=== PATIENT | male | born 1960 | race Caucasian/White ===

== ENCOUNTER 2020-07-11 11:41 | Inpatient (IN) ==
--- NOTE | 2020-07-11 12:15 | Emergency Department Note ---
Impression & Plan Congestive heart failure, Volume overload, Dyspnea on exertion, A-fib ED Provider Note NAME: NEHA BRADY AGE: 60 SEX: M : 1960 ARRIVES VIA: Ambulance INFORMANT: Patient ED PROVIDER(S): Tico Ramirez DO CHIEF COMPLAINT: Shortness of breath with exertion HPI: Patient is a 60-year-old male who presents to the ER for shortness of breath with exertion which has been present for the past month. Has been gradually getting worse. He admits to a 50 pound weight gain over the past month. Denies any chest pain. History of a CABG back in 2001. Follows with [facility] cardiology. He denies any dysuria urgency or frequency. He admits to his belly swelling up with fluid as well as both of his legs. He was evaluated by his PCP and referred in here for admission and further work-up. He denies any history of an irregular heartbeat. He admits to a history of diabetes and CAD. ROS: See above HPI for pertinent positives & negatives. A total of 10 systems reviewed and were otherwise negative. PAST MEDICAL HISTORY:See Below PAST SURGICAL HISTORY:See Below FAMILY HISTORY:See Below SOCIAL HISTORY:See Below HOME MEDICATIONS:See Below ALLERGIES:See Below VITALS:See Below PHYSICAL EXAMINATION: GENERAL: Sitting up in bed, alert, chronically ill-appearing, disheveled EYE EXAM: normal conjunctiva. NECK: supple, no nuchal rigidity, no adenopathy, non-tender LUNGS: Diminished bilaterally. Normal chest wall mechanics HEART: no murmurs, S1 normal and S2 normal ABDOMEN: abdomen soft, non-tender, normo-active bowel sounds, no masses, no rebound or guarding. BACK: Back is symmetrical on inspection and there is no deformity, no midline tenderness, no CVA tenderness. UPPER EXTREMITIES: upper extremities are grossly normal. LOWER EXTREMITIES: Diffuse pitting edema tracking up to his lower back NEURO EXAM: Normal sensorium, cranial nerves II-XII grossly intact, normal speech, no gross weakness of arms, no gross weakness of legs. MEDICAL DECISION MAKING: Patient is a 60-year-old male who presents the ER for shortness of breath. This has been getting worse over the past month. He has gained 50 pounds over the past month. IV was established blood work was obtained. Labs show no significant leukocytosis or anemia. INR was unremarkable. D-dimer negative. BMP was unremarkable. LFTs were slightly elevated. Troponin was negative. BNP elevated at 2700. UA was negative. Diffuse pitting edema. Chest x-ray c onsistent with CHF as well as exam. EKG was reviewed. Patient family was updated at bedside. He was given a dose of Lopressor as well as IV Lasix and admitted for CHF. Discussed with hospitalist for further evaluation for CHF likely secondary to A. fib. Rita fib was initially in the low 100s but did increase to the 120s. Was given IV Lopressor with good rate control. Triage Nursing notes reviewed. Prior medical records reviewed Vital Signs: reviewed and remarkable for tachypneic Differential diagnosis: Differential diagnoses includes but is not limited to pneumonia, bronchitis, COPD/Asthma exacerbation, pneumothorax, pulmonary embolism, congestive heart failure, acute coronary syndrome ER treatment provided: See below Diagnostics interpreted by me: ECG: A. fib rate of 108 Normal axis No PVCs Nonspecific ST wave changes in the lateral leads Nonspecific ST wave changes in the inferior leads Normal QTC Cardiac Monitoring: An order was placed for continuous cardiac monitoring. The monitor shows a rate of 101 with sinus rhythm. Laboratory studies: As stated above and show below. Imaging studies: Portable AP upright 1 view of the chest shows pulmonary vascular congestion Consultation(s): Discussed with hospitalist for admission. ED COURSE: Procedures: none Past Med/Surg History Medical History Coronary artery disease Diabetes mellitus, type II Dyslipidemia HTN (hypertension) Mood disorder Surgical History H/O colonoscopy "2011 repeat 5 years " History of dental surgery Status post coronary artery bypass grafting Family History Other Diabetes Pancreatic cancer Social History Smoking Status: Former smoker Tobacco Type: Smokeless Tobacco (Dip or Chew) Do You Dip or Chew Tobacco: Yes; Hx Alcohol Use: Yes Alcohol type: beer Alcohol Intake Frequency: Monthly or Less Hx Substance Use: No Preferred Language: [place] Konger Communication Ability: Effective Health And Safety Coordinator Required: No Beliefs That Will Affect Care: None Current Living Situation: Spouse Other Information That Helps Us Care for You: No Feels Safe at Home: Yes Safety Concerns: Feels Safe At This Time Allergies Allergies Allergy/AdvReac Type Severity Reaction Status Date / Time No Known Allergies Allergy Unknown Verified 07/11/20 13:45 Home Meds Home Medications Medication Instructions Recorded Confirmed aspirin 81 mg tablet,delayed 81 mg PO QAM 07/19/19 07/11/20 release atorvastatin 40 mg tablet 40 mg PO QAM 07/19/19 07/11/20 citalopram 20 mg tablet 20 mg PO QAM 07/19/19 07/11/20 fenofibrate nanocrystallized 145 145 mg PO QAM 07/19/19 07/11/20 mg tablet iron,carbonyl 100 mg-vitamin C 250 1 tab PO QAM 07/19/19 07/11/20 mg tablet isosorbide mononitrate 30 mg 30 mg PO QA 07/19/19 07/11/20 tablet,extended release 24 hr metformin 1,000 mg tablet 1,000 mg PO BIDM 07/19/19 07/11/20 metoprolol succinate 25 mg capsule 25 mg PO M 07/19/19 07/11/20 sprinkle, ext. release 24 hr multivitamin 1 tab PO QAM 07/19/19 07/11/20 nitroglycerin 0.4 mg sublingual 0.4 mg SL .COMPLEX 07/19/19 07/11/20 tablet omega-3 fatty acids 1,000 mg 1,000 mg PO QAM 07/19/19 07/11/20 capsule ramipril 5 mg capsule 5 mg PO QAM 07/19/19 07/11/20 blood sugar diagnostic #10 ea 09/18/19 01/11/20 dulaglutide 1.5 mg/0.5 mL 1.5 mg SQ SUMMERS ml 09/18/19 07/11/20 subcutaneous pen injector insulin lispro 100 unit/mL See Rx Instructions SQ TID 09/18/19 07/11/20 subcutaneous pen insulin syringe-needle U-100 1 mL #10 ea 09/18/19 01/11/20 31 gauge x 5/16" pen needle, diabetic 32 gauge x #50 ea 09/18/19 01/11/20 1/4" insulin detemir U-100 100 unit/mL See Rx Instructions SQ DAILY ml 01/11/20 07/11/20 subcutaneous solution Results & Data (ED) Vital Signs Vital Signs - 24 hr 07/11/20 11:45 07/11/20 11:50 07/11/20 11:51 Temperature 36.8 C Temperature Source Oral Pulse Rate 104 H 105 H 104 H Pulse Rate [Right Finger] Pulse Rate from SpO2 Sensor 98 H 97 H Respiratory Rate 23 24 26 H Respiratory Effort / Characteristics Spontaneous Labored Respiratory Depth Normal Respiratory Pattern Regular Blood Pressure 119/83 119/83 Blood Pressure [Left Arm] Blood Pressure Mean 103 95 Blood Pressure Mean [Left Arm] Blood Pressure Position [Left Arm] Pulse Oximetry 96 93 96 Oxygen Delivery Method Nasal Cannula Room Air Nasal Cannula Oxygen Flow Rate 2 2 Sepsis Recent Fever Within 48 Hours No Sepsis New/Unexplained Change in Mental Status No Sepsis Action Taken by Nursing No Action Required Oxygen Flow Rate - Titration 2 Pulse Oximetry Post Tiitration 97 07/11/20 12:00 07/11/20 12:19 07/11/20 12:30 Temperature Temperature Source Pulse Rate 104 H 103 H 129 H Pulse Rate [Right Finger] Pulse Rate from SpO2 Sensor 102 H 129 H Respiratory Rate 21 20 20 Respiratory Effort / Characteristics Respiratory Depth Respiratory Pattern Blood Pressure Blood Pressure [Left Arm] Blood Pressure Mean Blood Pressure Mean [Left Arm] Blood Pressure Position [Left Arm] Pulse Oximetry 97 99 100 Oxygen Delivery Method Nasal Cannula Nasal Cannula Nasal Cannula Oxygen Flow Rate 2 2 2 Sepsis Recent Fever Within 48 Hours Sepsis New/Unexplained Change in Mental Status Sepsis Action Taken by Nursing Oxygen Flow Rate - Titration Pulse Oximetry Post Tiitration 07/11/20 13:00 07/11/20 13:30 07/11/20 13:35 Temperature Temperature Source Pulse Rate 129 H 109 H 111 H Pulse Rate [Right Finger] Pulse Rate from SpO2 Sensor 129 H 108 H 123 H Respiratory Rate 21 22 18 Respiratory Effort / Characteristics Respiratory Depth Respiratory Pattern Blood Pressure 117/70 Blood Pressure [Left Arm] Blood Pressure Mean 75 Blood Pressure Mean [Left Arm] Blood Pressure Position [Left Arm] Pulse Oximetry 98 99 98 Oxygen Delivery Method Nasal Cannula Nasal Cannula Nasal Cannula Oxygen Flow Rate 2 2 2 Sepsis Recent Fever Within 48 Hours Sepsis New/Unexplained Change in Mental Status Sepsis Action Taken by Nursing Oxygen Flow Rate - Titration Pulse Oximetry Post Tiitration 07/11/20 13:36 07/11/20 13:38 07/11/20 14:00 Temperature Temperature Source Pulse Rate 110 H 103 H Pulse Rate [Right Finger] 106 H Pulse Rate from SpO2 Sensor 107 H 101 H Respiratory Rate 19 18 20 Respiratory Effort / Characteristics Non-Labored Spontaneous Respiratory Depth Normal Respiratory Pattern Regular Blood Pressure Blood Pressure [Left Arm] 117/70 Blood Pressure Mean Blood Pressure Mean [Left Arm] 85 Blood Pressure Position [Left Arm] Lying Pulse Oximetry 98 18 L 99 Oxygen Delivery Method Nasal Cannula Room Air Nasal Cannula Oxygen Flow Rate 2 2 Sepsis Recent Fever Within 48 Hours Sepsis New/Unexplained Change in Mental Status Sepsis Action Taken by Nursing Oxygen Flow Rate - Titration Pulse Oximetry Post Tiitration 07/11/20 14:01 07/11/20 14:07 07/11/20 14:08 Temperature Temperature Source Pulse Rate 107 H 105 H 98 H Pulse Rate [Right Finger] Pulse Rate from SpO2 Sensor 106 H 105 H 97 H Respiratory Rate 24 22 19 Respiratory Effort / Characteristics Respiratory Depth Respiratory Pattern Blood Pressure 123/96 Blood Pressure [Left Arm] Blood Pressure Mean 110 Blood Pressure Mean [Left Arm] Blood Pressure Position [Left Arm] Pulse Oximetry 98 96 96 Oxygen Delivery Method Nasal Cannula Nasal Cannula Nasal Cannula Oxygen Flow Rate 2 2 2 Sepsis Recent Fever Within 48 Hours Sepsis New/Unexplained Change in Mental Status Sepsis Action Taken by Nursing Oxygen Flow Rate - Titration Pulse Oximetry Post Tiitration Laboratory Data Result diagrams: 07/11/20 12:00 07/11/20 12:00 Lab Results 07/11/20 07/11/20 07/11/20 Range/Units 12:00 12:00 12:00 WBC 8.23 (4.8-10.8) K/uL RBC 5.20 (4.7-6.1) M/uL Hgb 15.1 (14.0-18.0) g/dL Hct 47.5 (42-52) % MCV 91.3 (80-100) fL MCH 29.0 (25-34) pg MCHC 31.8 L (32-36) g/dL RDW Std Deviation 52.8 H (36.4-46.3) fL RDW Coeff of Sai 15.6 H (11.5-14.5) % Plt Count 114 L (130-400) K/uL MPV 12.0 H (7.4-10.4) fL Immature Gran % (Auto) 0.2 % Neut % (Auto) 63.4 % Lymph % (Auto) 22.7 % Rusk % (Auto) 10.6 % Eos % (Auto) 3.0 % Baso % (Auto) 0.1 % Neut # (Auto) 5.21 (1.4-6.5) K/uL Lymph # (Auto) 1.87 (1.2-3.4) K/uL Rusk # (Auto) 0.87 H (0.11-0.59) K/uL Eos # (Auto) 0.25 (0-0.5) K/uL Baso # (Auto) 0.01 (0-0.2) K/uL Immature Gran # (Auto) 0.02 (0.00-0.02) K/uL Platelet Estimate Decreased L (Normal) PT 11.6 (9.0-12.0) Seconds INR 1.1 (0.9-1.1) APTT 24.8 (21.0-31.0) Seconds PTT Ratio 0.9 D-Dimer (0-500) ug/L FEU Sodium 140 (136-145) mmol/L Potassium 4.5 (3.5-5.1) mmol/L Chloride 108 H (98-107) mmol/L Carbon Dioxide 26 (21-32) mmol/L Anion Gap 5.0 (3-11) BUN 23 H (7-18) mg/dl Creatinine 0.92 (0.6-1.4) mg/dl Est Cr Clr Drug Dosing 118.0 ml/min Est GFR ( Amer) 103.7 Est GFR (Non-Af Amer) 89.5 BUN/Creatinine Ratio 25.3 H (10-20) Glucose 102 H (70-99) mg/dl Uric Acid (2.6-7.2) mg/dl Calcium 8.6 (8.5-10.1) mg/dl Magnesium 1.8 (1.8-2.4) mg/dl Total Bilirubin 0.4 (0.2-1) mg/dl AST 66 H (15-37) U/L ALT 92 H (12-78) U/L Alkaline Phosphatase 116 (45-117) U/L Troponin I < 0.015 (0-0.045) ng/ml NT-Pro-B Natriuret Pep 2745 H (0-900) pg/ml Total Protein 6.5 (6.4-8.2) gm/dl Albumin 3.0 L (3.4-5.0) gm/dl Globulin 3.5 (2.5-4.0) gm/dl Albumin/Globulin Ratio 0.9 (0.9-2) Specimen Hemolysis 07/11/20 07/11/20 Range/Units 12:00 12:00 WBC (4.8-10.8) K/uL RBC (4.7-6.1) M/uL Hgb (14.0-18.0) g/dL Hct (42-52) % MCV (80-100) fL MCH (25-34) pg MCHC (32-36) g/dL RDW Std Deviation (36.4-46.3) fL RDW Coeff of Sai (11.5-14.5) % Plt Count (130-400) K/uL MPV (7.4-10.4) fL Immature Gran % (Auto) % Neut % (Auto) % Lymph % (Auto) % Rusk % (Auto) % Eos % (Auto) % Baso % (Auto) % Neut # (Auto) (1.4-6.5) K/uL Lymph # (Auto) (1.2-3.4) K/uL Rusk # (Auto) (0.11-0.59) K/uL Eos # (Auto) (0-0.5) K/uL Baso # (Auto) (0-0.2) K/uL Immature Gran # (Auto) (0.00-0.02) K/uL Platelet Estimate (Normal) PT (9.0-12.0) Seconds INR (0.9-1.1) APTT (21.0-31.0) Seconds PTT Ratio D-Dimer 350 (0-500) ug/L FEU Sodium (136-145) mmol/L Potassium (3.5-5.1) mmol/L Chloride (98-107) mmol/L Carbon Dioxide (21-32) mmol/L Anion Gap (3-11) BUN (7-18) mg/dl Creatinine (0.6-1.4) mg/dl Est Cr Clr Drug Dosing ml/min Est GFR ( Amer) Est GFR (Non-Af Amer) BUN/Creatinine Ratio (10-20) Glucose (70-99) mg/dl Uric Acid 5.8 (2.6-7.2) mg/dl Calcium (8.5-10.1) mg/dl Magnesium (1.8-2.4) mg/dl Total Bilirubin (0.2-1) mg/dl AST (15-37) U/L ALT (12-78) U/L Alkaline Phosphatase (45-117) U/L Troponin I (0-0.045) ng/ml NT-Pro-B Natriuret Pep (0-900) pg/ml Total Protein (6.4-8.2) gm/dl Albumin (3.4-5.0) gm/dl Globulin (2.5-4.0) gm/dl Albumin/Globulin Ratio (0.9-2) Specimen Hemolysis Administered Medications Insulin Aspart (Insulin Aspart 100 Units/Ml 3 Ml Pen) 0 units SC ACHS TETE Stop: 08/10/20 18:14 Last Admin: 07/11/20 18:21 Dose: Not Given Documented by: [id number] Discontinued Medications Furosemide (Furosemide 40 Mg/4 Ml Vial) 40 mg IV NOW STA Stop: 07/11/20 13:23 Last Admin: 07/11/20 13:36 Dose: 40 mg Documented by: [id number] Metoprolol Tartrate (Metoprolol Tartrate 1 Mg/Ml Vial) 2.5 mg IV NOW STA Stop: 07/11/20 13:31 Last Admin: 07/11/20 13:35 Dose: 2.5 mg Documented by: [id number] Miscellaneous Information (Pharmacy Glycemic Mgmt Consult) 1 ea N/A NOW STA Stop: 07/11/20 14:23 Last Admin: 07/11/20 18:22 Dose: Not Given Documented by: [id number] Discharge Plan Visit Data Chief Complaint: Shortness of Breath/Dyspnea Stated Complaint: SOB on exertion w/ weight gain Hx CHF ED Provider: Tico Ramirez Discharge Problem: Congestive heart failure, Volume overload, Dyspnea on exertion, A-fib Patient Disposition: Admitted As Inpatient Discharge Instructions Interventions: ED Discharge Assessment Last Done: 07/11/20 17:09 Discharge Problem: Congestive heart failure Qualifiers: Heart failure type: unspecified Heart failure chronicity: unspecified Qualified Code(s): I50.9 - Heart failure, unspecified Volume overload Qualifiers: Hypervolemia type: unspecified Qualified Code(s): E87.70 - Fluid overload, unspecified A-fib Qualifiers: Atrial fibrillation type: unspecified Qualified Code(s): I48.91 - Unspecified atrial fibrillation
[2020-07-11 12:33] LABS: Alanine Aminotransferase 92 U/L (12-78); Aspartate Aminotransferase 66 U/L (15-37); BUN Creatinine Ratio 25.3 (10-20); Blood Urea Nitrogen 23 mg/dl (7-18); Calcium 8.6 mg/dl (8.5-10.1); Carbon Dioxide 26 mmol/L (21-32); Chloride 108 mmol/L (98-107); Est GFR (African American) 103.7; Est GFR (Non-African American) 89.5; Glucose 102 mg/dl (70-99); Magnesium 1.8 mg/dl (1.8-2.4); Potassium 4.5 mmol/L (3.5-5.1); Sodium 140 mmol/L (136-145)
[2020-07-11 12:36] LABS: INR 1.1 (0.9-1.1); Partial Thromboplastin Ratio 0.9; Partial Thromboplastin Time 24.8 Seconds (21.0-31.0); Prothrombin Time 11.6 Seconds (9.0-12.0)
[2020-07-11 12:44] LABS: Albumin Globulin Ratio 0.9 (0.9-2); Alkaline Phosphatase 116 U/L (45-117); Bilirubin,Total 0.4 mg/dl (0.2-1); Globulin 3.5 gm/dl (2.5-4.0); NT Pro B Type Natriuretic Pept 2745 pg/ml (0-900); Total Protein 6.5 gm/dl (6.4-8.2); Troponin I < 0.015 ng/ml (0-0.045)
[2020-07-11 12:47] LABS: Basophils # (auto) 0.01 K/uL (0-0.2); Basophils % (auto) 0.1 %; Eosinophils # (auto) 0.25 K/uL (0-0.5); Hematocrit (blood only) 47.5 % (42-52); Hemoglobin 15.1 g/dL (14.0-18.0); Immature Granulocytes # (auto) 0.02 K/uL (0.00-0.02); Immature Granulocytes % (auto) 0.2 %; Lymphocytes # (auto) 1.87 K/uL (1.2-3.4); Lymphocytes % (auto) 22.7 %; Mean Corpuscular Hgb Conc 31.8 g/dL (32-36); Mean Corpuscular Volume 91.3 fL (80-100); Monocytes # (auto) 0.87 K/uL (0.11-0.59); Monocytes % (auto) 10.6 %; Neutrophils # (auto) 5.21 K/uL (1.4-6.5); Neutrophils % (auto) 63.4 %; Platelet Count 114 K/uL (130-400); Platelet Estimate Decreased (Normal); RDW Coefficient of Variation 15.6 % (11.5-14.5); RDW Standard Deviation 52.8 fL (36.4-46.3); White Blood Count 8.23 K/uL (4.8-10.8)
[2020-07-11] MEDS ORDERED: FUROSEMIDE 40 MG/4 ML VIAL IV STA (13:22)
--- NOTE | 2020-07-11 13:26 | XRay Report ---
XR chest 1V portable HISTORY: 60 years-old Male Dyspnea acute shortness of breath COMPARISON: Chest radiograph 08/13/2016 TECHNIQUE: Portable AP view of the chest FINDINGS: Cardiac silhouette is enlarged, increased in size from comparison. Prior median sternotomy and CABG. Pulmonary vascular congestion. No pneumothorax. Mild right hemidiaphragmatic elevation. Blunting of t he right costophrenic angle. Mild bibasilar linear opacities. Degenerative changes of the shoulders a nd spine. IMPRESSION: 1. Cardiomegaly with pulmonary vascular congestion. 2. Trace pleural effusions with probable bibasilar atelectasis. ACT 112: Negative or not required by law. The above report was generated using voice recognition software. It may contain grammatical, syntax o r spelling errors. Electronically signed by: Romeo Saenz M.D. 07/11/2020 1:24 PM
[2020-07-11] MEDS ORDERED: METOPROLOL TARTRATE 1 MG/ML VIAL IV STA (13:30)
[2020-07-11] MEDS ORDERED: PHARMACY GLYCEMIC MGMT CONSULT STA (14:22)
--- NOTE | 2020-07-11 14:23 | History & Physical Report ---
Date of Service July 11, 2020 Assessment & Plan (1) Volume overload: (2) Dyspnea on exertion: This is a 60-year-old male with PMH of insulin-dependent type 2 diabetes, CAD (history of CABG in 2001), dyslipidemia, hypertension, GERD and other medical problems listed below who presents with significant weight gain and dyspnea on exertion over the past month. -Reported fifty pound weight gain, dyspnea on exertion, orthopnea & PND. No previous diagnosis of CHF -Pro-BNP elevated at 2745. Troponin normal. CXR with cardiomegaly with pulmonary vascular congestion and trace pleural effusions with probable bibasilar atelectasis. No recent echocardiogram on file -Given 40mg IV lasix in ED. BP has remained on softer side at 104/78 - consulting cardiology for further diuretic recommendations, considering Lasix + albumin -TTE ordered, felipe placed for strict I&Os, daily weights, low Na diet, monitor on telemetry -UA pending. Concern for underlying renal dysfunction like nephrotic syndrome. Protein/Cr ratio also pending. Routine nephro consult (3) Atrial flutter by electrocardiogram: A flutter with variable block with HR of 129 in setting of significant volume overload -Given 2.5mg IV Lopressor in ED with improved HR of 105. Repeat EKG pending -Currently taking Toprol 25mg daily at home -Monitor on telemetry. Appreciate cardiology recommendations (4) HTN (hypertension): Continue Toprol and ramipril with hold parameters (5) Diabetes mellitus, type II: Poorly controlled DM II with most recent a1c of 9.3 earlier this month -Formerly on insulin pump, now requiring ~96 units of lantus qPM -Hold home agents -Glycemic consult placed -[facility] (6) Coronary artery disease: H/o CABG in 2001. EKG without acute ST changes. No chest pain. Continue aspirin, statin, beta sury (7) Dyslipidemia: Continue statin, fenofibrate (8) Mood disorder: Continue SSRI DVT Ppx: SQ heparin Code status: FULL PCP: [facility] Dispo: Admitted to PCU. Plan to return home once medically stable. Patient seen in collaboration with Dr. Atkins. Please see addendum. History of Present Illness Chief Complaint: Significant weight gain, dyspnea on exertion Primary Care Provider: Johnny Mejia MD This is a 60-year-old male with PMH of insulin-dependent type 2 diabetes, CAD (history of CABG in 2001), dyslipidemia, hypertension, GERD and other medical problems listed below who presents with significant weight gain and dyspnea on exertion over the past month. Patient endorses gaining approximately 50 pounds over the past month with notable swelling in abdomen and lower extremities. Has also had dyspnea on exertion with any type of activity. Does endorse orthopnea and PND. Has followed with Dr. Flowers in the past of cardiology group for CAD and HTN but has not seen since 2017. Receives primary care from [facility]. Follows with [facility] endocrine for poorly controlled DM II. Denies any lightheadedness, visual changes, chest pain or palpitations. Denies wheezing. No fever, chills or cough. No sick contacts. Denies abdominal pain, nausea or vomiting. No dysuria but endorses nocturia and increased frequency he attributes to diabetes. In the ED, found to have heart rate of 129 and BP of 96/60. EKG showing atrial flutter with variable block. Denies any history of known arrhythmias. SOB improved on 2 L nasal cannula oxygen. Pro-BNP elevated at 2745. CXR with cardiomegaly with pulmonary vascular congestion and trace pleural effusions with probable bibasilar atelectasis. No recent echocardiogram on file. Allergies Allergy/AdvReac Type Severity Reaction Status Date / Time No Known Allergies Allergy Unknown Verified 07/11/20 13:45 Home Medications Home Medications Medication Instructions Recorded Confirmed Type aspirin 81 mg tablet,delayed 81 mg PO [facility] 07/19/19 07/11/20 History release atorvastatin 40 mg tablet 40 mg PO [facility] 07/19/19 07/11/20 History citalopram 20 mg tablet 20 mg PO [facility] 07/19/19 07/11/20 History fenofibrate nanocrystallized 145 145 mg PO [facility] 07/19/19 07/11/20 History mg tablet iron,carbonyl 100 mg-vitamin C 250 1 tab PO [facility] 07/19/19 07/11/20 History mg tablet isosorbide mononitrate 30 mg 30 mg PO [facility] 07/19/19 07/11/20 History tablet,extended release 24 hr metformin 1,000 mg tablet 1,000 mg PO BID 07/19/19 07/11/20 History metoprolol succinate 25 mg capsule 25 mg PO [facility] 07/19/19 07/11/20 History sprinkle, ext. release 24 hr multivitamin 1 tab PO QAM 07/19/19 07/11/20 History nitroglycerin 0.4 mg sublingual 0.4 mg SL .COMPLEX 07/19/19 07/11/20 History tablet omega-3 fatty acids 1,000 mg 1,000 mg PO QAM 07/19/19 07/11/20 History capsule ramipril 5 mg capsule 5 mg PO QAM 07/19/19 07/11/20 History blood sugar diagnostic #10 ea 09/18/19 01/11/20 History dulaglutide 1.5 mg/0.5 mL 1.5 mg SQ SUMMERS ml 09/18/19 07/11/20 History subcutaneous pen injector insulin lispro 100 unit/mL See Rx Instructions SQ TID 09/18/19 07/11/20 History subcutaneous pen insulin syringe-needle U-100 1 mL #10 ea 09/18/19 01/11/20 History 31 gauge x 5/16" pen needle, diabetic 32 gauge x #50 ea 09/18/19 01/11/20 History 1/4" insulin detemir U-100 100 unit/mL See Rx Instructions SQ DAILY ml 01/11/20 07/11/20 History subcutaneous solution Past Med/Surg History Medical History Coronary artery disease Diabetes mellitus, type II Dyslipidemia HTN (hypertension) Mood disorder Surgical History H/O colonoscopy "2011 repeat 5 years " History of dental surgery Status post coronary artery bypass grafting Family History Other Diabetes Pancreatic cancer Social History Smoking Status: Former smoker Tobacco Type: Smokeless Tobacco (Dip or Chew) Do You Dip or Chew Tobacco: Yes; Hx Alcohol Use: Yes Alcohol type: beer Alcohol Intake Frequency: Monthly or Less Hx Substance Use: No Preferred Language: Malian Communication Ability: Effective In Flight [employer] Required: No Beliefs That Will Affect Care: None Current Living Situation: Spouse Other Information That Helps Us Care for You: No Feels Safe at Home: Yes Safety Concerns: Feels Safe At This Time Review of Systems Review of Systems: At least ten systems reviewed and negative except as noted in the HPI. Physical Exam Physical Exam: General Appearance: WD/WN, vitals as above, NAD, sitting up in bed, obese, pleasant, conversational dyspnea Head: normocephalic, atraumatic Eyes: normal inspection, PERRL, conjunctivae normal, anicteric sclerae ENT: external ear and nose normal, oropharynx normal Neck: normal visual inspection, trachea midline, no thyromegaly Respiratory: normal respiratory effort, diminished lung sounds at bases, no wheeze or rhonchi. No accessory muscle use Cardiovascular: tachycardic rate, irregular rhythm, no murmur appreciated, normal peripheral pulses, 2+ BLE pitting edema. Vessels: difficult to assess JVD due to habitus Chest: normal inspection of chest Abdomen/GI: normal bowel sounds, soft but protuberant, nontender, no hepatosplenomegaly Extremities/Musculoskeletal: no cyanosis or clubbing, extremities motor strength 5/5. Pitting edema up to midback bilaterally Neurologic: PERRL, EOMI, accommodation nl, no face palsy, no dysarthria, CN's II-XI intact bilaterally and moves all extremities Psychiatric: A+Ox3, euthymic affect Skin: no rashes, normal color, warm/dry Results & Data Results & Data ([facility]) Vital Signs (Past 12 Hours) Vital Signs Temp Pulse Pulse Resp BP BP Pulse Ox 07/11/20 14:07 105 H 22 123/96 96 07/11/20 14:01 107 H 24 98 07/11/20 14:00 103 H 20 99 07/11/20 13:38 106 H 18 117/70 18 L 07/11/20 13:36 110 H 19 98 07/11/20 13:35 111 H 18 117/70 98 07/11/20 13:30 109 H 22 99 07/11/20 13:00 129 H 21 98 07/11/20 12:30 129 H 20 100 07/11/20 12:19 103 H 20 99 07/11/20 12:00 104 H 21 97 07/11/20 11:51 104 H 26 H 96 07/11/20 11:50 36.8 C 105 H 24 119/83 93 07/11/20 11:45 104 H 23 119/83 96 Laboratory Results Short CBC 07/11/20 Range/Units 12:00 WBC 8.23 (4.8-10.8) K/uL Hgb 15.1 (14.0-18.0) g/dL Hct 47.5 (42-52) % Plt Count 114 L (130-400) K/uL BMP 07/11/20 12:00 Sodium 140 Potassium 4.5 Chloride 108 H Carbon Dioxide 26 BUN 23 H Creatinine 0.92 Glucose 102 H Calcium 8.6 Cardiac Enzymes 07/11/20 Range/Units 12:00 Troponin I < 0.015 (0-0.045) ng/ml Liver Function 07/11/20 Range/Units 12:00 Total Bilirubin 0.4 (0.2-1) mg/dl AST 66 H (15-37) U/L ALT 92 H (12-78) U/L Alkaline Phosphatase 116 (45-117) U/L Albumin 3.0 L (3.4-5.0) gm/dl Diagnostic Findings CXR: IMPRESSION: 1. Cardiomegaly with pulmonary vascular congestion. 2. Trace pleural effusions with probable bibasilar atelectasis. ECG Rhythm: atrial flutter Code Status & VTE Plan VTE Prophylaxis Plan VTE Prophylaxis will be ordered: Yes Supervising Physician Co-Signing Physician Notes I saw this patient with the physician tv production assistant, I participated in the history, physical, review of systems, and physical exam. I reviewed the medications with the patient and the physician tv production assistant and helped reconcile the medications. I helped take a detailed family and social history as well. I formulated the assessment and plan personally with the physician tv production assistant and went over it with the patient. Physical Exam Gen-AAO x 3, NAD, Afebrile, Obese Head-NCAT, EOMI, PERRLA, Anicteric Sclera, No Posterior Pharyngeal Erythema Neck-Supple, No JVD, No Thyromegaly, No Masses, No LAD, No Bruits Lungs-Decreased at the bases Chest-No S4, +S1, +S2, No S3, No Murmurs, No Rubs, No Gallops, No Ectopy Abdomen-Soft, Bowel Sounds Present, Non Tender, Distended, No Hepatomegaly, No Splenomegaly, No Palpable Masses, No Rebound, No Rigidity, No Guarding Musculoskeletal-Full Range of Motion Bilaterally, No CVAT Extremities-No Cyanosis, No Clubbing, 3-4+ Edema Bilat Nuero-Cranial Nerves II-XII grossly intact, Motor WNL, DTRs WNL, Strength WNL, Non Focal Psych-Normal Mood
[2020-07-11 15:43] LABS: D Dimer 350 ug/L FEU (0-500)
[2020-07-11 16:00] LABS: Appearance Urine Clear (Clear); Bacteria Urine Automated Negative (Negative); Bilirubin Urine Negative (Negative); Blood Urine Negative (Negative); Color Urine Yellow; Epithelial Cell Urine Auto 0-5 /lpf (0-5); Glucose Urine UA 3+ (Negative); Ketones Urine Negative (Negative); Leukocyte Esterase Urine Trace (Negative); Nitrite Urine Positive (Negative); Protein Urine Negative (Negative); RBC Urine Automated 0-4 /hpf (0-4); Specific Gravity Urine 1.014 (1.000-1.030); Urobilinogen Urine Negative (Negative)
[2020-07-11 16:41] LABS: Creatinine Urine Random 25.8 mg/dl; Protein Creatinine Ratio Urine 0.2 (0-0.2); Total Protein Urine Random 5.5 mg/dl (0-11.9)
[2020-07-11] MEDS ORDERED: ONDANSETRON INJ 2 MG/ML 2 ML VIAL IV PRN (17:38)
[2020-07-11] MEDS ORDERED: NITROGLYCERIN SL 0.4 MG/TAB TAB SL PRN (17:38)
[2020-07-11] MEDS ORDERED: POLYETHYLENE (MIRALAX) 17 GM PACK PO PRN (17:38)
[2020-07-11] MEDS ORDERED: ACETAMINOPHEN 325 MG TAB PO PRN (17:38)
[2020-07-11] MEDS ORDERED: PHARMACY GLYCEMIC MGMT CONSULT PRN (17:57)
--- NOTE | 2020-07-11 18:10 | Cardiology Consultation ---
Date of Consultation July 11, 2020 Assessment & Plan (1) Acute decompensated heart failure: Patient presents with subacute onset symptoms of increasing lower extremity and abdominal bloating and edema decompensated biventricular heart failure right greater than left. Chest x-ray reveals mild vascular congestion on exam consistent with significant volume overload, anasarca Atrial flutter newly observed right presenting question whether this represents cause or an effect of heart failure Plan: Continue oral metoprolol succinate Begin IV diuretics Patient warrants anticoagulation with platelet counts mildly suppressed will hold IV heparin until repeat studies known. ? directly to DOAC Repeat CBC in a.m. BMP and echocardiogram to reassess LV function Suspicious for component of hepatic dysfunction as well (2) Atrial flutter with rapid ventricular response: (3) Coronary artery disease: (4) Diabetes mellitus, type II: History of Present Illness Reason for Consultation: Atrial flutter, decompensated biventricular heart failure right greater than left Requesting Physician: Dr. Atkins Attending Physician: Dale Atkins DO History of Present Illness Patient is a complex 60-year-old male with underlying multiple issues which include 1. Atherosclerotic coronary disease status post coronary bypass grafting 2001 LEWIS graft LAD, radial artery graft to posterior descending artery 2. Longstanding type 2 diabetes mellitus insulin requiring 3. Hypertension 4. Chart history of paroxysmal atrial fibrillation without recent occurrence Patient was referred now after presenting with symptoms of increasing abdominal girth, shortness of breath and fatigue greater than 50 pound weight gain over the past several weeks time. Patient notes no chest pains or tachypalpitations. Does note some mild dizziness but no overt syncope. No fevers chills cough. No bleeding difficulties. Very sedentary about home with marked dyspnea with exertion currently. Has been aware of increasing edema lower extremities and abdomen. Sleeps lying flat generally at night. No headaches or visual changes no rash or acute arthritic complaints Medical regimen as outlined with patient compliant Last cardiology evaluation May 2016, last echocardiogram with preserved LV function 2005 Allergies Allergy/AdvReac Type Severity Reaction Status Date / Time No Known Allergies Allergy Unknown Verified 07/11/20 13:45 Home Medications Home Medications Medication Instructions Recorded Confirmed Type aspirin 81 mg tablet,delayed 81 mg PO QAM 07/19/19 07/11/20 History release atorvastatin 40 mg tablet 40 mg PO QAM 07/19/19 07/11/20 History citalopram 20 mg tablet 20 mg PO QAM 07/19/19 07/11/20 History fenofibrate nanocrystallized 145 145 mg PO QAM 07/19/19 07/11/20 History mg tablet iron,carbonyl 100 mg-vitamin C 250 1 tab PO QAM 07/19/19 07/11/20 History mg tablet isosorbide mononitrate 30 mg 30 mg PO QAM 07/19/19 07/11/20 History tablet,extended release 24 hr metformin 1,000 mg tablet 1,000 mg PO BIDM 07/19/19 07/11/20 History metoprolol succinate 25 mg capsule 25 mg PO QAM 07/19/19 07/11/20 History sprinkle, ext. release 24 hr multivitamin 1 tab PO QAM 07/19/19 07/11/20 History nitroglycerin 0.4 mg sublingual 0.4 mg SL .COMPLEX 07/19/19 07/11/20 History tablet omega-3 fatty acids 1,000 mg 1,000 mg PO QAM 07/19/19 07/11/20 History capsule ramipril 5 mg capsule 5 mg PO QAM 07/19/19 07/11/20 History blood sugar diagnostic #10 ea 09/18/19 01/11/20 History dulaglutide 1.5 mg/0.5 mL 1.5 mg SQ SUMMERS ml 09/18/19 07/11/20 History subcutaneous pen injector insulin lispro 100 unit/mL See Rx Instructions SQ TID 09/18/19 07/11/20 History subcutaneous pen insulin syringe-needle U-100 1 mL #10 ea 09/18/19 01/11/20 History 31 gauge x 5/16" pen needle, diabetic 32 gauge x #50 ea 09/18/19 01/11/20 History 1/4" insulin detemir U-100 100 unit/mL See Rx Instructions SQ DAILY ml 01/11/20 07/11/20 History subcutaneous solution Patient History Medical History Coronary artery disease Diabetes mellitus, type II Dyslipidemia HTN (hypertension) Mood disorder Surgical History H/O colonoscopy "2011 repeat 5 years " History of dental surgery Status post coronary artery bypass grafting Family History Other Diabetes Pancreatic cancer Social History Smoking Status: Former smoker Tobacco Type: Smokeless Tobacco (Dip or Chew) Do You Dip or Chew Tobacco: Yes; Hx Alcohol Use: Yes Alcohol type: beer Alcohol Intake Frequency: Monthly or Less Hx Substance Use: No Preferred Language: Kenyan Communication Ability: Effective Aircraft Refueller Required: No Beliefs That Will Affect Care: None Current Living Situation: Spouse Other Information That Helps Us Care for You: No Feels Safe at Home: Yes Safety Concerns: Feels Safe At This Time Physical Exam Physical Exam: Laboratory Results - last 24 hr 07/11/20 07/11/20 07/11/20 12:00 12:00 12:00 WBC 8.23 RBC 5.20 Hgb 15.1 Hct 47.5 MCV 91.3 MCH 29.0 MCHC 31.8 L RDW Std Deviation 52.8 H RDW Coeff of Sai 15.6 H Plt Count 114 L MPV 12.0 H Immature Gran % (A uto) 0.2 Neut % (Auto) 63.4 Lymph % (Auto) 22.7 [place] % (Auto) 10.6 Eos % (Auto) 3.0 Baso % (Auto) 0.1 Neut # (Auto) 5.21 Lymph # (Auto) 1.87 [place] # (Auto) 0.87 H Eos # (Auto) 0.25 Baso # (Auto) 0.01 Immature Gran # (A uto) 0.02 Platelet Estimate Decreased L PT 11.6 INR 1.1 APTT 24.8 PTT Ratio 0.9 D-Dimer Sodium 140 Potassium 4.5 Chloride 108 H Carbon Dioxide 26 Anion Gap 5.0 BUN 23 H Creatinine 0.92 Est Cr Clr Drug Do sing 118.0 Est GFR ( A jos) 103.7 Est GFR (Non-Af Am er) 89.5 BUN/Creatinine Rat io 25.3 H Glucose 102 H POC Glucose Uric Acid Calcium 8.6 Magnesium 1.8 Total Bilirubin 0.4 AST 66 H ALT 92 H Alkaline Phosphata se 116 Troponin I < 0.015 NT-Pro-B Natriuret Pep 2745 H Total Protein 6.5 Albumin 3.0 L Globulin 3.5 Albumin/Globulin R atio 0.9 Specimen Hemolysis Urine Color Urine Appearance Urine pH Ur Specific Gravit y Urine Protein Urine Glucose (UA) Urine Ketones Urine Blood Urine Nitrite Urine Bilirubin Urine Urobilinogen Ur Leukocyte Keila ase Urine WBC (Auto) Urine RBC (Auto) U Hyaline Cast (Au to) U Epithel Cells (A uto) Urine Bacteria (Au to) Urine Yeast Ur Random Creatini ne U Random Total Pro tein Protein/Creatinin Ratio 07/11/20 07/11/20 07/11/20 12:00 12:00 15:50 WBC RBC Hgb Hct MCV MCH MCHC RDW Std Deviation RDW Coeff of Sai Plt Count MPV Immature Gran % (A uto) Neut % (Auto) Lymph % (Auto) [place] % (Auto) Eos % (Auto) Baso % (Auto) Neut # (Auto) Lymph # (Auto) [place] # (Auto) Eos # (Auto) Baso # (Auto) Immature Gran # (A uto) Platelet Estimate PT INR APTT PTT Ratio D-Dimer 350 Sodium Potassium Chloride Carbon Dioxide Anion Gap BUN Creatinine Est Cr Clr Drug Do sing Est GFR ( A jos) Est GFR (Non-Af Am er) BUN/Creatinine Rat io Glucose POC Glucose Uric Acid 5.8 Calcium Magnesium Total Bilirubin AST ALT Alkaline Phosphata se Troponin I NT-Pro-B Natriuret Pep Total Protein Albumin Globulin Albumin/Globulin R atio Specimen Hemolysis Urine Color Yellow Urine Appearance Clear Urine pH 5.0 Ur Specific Gravit y 1.014 Urine Protein Negative Urine Glucose (UA) 3+ H Urine Ketones Negative Urine Blood Negative Urine Nitrite Positive A Urine Bilirubin Negative Urine Urobilinogen Negative Ur Leukocyte Keila ase Trace H Urine WBC (Auto) 1-5 Urine RBC (Auto) 0-4 U Hyaline Cast (Au to) 1-5 U Epithel Cells (A uto) 0-5 Urine Bacteria (Au to) Negative Urine Yeast Not Reportable Ur Random Creatini ne U Random Total Pro tein Protein/Creatinin Ratio 07/11/20 07/11/20 15:50 18:06 WBC RBC Hgb Hct MCV MCH MCHC RDW Std Deviation RDW Coeff of Sai Plt Count MPV Immature Gran % (A uto) Neut % (Auto) Lymph % (Auto) [place] % (Auto) Eos % (Auto) Baso % (Auto) Neut # (Auto) Lymph # (Auto) [place] # (Auto) Eos # (Auto) Baso # (Auto) Immature Gran # (A uto) Platelet Estimate PT INR APTT PTT Ratio D-Dimer Sodium Potassium Chloride Carbon Dioxide Anion Gap BUN Creatinine Est Cr Clr Drug Do sing Est GFR ( A jos) Est GFR (Non-Af Am er) BUN/Creatinine Rat io Glucose POC Glucose 74 Uric Acid Calcium Magnesium Total Bilirubin AST ALT Alkaline Phosphata se Troponin I NT-Pro-B Natriuret Pep Total Protein Albumin Globulin Albumin/Globulin R atio Specimen Hemolysis Urine Color Urine Appearance Urine pH Ur Specific Gravit y Urine Protein Urine Glucose (UA) Urine Ketones Urine Blood Urine Nitrite Urine Bilirubin Urine Urobilinogen Ur Leukocyte Keila ase Urine WBC (Auto) Urine RBC (Auto) U Hyaline Cast (Au to) U Epithel Cells (A uto) Urine Bacteria (Au to) Urine Yeast Ur Random Creatini ne 25.8 U Random Total Pro tein 5.5 Protein/Creatinin Ratio 0.2 Constitutional: + morbidly obese Eyes: PERRL, conjunctivae normal, anicteric sclerae ENMT: external ear and nose normal, oropharynx normal Neck: trachea midline, no thyromegaly + thick neck Respiratory: Auscultation: + diminished lung sounds and + rales (Bibasilar) Cardiovascular: Rate/Rhythm: regular rate (Atrial flutter with regularly irregular) Heart Sounds: normal S1 and normal S2; no murmur (Distant heart sounds) Extremities: + edema (3+ edema extending to mid abdomen with marked presacral and thigh edema) Gastrointestinal (Abdomen): Mildly distended Musculoskeletal: Head/Neck/Chest: normocephalic and head atraumatic Skin: Mild stasis changes lower extremities Results & Data ([facility]) Vital Signs (Past 12 Hours) Vital Signs Temp Pulse Pulse Resp BP BP Pulse Ox 07/11/20 17:43 108 H 07/11/20 17:00 124 H 18 97 07/11/20 16:31 105 H 18 98 07/11/20 16:30 108 H 13 111/70 98 07/11/20 16:01 104 H 23 98 07/11/20 16:00 104 H 24 109/74 97 07/11/20 15:31 125 H 21 99 07/11/20 15:30 128 H 22 104/78 07/11/20 15:01 92 H 23 100 07/11/20 15:00 100 H 24 99/70 L 100 07/11/20 14:49 107 H 22 104/72 99 07/11/20 14:30 119 H 21 98/67 L 99 07/11/20 14:08 98 H 19 96 07/11/20 14:07 105 H 22 123/96 96 07/11/20 14:01 107 H 24 98 07/11/20 14:00 103 H 20 99 07/11/20 13:38 106 H 18 117/70 18 L 07/11/20 13:36 110 H 19 98 07/11/20 13:35 111 H 18 117/70 98 07/11/20 13:30 109 H 22 99 07/11/20 13:00 129 H 21 98 07/11/20 12:30 129 H 20 100 07/11/20 12:19 103 H 20 99 07/11/20 12:00 104 H 21 97 07/11/20 11:51 104 H 26 H 96 07/11/20 11:50 36.8 C 105 H 24 119/83 93 07/11/20 11:45 104 H 23 119/83 96 Laboratory Results Laboratory Results - last 24 hr 07/11/20 07/11/20 07/11/20 12:00 12:00 12:00 WBC 8.23 RBC 5.20 Hgb 15.1 Hct 47.5 MCV 91.3 MCH 29.0 MCHC 31.8 L RDW Std Deviation 52.8 H RDW Coeff of Sai 15.6 H Plt Count 114 L MPV 12.0 H Immature Gran % (Auto) 0.2 Neut % (Auto) 63.4 Lymph % (Auto) 22.7 [place] % (Auto) 10.6 Eos % (Auto) 3.0 Baso % (Auto) 0.1 Neut # (Auto) 5.21 Lymph # (Auto) 1.87 [place] # (Auto) 0.87 H Eos # (Auto) 0.25 Baso # (Auto) 0.01 Immature Gran # (Auto) 0.02 Platelet Estimate Decreased L PT 11.6 INR 1.1 APTT 24.8 PTT Ratio 0.9 D-Dimer Sodium 140 Potassium 4.5 Chloride 108 H Carbon Dioxide 26 Anion Gap 5.0 BUN 23 H Creatinine 0.92 Est Cr Clr Drug Dosing 118.0 Est GFR ( Amer) 103.7 Est GFR (Non-Af Amer) 89.5 BUN/Creatinine Ratio 25.3 H Glucose 102 H POC Glucose Uric Acid Calcium 8.6 Magnesium 1.8 Total Bilirubin 0.4 AST 66 H ALT 92 H Alkaline Phosphatase 116 Troponin I < 0.015 NT-Pro-B Natriuret Pep 2745 H Total Protein 6.5 Albumin 3.0 L Globulin 3.5 Albumin/Globulin Ratio 0.9 Specimen Hemolysis Urine Color Urine Appearance Urine pH Ur Specific [place] Urine Protein Urine Glucose (UA) Urine Ketones Urine Blood Urine Nitrite Urine Bilirubin Urine Urobilinogen Ur Leukocyte Esterase Urine WBC (Auto) Urine RBC (Auto) U Hyaline Cast (Auto) U Epithel Cells (Auto) Urine Bacteria (Auto) Urine Yeast Ur Random Creatinine U Random Total Protein Protein/Creatinin Ratio 07/11/20 07/11/20 07/11/20 12:00 12:00 15:50 WBC RBC Hgb Hct MCV MCH MCHC RDW Std Deviation RDW Coeff of Sai Plt Count MPV Immature Gran % (Auto) Neut % (Auto) Lymph % (Auto) [place] % (Auto) Eos % (Auto) Baso % (Auto) Neut # (Auto) Lymph # (Auto) [place] # (Auto) Eos # (Auto) Baso # (Auto) Immature Gran # (Auto) Platelet Estimate PT INR APTT PTT Ratio D-Dimer 350 Sodium Potassium Chloride Carbon Dioxide Anion Gap BUN Creatinine Est Cr Clr Drug Dosing Est GFR ( Amer) Est GFR (Non-Af Amer) BUN/Creatinine Ratio Glucose POC Glucose Uric Acid 5.8 Calcium Magnesium Total Bilirubin AST ALT Alkaline Phosphatase Troponin I NT-Pro-B Natriuret Pep Total Protein Albumin Globulin Albumin/Globulin Ratio Specimen Hemolysis Urine Color Yellow Urine Appearance Clear Urine pH 5.0 Ur Specific [place] 1.014 Urine Protein Negative Urine Glucose (UA) 3+ H Urine Ketones Negative Urine Blood Negative Urine Nitrite Positive A Urine Bilirubin Negative Urine Urobilinogen Negative Ur Leukocyte Esterase Trace H Urine WBC (Auto) 1-5 Urine RBC (Auto) 0-4 U Hyaline Cast (Auto) 1-5 U Epithel Cells (Auto) 0-5 Urine Bacteria (Auto) Negative Urine Yeast Not Reportable Ur Random Creatinine U Random Total Protein Protein/Creatinin Ratio 07/11/20 07/11/20 15:50 18:06 WBC RBC Hgb Hct MCV MCH MCHC RDW Std Deviation RDW Coeff of Sai Plt Count MPV Immature Gran % (Auto) Neut % (Auto) Lymph % (Auto) [place] % (Auto) Eos % (Auto) Baso % (Auto) Neut # (Auto) Lymph # (Auto) [place] # (Auto) Eos # (Auto) Baso # (Auto) Immature Gran # (Auto) Platelet Estimate PT INR APTT PTT Ratio D-Dimer Sodium Potassium Chloride Carbon Dioxide Anion Gap BUN Creatinine Est Cr Clr Drug Dosing Est GFR ( Amer) Est GFR (Non-Af Amer) BUN/Creatinine Ratio Glucose POC Glucose 74 Uric Acid Calcium Magnesium Total Bilirubin AST ALT Alkaline Phosphatase Troponin I NT-Pro-B Natriuret Pep Total Protein Albumin Globulin Albumin/Globulin Ratio Specimen Hemolysis Urine Color Urine Appearance Urine pH Ur Specific [place] Urine Protein Urine Glucose (UA) Urine Ketones Urine Blood Urine Nitrite Urine Bilirubin Urine Urobilinogen Ur Leukocyte Esterase Urine WBC (Auto) Urine RBC (Auto) U Hyaline Cast (Auto) U Epithel Cells (Auto) Urine Bacteria (Auto) Urine Yeast Ur Random Creatinine 25.8 U Random Total Protein 5.5 Protein/Creatinin Ratio 0.2 ECG Additional Comments: Atrial flutter with variable AV block, septal Q waves V1 V2
[2020-07-11] MEDS: INSULIN ASPART 100 UNITS/ML 3 ML PEN SC SCH ×2 (18:21→20:30)
[2020-07-11] MEDS: FUROSEMIDE 40 MG in SYRINGE 0 ML IV SCH (20:19)
[2020-07-11] MEDS ORDERED: PNEUMOCOCCAL Polysaccharide Vaccine 25mcg/0.5mL vial/Syr IM ONE (20:30)
[2020-07-11] MEDS ORDERED: INSULIN DETEMIR FLEXPEN/FLEX TOUCH 100 UNITS/ML 3ML SC SCH (21:00)
[2020-07-11] MEDS: HEPARIN SOD 5,000 UNIT/0.5 ML VIAL SQ SCH (21:14)
--- NOTE | 2020-07-12 05:38 | Electrocardiogram Report ---
Test Reason : Blood Pressure : / mmHG Vent. Rate : 108 BPM Atrial Rate : 256 BPM P-R Int : 000 ms QRS Dur : 106 ms QT Int : 374 ms P-R-T Axes : 000 086 234 degrees QTc Int : 501 ms Atrial flutter with variable A-V block Septal infarct , age undetermined Abnormal ECG When compared with ECG of 14-AUG-2016 09:05, Atrial flutter has replaced Sinus rhythm Confirmed by Jj Nettles ([id number]) on 07/12/2020 5:38:08 AM Referred By: REFERRED SELF Confirmed By:Jj Nettles
[2020-07-12] MEDS: HEPARIN SOD 5,000 UNIT/0.5 ML VIAL SQ SCH (05:45)
--- NOTE | 2020-07-12 05:59 | Electrocardiogram Report ---
Test Reason : Blood Pressure : / mmHG Vent. Rate : 103 BPM Atrial Rate : 103 BPM P-R Int : 264 ms QRS Dur : 108 ms QT Int : 362 ms P-R-T Axes : 081 082 183 degrees QTc Int : 474 ms Atrial flutter with variable A-V block Septal infarct Abnormal ECG When compared with ECG of 11-JUL-2020 11:46, No significant change Confirmed by Jj Nettles ([id number]) on 07/12/2020 5:59:08 AM Referred By: REFERRED SELF Confirmed By:Jj Nettles
[2020-07-12] MEDS ORDERED: PERFLUTREN LIPID MICROSPHERE (DEFINITY) IV ONE (07:02)
--- NOTE | 2020-07-12 07:30 | Hospitalist Progress Note ---
Date of Service July 12, 2020 Assessment & Plan (1) Volume overload: (2) Dyspnea on exertion: This is a 60-year-old male with PMH of insulin-dependent type 2 diabetes, CAD (history of CABG in 2001), dyslipidemia, hypertension, GERD and other medical problems listed below who presents with significant weight gain and dyspnea on exertion over the past month. -Reported fifty pound weight gain, dyspnea on exertion, orthopnea & PND. No previous diagnosis of CHF -Pro-BNP elevated at 2745. Troponin normal. CXR with cardiomegaly with pulmonary vascular congestion and trace pleural effusions with probable bibasilar atelectasis. No recent echocardiogram on file -Given 40mg IV lasix in ED. BP has remained on softer side at 104/78 - consulting cardiology for further diuretic recommendations, considering Lasix + albumin -TTE pending, felipe placed for strict I&Os, daily weights, low Na diet, monitor on telemetry -UA pending. Concern for underlying renal dysfunction like nephrotic syndrome. Protein/Cr ratio also pending. Routine nephro consult (3) Atrial flutter by electrocardiogram: A flutter with variable block with HR of 129 in setting of significant volume overload -Given 2.5mg IV Lopressor in ED with improved HR of 105. Repeat EKG pending -Currently taking Toprol 25mg daily at home -Monitor on telemetry. Cardiology on case HR 132 may need Dig (4) HTN (hypertension): Continue Toprol and ramipril with hold parameters (5) Diabetes mellitus, type II: Poorly controlled DM II with most recent a1c of 9.3 earlier this month -Formerly on insulin pump, now requiring ~96 units of lantus qPM -Hold home agents -[facility] ([facility]) Coronary artery disease: H/o CABG in 2001. EKG without acute ST changes. No chest pain. Continue aspirin, statin, beta sury (7) Dyslipidemia: Continue statin, fenofibrate (8) Mood disorder: Continue SSRI DVT Ppx: SQ heparin Code status: FULL PCP: RODOLFO Dispo: Admitted to PCU. Plan to return home once medically stable. Labs checked, good dry weight 114 kg Renal to see ROS-No Headache, No Visual Changes, No Nausea, No Vomiting, No Fever, No Chills, No Neck Pain or Stiffness, No Chest Pain, No Palpitations, No SOB, No [place], No Cough, No Sputum, No Wheezing, No Abdominal Pain, No Diarrhea, No Hematemesis, No Hemoptysis, No Unexpected Weight Loss, No Flank pain, No Melena, No Hematochezia, No Frequency, No Urgency, No Burning, No Hematuria, No Rashes, No Diaphoresis. Appetite is Normal, c/o edema Physical Exam Gen-AAO x 3, NAD, Afebrile, obese Head-NCAT, EOMI, PERRLA, Anicteric Sclera, No Posterior Pharyngeal Erythema Neck-Supple, No JVD, No Thyromegaly, No Masses, No LAD, No Bruits Lungs-Clear to Auscultation Bilaterally, No Rales, No Rhonchi, No Wheezing, No Crepitus Chest-No S4, +S1, +S2, No S3, No Murmurs, No Rubs, No Gallops, No Ectopy Abdomen-Soft, Bowel Sounds Present, Non Tender, Distended, No Hepatomegaly, No Splenomegaly, No Palpable Masses, No Rebound, No Rigidity, No Guarding Musculoskeletal-Full Range of Motion Bilaterally, No CVAT Extremities-No Cyanosis, No Clubbing, Anasarca [place]-Cranial Nerves II-XII grossly intact, Motor WNL, DTRs WNL, Strength WNL, Non Focal Psych-Normal Mood Admission and Anticipated Discharge Date Admission Date: July 11, 2020 Results & Data Results & Data ([facility]) Vital Signs (Past 12 Hours) Vital Signs Temp Pulse Pulse Resp BP BP Pulse Ox 07/12/20 07:25 132 H 07/12/20 03:10 36.7 C 128 H 20 102/67 94 07/12/20 00:00 131 H 07/11/20 23:00 36.5 C 114 H 20 112/77 94 07/11/20 19:43 36.6 C 107 H 20 108/75 93 (1) Volume overload Hypervolemia type: unspecified Qualified Code(s): E87.70 - Fluid overload, unspecified
[2020-07-12] MEDS: MULTIVITAMIN TAB PO SCH (08:40)
[2020-07-12] MEDS: OMEGA-3 (PURIFIED FISH OIL) 1 GM CAP PO SCH (08:40)
[2020-07-12] MEDS: ENALAPRIL MALEATE 5 MG TAB PO SCH (08:40)
[2020-07-12] MEDS: ASPIRIN 81 MG ECTAB PO SCH (08:40)
[2020-07-12] MEDS: CITALOPRAM 20 MG TAB PO SCH (08:41)
[2020-07-12] MEDS: ATORVASTATIN 40 MG TAB PO SCH (08:41)
[2020-07-12] MEDS: FUROSEMIDE 40 MG in SYRINGE 0 ML IV SCH ×2 (08:41→20:51)
[2020-07-12] MEDS: FENOFIBRATE NANOCRYSTALLIZED 145 MG TABLET PO SCH (08:41)
[2020-07-12] MEDS: INSULIN ASPART 100 UNITS/ML 3 ML PEN SC SCH ×4 (08:41→20:30)
[2020-07-12 08:43] LABS: Basophils # (auto) 0.01 K/uL (0-0.2); Basophils % (auto) 0.1 %; Eosinophils # (auto) 0.19 K/uL (0-0.5); Eosinophils % (auto) 2.4 %; Hematocrit (blood only) 48.5 % (42-52); Hemoglobin 15.2 g/dL (14.0-18.0); Immature Granulocytes # (auto) 0.02 K/uL (0.00-0.02); Immature Granulocytes % (auto) 0.2 %; Lymphocytes # (auto) 1.47 K/uL (1.2-3.4); Lymphocytes % (auto) 18.2 %; Mean Corpuscular Hgb Conc 31.3 g/dL (32-36); Mean Corpuscular Volume 92.4 fL (80-100); Mean Platelet Volume 11.7 fL (7.4-10.4); Monocytes # (auto) 0.78 K/uL (0.11-0.59); Monocytes % (auto) 9.7 %; Neutrophils # (auto) 5.59 K/uL (1.4-6.5); Neutrophils % (auto) 69.4 %; Platelet Count 115 K/uL (130-400); RDW Coefficient of Variation 15.9 % (11.5-14.5); RDW Standard Deviation 54.3 fL (36.4-46.3); Red Blood Count 5.25 M/uL (4.7-6.1); White Blood Count 8.06 K/uL (4.8-10.8)
--- NOTE | 2020-07-12 08:52 | Pharmacy Report ---
Glycemic Control Consultation - Date of Service July 12, 2020 - Scope Scope: Glycemic Pharmacist consulted for glycemic control and to write orders per [facility] inpatient glycemic control protocol. - Objective Weight: 133.2 kg Accuchecks BSG (last 24hrs): 07/11/20 07/11/20 07/11/20 12:00 18:06 20:22 Glucose 102 H POC Glucose 74 119 H 07/12/20 07:47 Glucose POC Glucose 109 H Laboratory Data (last 24hrs): 07/11/20 12:00 Potassium 4.5 Carbon Dioxide 26 Anion Gap 5.0 Creatinine 0.92 Est Cr Clr Drug Dosing 118.0 - Recent Pertinent Medications Outpatient Anti-diabetic Regimen: * Levemir 96 units SC HS * Insulin lispro SC TID w/ meals (up to 100 units daily) * A1c = 9.3 % (07/10/20) - Assessment & Plan Assessment & Plan: ASSESSMENT: * JADA is a 60 year old male admitted on 07/11 with acute decompensated heart failure * Patient presented with significant volume overload/weight gain (~50 lbs in past month) + dyspnea on exertion * Additional PMH includes Afib, CAD, and type 2 diabetes mellitus * BSGs have been very tightly controlled so far, ranging 74-119 mg/dL * Patient received 68 units of Levemir (~30% reduction of home dose) last evening * Fasting BSG of 109 mg/dL this morning PLAN FOR INPATIENT GLYCEMIC CONTROL: * Basal insulin * Levemir scale HS (48-68 units - see EHR for details) * Bolus insulin * NovoLog per scale ACHS or Q6hrs while NPO * Goal Range: Low 110 mg/dL - High 140 mg/dL * Correction Factor: 10 mg/dL/unit * Nutritional / Prandial insulin per carb ratio of 1 unit per 4 grams CHO consumed * Please note that the plan above was derived based on current level of insulin resistance and hospital stress. These recommendations are appropriate for inpatient admission only. Plan of care upon discharge will need to be reassessed to avoid potential outpatient hypo/hyperglycemia. Thank you.
[2020-07-12 09:00] LABS: Albumin Level 3.1 gm/dl (3.4-5.0); Creatinine Clr Calc Pharmacy 91.8 ml/min; Est GFR (African American) 78.3; Est GFR (Non-African American) 67.6; Potassium 4.6 mmol/L (3.5-5.1)
[2020-07-12] MEDS ORDERED: METOPROLOL SUCC 25MG EXT REL TAB PO SCH (09:00)
[2020-07-12] MEDS ORDERED: ENALAPRIL MALEATE 10 MG TAB PO SCH (09:00)
[2020-07-12] MEDS ORDERED: ISOSORBIDE MONO EXTENDED REL 30 MG TABCR PO SCH (09:00)
[2020-07-12] MEDS ORDERED: IRON CARBONYL VITAMIN C PO SCH (09:00)
[2020-07-12 09:04] LABS: Albumin Globulin Ratio 0.9 (0.9-2); Globulin 3.5 gm/dl (2.5-4.0); Total Protein 6.6 gm/dl (6.4-8.2)
--- NOTE | 2020-07-12 10:55 | Nephrology Consultation ---
Date of Consultation July 12, 2020 Assessment & Plan (1) Acute decompensated heart failure: Patient with acute decompensated CHF. He has EF of 25%. He is massively volume overload. He is diuresing fairly well. -Agree with the current dose of Lasix. Patient will likely need more Lasix or even Lasix drip if he is not net negative at least 2 L today -Discussed need to maintain a strictly low-salt diet -Daily standing weight (2) HTN (hypertension): Blood pressure is on the lower side today. Avoid aggressive BP control History of Present Illness Reason for Consultation: Volume overload Requesting Physician: Dale Atkins DO Attending Physician: Dale Atkins DO History of Present Illness This is 60-year-old male with history of type 2 diabetes, hypertension, paroxysmal A. fib, coronary disease status post CABG in 2001 and CHF who was admitted on 07/11/2020 with shortness of breath and massive weight gain over the past 1 month. Patient reports gaining about 50 pounds in a month. He has had progressive shortness of breath. He denied NSAID use. He eats frozen sandwiches but tries to avoid salt while cooking. His legs are swollen. He does not believe he was taking diuretics at home. Albumin was low at 3.1 but no real protein in the urine. Chest x-ray showed cardiomegaly with pulmonary vascular congestion. Echo showing severe global left ventricular hypokinesis with EF of 25%. He was started on IV Lasix and he is net -1.2 L since admission. He reports feeling a little better and less short of breath. was at the bedside Allergies Allergy/AdvReac Type Severity Reaction Status Date / Time No Known Allergies Allergy Unknown Verified 07/11/20 13:45 Home Medications Home Medications Medication Instructions Recorded Confirmed Type aspirin 81 mg tablet,delayed 81 mg PO QAM 07/19/19 07/11/20 History release atorvastatin 40 mg tablet 40 mg PO QA 07/19/19 07/11/20 History citalopram 20 mg tablet 20 mg PO QA 07/19/19 07/11/20 History fenofibrate nanocrystallized 145 145 mg PO QAM 07/19/19 07/11/20 History mg tablet iron,carbonyl 100 mg-vitamin C 250 1 tab PO QA 07/19/19 07/11/20 History mg tablet isosorbide mononitrate 30 mg 30 mg PO QAM 07/19/19 07/11/20 History tablet,extended release 24 hr metformin 1,000 mg tablet 1,000 mg PO BIDM 07/19/19 07/11/20 History metoprolol succinate 25 mg capsule 25 mg PO QAM 07/19/19 07/11/20 History sprinkle, ext. release 24 hr multivitamin 1 tab PO QAM 07/19/19 07/11/20 History nitroglycerin 0.4 mg sublingual 0.4 mg SL .COMPLEX 07/19/19 07/11/20 History tablet omega-3 fatty acids 1,000 mg 1,000 mg PO QAM 07/19/19 07/11/20 History capsule ramipril 5 mg capsule 5 mg PO QAM 07/19/19 07/11/20 History blood sugar diagnostic #10 ea 09/18/19 01/11/20 History dulaglutide 1.5 mg/0.5 mL 1.5 mg SQ SUMMERS ml 09/18/19 07/11/20 History subcutaneous pen injector insulin lispro 100 unit/mL See Rx Instructions SQ TID 09/18/19 07/11/20 History subcutaneous pen insulin syringe-needle U-100 1 mL #10 ea 09/18/19 01/11/20 History 31 gauge x 5/16" pen needle, diabetic 32 gauge x #50 ea 09/18/19 01/11/20 History 1/4" insulin detemir U-100 100 unit/mL See Rx Instructions SQ DAILY ml 01/11/20 07/11/20 History subcutaneous solution Patient History Medical History Coronary artery disease Diabetes mellitus, type II Dyslipidemia HTN (hypertension) Mood disorder Surgical History H/O colonoscopy "2011 repeat 5 years " History of dental surgery Status post coronary artery bypass grafting Family History Other Diabetes Pancreatic cancer Social History Smoking Status: Former smoker Tobacco Type: Smokeless Tobacco (Dip or Chew) Do You Dip or Chew Tobacco: Yes; Hx Alcohol Use: Yes Alcohol type: beer Alcohol Intake Frequency: Monthly or Less Hx Substance Use: No Preferred Language: [place]an Communication Ability: Effective Acid Tender Required: No Beliefs That Will Affect Care: None Current Living Situation: Spouse Other Information That Helps Us Care for You: No Feels Safe at Home: Yes Safety Concerns: Feels Safe At This Time Review of Systems Review of Systems: All systems reviewed & are unremarkable except as noted in HPI & below Physical Exam Physical Exam: General exam: Appears comfortable on oxygen by nasal cannula, no acute distress HEENT: Pupils are equal and reactive to light Neck: No JVD, neck is supple trachea is midline Respiratory system: Clear breath sounds bilaterally. Gastrointestinal: Abdomen is soft, non distended, non tender, bowel sounds are present CVS: Regular rate and rhythm. No murmurs, rubs or gallops Musculoskeletal: No joint or muscle tenderness Extremities: Non tender, 1+ edema, peripheral pulses are present Neuro: Oriented, no tremors, no focal neurological deficits Skin: No rashes Results & Data ([facility]) Vital Signs (Past 12 Hours) Vital Signs Temp Pulse Pulse Resp BP BP Pulse Ox 07/12/20 08:00 36.6 C 131 H 20 111/76 92 07/12/20 07:25 132 H 07/12/20 03:10 36.7 C 128 H 20 102/67 94 07/12/20 00:00 131 H 07/11/20 23:00 36.5 C 114 H 20 112/77 94 Laboratory Results 07/12/20 08:24 07/11/20 07/11/20 07/12/20 12:00 12:00 08:17 WBC 8.23 8.06 RBC 5.20 5.25 MCV 91.3 92.4 MCH 29.0 29.0 MCHC 31.8 L 31.3 L RDW Std Deviation 52.8 H 54.3 H RDW Coeff of Sai 15.6 H 15.9 H Plt Count 114 L 115 L MPV 12.0 H 11.7 H Albumin 3.0 L 07/12/20 08:24 WBC RBC MCV MCH MCHC RDW Std Deviation RDW Coeff of Sai Plt Count MPV Albumin 3.1 L
--- NOTE | 2020-07-12 11:33 | Cardiology Progress Note ---
Date of Service July 12, 2020 Assessment & Plan (1) Acute decompensated heart failure: Patient presents with subacute onset symptoms of increasing lower extremity and abdominal bloating and edema decompensated biventricular heart failure right greater than left. Chest x-ray reveals mild vascular congestion on exam consistent with significant volume overload, anasarca Atrial flutter newly observed right presenting question whether this represents cause or an effect of heart failure Echocardiogram demonstrates diffuse LV dysfunction EF 25% without significant valvular disease Plan: Continue oral metoprolol succinate, will increase to twice daily dosing, ultimate goal better heart rate control Begin digoxin with single IV dose now Continue IV diuretics Initiate IV anticoagulation with heparin following platelet count closely ultimate goals conversion to warfarin (2) Atrial flutter with rapid ventricular response: Undetermined duration as possible culprit of current complaints versus is also decompensated heart failure (3) Coronary artery disease: (4) Diabetes mellitus, type II: Admission and Anticipated Discharge Date Admission Date: July 11, 2020 Subjective Patient seen and examined, chart, medications, telemetry reviewed. Has manifested gradual diuresis overnight with some improvement though was still diffuse edema. Remains in atrial flutter with rapid response although patient unaware of tachypalpitations or complaint Echocardiogram demonstrates diffuse LV dysfunction EF 20-25% Physical Exam Constitutional: Obese older than stated age appearing male but no acute di stress. Diffuse edema noted Eyes: Chronic disconjugate gaze right eye ENMT: external ear and nose normal, oropharynx normal Neck: trachea midline, no thyromegaly Respiratory: Auscultation: + diminished lung sounds and + rales (Basilar) Cardiovascular: Rate/Rhythm: regular rate (Atrial flutter) and + tachycardic Heart Sounds: normal S1 and normal S2; no murmur (No audible murmur with distant heart sounds) Vessels: no carotid bruit and no abdominal aortic bruit Extremities: + edema (Severe 3+ edema to mid abdomen) Gastrointestinal (Abdomen): Large distended abdomen active bowel Musculoskeletal: no cyanosis or clubbing, extremities motor strength 5/5 Results & Data ([facility]) Vital Signs (Past 12 Hours) Vital Signs Temp Pulse Pulse Resp BP Pulse Ox 07/12/20 08:00 36.6 C 131 H 20 111/76 92 07/12/20 07:25 132 H 07/12/20 03:10 36.7 C 128 H 20 102/67 94 07/12/20 00:00 131 H Laboratory Results Laboratory Results - last 24 hr 07/11/20 07/11/20 07/11/20 12:00 12:00 12:00 WBC 8.23 RBC 5.20 Hgb 15.1 Hct 47.5 MCV 91.3 MCH 29.0 MCHC 31.8 L RDW Std Deviation 52.8 H RDW Coeff of Sai 15.6 H Plt Count 114 L MPV 12.0 H Immature Gran % (Auto) 0.2 Neut % (Auto) 63.4 Lymph % (Auto) 22.7 [place] % (Auto) 10.6 Eos % (Auto) 3.0 Baso % (Auto) 0.1 Neut # (Auto) 5.21 Lymph # (Auto) 1.87 [place] # (Auto) 0.87 H Eos # (Auto) 0.25 Baso # (Auto) 0.01 Immature Gran # (Auto) 0.02 Platelet Estimate Decreased L PT 11.6 INR 1.1 APTT 24.8 PTT Ratio 0.9 D-Dimer Sodium 140 Potassium 4.5 Chloride 108 H Carbon Dioxide 26 Anion Gap 5.0 BUN 23 H Creatinine 0.92 Est Cr Clr Drug Dosing 118.0 Est GFR ( Amer) 103.7 Est GFR (Non-Af Amer) 89.5 BUN/Creatinine Ratio 25.3 H Glucose 102 H POC Glucose Uric Acid Calcium 8.6 Magnesium 1.8 Total Bilirubin 0.4 AST 66 H ALT 92 H Alkaline Phosphatase 116 Troponin I < 0.015 NT-Pro-B Natriuret Pep 2745 H Total Protein 6.5 Albumin 3.0 L Globulin 3.5 Albumin/Globulin Ratio 0.9 Triglycerides Cholesterol LDL Cholesterol, Calc VLDL Cholesterol, Calc HDL Cholesterol Cholesterol/HDL Ratio Specimen Hemolysis Urine Color Urine Appearance Urine pH Ur Specific [place] Urine Protein Urine Glucose (UA) Urine Ketones Urine Blood Urine Nitrite Urine Bilirubin Urine Urobilinogen Ur Leukocyte Esterase Urine WBC (Auto) Urine RBC (Auto) U Hyaline Cast (Auto) U Epithel Cells (Auto) Urine Bacteria (Auto) Urine Yeast Ur Random Creatinine U Random Total Protein Protein/Creatinin Ratio 07/11/20 07/11/20 07/11/20 12:00 12:00 15:50 WBC RBC Hgb Hct MCV MCH MCHC RDW Std Deviation RDW Coeff of Sai Plt Count MPV Immature Gran % (Auto) Neut % (Auto) Lymph % (Auto) [place] % (Auto) Eos % (Auto) Baso % (Auto) Neut # (Auto) Lymph # (Auto) [place] # (Auto) Eos # (Auto) Baso # (Auto) Immature Gran # (Auto) Platelet Estimate PT INR APTT PTT Ratio D-Dimer 350 Sodium Potassium Chloride Carbon Dioxide Anion Gap BUN Creatinine Est Cr Clr Drug Dosing Est GFR ( Amer) Est GFR (Non-Af Amer) BUN/Creatinine Ratio Glucose POC Glucose Uric Acid 5.8 Calcium Magnesium Total Bilirubin AST ALT Alkaline Phosphatase Troponin I NT-Pro-B Natriuret Pep Total Protein Albumin Globulin Albumin/Globulin Ratio Triglycerides Cholesterol LDL Cholesterol, Calc VLDL Cholesterol, Calc HDL Cholesterol Cholesterol/HDL Ratio Specimen Hemolysis Urine Color Yellow Urine Appearance Clear Urine pH 5.0 Ur Specific [place] 1.014 Urine Protein Negative Urine Glucose (UA) 3+ H Urine Ketones Negative Urine Blood Negative Urine Nitrite Positive A Urine Bilirubin Negative Urine Urobilinogen Negative Ur Leukocyte Esterase Trace H Urine WBC (Auto) 1-5 Urine RBC (Auto) 0-4 U Hyaline Cast (Auto) 1-5 U Epithel Cells (Auto) 0-5 Urine Bacteria (Auto) Negative Urine Yeast Not Reportable Ur Random Creatinine U Random Total Protein Protein/Creatinin Ratio 07/11/20 07/11/20 07/11/20 15:50 18:06 20:22 WBC RBC Hgb Hct MCV MCH MCHC RDW Std Deviation RDW Coeff of Sai Plt Count MPV Immature Gran % (Auto) Neut % (Auto) Lymph % (Auto) [place] % (Auto) Eos % (Auto) Baso % (Auto) Neut # (Auto) Lymph # (Auto) [place] # (Auto) Eos # (Auto) Baso # (Auto) Immature Gran # (Auto) Platelet Estimate PT INR APTT PTT Ratio D-Dimer Sodium Potassium Chloride Carbon Dioxide Anion Gap BUN Creatinine Est Cr Clr Drug Dosing Est GFR ( Amer) Est GFR (Non-Af Amer) BUN/Creatinine Ratio Glucose POC Glucose 74 119 H Uric Acid Calcium Magnesium Total Bilirubin AST ALT Alkaline Phosphatase Troponin I NT-Pro-B Natriuret Pep Total Protein Albumin Globulin Albumin/Globulin Ratio Triglycerides Cholesterol LDL Cholesterol, Calc VLDL Cholesterol, Calc HDL Cholesterol Cholesterol/HDL Ratio Specimen Hemolysis Urine Color Urine Appearance Urine pH Ur Specific [place] Urine Protein Urine Glucose (UA) Urine Ketones Urine Blood Urine Nitrite Urine Bilirubin Urine Urobilinogen Ur Leukocyte Esterase Urine WBC (Auto) Urine RBC (Auto) U Hyaline Cast (Auto) U Epithel Cells (Auto) Urine Bacteria (Auto) Urine Yeast Ur Random Creatinine 25.8 U Random Total Protein 5.5 Protein/Creatinin Ratio 0.2 07/12/20 07/12/20 07/12/20 07:47 08:17 08:24 WBC 8.06 RBC 5.25 Hgb 15.2 Hct 48.5 MCV 92.4 MCH 29.0 MCHC 31.3 L RDW Std Deviation 54.3 H RDW Coeff of Sai 15.9 H Plt Count 115 L MPV 11.7 H Immature Gran % (Auto) 0.2 Neut % (Auto) 69.4 Lymph % (Auto) 18.2 [place] % (Auto) 9.7 Eos % (Auto) 2.4 Baso % (Auto) 0.1 Neut # (Auto) 5.59 Lymph # (Auto) 1.47 [place] # (Auto) 0.78 H Eos # (Auto) 0.19 Baso # (Auto) 0.01 Immature Gran # (Auto) 0.02 Platelet Estimate PT INR APTT PTT Ratio D-Dimer Sodium 140 Potassium 4.6 Chloride 103 Carbon Dioxide 30 Anion Gap 7.0 BUN 26 H Creatinine 1.16 Est Cr Clr Drug Dosing 91.8 Est GFR ( Amer) 78.3 Est GFR (Non-Af Amer) 67.6 BUN/Creatinine Ratio 22.0 H Glucose 99 POC Glucose 109 H Uric Acid Calcium 9.0 Magnesium Total Bilirubin 1.0 D AST 47 H ALT 77 Alkaline Phosphatase 84 Troponin I NT-Pro-B Natriuret Pep Total Protein 6.6 Albumin 3.1 L Globulin 3.5 Albumin/Globulin Ratio 0.9 Triglycerides 95 Cholesterol 100 LDL Cholesterol, Calc 57 VLDL Cholesterol, Calc 19 HDL Cholesterol 24 Cholesterol/HDL Ratio 4 Specimen Hemolysis Urine Color Urine Appearance Urine pH Ur Specific [place] Urine Protein Urine Glucose (UA) Urine Ketones Urine Blood Urine Nitrite Urine Bilirubin Urine Urobilinogen Ur Leukocyte Esterase Urine WBC (Auto) Urine RBC (Auto) U Hyaline Cast (Auto) U Epithel Cells (Auto) Urine Bacteria (Auto) Urine Yeast Ur Random Creatinine U Random Total Protein Protein/Creatinin Ratio
[2020-07-12] MEDS ORDERED: DIGOXIN 250 MCG in SYRINGE 9 ML IV ONE ×2 (11:45→13:45)
[2020-07-12] MEDS ORDERED: HEPARIN IV BOLUS 4,000 UNITS in SYRINGE 0 ML IV ONE (12:30)
[2020-07-12] MEDS: HEPARIN SODIUM/DEXTROSE 25,000 UNITS/500 ML BAG IV SCH (12:33)
[2020-07-12] MEDS: Heparin IV Low Dose WITH Bolus IV SCH ×3 (12:44→19:56)
--- NOTE | 2020-07-12 15:03 | Electrocardiogram Report ---
Test Reason : Blood Pressure : / mmHG Vent. Rate : 129 BPM Atrial Rate : 000 BPM P-R Int : 000 ms QRS Dur : 104 ms QT Int : 366 ms P-R-T Axes : 000 080 249 degrees QTc Int : 536 ms Possible Atrial flutter with 2 to 1 block Abnormal ECG When compared with ECG of 11-JUL-2020 15:47, T wave inversion now evident in Inferior leads Confirmed by Geovani Melgar ([id number]) on 07/12/2020 3:02:54 PM Referred By: REFERRED SELF Confirmed By:Geovani Melgar
[2020-07-12] MEDS: METOPROLOL SUCC 25MG EXT REL TAB PO SCH (17:27)
[2020-07-12] MEDS: DIGOXIN 0.125 MG TAB PO SCH (17:27)
[2020-07-12 18:21] LABS: Partial Thromboplastin Ratio 1.2; Partial Thromboplastin Time 32.9 Seconds (21.0-31.0)
[2020-07-12] MEDS ORDERED: HEPARIN IV BOLUS 4,500 UNITS in SYRINGE 0 ML IV ONE (19:00)
[2020-07-12] MEDS: INSULIN DETEMIR FLEXPEN/FLEX TOUCH 100 UNITS/ML 3ML SC SCH (20:30)
[2020-07-12] MEDS ORDERED: METOPROLOL TARTRATE 1 MG/ML VIAL IV STA (23:23)
[2020-07-13 02:04] LABS: Hematocrit (blood only) 47.8 % (42-52); Hemoglobin 15.3 g/dL (14.0-18.0); Mean Corpuscular Hemoglobin 29.8 pg (25-34); Mean Corpuscular Volume 93.2 fL (80-100); Mean Platelet Volume 11.8 fL (7.4-10.4); Platelet Count 111 K/uL (130-400); RDW Coefficient of Variation 15.8 % (11.5-14.5); RDW Standard Deviation 53.9 fL (36.4-46.3); Red Blood Count 5.13 M/uL (4.7-6.1); White Blood Count 9.58 K/uL (4.8-10.8)
[2020-07-13 02:15] LABS: Partial Thromboplastin Ratio 1.3; Partial Thromboplastin Time 36.1 Seconds (21.0-31.0)
[2020-07-13 02:22] LABS: Albumin Level 2.9 gm/dl (3.4-5.0); BUN Creatinine Ratio 23.3 (10-20); Calcium 9.1 mg/dl (8.5-10.1); Creatinine Clr Calc Pharmacy 101.4 ml/min; Est GFR (African American) 88.4; Est GFR (Non-African American) 76.2
[2020-07-13 02:24] LABS: Albumin Globulin Ratio 0.9 (0.9-2); Bilirubin,Total 0.8 mg/dl (0.2-1); Globulin 3.4 gm/dl (2.5-4.0); Total Protein 6.3 gm/dl (6.4-8.2)
[2020-07-13] MEDS ORDERED: HEPARIN IV BOLUS 4,500 UNITS in SYRINGE 0 ML IV ONE (02:28)
[2020-07-13] MEDS ORDERED: METOPROLOL TARTRATE 1 MG/ML VIAL IV STA (03:39)
--- NOTE | 2020-07-13 07:45 | Hospitalist Progress Note ---
Date of Service July 13, 2020 Assessment & Plan (1) Volume overload: (2) Dyspnea on exertion: This is a 60-year-old male with PMH of insulin-dependent type 2 diabetes, CAD (history of CABG in 2001), dyslipidemia, hypertension, GERD and other medical problems listed below who presents with significant weight gain and dyspnea on exertion over the past month. -Reported fifty pound weight gain, dyspnea on exertion, orthopnea & PND. No previous diagnosis of CHF -Pro-BNP elevated at 2745. Troponin normal. CXR with cardiomegaly with pulmonary vascular congestion and trace pleural effusions with probable bibasilar atelectasis. No recent echocardiogram on file -Given 40mg IV lasix in ED. BP has remained on softer side at 104/78 - consulting cardiology for further diuretic recommendations, considering Lasix + albumin -TTE pending, felipe placed for strict I&Os, daily weights, low Na diet, monitor on telemetry -UA pending. Concern for underlying renal dysfunction like nephrotic syndrome. Protein/Cr ratio also pending. Routine nephro consult (3) Atrial flutter by electrocardiogram: A flutter with variable block with HR of 129 in setting of significant volume overload -Given 2.5mg IV Lopressor in ED with improved HR of 105. Repeat EKG pending -Currently taking Toprol 25mg daily at home -Monitor on telemetry. Cardiology on case HR 110 Dig started yesterday (4) HTN (hypertension): Continue Toprol and ramipril with hold parameters (5) Diabetes mellitus, type II: Poorly controlled DM II with most recent a1c of 9.3 earlier this month -Formerly on insulin pump, now requiring ~96 units of lantus qPM -Hold home agents -[facility] (6) Coronary artery disease: H/o CABG in 2001. EKG without acute ST changes. No chest pain. Continue aspirin, statin, beta sury (7) Dyslipidemia: Continue statin, fenofibrate (8) Mood disorder: Continue SSRI DVT Ppx: SQ heparin Code status: FULL PCP: RODOLFO Dispo: Admitted to PCU. Plan to return home once medically stable. Labs checked, good dry weight 114 kg, Down 9 kg so far Renal on case ROS-No Headache, No Visual Changes, No Nausea, No Vomiting, No Fever, No Chills, No Neck Pain or Stiffness, No Chest Pain, No Palpitations, No SOB, No [place], No Cough, No Sputum, No Wheezing, No Abdominal Pain, No Diarrhea, No Hematemesis, No Hemoptysis, No Unexpected Weight Loss, No Flank pain, No Melena, No Hematochezia, No Frequency, No Urgency, No Burning, No Hematuria, No Rashes, No Diaphoresis. Appetite is Normal, He is feeling better Physical Exam Gen-AAO x 3, NAD, Afebrile, obese Head-NCAT, EOMI, PERRLA, Anicteric Sclera, No Posterior Pharyngeal Erythema Neck-Supple, No JVD, No Thyromegaly, No Masses, No LAD, No Bruits Lungs-Clear to Auscultation Bilaterally, No Rales, No Rhonchi, No Wheezing, No Crepitus Chest- Tachy, No S4, +S1, +S2, No S3, No Murmurs, No Rubs, No Gallops Abdomen-Soft, Bowel Sounds Present, Non Tender, Distended, No Hepatomegaly, No Splenomegaly, No Palpable Masses, No Rebound, No Rigidity, No Guarding Musculoskeletal-Full Range of Motion Bilaterally, No CVAT Extremities-No Cyanosis, No Clubbing, Still c 3+Edema Nuero-Cranial Nerves II-XII grossly intact, Motor WNL, DTRs WNL, Strength WNL, Non Focal Psych-Normal Mood Admission and Anticipated Discharge Date Admission Date: July 11, 2020 Results & Data Results & Data ([facility]) Vital Signs (Past 12 Hours) Vital Signs Temp Pulse Pulse Resp BP BP Pulse Ox 07/13/20 07:43 36.5 C 110 H 18 111/72 94 07/13/20 04:05 110 H 103/60 07/13/20 03:20 36.9 C 123 H 22 106/74 93 07/12/20 23:42 130 H 121/74 07/12/20 23:20 129 H 07/12/20 23:02 36.8 C 129 H 22 126/78 95 07/12/20 20:58 134/80 07/12/20 19:49 36.7 C 93 H 19 117/74 95 (1) Volume overload Hypervolemia type: unspecified Qualified Code(s): E87.70 - Fluid overload, unspecified
[2020-07-13] MEDS: FUROSEMIDE 40 MG in SYRINGE 0 ML IV SCH ×2 (08:01→21:18)
[2020-07-13] MEDS: ASPIRIN 81 MG ECTAB PO SCH (08:02)
[2020-07-13] MEDS: CITALOPRAM 20 MG TAB PO SCH (08:02)
[2020-07-13] MEDS: MULTIVITAMIN TAB PO SCH (08:02)
[2020-07-13] MEDS: ENALAPRIL MALEATE 5 MG TAB PO SCH (08:02)
[2020-07-13] MEDS: ATORVASTATIN 40 MG TAB PO SCH (08:02)
[2020-07-13] MEDS: FENOFIBRATE NANOCRYSTALLIZED 145 MG TABLET PO SCH (08:02)
[2020-07-13] MEDS: OMEGA-3 (PURIFIED FISH OIL) 1 GM CAP PO SCH (08:02)
[2020-07-13] MEDS: METOPROLOL SUCC 25MG EXT REL TAB PO SCH (08:03)
[2020-07-13] MEDS: INSULIN ASPART 100 UNITS/ML 3 ML PEN SC SCH ×4 (08:04→21:19)
[2020-07-13] MEDS: HEPARIN SODIUM/DEXTROSE 25,000 UNITS/500 ML BAG IV SCH (08:05)
[2020-07-13 10:51] LABS: Partial Thromboplastin Ratio 1.5; Partial Thromboplastin Time 41.9 Seconds (21.0-31.0)
--- NOTE | 2020-07-13 10:57 | Nephrology Progress Note ---
Date of Service July 13, 2020 Assessment & Plan (1) Acute decompensated heart failure: Patient with acute decompensated CHF. He has EF of 25%. He is massively volume overload. He is diuresing fairly well. -Agree with the current dose of Lasix. Patient is diuresing well and was net -4 L -Discussed need to maintain a strictly low-salt diet -Daily standing weight (2) HTN (hypertension): Blood pressure is controlled. Patient on metoprolol and lisinopril. Admission and Anticipated Discharge Date Admission Date: July 11, 2020 Subjective Patient feels better today. He is diuresing very well and was net -4.4 L. Leg swelling is subsiding. No shortness of breath. He is on heparin drip. Review of Systems Review of Systems: All systems reviewed & are unremarkable except as noted in HPI & below Physical Exam Physical Exam: General exam: Obese male, appears comfortable, no acute distress HEENT: Pupils are equal and reactive to light Neck: No JVD, neck is supple trachea is midline Respiratory system: Clear breath sounds bilaterally. Gastrointestinal: Abdomen is soft, non distended, non tender, bowel sounds are present CVS: Regular rate and rhythm. No murmurs, rubs or gallops Musculoskeletal: No joint or muscle tenderness Extremities: Non tender, 1+ edema, peripheral pulses are present Neuro: Oriented, no tremors, no focal neurological deficits Skin: No rashes Results & Data ([facility]) Vital Signs (Past 12 Hours) Vital Signs Temp Pulse Pulse Resp BP BP Pulse Ox 07/13/20 07:43 36.5 C 110 H 18 111/72 94 07/13/20 04:05 110 H 103/60 07/13/20 03:20 36.9 C 123 H 22 106/74 93 07/12/20 23:42 130 H 121/74 07/12/20 23:20 129 H 07/12/20 23:02 36.8 C 129 H 22 126/78 95 Laboratory Results 07/13/20 01:56 07/13/20 07/13/20 01:56 01:56 WBC 9.58 RBC 5.13 MCV 93.2 MCH 29.8 MCHC 32.0 RDW Std Deviation 53.9 H RDW Coeff of Sai 15.8 H Plt Count 111 L MPV 11.8 H Albumin 2.9 L
[2020-07-13] MEDS ORDERED: HEPARIN IV BOLUS 4,000 UNITS in SYRINGE 0 ML IV ONE (11:30)
--- NOTE | 2020-07-13 14:59 | Cardiology Progress Note ---
Date of Service July 13, 2020 Assessment & Plan (1) Acute decompensated heart failure: (2) Atrial flutter with rapid ventricular response: (3) Coronary artery disease: (4) Diabetes mellitus, type II: Continue IV Lasix 40 mg twice daily. Titrate metoprolol to 25 mg 3 times daily. Follow daily weight, fluid balance, GFR, and electrolytes. Continue oral digoxin and IV heparin. Patient will likely require transesophageal guided cardioversion early next week pending clinical course. Further ischemic evaluation is warranted given decline in left ventricular systolic function. Admission and Anticipated Discharge Date Admission Date: July 11, 2020 Subjective Patient seen and examined the bedside. Fluid balance -4.3 L overnight. Renal function remained stable. Telemetry demonstrates atrial flutter with rapid ventricular response heart rate ranging from 100 to 130 bpm. Patient denies palpitations. Symptoms of abdominal bloating, shortness of breath, and edema began approximately 1 month ago. states patient gained approximately 50 pounds during that time. Feeling better since admission. Heart rate mildly improved. Decline in LV systolic function noted on admission. Patient appropriately anticoagulated with IV heparin currently. Review of Systems Review of Systems: All systems reviewed & are unremarkable except as noted in HPI & below Physical Exam Constitutional: well developed, well nourished and + obese Respiratory: normal respiratory effort; no respiratory distress and no retractions Auscultation: + diminished lung sounds (Bases bilaterally) and + rales (Bases bilaterally); no rhonchi and no wheezes Cardiovascular: Rate/Rhythm: regular rate, regular rhythm and + tachycardic Heart Sounds: normal S1 and normal S2; no murmur Palpation: normal PMI Vessels: + JVD and radial pulses present; no carotid bruit Gastrointestinal (Abdomen): normal bowel sounds, soft, nontender, no hepatosplenomegaly Musculoskeletal: Extremities: strength 5/5 throughout Skin: no rashes, warm and dry Neurologic: moves all extremities; no focal motor deficits Speech / Cognition: normal speech Psychiatric: A+Ox3, euthymic affect Results & Data ([facility]) Vital Signs (Past 12 Hours) Vital Signs Temp Pulse Resp BP BP Pulse Ox 07/13/20 12:05 36.6 C 117 H 18 118/74 95 07/13/20 07:43 36.5 C 110 H 18 111/72 94 07/13/20 04:05 110 H 103/60 07/13/20 03:20 36.9 C 123 H 22 106/74 93
[2020-07-13] MEDS ORDERED: METOPROLOL TARTRATE 25 MG TAB PO STA (15:02)
[2020-07-13] MEDS: DIGOXIN 0.125 MG TAB PO SCH (15:31)
[2020-07-13 18:21] LABS: Partial Thromboplastin Ratio 1.8
[2020-07-13] MEDS: METOPROLOL TARTRATE 25 MG TAB PO SCH (21:18)
[2020-07-13] MEDS: INSULIN DETEMIR FLEXPEN/FLEX TOUCH 100 UNITS/ML 3ML SC SCH (21:19)
[2020-07-14] MEDS: HEPARIN SODIUM/DEXTROSE 25,000 UNITS/500 ML BAG IV SCH ×6 (00:57→20:22)
--- NOTE | 2020-07-14 07:11 | Hospitalist Progress Note ---
Date of Service July 14, 2020 Assessment & Plan (1) Volume overload: (2) Dyspnea on exertion: This is a 60-year-old male with PMH of insulin-dependent type 2 diabetes, CAD (history of CABG in 2001), dyslipidemia, hypertension, GERD and other medical problems listed below who presents with significant weight gain and dyspnea on exertion over the past month. -Reported fifty pound weight gain, dyspnea on exertion, orthopnea & PND. No previous diagnosis of CHF -Pro-BNP elevated at 2745. Troponin normal. CXR with cardiomegaly with pulmonary vascular congestion and trace pleural effusions with probable bibasilar atelectasis. No recent echocardiogram on file -Given 40mg IV lasix in ED. BP has remained on softer side at 104/78 - Cardiology on case, EF 20-25% -Nepho on case (3) Atrial flutter by electrocardiogram: A flutter with variable block with HR of 129 in setting of significant volume overload -Given 2.5mg IV Lopressor in ED with improved HR of 105. Repeat EKG pending -Currently taking Toprol 25mg daily at home -Monitor on telemetry -HR still in 100s (4) HTN (hypertension): Continue Toprol and ramipril with hold parameters (5) Diabetes mellitus, type II: Poorly controlled DM II with most recent a1c of 9.3 earlier this month -Formerly on insulin pump, now requiring ~96 units of lantus qPM -Hold home agents -[facility] (6) Coronary artery disease: H/o CABG in 2001. EKG without acute ST changes. No chest pain. Continue aspirin, statin, beta sury (7) Dyslipidemia: Continue statin, fenofibrate (8) Mood disorder: Continue SSRI DVT Ppx: SQ heparin Code status: FULL PCP: [facility] Dispo: Admitted to PCU. Plan to return home once medically stable. Labs checked, good dry weight 114 kg Renal, Cards on case, Possible DCCV Wednesday, Heparin gtt ROS-No Headache, No Visual Changes, No Nausea, No Vomiting, No Fever, No Chills, No Neck Pain or Stiffness, No Chest Pain, No Palpitations, No SOB, No [place], No Cough, No Sputum, No Wheezing, No Abdominal Pain, No Diarrhea, No Hematemesis, No Hemoptysis, No Unexpected Weight Loss, No Flank pain, No Melena, No Hematochezia, No Frequency, No Urgency, No Burning, No Hematuria, No Rashes, No Diaphoresis. Appetite is Normal, He is feeling better Physical Exam Gen-AAO x 3, NAD, Afebrile, obese Head-NCAT, EOMI, PERRLA, Anicteric Sclera, No Posterior Pharyngeal Erythema Neck-Supple, No JVD, No Thyromegaly, No Masses, No LAD, No Bruits Lungs-Clear to Auscultation Bilaterally, No Rales, No Rhonchi, No Wheezing, No Crepitus Chest- Tachy, No S4, +S1, +S2, No S3, No Murmurs, No Rubs, No Gallops Abdomen-Soft, Bowel Sounds Present, Non Tender, Distended, No Hepatomegaly, No Splenomegaly, No Palpable Masses, No Rebound, No Rigidity, No Guarding Musculoskeletal-Full Range of Motion Bilaterally, No CVAT Extremities-No Cyanosis, No Clubbing, Edema improving Nuero-Cranial Nerves II-XII grossly intact, Motor WNL, DTRs WNL, Strength WNL, Non Focal Psych-Normal Mood Admission and Anticipated Discharge Date Admission Date: July 11, 2020 Results & Data Results & Data ([facility]) Vital Signs (Past 12 Hours) Vital Signs Temp Pulse Pulse Resp BP BP Pulse Ox 07/14/20 03:35 36.8 C 117 H 18 121/74 94 07/13/20 23:15 129 H 07/13/20 22:06 36.7 C 128 H 20 124/73 93 07/13/20 21:16 115 H 124/74 (1) Volume overload Hypervolemia type: unspecified Qualified Code(s): E87.70 - Fluid overload, unspecified
[2020-07-14 07:19] LABS: Hematocrit (blood only) 46.8 % (42-52); Hemoglobin 15.1 g/dL (14.0-18.0); Mean Corpuscular Hemoglobin 29.4 pg (25-34); Mean Corpuscular Hgb Conc 32.3 g/dL (32-36); Mean Corpuscular Volume 91.1 fL (80-100); Mean Platelet Volume 11.2 fL (7.4-10.4); Platelet Count 108 K/uL (130-400); RDW Coefficient of Variation 15.6 % (11.5-14.5); RDW Standard Deviation 52.4 fL (36.4-46.3); Red Blood Count 5.14 M/uL (4.7-6.1); White Blood Count 7.54 K/uL (4.8-10.8)
[2020-07-14 07:32] LABS: Partial Thromboplastin Ratio 1.5; Partial Thromboplastin Time 41.5 Seconds (21.0-31.0)
[2020-07-14 07:41] LABS: Albumin Level 2.9 gm/dl (3.4-5.0); BUN Creatinine Ratio 20.2 (10-20); Calcium 8.7 mg/dl (8.5-10.1); Creatinine Clr Calc Pharmacy 102.4 ml/min; Est GFR (African American) 91.5
[2020-07-14 07:43] LABS: Albumin Globulin Ratio 0.7 (0.9-2); Bilirubin,Total 1.1 mg/dl (0.2-1); Globulin 3.9 gm/dl (2.5-4.0); Total Protein 6.8 gm/dl (6.4-8.2)
[2020-07-14] MEDS: METOPROLOL TARTRATE 25 MG TAB PO SCH ×3 (07:58→20:55)
[2020-07-14] MEDS: MULTIVITAMIN TAB PO SCH (07:58)
[2020-07-14] MEDS: FUROSEMIDE 40 MG in SYRINGE 0 ML IV SCH ×2 (07:58→20:55)
[2020-07-14] MEDS: FENOFIBRATE NANOCRYSTALLIZED 145 MG TABLET PO SCH (07:59)
[2020-07-14] MEDS: ENALAPRIL MALEATE 5 MG TAB PO SCH (07:59)
[2020-07-14] MEDS: ATORVASTATIN 40 MG TAB PO SCH (07:59)
[2020-07-14] MEDS: OMEGA-3 (PURIFIED FISH OIL) 1 GM CAP PO SCH (07:59)
[2020-07-14] MEDS: CITALOPRAM 20 MG TAB PO SCH (07:59)
[2020-07-14] MEDS ORDERED: DIGOXIN 125 MCG in SYRINGE 9.5 ML IV ONE (08:00)
[2020-07-14] MEDS: ASPIRIN 81 MG ECTAB PO SCH (08:01)
[2020-07-14] MEDS: INSULIN ASPART 100 UNITS/ML 3 ML PEN SC SCH ×4 (08:07→20:30)
[2020-07-14] MEDS ORDERED: VANCOMYCIN CONSULT ACTIVE PRN (08:48)
[2020-07-14] MEDS ORDERED: VANCOMYCIN HCL 1,000 MG in SODIUM CHLORIDE 0.9% 250 ML IV SCH (09:00)
[2020-07-14] MEDS: CEFAZOLIN 1000MG 1,000 MG/7.5 ML SYR IV SCH ×3 (10:09→21:43)
--- NOTE | 2020-07-14 10:23 | Nephrology Progress Note ---
Date of Service July 14, 2020 Assessment & Plan (1) Acute decompensated heart failure: Patient with acute decompensated CHF. He has EF of 25%. He is massively volume overload. He is diuresing fairly well. -Agree with the current dose of Lasix. Patient is diuresing well and was net -3.8 L. Weight is down to 128 kg today from 133 on 07/12/2020 -Discussed need to maintain a strictly low-salt diet -Daily standing weight (2) HTN (hypertension): Blood pressure is controlled. Patient on metoprolol and lisinopril. Admission and Anticipated Discharge Date Admission Date: July 11, 2020 Subjective Patient continues to diurese well and was net -3.8 L. No shortness of breath. Has a Horne catheter and would like to keep the Horne for now. He is on heparin drip Review of Systems Review of Systems: All systems reviewed & are unremarkable except as noted in HPI & below Physical Exam Physical Exam: General exam: Appears comfortable, no acute distress HEENT: Pupils are equal and reactive to light Neck: No JVD, neck is supple trachea is midline Respiratory system: Clear breath sounds bilaterally. Gastrointestinal: Abdomen is soft, non distended, non tender, bowel sounds are p resent CVS: Regular rate and rhythm. No murmurs, rubs or gallops Musculoskeletal: No joint or muscle tenderness Extremities: Non tender, 1+ edema, peripheral pulses are present Neuro: Oriented, no tremors, no focal neurological deficits Skin: Skin rash on the legs Results & Data ([facility]) Vital Signs (Past 12 Hours) Vital Signs Temp Pulse Pulse Resp BP Pulse Ox 07/14/20 08:08 36.7 C 108 H 18 117/79 94 07/14/20 08:07 110 H 07/14/20 03:35 36.8 C 117 H 18 121/74 94 07/13/20 23:15 129 H Laboratory Results 07/14/20 07:01 07/14/20 07/14/20 07:01 07:01 WBC 7.54 RBC 5.14 MCV 91.1 MCH 29.4 MCHC 32.3 RDW Std Deviation 52.4 H RDW Coeff of Sai 15.6 H Plt Count 108 L MPV 11.2 H Albumin 2.9 L
--- NOTE | 2020-07-14 10:56 | Cardiology Progress Note ---
Date of Service July 14, 2020 Assessment & Plan (1) Acute decompensated heart failure: (2) Atrial flutter with rapid ventricular response: (3) Coronary artery disease: (4) Hematuria: (5) Diabetes mellitus, type II: Continue IV Lasix 40 mg twice daily. Follow daily weight, fluid balance, GFR, and electrolytes. Continue oral digoxin, metoprolol, and IV heparin. Plan transesophageal guided cardioversion early next week pending clinical course. Further ischemic evaluation is warranted given decline in left ventricular systolic function. Consider removing Horne catheter in the next 24 to 48 hours given intermittent hematuria. Admission and Anticipated Discharge Date Admission Date: July 11, 2020 Subjective Patient seen and examined at the bedside. Fluid balance -4.5 L over the past 24 hours. Contacted by nursing staff this morning due to blood-tinged urine. Urine has since cleared. Hemoglobin remained stable. Patient reports feeling better from a cardiovascular perspective. Edema and dyspnea improving. Telemetry demonstrates atrial flutter with heart rate ranging from 100 to 130 bpm. He remains hypoxic requiring 2 L nasal cannula oxygen supplementation. Comfortable at rest without conversational dyspnea. No chest discomfort. Denies palpitations, lightheadedness, or dizziness. Review of Systems Review of Systems: All systems reviewed & are unremarkable except as noted in HPI & below Physical Exam Constitutional: well developed, well nourished and + obese Respiratory: normal respiratory effort; no respiratory distress and no retractions Auscultation: + diminished lung sounds (Bases bilaterally) and + rales (Bases bilaterally); no rhonchi and no wheezes Cardiovascular: Rate/Rhythm: regular rate, regular rhythm and + tachycardic Heart Sounds: normal S1 and normal S2; no murmur Palpation: normal PMI Vessels: + JVD and radial pulses present; no carotid bruit Gastrointestinal (Abdomen): normal bowel sounds, soft, nontender, no hepatosplenomegaly Musculoskeletal: Extremities: strength 5/5 throughout Skin: no rashes, warm and dry Neurologic: moves all extremities; no focal motor deficits Speech / Cognition: normal speech Psychiatric: A+Ox3, euthymic affect Results & Data ([facility]) Vital Signs (Past 12 Hours) Vital Signs Temp Pulse Pulse Resp BP Pulse Ox 07/14/20 08:08 36.7 C 108 H 18 117/79 94 07/14/20 08:07 110 H 08/23/20 03:35 36.8 C 117 H 18 121/74 94 07/13/20 23:15 129 H (1) Coronary artery disease Coronary Disease-Associated Artery/Lesion type: [place] artery [place] vs. 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
[2020-07-14 14:42] LABS: Partial Thromboplastin Ratio 1.6; Partial Thromboplastin Time 43.6 Seconds (21.0-31.0)
[2020-07-14] MEDS ORDERED: HEPARIN IV BOLUS 4,000 UNITS in SYRINGE 0 ML IV ONE (15:00)
[2020-07-14] MEDS: DIGOXIN 0.125 MG TAB PO SCH (15:08)
[2020-07-14] MEDS: INSULIN DETEMIR FLEXPEN/FLEX TOUCH 100 UNITS/ML 3ML SC SCH (20:57)
[2020-07-14 21:36] LABS: Partial Thromboplastin Ratio 1.9
[2020-07-14 22:05] LABS: Partial Thromboplastin Time 51.8 Seconds (21.0-31.0)
[2020-07-15] MEDS: CEFAZOLIN 1000MG 1,000 MG/7.5 ML SYR IV SCH ×4 (04:08→21:13)
[2020-07-15] MEDS: HEPARIN SODIUM/DEXTROSE 25,000 UNITS/500 ML BAG IV SCH ×2 (05:49→20:01)
[2020-07-15 06:05] LABS: Hematocrit (blood only) 47.5 % (42-52); Hemoglobin 15.4 g/dL (14.0-18.0); Mean Corpuscular Hemoglobin 29.5 pg (25-34); Mean Corpuscular Hgb Conc 32.4 g/dL (32-36); Mean Platelet Volume 11.6 fL (7.4-10.4); Platelet Count 113 K/uL (130-400); RDW Coefficient of Variation 15.3 % (11.5-14.5); RDW Standard Deviation 51.3 fL (36.4-46.3); Red Blood Count 5.22 M/uL (4.7-6.1); White Blood Count 6.66 K/uL (4.8-10.8)
[2020-07-15 06:26] LABS: Partial Thromboplastin Ratio 1.7
[2020-07-15 06:34] LABS: BUN Creatinine Ratio 22.8 (10-20); Bilirubin,Total 0.8 mg/dl (0.2-1); Calcium 8.7 mg/dl (8.5-10.1); Creatinine Clr Calc Pharmacy 116.6 ml/min; Est GFR (Non-African American) 93.2
[2020-07-15 06:35] LABS: Albumin Globulin Ratio 0.8 (0.9-2); Globulin 3.9 gm/dl (2.5-4.0); Total Protein 6.9 gm/dl (6.4-8.2)
[2020-07-15 06:38] LABS: Partial Thromboplastin Time 46.1 Seconds (21.0-31.0)
--- NOTE | 2020-07-15 07:02 | Hospitalist Progress Note ---
Date of Service July 15, 2020 Assessment & Plan (1) Volume overload: (2) Dyspnea on exertion: This is a 60-year-old male with PMH of insulin-dependent type 2 diabetes, CAD (history of CABG in 2001), dyslipidemia, hypertension, GERD and other medical problems listed below who presents with significant weight gain and dyspnea on exertion over the past month. -Reported fifty pound weight gain, dyspnea on exertion, orthopnea & PND. No previous diagnosis of CHF -Pro-BNP elevated at 2745. Troponin normal. CXR with cardiomegaly with pulmonary vascular congestion and trace pleural effusions with probable bibasilar atelectasis. No recent echocardiogram on file -Given 40mg IV lasix in ED. Cardiology on case, EF 20-25% -Nepho on case, diuresing well (3) Atrial flutter by electrocardiogram: A flutter with variable block with HR of 129 in setting of significant volume overload -Given 2.5mg IV Lopressor in ED with improved HR of 105. Repeat EKG pending -Currently taking Toprol 25mg daily at home -Monitor on telemetry -HR still in 100s (4) HTN (hypertension): Continue Toprol and ramipril with hold parameters (5) Diabetes mellitus, type II: Poorly controlled DM II with most recent a1c of 9.3 earlier this month -Formerly on insulin pump, now requiring ~96 units of lantus qPM -Hold home agents -[facility] (6) Coronary artery disease: H/o CABG in 2001. EKG without acute ST changes. No chest pain. Continue aspirin, statin, beta sury (7) Dyslipidemia: Continue statin, fenofibrate (8) Mood disorder: Continue SSRI UTI-Ancef DVT Ppx: SQ heparin Code status: FULL PCP: [facility] Dispo: Admitted to PCU. Plan to return home once medically stable. Labs checked, good dry weight 114 kg, 121.7 kg today Renal, Cards on case, DCCV soon, Heparin gtt ROS-No Headache, No Visual Changes, No Nausea, No Vomiting, No Fever, No Chills, No Neck Pain or Stiffness, No Chest Pain, No Palpitations, No SOB, No [place], No Cough, No Sputum, No Wheezing, No Abdominal Pain, No Diarrhea, No Hematemesis, No Hemoptysis, No Unexpected Weight Loss, No Flank pain, No Melena, No Hematochezia, No Frequency, No Urgency, No Burning, No Hematuria, No Rashes, No Diaphoresis. Appetite is Normal, He is feeling better Physical Exam Gen-AAO x 3, NAD, Afebrile, obese Head-NCAT, EOMI, PERRLA, Anicteric Sclera, No Posterior Pharyngeal Erythema Neck-Supple, No JVD, No Thyromegaly, No Masses, No LAD, No Bruits Lungs-Clear to Auscultation Bilaterally, No Rales, No Rhonchi, No Wheezing, No Crepitus Chest- Tachy, No S4, +S1, +S2, No S3, No Murmurs, No Rubs, No Gallops Abdomen-Soft, Bowel Sounds Present, Non Tender, Distended, No Hepatomegaly, No Splenomegaly, No Palpable Masses, No Rebound, No Rigidity, No Guarding Musculoskeletal-Full Range of Motion Bilaterally, No CVAT Extremities-No Cyanosis, No Clubbing, 1-2+ edema now Nuero-Cranial Nerves II-XII grossly intact, Motor WNL, DTRs WNL, Strength WNL, Non Focal Psych-Normal Mood Admission and Anticipated Discharge Date Admission Date: July 11, 2020 Results & Data Results & Data ([facility]) Vital Signs (Past 12 Hours) Vital Signs Temp Pulse Pulse Resp BP BP Pulse Ox 07/15/20 02:52 36.7 C 117 H 20 120/76 94 07/14/20 23:30 131 H 07/14/20 23:04 36.9 C 131 H 20 136/71 94 07/14/20 20:54 108 H 127/76 07/14/20 19:28 36.6 C 118 H 18 121/70 91 (1) Volume overload Hypervolemia type: unspecified Qualified Code(s): E87.70 - Fluid overload, unspecified (2) Diabetes mellitus, type II 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 transplanted heart: [place] heart Associated angina: angina presence unspecified Qualified Code(s): I25.10 - Atherosclerotic heart disease of [place] coronary artery without angina pectoris
[2020-07-15] MEDS ORDERED: GLUCOSE 10 TABS/TUBE PO PRN (08:00)
[2020-07-15] MEDS ORDERED: GLUCOSE 40% GEL 15 GM TUBE PO PRN (08:00)
[2020-07-15] MEDS ORDERED: CARBOHYDRATES FOR HYPOGLYCEMIA PO PRN (08:00)
[2020-07-15] MEDS ORDERED: DEXTROSE 50% 50 ML SYRINGE IV PRN (08:00)
[2020-07-15] MEDS ORDERED: GLUCAGON FOR INJ 1 MG VIAL IM PRN (08:00)
--- NOTE | 2020-07-15 08:50 | Electrocardiogram Report ---
Test Reason : Blood Pressure : / mmHG Vent. Rate : 115 BPM Atrial Rate : 127 BPM P-R Int : 000 ms QRS Dur : 120 ms QT Int : 366 ms P-R-T Axes : 000 087 256 degrees QTc Int : 506 ms Atrial flutter with variable A-V conduction Cannot rule out Old Septal infarct Abnormal ECG When compared with ECG of 12-JUL-2020 07:19, HR has decreased by 14 bpm Otherwise no significant change Confirmed by Brain Espinoza ([id number]) on 07/15/2020 8:49:44 AM Referred By: REFERRED SELF Confirmed By:Brain Espinoza
--- NOTE | 2020-07-15 08:53 | Electrocardiogram Report ---
Test Reason : Blood Pressure : / mmHG Vent. Rate : 105 BPM Atrial Rate : 256 BPM P-R Int : 000 ms QRS Dur : 114 ms QT Int : 348 ms P-R-T Axes : 000 090 171 degrees QTc Int : 459 ms Atrial flutter with variable A-V block Rightward axis Abnormal ECG When compared with ECG of 13-JUL-2020 03:34, Criteria for Septal infarct no longer present Otherwise no significant change Confirmed by Brain Espinoza ([id number] on 07/15/2020 8:52:57 AM Referred By: REFERRED SELF Confirmed By:Brain Espinoza
[2020-07-15] MEDS: FENOFIBRATE NANOCRYSTALLIZED 145 MG TABLET PO SCH (09:08)
[2020-07-15] MEDS: METOPROLOL TARTRATE 25 MG TAB PO SCH ×3 (09:08→20:12)
[2020-07-15] MEDS: CITALOPRAM 20 MG TAB PO SCH (09:08)
[2020-07-15] MEDS: FUROSEMIDE 40 MG in SYRINGE 0 ML IV SCH ×2 (09:08→20:10)
[2020-07-15] MEDS: OMEGA-3 (PURIFIED FISH OIL) 1 GM CAP PO SCH (09:08)
[2020-07-15] MEDS: ENALAPRIL MALEATE 5 MG TAB PO SCH (09:08)
[2020-07-15] MEDS: ATORVASTATIN 40 MG TAB PO SCH (09:08)
[2020-07-15] MEDS: ASPIRIN 81 MG ECTAB PO SCH (09:08)
[2020-07-15] MEDS: MULTIVITAMIN TAB PO SCH (09:08)
[2020-07-15] MEDS: INSULIN ASPART 100 UNITS/ML 3 ML PEN SC SCH ×4 (09:09→21:10)
--- NOTE | 2020-07-15 11:40 | Pharmacy Report ---
Pharmacy Glycemic Short Note 2 - Date of Service July 15, 2020 - Glycemic Short BSG Results (Last 24 hours): OUTPATIENT ANTIDIABETIC REGIMEN: * Levemir 96 units SC HS * Insulin Lispro SC TID with meals (up to 100 units daily) * Trulicity 1.5 mg SC on Sundays * Metformin 1 gm PO BID * A1c = 9.3% (07/10/20) ASSESSMENT: 07/15: * Patient received a total of 119 units of insulin yesterday * 68 units basal + 51 units bolus * BSGs ranging 133 - 193 mg/dL over the last 24 hours * Fasting BSG was 147 this AM. This is slightly above goal but has been trending up over the last two days. However, given patient will be NPO after midnight for a procedure, will not make any changes to basal insulin regimen. * There were some post-prandial elevations in BSGs over the past few days, especially with lunch and at bedtime. Will tighten CR slightly today. 07/14: * RP is a 60 year old male admitted on 07/11 with acute decompensated heart f ailure * Patient presented with significant volume overload/weight gain (~50 lbs in past month) + dyspnea on exertion * Additional PMH includes Afib, CAD, and type 2 diabetes mellitus * BSGs have been very tightly controlled so far, ranging 74-119 mg/dL * Patient received 68 units of Levemir (~30% reduction of home dose) last evening * Fasting BSG of 109 mg/dL this morning PLAN FOR INPATIENT GLYCEMIC CONTROL: * Hold outpatient oral diabetes medications * Basal insulin - no change * Lantus 48-68 units SQ HS per scale (see eMAR for further details) * Bolus insulin - tightened CR * NovoLog per scale ACHS or Q6hrs while NPO * Goal Range: Low 110 mg/dL - High 140 mg/dL * Correction Factor: 10 mg/dL/unit * Nutritional / Prandial insulin per carb ratio of 1 unit per 3 grams CHO consumed PLAN FOR DISCHARGE: * A1c of 9.3%. Patient follows with [facility] for T2DM management. * Patient is currently taking Metformin + GLP-1 RA + Basal-Bolus insulin + SGLT2i as an outpatient. * Patient should self monitor BSGs closely as an outpatient and follow up with [facility] soon after discharge.
--- NOTE | 2020-07-15 12:19 | Cardiology Progress Note ---
Date of Service July 15, 2020 Assessment & Plan (1) Acute decompensated heart failure: Patient presents with subacute onset symptoms of increasing lower extremity and abdominal bloating and edema decompensated biventricular heart failure right greater than left. Chest x-ray reveals mild vascular congestion on exam consistent with significant volume overload, anasarca Atrial flutter newly observed right presenting question whether this represents cause or an effect of heart failure Echocardiogram demonstrates diffuse LV dysfunction EF 25% without significant valvular disease Plan: Continues to diurese well, will continue with IV diuresis. N.p.o. after midnight for DAYANNA guided cardioversion in the a.m. Continue heparin bridge along with initiation of warfarin. (2) Atrial flutter with rapid ventricular response: Undetermined duration as possible culprit of current complaints versus is also decompensated heart failure (3) Coronary artery disease: (4) Hematuria: (5) Diabetes mellitus, type II: Continue IV Lasix 40 mg twice daily. Follow daily weight, fluid balance, GFR, and electrolytes. Continue oral digoxin, metoprolol, and IV heparin. Further ischemic evaluation is warranted given decline in left ventricular systolic function. We will consider outpatient nuclear stress test. Consider removing Horne catheter in the next 24 to 48 hours given intermittent hematuria. Admission and Anticipated Discharge Date Admission Date: July 11, 2020 Subjective Patient seen and examined, chart reviewed. States he is feeling much better today. Notices that abdominal distention is improving. No shortness of breath at rest or orthopnea. Denies chest pain, palpitations, lightheadedness, dizziness or syncope. Telemetry reviewed: Atrial flutter with 2-1 A-V conduction Review of Systems Review of Systems: All systems reviewed & are unremarkable except as noted in HPI & below Physical Exam Physical Exam: General: Awake, alert and oriented x 3. No acute distress. HEENT: Normocephalic, atraumatic. Pupils equal, round and reactive to light and accommodation. Extraocular muscles are intact. Anicteric sclera. Moist mucous membranes. Neck: No JVD. No bruit. Cardiovascular: irregularly irregular, unable to appreciate murmur, rub or gallop. Pulmonary: Clear to auscultation bilaterally. No rales, rhonchi, or wheezing. Abdomen: Bowel sounds x 4, soft. No rebound, guarding or tenderness. No organomegaly. Extremities: No clubbing, cyanosis or edema. +2 pedal pulses bilaterally. Skin: Warm and dry. Results & Data ([facility]) Vital Signs (Past 12 Hours) Vital Signs Temp Pulse Pulse Resp BP Pulse Ox 07/15/20 11:30 36.6 C 111 H 18 113/76 94 07/15/20 08:00 120 H 07/15/20 07:55 36.6 C 116 H 18 103/68 96 07/15/20 02:52 36.7 C 117 H 20 120/76 94 (1) Coronary artery disease Coronary Disease-Associated Artery/Lesion type: [place] artery [place] vs. transplanted heart: [place] heart Associated angina: angina presence unspecified Qualified Code(s): I25.10 - Atherosclerotic heart disease of [place] coronary artery without angina pectoris (2) Diabetes mellitus, type II Diabetes mellitus meterman insulin use: with meterman use Diabetes mellitus complication status: with other specified complication Qualified Code(s): E11.69 - Type 2 diabetes mellitus with other specified complication; Z79.4 - longterm (current) use of insulin
--- NOTE | 2020-07-15 14:52 | Nephrology Progress Note ---
Date of Service July 15, 2020 Assessment & Plan (1) Acute decompensated heart failure: Patient with acute decompensated CHF. He has EF of 25%. He is massively volume overload. He is diuresing fairly well on lasix 40 mg iv bid -Agree with the current dose of Lasix. Patient is diuresing well and was net -5 (!) L. Weight is down to 121.7 kg today from 133 on 07/12/2020 -Discussed need to maintain a strictly low-salt diet -Daily standing weight -cont 2L FR for now and heart healthy diet > may need tighter FR and Na restriction evenutally but with this diuresis would not start these (2) HTN (hypertension): Blood pressure is controlled. Patient on metoprolol and enalapril and lasix. Admission and Anticipated Discharge Date Admission Date: July 11, 2020 Subjective seen on evening rounds at about 1720; diuresing well; for attempt a cardioversion in am; breathing and swelling better Review of Systems Review of Systems: All systems reviewed & are unremarkable except as noted in HPI & below Physical Exam Constitutional: well developed and well nourished; no acute distress on 02NC up in chair Eyes: no EOM movement deficit ENMT: Mouth: oral mucous membranes not dry Neck: no nuchal rigidity Respiratory: Auscultation: + crackles (L>R) Cardiovascular: Rate/Rhythm: + tachycardic and + irregularly irregular Extremities: + edema (R>L 1+) Gastrointestinal (Abdomen): normal bowel sounds, soft, nontender, no hepatosplenomegaly Musculoskeletal: Extremities: normal strength Skin: no rashes, warm and dry Neurologic: butler, fluent speech, no tremor Psychiatric: A+Ox3, euthymic affect Genitourinary: felipe with ample urine Results & Data ([facility]) Vital Signs (Past 12 Hours) Vital Signs Temp Pulse Pulse Resp BP Pulse Ox 07/15/20 11:30 36.6 C 111 H 18 113/76 94 07/15/20 08:00 120 H 07/15/20 07:55 36.6 C 116 H 18 103/68 96 07/15/20 02:52 36.7 C 117 H 20 120/76 94 Laboratory Results 07/15/20 05:41 07/15/20 05:41
[2020-07-15] MEDS: DIGOXIN 0.125 MG TAB PO SCH (17:19)
[2020-07-15] MEDS: WARFARIN SOD 5 MG TAB PO SCH (17:19)
[2020-07-15] MEDS ORDERED: INSULIN DETEMIR FLEXPEN/FLEX TOUCH 100 UNITS/ML 3ML SC SCH ×2 (21:00)
[2020-07-16] MEDS: CEFAZOLIN 1000MG 1,000 MG/7.5 ML SYR IV SCH ×4 (04:25→21:08)
[2020-07-16 06:30] LABS: INR 1.2 (0.9-1.1); Prothrombin Time 12.6 Seconds (9.0-12.0)
[2020-07-16] MEDS: FUROSEMIDE 40 MG in SYRINGE 0 ML IV SCH ×2 (07:57→21:09)
[2020-07-16] MEDS: METOPROLOL TARTRATE 25 MG TAB PO SCH (07:57)
[2020-07-16] MEDS: FENOFIBRATE NANOCRYSTALLIZED 145 MG TABLET PO SCH (07:58)
[2020-07-16] MEDS: ASPIRIN 81 MG ECTAB PO SCH (07:58)
[2020-07-16] MEDS: OMEGA-3 (PURIFIED FISH OIL) 1 GM CAP PO SCH (07:58)
[2020-07-16] MEDS: CITALOPRAM 20 MG TAB PO SCH (07:58)
[2020-07-16] MEDS: ENALAPRIL MALEATE 5 MG TAB PO SCH (07:58)
[2020-07-16] MEDS: MULTIVITAMIN TAB PO SCH (07:59)
[2020-07-16] MEDS: ATORVASTATIN 40 MG TAB PO SCH (07:59)
[2020-07-16 08:05] LABS: Partial Thromboplastin Ratio 1.5; Partial Thromboplastin Time 42.1 Seconds (21.0-31.0)
[2020-07-16] MEDS: INSULIN ASPART 100 UNITS/ML 3 ML PEN SC SCH ×4 (08:19→21:08)
[2020-07-16] MEDS ORDERED: fentaNYL citrate 100 MCG/2 ML VIAL ONE (08:24)
[2020-07-16] MEDS ORDERED: MIDAZOLAM HCL 1 MG/ML 2ML VIAL ONE ×2 (08:25)
[2020-07-16 09:13] LABS: Est GFR (African American) 103.7; Est GFR (Non-African American) 89.5; Potassium 3.8 mmol/L (3.5-5.1)
[2020-07-16 09:14] LABS: BUN Creatinine Ratio 22.2 (10-20); Calcium 9.3 mg/dl (8.5-10.1); Creatinine Clr Calc Pharmacy 109.1 ml/min
--- NOTE | 2020-07-16 09:22 | Pre Anesthesia Assessment ---
Date of Service July 16, 2020 Pre Sedation Assessment Vital Signs Temp Pulse Pulse Pulse Pulse Resp BP 07/16/20 08:18 132 H 14 07/16/20 07:21 36.7 C 132 H 18 07/16/20 04:00 37.3 C 117 H 18 134/80 07/16/20 00:47 131 H 07/15/20 23:54 36.7 C 98 H 18 112/76 07/15/20 19:39 36.7 C 134 H 18 07/15/20 17:19 110 H 07/15/20 16:40 108 H 07/15/20 11:30 36.6 C 111 H 18 BP Pulse Ox 07/16/20 08:18 120/82 97 07/16/20 07:21 116/73 94 07/16/20 04:00 98 07/16/20 00:47 07/15/20 23:54 95 07/15/20 19:39 111/71 96 07/15/20 17:19 07/15/20 16:40 07/15/20 11:30 113/76 94 Pre-Sedation Airway Assessment Smoking Status: Former smoker Hx Sleep Apnea: No Short, Thick Neck: No Thyromental Distance: > or= 3.5 Finger Breadths Oral Cavity: + WNL Mallampati Class: III ASA: ASA3 NPO Status Date of Last Intake of Fluids: 07/16/20 Time of Last Intake of Fluids: 07:30 Last Oral Intake of Fluids Comment: sips with pills Date of Last Intake of Solid Food: 07/15/20 Time of Last Intake of Solid Foods: 20:00 Notes The planned sedation has been discussed with the patient. Informed Consent was obtained. I have identified the patient, determined the appropriateness of sedation and have assessed the patient immediately prior to the procedure. All medicine(s) and interventions are by my order.
--- NOTE | 2020-07-16 09:37 | Hospitalist Progress Note ---
Date of Service July 16, 2020 Assessment & Plan (1) Volume overload: (2) Dyspnea on exertion: This is a 60-year-old male with PMH of insulin-dependent type 2 diabetes, CAD (history of CABG in 2001), dyslipidemia, hypertension, GERD and other medical problems listed below who presents with significant weight gain and dyspnea on exertion over the past month. -Reported fifty pound weight gain, dyspnea on exertion, orthopnea & PND. No previous diagnosis of CHF -Pro-BNP elevated at 2745. Troponin normal. CXR with cardiomegaly with pulmonary vascular congestion and trace pleural effusions with probable bibasilar atelectasis. No recent echocardiogram on file -Given 40mg IV lasix in ED. Cardiology on case, EF 20-25% -Nepho on case, diuresing well (3) Atrial flutter by electrocardiogram: A flutter with variable block with HR of 129 in setting of significant volume overload -Given 2.5mg IV Lopressor in ED with improved HR of 105. Repeat EKG pending -Currently taking Toprol 25mg daily at home -Monitor on telemetry -HR still in 100s (4) HTN (hypertension): Continue Toprol and ramipril with hold parameters (5) Diabetes mellitus, type II: Poorly controlled DM II with most recent a1c of 9.3 earlier this month -Formerly on insulin pump, now requiring ~96 units of lantus qPM -Hold home agents -[facility] (6) Coronary artery disease: H/o CABG in 2001. EKG without acute ST changes. No chest pain. Continue aspirin, statin, beta sury (7) Dyslipidemia: Continue statin, fenofibrate (8) Mood disorder: Continue SSRI UTI-Ancef DVT Ppx: SQ heparin Code status: FULL PCP: [facility] Dispo: Admitted to PCU. Plan to return home once medically stable. Labs checked, good dry weight Approx 114 kg, 119 kg today, Now Tachy and Hypotensive Renal, Cards on case, DCCV today, Heparin gtt ROS-No Headache, No Visual Changes, No Nausea, No Vomiting, No Fever, No Chills, No Neck Pain or Stiffness, No Chest Pain, No Palpitations, No SOB, No [place], No Cough, No Sputum, No Wheezing, No Abdominal Pain, No Diarrhea, No Hematemesis, No Hemoptysis, No Unexpected Weight Loss, No Flank pain, No Melena, No Hematochezia, No Frequency, No Urgency, No Burning, No Hematuria, No Rashes, No Diaphoresis. Appetite is Normal, He is feeling better Physical Exam Gen-AAO x 3, NAD, Afebrile, obese Head-NCAT, EOMI, PERRLA, Anicteric Sclera, No Posterior Pharyngeal Erythema Neck-Supple, No JVD, No Thyromegaly, No Masses, No LAD, No Bruits Lungs-Clear to Auscultation Bilaterally, No Rales, No Rhonchi, No Wheezing, No Crepitus Chest- Tachy, No S4, +S1, +S2, No S3, No Murmurs, No Rubs, No Gallops Abdomen-Soft, Bowel Sounds Present, Non Tender, Distended, No Hepatomegaly, No Splenomegaly, No Palpable Masses, No Rebound, No Rigidity, No Guarding Musculoskeletal-Full Range of Motion Bilaterally, No CVAT Extremities-No Cyanosis, No Clubbing, 1-2+ edema now Nuero-Cranial Nerves II-XII grossly intact, Motor WNL, DTRs WNL, Strength WNL, Non Focal Psych-Normal Mood Admission and Anticipated Discharge Date Admission Date: July 11, 2020 Results & Data Results & Data ([facility]) Vital Signs (Past 12 Hours) Vital Signs Temp Pulse Pulse Pulse Resp BP BP 07/16/20 09:32 117 H 14 82/62 L 07/16/20 08:18 132 H 14 07/16/20 07:21 36.7 C 132 H 18 07/16/20 04:00 37.3 C 117 H 18 134/80 07/16/20 00:47 131 H 07/15/20 23:54 36.7 C 98 H 18 112/76 BP Pulse Ox 07/16/20 09:32 94 07/16/20 08:18 120/82 97 07/16/20 07:21 116/73 94 07/16/20 04:00 98 07/16/20 00:47 07/15/20 23:54 95 (1) Volume overload Hypervolemia type: unspecified Qualified Code(s): E87.70 - Fluid overload, unspecified (2) Diabetes mellitus, type II 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 transplanted heart: [place] heart Associated angina: angina presence unspecified Qualified Code(s): I25.10 - Atherosclerotic heart disease of [place] coronary artery without angina pectoris
--- NOTE | 2020-07-16 09:52 | Post Anesthesia Assessment ---
Date of Service July 16, 2020 Post Sedation Assessment Vital Signs Temp Pulse Pulse Pulse Pulse Resp BP 07/16/20 09:45 81 83 14 97/63 L 07/16/20 09:41 122 H 16 75/54 L 07/16/20 09:36 119 H 14 92/66 L 07/16/20 09:32 117 H 14 82/62 L 07/16/20 08:18 132 H 14 07/16/20 07:21 36.7 C 132 H 18 07/16/20 04:00 37.3 C 117 H 18 07/16/20 00:47 131 H 07/15/20 23:54 36.7 C 98 H 18 07/15/20 19:39 36.7 C 134 H 18 07/15/20 17:19 110 H 07/15/20 16:40 108 H 07/15/20 11:30 36.6 C 111 H 18 BP BP Pulse Ox 07/16/20 09:45 96/69 L 97 07/16/20 09:41 94 07/16/20 09:36 91 07/16/20 09:32 94 07/16/20 08:18 120/82 97 07/16/20 07:21 116/73 94 07/16/20 04:00 134/80 98 07/16/20 00:47 07/15/20 23:54 112/76 95 07/15/20 19:39 111/71 96 07/15/20 17:19 07/15/20 16:40 07/15/20 11:30 113/76 94 Recovery Score Activity: Moves 4 extremities Respiration: Deep Breath/Cough Circulation: +/-20% PreAnes Value Consciousness: Arouseable (by name) Oxygen Saturation: > 92% On Room Air Post Anesthesia Score: 9 Discharge Sedation Level of Care: Fast Track Phase II Post Sedation Plan On clinical assessment, the patient appears to have tolerated the sedation without complications. Patient is recovering as anticipated. Patient will continue to be monitored by nursing and may be discharged when sedation discharge criteria are met per below protocol. Upon Completions of procedure up to 15 minutes continue every 5 minute vital signs and the P.A.R. score; then discharge to a Phase I or Fast Track to Phase II per the following guidelines: * Discharge Patient to appropriate Phase II area if PAR is 8 or greater or return to pre- procedure baseline. The post - procedure orders will be as directed. * If PAR score is less than 8 or not return to pre-procedure baseline then patient will follow Phase I monitoring till PAR is reached for Phase II. The Phase I may be done in procedure room or may call to secure a Phase I area. * If naloxone or flumazenil are used for reversal, hold in Phase I for angus nued monitoring from when last reversal dose was given for a minimum of 60 minutes or longer pending the nurse and/or physician discretion of patient condition before discharge to Phase II. Please call the Sedation Physician to re-evaluate and complete post-note for discharge to Phase II area. Do NOT discharge from procedure sedation or Phase 1 until post- sedation evaluation note is complete by procedure /sedation MD Sedation Discharge Instructions to be given to the patient at discharge to home.
[2020-07-16] MEDS ORDERED: HEPARIN (PORCINE) 1000 UNIT/ML 10 ML (CATH LAB USE ONLY) ONE (09:54)
--- NOTE | 2020-07-16 09:54 | Cardioversion ---
Date of Service July 16, 2020 Informed consent obtained. Benefits, risks and alternative to procedures discussed at great lengths. Adequate moderate sedation achieved with a total of Versed 3 mg and fentanyl 75 mcg. Transesophageal echocardiogram revealed no thrombus within the left atrial appendage with velocity of 4 m/s. Incidentally found small PFO also present. DAYANNA completed, probe removed. Patient repositioned. 300 J of direct current energy applied with successful cardioversion to normal sinus rhythm. Patient tolerated the procedure well. No complications. Start time: 927 Stop time: Plan: Return to telemetry. Continue heparin drip as a Coumadin bridge We will continue diuresis.
[2020-07-16] MEDS: HEPARIN SODIUM/DEXTROSE 25,000 UNITS/500 ML BAG IV SCH ×2 (09:57→12:20)
--- NOTE | 2020-07-16 09:58 | Cardiology Progress Note ---
Date of Service July 16, 2020 Assessment & Plan (1) Acute decompensated heart failure: Patient presents with subacute onset symptoms of increasing lower extremity and abdominal bloating and edema decompensated biventricular heart failure right greater than left. Chest x-ray reveals mild vascular congestion on exam consistent with significant volume overload, anasarca Atrial flutter newly observed right presenting question whether this represents cause or an effect of heart failure Echocardiogram demonstrates diffuse LV dysfunction EF 25% without significant valvular disease Plan: continues to diurese well, will continue with IV diuresis. would like to see how much more he will diurese now in sinus cont bid lasix daily weights, strict I/O's follow and replete lytes as necessary (2) Atrial flutter with rapid ventricular response: Undetermined duration as possible culprit of current complaints versus is also decompensated heart failure underwent successful DAYANNA guided cardioversion cont heparin and coumadin, goal INR of 2-3 will adjust metoprolol dose as needed now that in sinus rhythm (3) Coronary artery disease: (4) Hematuria: (5) Diabetes mellitus, type II: Continue IV Lasix 40 mg twice daily. Follow daily weight, fluid balance, GFR, and electrolytes. Continue oral digoxin, metoprolol, and IV heparin. Further ischemic evaluation is warranted given decline in left ventricular systolic function. We will consider outpatient nuclear stress test. Consider removing Horne catheter in the next 24 to 48 hours given intermittent hematuria. Admission and Anticipated Discharge Date Admission Date: July 11, 2020 Subjective Patient seen and examined, chart reviewed. States he is feeling much better today. Notices that abdominal distention is improving and now almost resolved. No shortness of breath at rest or orthopnea. Denies chest pain, palpitations, lightheadedness, dizziness or syncope. Additiona 1800ml negative overnight. Telemetry reviewed: Atrial flutter with 2-1 A-V conduction Review of Systems Review of Systems: All systems reviewed & are unremarkable except as noted in HPI & below Physical Exam Physical Exam: General: Awake, alert and oriented x 3. No acute distress. HEENT: Normocephalic, atraumatic. Pupils equal, round and reactive to light and accommodation. Extraocular muscles are intact. Anicteric sclera. Moist mucous membranes. Neck: No JVD. No bruit. Cardiovascular: irregularly irregular, unable to appreciate murmur, rub or gallop. Pulmonary: Clear to auscultation bilaterally. No rales, rhonchi, or wheezing. Abdomen: Bowel sounds x 4, soft. No rebound, guarding or tenderness. No organomegaly. Extremities: No clubbing, cyanosis or edema. +2 pedal pulses bilaterally. Skin: Warm and dry. Results & Data ([facility]) Vital Signs (Past 12 Hours) Vital Signs Temp Pulse Pulse Pulse Resp BP BP 07/16/20 09:45 81 83 14 97/63 L 07/16/20 09:41 122 H 16 75/54 L 07/16/20 09:36 119 H 14 92/66 L 07/16/20 09:32 117 H 14 82/62 L 07/16/20 08:18 132 H 14 07/16/20 07:21 36.7 C 132 H 18 07/16/20 04:00 37.3 C 117 H 18 134/80 07/16/20 00:47 131 H 07/15/20 23:54 36.7 C 98 H 18 112/76 BP Pulse Ox 07/16/20 09:45 96/69 L 97 07/16/20 09:41 94 07/16/20 09:36 91 07/16/20 09:32 94 07/16/20 08:18 120/82 97 07/16/20 07:21 116/73 94 07/16/20 04:00 98 07/16/20 00:47 07/15/20 23:54 95 (1) Diabetes mellitus, type II Diabetes mellitus complication status: with other specified complication Diabetes mellitus skilled nursing insulin use: with cook fruit use Qualified Code(s): E11.69 - Type 2 diabetes mellitus with other specified complication; Z79.4 - group home (current) use of insulin (2) Coronary artery disease Associated angina: angina presence unspecified Coronary Disease-Associated Artery/Lesion type: [place] artery [place] vs. transplanted heart: [place] heart Qualified Code(s): I25.10 - Atherosclerotic heart disease of [place] coronary artery without angina pectoris
--- NOTE | 2020-07-16 11:08 | Pharmacy Report ---
Pharmacy Glycemic Short Note 2 - Date of Service July 16, 2020 - Glycemic Short BSG Results (Last 24 hours): OUTPATIENT ANTIDIABETIC REGIMEN: * Levemir 96 units SC HS * Insulin Lispro SC TID with meals (up to 100 units daily) * Trulicity 1.5 mg SC on Sundays * Metformin 1 gm PO BID * A1c = 9.3% (07/10/20) ASSESSMENT: 07/16: * Patient received a total of 142 units of insulin yesterday * 68 units basal + 74 units bolus * BSGs ranging 147 - 212 mg/dL over the last 24 hours * Fasting BSG was significantly elevated at 197 mg/dL this morning. Decision was made to not increase basal dose yesterday secondary to NPO status for car dioversion this AM. Will increase Basal dose tonight by 20%. * Lunchtime BSG was 205 - still experiencing post-prandial hyperglycemia. Therefore, will tighten carb ratio further. 07/15: * Patient received a total of 119 units of insulin yesterday * 68 units basal + 51 units bolus * BSGs ranging 133 - 193 mg/dL over the last 24 hours * Fasting BSG was 147 this AM. This is slightly above goal but has been trending up over the last two days. However, given patient will be NPO after midnight for a procedure, will not make any changes to basal insulin regimen. * There were some post-prandial elevations in BSGs over the past few days, especially with lunch and at bedtime. Will tighten CR slightly today. 07/14: * RP is a 60 year old male admitted on 07/11 with acute decompensated heart failure * Patient presented with significant volume overload/weight gain (~50 lbs in past month) + dyspnea on exertion * Additional PMH includes Afib, CAD, and type 2 diabetes mellitus * BSGs have been very tightly controlled so far, ranging 74-119 mg/dL * Patient received 68 units of Levemir (~30% reduction of home dose) last evening * Fasting BSG of 109 mg/dL this morning PLAN FOR INPATIENT GLYCEMIC CONTROL: * Hold outpatient oral diabetes medications * Basal insulin - 20% increase * Lantus 80 units SQ HS * Bolus insulin - tightened CR * NovoLog per scale ACHS or Q6hrs while NPO * Goal Range: Low 110 mg/dL - High 140 mg/dL * Correction Factor: 10 mg/dL/unit * Nutritional / Prandial insulin per carb ratio of 1 unit per 2.5 grams CHO consumed PLAN FOR DISCHARGE: * A1c of 9.3%. Patient follows with [facility] for T2DM management. * Patient is currently taking Metformin + GLP-1 RA + Basal-Bolus insulin + SGLT2i as an outpatient. * Patient should self monitor BSGs closely as an outpatient and follow up with [facility] soon after discharge.
[2020-07-16] MEDS: SPIRONOLACTONE 12.5 MG TAB PO SCH (11:40)
--- NOTE | 2020-07-16 12:15 | Electrocardiogram Report ---
Test Reason : Blood Pressure : / mmHG Vent. Rate : 083 BPM Atrial Rate : 083 BPM P-R Int : 186 ms QRS Dur : 116 ms QT Int : 404 ms P-R-T Axes : 073 087 031 degrees QTc Int : 474 ms Normal sinus rhythm Left atrial enlargement Borderline ECG When compared with ECG of 13-JUL-2020 06:25, Sinus rhythm has replaced Atrial flutter Confirmed by Brain Espinoza ([id number] on 07/16/2020 12:14:53 PM Referred By: REFERRED SELF Confirmed By:Brain Espinoza
[2020-07-16] MEDS: WARFARIN SOD 5 MG TAB PO SCH (15:53)
[2020-07-16 16:39] LABS: Partial Thromboplastin Ratio 1.8
[2020-07-16 16:43] LABS: Partial Thromboplastin Time 50.1 Seconds (21.0-31.0)
--- NOTE | 2020-07-16 16:45 | Nephrology Progress Note ---
Date of Service July 16, 2020 Assessment & Plan (1) Acute decompensated heart failure: Patient with acute decompensated CHF. He has EF of 25%. He was massively volume overloaded on presentation.. He is diuresing fairly well on lasix 40 mg iv bid -Agree with the current dose of Lasix. Weight is down to 119.3 kg today from 133 on 07/12/2020 -cont current diuretic dose; no K supplements needed but may need adjustments to these soon -Daily standing weight -cont 2L FR for now and heart healthy diet > may need tighter FR and Na restriction evenutally but with this diuresis would not start these (2) HTN (hypertension): Blood pressure is controlled. Patient on metoprolol and enalapril and lasix. Admission and Anticipated Discharge Date Admission Date: July 11, 2020 Subjective had successful cardioversion today and still recovering when I evaluated him 1450 approx. cardiology titrating BB dose; remains on 40 mg bid lasix. nearly 3L negative Review of Systems Review of Systems: All systems reviewed & are unremarkable except as noted in HPI & below Physical Exam Constitutional: well developed and well nourished; no acute distress lying still in bed Eyes: no EOM movement deficit ENMT: Mouth: oral mucous membranes not dry Neck: no nuchal rigidity Respiratory: Auscultation: + diminished lung sounds Cardiovascular: Rate/Rhythm: + tachycardic Extremities: + edema (R>L trace) Gastrointestinal (Abdomen): normal bowel sounds, soft, nontender, no hepatosplenomegaly Musculoskeletal: Extremities: normal strength Skin: no rashes, warm and dry Neurologic: butler, fluent speech, no tremor Psychiatric: A+Ox3, euthymic affect Results & Data ([facility]) Vital Signs (Past 12 Hours) Vital Signs Temp Pulse Pulse Pulse Resp BP BP 07/16/20 15:26 36.6 C 108 H 20 103/64 07/16/20 12:36 07/16/20 10:54 36.6 C 94 H 20 111/68 07/16/20 10:30 96 H 07/16/20 10:00 88 18 07/16/20 09:45 81 83 14 97/63 L 07/16/20 09:41 122 H 16 75/54 L 07/16/20 09:36 119 H 14 92/66 L 07/16/20 09:32 117 H 14 82/62 L 07/16/20 08:18 132 H 14 07/16/20 08:00 130 H 07/16/20 07:21 36.7 C 132 H 18 BP Pulse Ox 07/16/20 15:26 91 07/16/20 12:36 94 07/16/20 10:54 94 07/16/20 10:30 07/16/20 10:00 109/70 97 07/16/20 09:45 96/69 L 97 07/16/20 09:41 94 07/16/20 09:36 91 07/16/20 09:32 94 07/16/20 08:18 120/82 97 07/16/20 08:00 07/16/20 07:21 116/73 94 Laboratory Results 07/15/20 05:41 07/16/20 05:45
[2020-07-16] MEDS: METOPROLOL SUCC 25MG EXT REL TAB PO SCH (17:14)
[2020-07-16] MEDS ORDERED: INSULIN DETEMIR FLEXPEN/FLEX TOUCH 100 UNITS/ML 3ML SC SCH (21:00)
[2020-07-17] MEDS: HEPARIN SODIUM/DEXTROSE 25,000 UNITS/500 ML BAG IV SCH (02:57)
[2020-07-17] MEDS: CEFAZOLIN 1000MG 1,000 MG/7.5 ML SYR IV SCH ×3 (05:21→16:31)
[2020-07-17 05:33] LABS: Hemoglobin 15.2 g/dL (14.0-18.0); Mean Corpuscular Hemoglobin 29.8 pg (25-34); Mean Corpuscular Volume 90.2 fL (80-100); Mean Platelet Volume 11.1 fL (7.4-10.4); Platelet Count 116 K/uL (130-400); RDW Coefficient of Variation 15.2 % (11.5-14.5); RDW Standard Deviation 50.2 fL (36.4-46.3); White Blood Count 6.29 K/uL (4.8-10.8)
[2020-07-17 05:50] LABS: BUN Creatinine Ratio 22.4 (10-20); Calcium 9.1 mg/dl (8.5-10.1); Creatinine Clr Calc Pharmacy 101.5 ml/min; Est GFR (African American) 94.9; Est GFR (Non-African American) 81.9; Potassium 3.8 mmol/L (3.5-5.1)
[2020-07-17 05:53] LABS: Albumin Globulin Ratio 0.8 (0.9-2)
[2020-07-17 05:59] LABS: INR 1.5 (0.9-1.1); Partial Thromboplastin Ratio 1.8; Prothrombin Time 15.1 Seconds (9.0-12.0)
[2020-07-17 06:08] LABS: Partial Thromboplastin Time 49.1 Seconds (21.0-31.0)
[2020-07-17] MEDS: ASPIRIN 81 MG ECTAB PO SCH (07:52)
[2020-07-17] MEDS: FUROSEMIDE 40 MG in SYRINGE 0 ML IV SCH (07:52)
[2020-07-17] MEDS: OMEGA-3 (PURIFIED FISH OIL) 1 GM CAP PO SCH (07:52)
[2020-07-17] MEDS: METOPROLOL SUCC 25MG EXT REL TAB PO SCH (07:53)
[2020-07-17] MEDS: MULTIVITAMIN TAB PO SCH (07:53)
[2020-07-17] MEDS: CITALOPRAM 20 MG TAB PO SCH (07:53)
[2020-07-17] MEDS: SPIRONOLACTONE 12.5 MG TAB PO SCH (07:53)
[2020-07-17] MEDS: ENALAPRIL MALEATE 5 MG TAB PO SCH (07:53)
[2020-07-17] MEDS: ATORVASTATIN 40 MG TAB PO SCH (07:53)
[2020-07-17] MEDS: FENOFIBRATE NANOCRYSTALLIZED 145 MG TABLET PO SCH (07:53)
[2020-07-17] MEDS: INSULIN ASPART 100 UNITS/ML 3 ML PEN SC SCH ×2 (08:04→12:39)
[2020-07-17] MEDS ORDERED: FUROSEMIDE 40 MG in SYRINGE 0 ML IV SCH (09:00)
[2020-07-17] MEDS ORDERED: TORSEMIDE 10 MG TAB PO SCH (09:00)
[2020-07-17] MEDS ORDERED: LOSARTAN POTASSIUM 25 MG TAB PO SCH (09:00)
--- NOTE | 2020-07-17 09:06 | Hospitalist Progress Note ---
Date of Service July 17, 2020 Assessment & Plan (1) Volume overload: (2) Dyspnea on exertion: Acute decompensated heart failure This is a 60-year-old male with PMH of insulin-dependent type 2 diabetes, CAD (history of CABG in 2001), dyslipidemia, hypertension, GERD and other medical problems listed below who presents with significant weight gain and dyspnea on exertion over the past month. -Reported fifty pound weight gain, dyspnea on exertion, orthopnea & PND. No prev ious diagnosis of CHF -Pro-BNP elevated at 2745. Troponin normal. CXR with cardiomegaly with pulmonary vascular congestion and trace pleural effusions with probable bibasilar atelectasis. No recent echocardiogram on file -Given 40mg IV lasix in ED. Cardiology on case, EF 20-25% -Nephro on case, diuresing well Patient is down to 119.5 kg, per cardiology patient can be discharged home with close follow-up. Continue aspirin, atorvastatin, metoprolol succinate, spironolactone, losartan. He will also take Lasix 40 mg in the morning and as needed in the afternoon. (3) Atrial flutter by electrocardiogram: A flutter with variable block with HR of 129 in setting of significant volume overload -Given 2.5mg IV Lopressor in ED with improved HR of 105. Repeat EKG pending -Currently taking Toprol 25mg daily at home -Monitor on telemetry -HR 80 Patient has been on IV heparin, and warfarin was also started. INR 1.5. He will need to follow-up with anticoagulation clinic. Lovenox injections prescribed for bridging. (4) HTN (hypertension): Continue Toprol and lisinopril with hold parameters (5) Diabetes mellitus, type II: Poorly controlled DM II with most recent a1c of 9.3 earlier this month -Formerly on insulin pump, now requiring ~96 units of lantus qPM -Hold home agents -Glycemic consult placed -BSG AC HS Recommend to follow-up with [facility] endocrinology soon after discharge. (6) Coronary artery disease: H/o CABG in 2001. EKG without acute ST changes. No chest pain. Continue aspirin, statin, beta sury (7) Dyslipidemia: Continue statin, fenofibrate (8) Mood disorder: Continue SSRI UTI-Ancef DVT Ppx: SQ heparin Code status: FULL PCP: [facility] Dispo: Admitted to PCU. Plan to return home. Admission and Anticipated Discharge Date Admission Date: July 11, 2020 Subjective Patient is currently sitting up in bed, in no acute distress. Denies any chest pain, shortness of breath, abdominal pain, nausea or vomiting. Also denies any fevers or chills. Denies dizziness or lightheadedness. Patient is down to 119.5 kg. Seen by cardiology, safe to discharge, will follow-up with cardiology as outpatient. Review of Systems Review of Systems: All systems reviewed & are unremarkable except as noted in HPI & below Constitutional: no fever and no chills Respiratory: no cough and no dyspnea Cardiovascular: no chest pain and no palpitations Gastrointestinal: no abdominal pain, no nausea and no vomiting Physical Exam Physical Exam: Gen- AAO x 3, NAD, Afebrile, obese Head- NCAT, EOMI, PERRLA, Anicteric Sclera, No Posterior Pharyngeal Erythema Neck-supple, No JVD, No Thyromegaly, No Masses, No LAD, No Bruits Lungs-Clear to Auscultation Bilaterally, No Rales, No Rhonchi, No Wheezing, No Crepitus Chest-regular, positive S1-S2, no S3 no Murmurs, No Rubs, No Gallops Abdomen-Soft, Bowel Sounds Present, obese, nontender, mild distended, No Rebound, No Rigidity, No Guarding Musculoskeletal-moves all 4 extremities spontaneously Extremities- 1+ edema (improved) Nuero- alert oriented x3, no facial asymmetry, speech fluent, moves all extremities spontaneously and without difficulty Psych- Normal Mood Results & Data Results & Data ([facility]) Vital Signs (Past 12 Hours) Vital Signs Temp Pulse Pulse Pulse Resp BP Pulse Ox 07/17/20 08:00 91 H 07/17/20 07:18 36.6 C 87 18 130/76 92 07/17/20 02:46 36.8 C 93 H 20 135/74 96 07/17/20 00:16 107 H 07/16/20 22:43 36.8 C 107 H 20 110/67 91 Laboratory Results 07/17/20 07/17/20 07/17/20 Range/Units 07:21 05:16 05:16 WBC 6.29 (4.8-10.8) K/uL RBC 5.10 (4.7-6.1) M/uL Hgb 15.2 (14.0-18.0) g/dL Hct 46.0 (42-52) % MCV 90.2 (80-100) fL MCH 29.8 (25-34) pg MCHC 33.0 (32-36) g/dL RDW Std Deviation 50.2 H (36.4-46.3) fL RDW Coeff of Sai 15.2 H (11.5-14.5) % Plt Count 116 L (130-400) K/uL MPV 11.1 H (7.4-10.4) fL PT (9.0-12.0) Seconds INR (0.9-1.1) APTT (21.0-31.0) Seconds PTT Ratio Sodium 134 L (136-145) mmol/L Potassium 3.8 (3.5-5.1) mmol/L Chloride 94 L (98-107) mmol/L Carbon Dioxide 39 H (21-32) mmol/L Anion Gap 1.0 L (3-11) BUN 22 H (7-18) mg/dl Creatinine 0.99 (0.6-1.4) mg/dl Est Cr Clr Drug Dosing 101.5 ml/min Est GFR ( Amer) 94.9 Est GFR (Non-Af Amer) 81.9 BUN/Creatinine Ratio 22.4 H (10-20) Glucose 154 H (70-99) mg/dl POC Glucose 152 H (70-99) mg/dl Calcium 9.1 (8.5-10.1) mg/dl Total Bilirubin 1.0 (0.2-1) mg/dl AST 28 (15-37) U/L ALT 31 (12-78) U/L Alkaline Phosphatase 72 (45-117) U/L Total Protein 7.0 (6.4-8.2) gm/dl Albumin 3.0 L (3.4-5.0) gm/dl Globulin 4.0 (2.5-4.0) gm/dl Albumin/Globulin Ratio 0.8 L (0.9-2) 07/17/20 07/16/20 07/16/20 Range/Units 05:16 20:34 16:53 WBC (4.8-10.8) K/uL RBC (4.7-6.1) M/uL Hgb (14.0-18.0) g/dL Hct (42-52) % MCV (80-100) fL MCH (25-34) pg MCHC (32-36) g/dL RDW Std Deviation (36.4-46.3) fL RDW Coeff of Sai (11.5-14.5) % Plt Count (130-400) K/uL MPV (7.4-10.4) fL PT 15.1 H (9.0-12.0) Seconds INR 1.5 H (0.9-1.1) APTT 49.1 H* (21.0-31.0) Seconds PTT Ratio 1.8 Sodium (136-145) mmol/L Potassium (3.5-5.1) mmol/L Chloride (98-107) mmol/L Carbon Dioxide (21-32) mmol/L Anion Gap (3-11) BUN (7-18) mg/dl Creatinine (0.6-1.4) mg/dl Est Cr Clr Drug Dosing ml/min Est GFR ( Amer) Est GFR (Non-Af Amer) BUN/Creatinine Ratio (10-20) Glucose (70-99) mg/dl POC Glucose 172 H 176 H (70-99) mg/dl Calcium (8.5-10.1) mg/dl Total Bilirubin (0.2-1) mg/dl AST (15-37) U/L ALT (12-78) U/L Alkaline Phosphatase (45-117) U/L Total Protein (6.4-8.2) gm/dl Albumin (3.4-5.0) gm/dl Globulin (2.5-4.0) gm/dl Albumin/Globulin Ratio (0.9-2) 07/16/20 07/16/20 07/16/20 Range/Units 15:54 11:23 10:10 WBC (4.8-10.8) K/uL RBC (4.7-6.1) M/uL Hgb (14.0-18.0) g/dL Hct (42-52) % MCV (80-100) fL MCH (25-34) pg MCHC (32-36) g/dL RDW Std Deviation (36.4-46.3) fL RDW Coeff of Sai (11.5-14.5) % Plt Count (130-400) K/uL MPV (7.4-10.4) fL PT (9.0-12.0) Seconds INR (0.9-1.1) APTT 50.1 H* (21.0-31.0) Seconds PTT Ratio 1.8 Sodium (136-145) mmol/L Potassium (3.5-5.1) mmol/L Chloride (98-107) mmol/L Carbon Dioxide (21-32) mmol/L Anion Gap (3-11) BUN (7-18) mg/dl Creatinine (0.6-1.4) mg/dl Est Cr Clr Drug Dosing ml/min Est GFR ( Amer) Est GFR (Non-Af Amer) BUN/Creatinine Ratio (10-20) Glucose (70-99) mg/dl POC Glucose 205 H 207 H (70-99) mg/dl Calcium (8.5-10.1) mg/dl Total Bilirubin (0.2-1) mg/dl AST (15-37) U/L ALT (12-78) U/L Alkaline Phosphatase (45-117) U/L Total Protein (6.4-8.2) gm/dl Albumin (3.4-5.0) gm/dl Globulin (2.5-4.0) gm/dl Albumin/Globulin Ratio (0.9-2) 08/25/20 Range/Units 05:45 WBC (4.8-10.8) K/uL RBC (4.7-6.1) M/uL Hgb (14.0-18.0) g/dL Hct (42-52) % MCV (80-100) fL MCH (25-34) pg MCHC (32-36) g/dL RDW Std Deviation (36.4-46.3) fL RDW Coeff of Sai (11.5-14.5) % Plt Count (130-400) K/uL MPV (7.4-10.4) fL PT (9.0-12.0) Seconds INR (0.9-1.1) APTT (21.0-31.0) Seconds PTT Ratio Sodium 135 L (136-145) mmol/L Potassium 3.8 (3.5-5.1) mmol/L Chloride 95 L (98-107) mmol/L Carbon Dioxide 36 H (21-32) mmol/L Anion Gap 4.0 (3-11) BUN 21 H (7-18) mg/dl Creatinine 0.92 (0.6-1.4) mg/dl Est Cr Clr Drug Dosing 109.1 ml/min Est GFR ( Amer) 103.7 Est GFR (Non-Af Amer) 89.5 BUN/Creatinine Ratio 22.2 H (10-20) Glucose 196 H (70-99) mg/dl POC Glucose (70-99) mg/dl Calcium 9.3 (8.5-10.1) mg/dl Total Bilirubin (0.2-1) mg/dl AST (15-37) U/L ALT (12-78) U/L Alkaline Phosphatase (45-117) U/L Total Protein (6.4-8.2) gm/dl Albumin (3.4-5.0) gm/dl Globulin (2.5-4.0) gm/dl Albumin/Globulin Ratio (0.9-2) Medications Administered Current Inpatient Medications Acetaminophen (Acetaminophen 325 Mg Tab) 650 mg PO Q4H PRN PRN Reason: Pain or Fever Stop: 08/10/20 17:37 Aspirin (Aspirin 81 Mg Ectab) 81 mg PO [facility] Stop: 08/11/20 08:59 Last Admin: 07/17/20 07:52 Dose: 81 mg Documented by: Atorvastatin Calcium (Atorvastatin 40 Mg Tab) 40 mg PO [facility] Stop: 08/11/20 08:59 Last Admin: 07/17/20 07:53 Dose: 40 mg Documented by: Citalopram Hydrobromide (Citalopram 20 Mg Tab) 20 mg PO [facility] Stop: 08/11/20 08:59 Last Admin: 07/17/20 07:53 Dose: 20 mg Documented by: Dextrose (Dextrose 50% 50 Ml Syringe) 25 - 50 ml IV UD PRN; Protocol PRN Reason: Hypoglycemia Protocol Stop: 08/14/20 07:59 Enalapril Maleate (Enalapril Maleate 5 Mg Tab) 5 mg PO [facility] Stop: 08/11/20 21:00 Last Admin: 07/17/20 07:53 Dose: 5 mg Documented by: Fenofibrate (Fenofibrate Nanocrystallized 145 Mg Tablet) 145 mg PO QAM [facility] Stop: 08/11/20 08:59 Last Admin: 07/17/20 07:53 Dose: 145 mg Documented by: Fish Oil ([employer] (Purified Fish Oil) 1 Gm Cap) 1 gm PO QAM [facility] Stop: 08/11/20 08:59 Last Admin: 07/17/20 07:52 Dose: 1 gm Documented by: Glucagon (Glucagon For Inj 1 Mg Vial) 1 mg IM UD PRN; Protocol PRN Reason: Hypoglycemia Protocol Stop: 08/14/20 07:59 Glucose (Glucose 40% Gel 15 Gm Tube) 15 - 30 gm PO UD PRN; Protocol PRN Reason: Hypoglycemia Protocol Stop: 08/14/20 07:59 Glucose (Glucose 10 Tabs/Tube) 4 - 8 tabs PO UD PRN; Protocol PRN Reason: Hypoglycemia Protocol Stop: 08/14/20 07:59 Heparin Sodium/Dextrose (Heparin Sodium/Dextrose) 25,000 units in 500 mls @ 36 mls/hr IV .[id number] [facility]; Protocol Stop: 08/11/20 12:14 Last Titration: 07/17/20 06:54 Dose: 1,800 units/hr, 36 mls/hr Documented by: Cefazolin Sodium (Ancef 1000mg) 1,000 mg in 7.5 mls @ 2.5 mls/min IV Q6H [facility] Stop: 07/19/20 09:59 Last Admin: 07/17/20 05:21 Dose: 2.5 mls/min Documented by: Furosemide 40 mg/ Syringe 4 mls @ 4 mls/min IV BID17 [facility] Stop: 08/16/20 08:59 Insulin Aspart (Insulin Aspart 100 Units/Ml 3 Ml Pen) 0 units SC ACHS [facility]; Protocol Stop: 08/10/20 18:14 Last Admin: 07/17/20 08:04 Dose: 22 units Documented by: Insulin Detemir (Insulin Detemir Flexpen/Flex Touch 100 Units/Ml 3ml) 80 units SC [facility]; Protocol Stop: 08/10/20 20:59 Last Admin: 07/16/20 21:11 Dose: 80 units Documented by: Losartan Potassium (Losartan Potassium 25 Mg Tab) [facility] Stop: 08/16/20 08:59 Last Admin: 07/17/20 07:53 Dose: 25 mg Documented by: Metoprolol Succinate (Metoprolol Succ 25mg Ext Rel Tab) 25 mg PO BID17 [facility] Stop: 08/15/20 16:59 Last Admin: 07/17/20 07:53 Dose: 25 mg Documented by: Miscellaneous (Carbohydrates For Hypoglycemia ) 15 - 30 gm PO UD PRN PRN Reason: Hypoglycemia Treatment Stop: 08/14/20 07:59 Miscellaneous Information (Pharmacy Glycemic Mgmt Consult) 1 ea N/A UD PRN PRN Reason: Consult Stop: 08/10/20 17:56 Multivitamins (Multivitamin Tab) 1 tab PO QAM [facility] Stop: 08/11/20 08:59 Last Admin: 07/17/20 07:53 Dose: 1 tab Documented by: Nitroglycerin (Nitroglycerin Sl 0.4 Mg/Tab Tab) 0.4 mg SL Q5M PRN PRN Reason: Chest Pain Stop: 08/10/20 17:37 Ondansetron HCl (Ondansetron Inj 2 Mg/Ml 2 Ml Vial) 4 mg IV Q6H PRN PRN Reason: Nausea Stop: 08/10/20 17:37 Polyethylene Glycol (Polyethylene (Miralax) 17 Gm Pack) 17 gm PO DAILY PRN PRN Reason: Constipation Stop: 08/10/20 17:37 Spironolactone (Spironolactone 12.5 Mg Tab) 12.5 mg PO DAILY [facility] Stop: 08/15/20 09:59 Last Admin: 07/17/20 07:53 Dose: 12.5 mg Documented by: Warfarin Sodium (Warfarin Sod 5 Mg Tab) 5 mg PO DAILY@1600 [facility] Stop: 08/14/20 15:59 Last Admin: 07/16/20 15:53 Dose: 5 mg Documented by: (1) Diabetes mellitus, type II Diabetes mellitus complication status: with other specified complication Diabetes mellitus manager intermediate insulin use: with manager intermediate use Qualified Code(s): E11.69 - Type 2 diabetes mellitus with other specified complication; Z79.4 - shelter (current) use of insulin (2) Coronary artery disease Associated angina: angina presence unspecified Coronary Disease-Associated Artery/Lesion type: elem artery [place] vs. transplanted heart: elem heart Qualified Code(s): I25.10 - Atherosclerotic heart disease of [place] coronary artery without angina pectoris (3) Volume overload Hypervolemia type: unspecified Qualified Code(s): E87.70 - Fluid overload, unspecified
--- NOTE | 2020-07-17 09:47 | Pharmacy Report ---
Pharmacy Glycemic Short Note 2 - Date of Service July 17, 2020 - Glycemic Short BSG Results (Last 24 hours): OUTPATIENT ANTIDIABETIC REGIMEN: * Levemir 96 units SC HS * Insulin Lispro SC TID with meals (up to 100 units daily) * Trulicity 1.5 mg SC on Sundays * Metformin 1 gm PO BID * A1c = 9.3% (07/10/20) ASSESSMENT: 07/17: * RP is a 60 year old male admitted on 07/11 with acute decompensated heart failure * Patient presented with significant volume overload/weight gain (~50 lbs in past month) + dyspnea on exertion * Additional PMH includes Afib, CAD, and type 2 diabetes mellitus * Patient received a total of 131 units of insulin yesterday * 80 units of basal insulin * 51 units of prandial/correctional insulin * BSGs ranging 172 - 207 mg/dL over the past 24hrs * Risk factors for insulin resistance are constant over the past 24hrs * Patient underwent cardioversion yesterday * Remains on Lasix 40 mg IV BID and Heparin drip (currently running at 36 mL/hr) * Anticipating insulin regimen will require minimal changes over the next 24hrs: * AM Fasting BSG = 152 mg/dL - improved but still uncontrolled * Lunchtime BSG = 162 mg/dL PLAN FOR INPATIENT GLYCEMIC CONTROL: * Hold outpatient oral diabetes medications * Basal insulin - no change * Lantus 80 units SQ HS * Bolus insulin - no change * NovoLog per scale ACHS or Q6hrs while NPO * Goal Range: Low 110 mg/dL - High 140 mg/dL * Correction Factor: 10 mg/dL/unit * Nutritional / Prandial insulin per carb ratio of 1 unit per 2.5 grams CHO consumed PLAN FOR DISCHARGE: * A1c of 9.3%. Patient follows with [facility] Endocrinology for T2DM management. * Patient is currently taking Metformin + GLP-1 RA + Basal-Bolus insulin + SGLT2i as an outpatient. * Patient should self monitor BSGs closely as an outpatient and follow up with [facility] Endocrinology soon after discharge.
--- NOTE | 2020-07-17 11:57 | Electrocardiogram Report ---
Test Reason : Blood Pressure : / mmHG Vent. Rate : 093 BPM Atrial Rate : 093 BPM P-R Int : 200 ms QRS Dur : 114 ms QT Int : 386 ms P-R-T Axes : 064 069 053 degrees QTc Int : 479 ms Normal sinus rhythm Left atrial enlargement Minimal voltage criteria for LVH, may be normal variant Nonspecific T wave abnormality Anterior leads Abnormal ECG When compared with ECG of 16-JUL-2020 09:49, Nonspecific T wave abnormality now evident in Anterior leads Confirmed by Brain Espinoza ([id number] on 07/17/2020 11:56:52 AM Referred By: REFERRED SELF Confirmed By:Brain Espinoza
--- NOTE | 2020-07-17 13:30 | Cardiology Progress Note ---
Date of Service July 17, 2020 Assessment & Plan (1) Acute decompensated heart failure: Patient presents with subacute onset symptoms of increasing lower extremity and abdominal bloating and edema decompensated biventricular heart failure right greater than left. Chest x-ray reveals mild vascular congestion on exam consistent with significant volume overload, anasarca Atrial flutter newly observed right presenting question whether this represents cause or an effect of heart failure Echocardiogram demonstrates diffuse LV dysfunction EF 25% without significant valvular disease Plan: He is now diuresed well and will start p.o. diuretics. Okay to discharge home to home with current doses of losartan, metoprolol succinate, spironolactone, aspirin and atorvastatin. Discharged with Lasix 40 mg p.o. every morning with an extra dose in the afternoon as needed for volume overload. My office will call to arrange close follow-up as an outpatient. He was last seen by Dr. Flowers in 2016. May consider outpatient nuclear stress test to rule out ischemia. (2) Atrial flutter with rapid ventricular response: Undetermined duration as possible culprit of current complaints versus is also decompensated heart failure underwent successful DAYANNA guided cardioversion cont heparin and coumadin, goal INR of 2-3 Will require a Lovenox bridge as an outpatient. Arrange for follow-up with our [facility] clinic (3) Coronary artery disease: (4) Hematuria: (5) Diabetes mellitus, type II: Admission and Anticipated Discharge Date Admission Date: July 11, 2020 Subjective Patient seen and examined, chart reviewed. Patient states he feels great today. He feels back to his baseline. He denies any Chest pain, shortness of breath, palpitations, lightheadedness, dizziness or syncope. Tele reviewed: NSR without arrhythmia Review of Systems Review of Systems: All systems reviewed & are unremarkable except as noted in HPI & below Physical Exam Physical Exam: General: Awake, alert and oriented x 3. No acute distress. HEENT: Normocephalic, atraumatic. Pupils equal, round and reactive to light and accommodation. Extraocular muscles are intact. Anicteric sclera. Moist mucous membranes. Neck: No JVD. No bruit. Cardiovascular: Regular. Positive S-4. Normal S-1 and S-2. No S-3. No murmurs or rubs. Pulmonary: Clear to auscultation B/L. No rales, rhonchi or wheezing Abdomen: Bowel sounds x 4, soft. No rebound, guarding or tenderness. No organomegaly. Extremities: No clubbing, cyanosis or edema. +2 pedal pulses bilaterally. Skin: Warm and dry. Results & Data ([facility]) Vital Signs (Past 12 Hours) Vital Signs Temp Pulse Pulse Pulse Resp BP BP 07/17/20 11:43 36.5 C 92 H 18 105/66 07/17/20 08:00 91 H 07/17/20 07:18 36.6 C 87 18 130/76 07/17/20 02:46 36.8 C 93 H 20 135/74 Pulse Ox 07/17/20 11:43 92 07/17/20 08:00 07/17/20 07:18 92 07/17/20 02:46 96 (1) Coronary artery disease Coronary Disease-Associated Artery/Lesion type: [place] artery [place] vs. transplanted heart: [place] heart Associated angina: angina presence unspecified Qualified Code(s): I25.10 - Atherosclerotic heart disease of [place] coronary artery without angina pectoris (2) Diabetes mellitus, type II Diabetes mellitus fci insulin use: with termite control representative use Diabetes mellitus complication status: with other specified complication Qualified Code(s): E11.69 - Type 2 diabetes mellitus with other specified complication; Z79.4 - jail (current) use of insulin
--- NOTE | 2020-07-17 16:05 | Discharge Summary ---
Date of Service July 17, 2020 Admission HPI Per Admitting Provider This is a 60-year-old male with PMH of insulin-dependent type 2 diabetes, CAD (history of CABG in 2001), dyslipidemia, hypertension, GERD and other medical problems listed below who presents with significant weight gain and dyspnea on exertion over the past month. Patient endorses gaining approximately 50 pounds over the past month with notable swelling in abdomen and lower extremities. Has also had dyspnea on exertion with any type of activity. Does endorse orthopnea and PND. Has followed with Dr. Flowers in the past of cardiology group for CAD and HTN but has not seen since 2017. Receives primary care from [facility]. Follows with [facility] endocrine for poorly controlled DM II. Denies any lightheadedness, visual changes, chest pain or palpitations. Denies wheezing. No fever, chills or cough. No sick contacts. Denies abdominal pain, nausea or vomiting. No dysuria but endorses nocturia and increased frequency he attributes to diabetes. In the ED, found to have heart rate of 129 and BP of 96/60. EKG showing atrial flutter with variable block. Denies any history of known arrhythmias. SOB improved on 2 L nasal cannula oxygen. Pro-BNP elevated at 2745. CXR with cardiomegaly with pulmonary vascular congestion and trace pleural effusions with probable bibasilar atelectasis. No recent echocardiogram on file. Admission Exam Per Admitting Provider General Appearance: WD/WN, vitals as above, NAD, sitting up in bed, obese, pleasant, conversational dyspnea Head: normocephalic, atraumatic Eyes: normal inspection, PERRL, conjunctivae normal, anicteric sclerae ENT: external ear and nose normal, oropharynx normal Neck: normal visual inspection, trachea midline, no thyromegaly Respiratory: normal respiratory effort, diminished lung sounds at bases, no wheeze or rhonchi. No accessory muscle use Cardiovascular: tachycardic rate, irregular rhythm, no murmur appreciated, normal peripheral pulses, 2+ BLE pitting edema. Vessels: difficult to assess JVD due to habitus Chest: normal inspection of chest Abdomen/GI: normal bowel sounds, soft but protuberant, nontender, no hepatosplenomegaly Extremities/Musculoskeletal: no cyanosis or clubbing, extremities motor strength 5/5. Pitting edema up to midback bilaterally Neurologic: PERRL, EOMI, accommodation nl, no face palsy, no dysarthria, CN's II-XI intact bilaterally and moves all extremities Psychiatric: A+Ox3, euthymic affect Skin: no rashes, normal color, warm/dry Principal Diagnosis Acute CHF exacerbation Atrial flutter with rapid ventricular response Diabetes mellitus type 2 Hematuria/UTI Discharge Exam Gen- AAO x 3, NAD, Afebrile, obese Head- NCAT, EOMI, PERRLA, Anicteric Sclera, No Posterior Pharyngeal Erythema Neck-supple, No JVD, No Thyromegaly, No Masses, No LAD, No Bruits Lungs-Clear to Auscultation Bilaterally, No Rales, No Rhonchi, No Wheezing, No Crepitus Chest-regular, positive S1-S2, no S3 no Murmurs, No Rubs, No Gallops Abdomen-Soft, Bowel Sounds Present, obese, nontender, mild distended, No Rebound, No Rigidity, No Guarding Musculoskeletal-moves all 4 extremities spontaneously Extremities- 1+ edema (improved) Nuero- alert oriented x3, no facial asymmetry, speech fluent, moves all extremities spontaneously and without difficulty Psych- Normal Mood Discharge Data Allergies Allergy/AdvReac Type Severity Reaction Status Date / Time No Known Allergies Allergy Unknown Verified 07/11/20 13:45 Consultations 07/11/20 13:22 ED Decision to Admit Stat 07/11/20 17:20 Consult Cardiology Routine Consult Nephrology Routine Procedures Performed Operation Date: 07/16/20 08:00 Actual Procedures p Echo Transesophageal - DO toni Gordillo Echo Color Flow - DO toni Gordillo Doppler Echo Limited/Follow Up - DO toni Gordillo Cardioversion - Gal Bobo DO Hospital Course (1) Volume overload: (2) Dyspnea on exertion: Acute decompensated heart failure This is a 60-year-old male with PMH of insulin-dependent type 2 diabetes, CAD (history of CABG in 2001), dyslipidemia, hypertension, GERD and other medical problems listed below who presents with significant weight gain and dyspnea on exertion over the past month. -Reported fifty pound weight gain, dyspnea on exertion, orthopnea & PND. No previous diagnosis of CHF -Pro-BNP elevated at 2745. Troponin normal. CXR with cardiomegaly with pulmonary vascular congestion and trace pleural effusions with probable bibasilar atelectasis. No recent echocardiogram on file -Given 40mg IV lasix in ED. Cardiology on case, EF 20-25% -Nephro on case, diuresing well Patient is down to 119.5 kg, per cardiology patient can be discharged home with close follow-up. Continue aspirin, atorvastatin, metoprolol succinate, spironolactone, losartan. He will also take Lasix 40 mg in the morning and as needed in the afternoon. (3) Atrial flutter by electrocardiogram: A flutter with variable block with HR of 129 in setting of significant volume overload -Given 2.5mg IV Lopressor in ED with improved HR of 105. Repeat EKG pending -Currently taking Toprol 25mg daily at home -Monitor on telemetry -Underwent cardioversion -HR 80 Telemetry reviewed, patient is normal sinus rhythm, HR 80s to 90s. Patient has been on IV heparin, and warfarin was also started. INR 1.5. He will need to follow-up with anticoagulation clinic. Lovenox injections prescribed for bridging. (4) HTN (hypertension): Continue Toprol and lisinopril with hold parameters (5) Diabetes mellitus, type II: Poorly controlled DM II with most recent a1c of 9.3 earlier this month -Formerly on insulin pump, now requiring ~96 units of lantus qPM -Hold home agents -Glycemic consult placed [facility] to follow-up with [facility] endocrinology soon after discharge. (6) Coronary artery disease: H/o CABG in 2001. EKG without acute ST changes. No chest pain. Continue aspirin, statin, beta sury (7) Dyslipidemia: Continue statin, fenofibrate (8) Mood disorder: Continue SSRI UTI-Ancef, patient should follow up with PCP to make sure UTI resolved Dispo: Admitted to PCU. Plan to return home. Total Time Total Time Spent Total Time Spent (In Minutes): 50 Total Time Includes: Examination of the Patient, Discharge Planning, Medication Reconciliation and Communication With Other Providers Discharge Plan Discharge Items Patient Disposition: Home - Self-Care Reason For Visit: CHF EXACERBATION Discharge Diagnosis: Acute CHF exacerbation Atrial flutter with rapid ventricular response Diabetes mellitus type 2 Hematuria/UTI Activity: Per Instructions section Non-emergency contact: Primary Care Provider and Court Bailiff Call non-emergency contact if: you have any medication questions and your symptoms worsen Follow-up/Referrals: Johnny Mejia MD [Primary Care Provider] - Larry Brewer MD [Outside Practitioners] - 07/22/20 11:00 am (07/22/2020 11:00 AM Provider Larry Brewer MD Department [facility] ) Diet: Carb Consistent or DM2, Heart Healthy and Low Sodium (2gm) Fluids: 1800ml (7 cups) Addtl Attending Provider Instructions: Your diabetes is not well controlled, it is recommended that you follow-up with your architectural practice manager within the next 1 to 2 weeks. Follow-up with primary care doctor within 1 week. Continue taking antibiotics for 2 more days, for UTI, your primary care doctor should recheck your urine for UTI resolution. You were admitted for congestive heart failure, cardiology follow-up appointment is recommended and will be scheduled for you. Continue taking aspirin and atorvastatin. Metoprolol succinate was changed to 25 mg extended release daily. You were also started on spironolactone and losartan. Take Lasix 40 mg daily in the morning, you may need to take extra dose in the afternoon if you start to accumulate fluid. Discuss this with your manager paid. Read instructions below in detail. Make sure to weigh yourself every morning and record these numbers. You were started on anticoagulation (blood thinner), called warfarin. Blood work will need to be done and monitored for your INR level. Currently your INR is 1.5. You will need to follow with anticoagulation clinic. Before your INR is therapeutic, goal is between 2 and 3, you will need to use Lovenox injections (this is called bridging). You will be instructed on how to use Lovenox injections by nursing staff prior to your discharge. Addtl Continuous Conveyor Screen Drier Provider Instructions: Call your Primary Care doctor if any of the following symptoms or problems start or get worse: * Shortness of breath or difficulty breathing * Wake up at night short of breath * Chest pain * Cough * Swelling of your hands, feet, or legs * More fatigued or tired with your normal activity * Palpitations - sudden fast heart beats WEIGHT * Weigh yourself every morning after using the bathroom. * Use the same scale. * Wear the same amount of clothing. * Write your weight down on a chart. * Call your Primary Care doctor if you gain more than 2-3 pounds in 1-2 days. MEDICATIONS * Use this discharge instruction sheet for medication instructions. * Take your medications at the time your doctor ordered. * Do not skip a dose of your medicines. * If you miss a dose of medicine, take it as soon as possible, but DO NOT DOUBLE A DOSE. * Read your medicine information when you get home. * Know all of the side effects of your medicine. If in doubt, ask your pharmacist * Call your Primary Care doctor's office if you have any side effects. * Be sure all of your doctors know what medicine and herbs you take (including cold, flu, and herbal medicine). Take the following with you to your follow-up doctor appointments: * Weight Chart * Medication List * List of questions Do not drink excessive alcohol, beer or wine. Pending Studies at Discharge: No Stand-Alone Forms: [facility], Smoking Cessation Medications and DC Order Prescriptions: New enoxaparin [Lovenox] 120 mg/0.8 mL Syringe 120 mg subcut Q12H 4 Days Qty: 6.4 RF: 0 losartan 25 mg Tablet 25 mg PO QAM 30 Days Qty: 30 RF: 0 spironolactone 25 mg Tablet 12.5 mg PO DAILY 30 Days Qty: 15 RF: 0 furosemide [Lasix] 40 mg tablet 40 mg PO QAM Qty: 30 RF: 0 warfarin 5 mg tablet 5 mg PO DAILY Qty: 30 RF: 0 doxycycline hyclate 100 mg Capsule 100 mg PO BID 2 Days Qty: 4 RF: 0 Continued metoprolol succinate 25 mg capsule,sprinkle,ER 24hr 25 mg PO QAM RF: 0 isosorbide mononitrate 30 mg tablet extended release 24 hr 30 mg PO QAM RF: 0 metformin 1,000 mg tablet 1,000 mg PO BIDM RF: 0 fenofibrate nanocrystallized 145 mg tablet 145 mg PO QAM RF: 0 citalopram [Celexa] 20 mg tablet 20 mg PO QAM RF: 0 atorvastatin [Lipitor] 40 mg tablet 40 mg PO QAM RF: 0 nitroglycerin 0.4 mg tablet, sublingual 0.4 mg SL .COMPLEX RF: 0 aspirin [Adult Low Dose Aspirin] 81 mg tablet,delayed release (DR/EC) 81 mg PO QAM RF: 0 omega-3 fatty acids 1,000 mg capsule 1,000 mg PO QAM RF: 0 iron,carbonyl-vitamin C 100-250 mg tablet 1 tab PO QAM RF: 0 multivitamin tablet 1 tab PO QAM RF: 0 (DME) Contour Next Test Strips strip See Dose Instructions .ROUTE .MEDSUPPLY Qty: 10 RF: 0 insulin lispro [Humalog KwikPen Insulin] 100 unit/mL insulin pen See Rx Instructions SQ TID RF: 0 (DME) insulin syringe-needle U-100 [BD Insulin Syringe Ultra-Fine] 1 mL 31 gauge x 5/16 syringe See Dose Instructions .ROUTE .MEDSUPPLY Qty: 10 RF: 0 (DME) pen needle, diabetic [Novofine 32] 32 gauge x 1/4" needle See Dose Instructions .ROUTE .MEDSUPPLY Qty: 50 RF: 0 Trulicity 1.5 mg/0.5 mL pen injector 1.5 mg SQ SUMMERS RF: 0 Levemir U-100 Insulin 100 unit/mL solution See Rx Instructions SQ DAILY RF: 0 Discontinued ramipril [Altace] 5 mg capsule 5 mg PO QAM RF: 0 Discharge Orders: Discharge Order (Routine); Ordered 07/17/20 Ordered By: Joey Proctor Admission Data Admit Date/Time: 07/11/20 14:19 Attending Provider: Joey Proctor Admit Provider: Dale Atkins Primary Care Provider: Johnny Mejia Other Providers: Dale Atkins ; Wilber Arrington ; Nathaniel Diamond
[2020-07-17] MEDS: WARFARIN SOD 5 MG TAB PO SCH (16:32)
[2020-07-17] MEDS ORDERED: ENOXAPARIN INJ 120 MG/0.8 ML SYR SQ SCH ×2 (17:00→19:00)
[2020-07-17] MEDS ORDERED: HEPARIN DRIP~STOP ORDER ONE (18:59)
[2020-07-17] MEDS ORDERED: DOXYCYCLINE HYCLATE 100 MG CAP PO SCH (21:00)
--- NOTE | 2020-08-05 07:53 | Coding Query ---
CONGESTIVE HEART FAILURE To Promote full compliance with coding requirements relating to patient care, physician participation is requested in all cases of feed and farm management adviser uncertainty. Please assist us with the following questions. A diagnosis of Congestive Heart Failure is documented in the patient's medical record. To accurately code this diagnosis and to compare patient severity, we ask that you specify the type of heart failure by placing an X within the parenthesis (x). SYSTOLIC HEART FAILURE ( x ) Acute ( ) Chronic ( ) Acute on Chronic ( ) Rheumatic ( ) Unknown DIASTOLIC HEART FAILURE ( ) Acute ( ) Chronic ( ) Acute on Chronic ( ) Rheumatic ( ) Unknown COMBINED SYSTOLIC AND DIASTOLIC HEART FAILURE ( ) Acute ( ) Chronic ( ) Acute on Chronic ( ) Rheumatic ( ) Unknown Was the CHF Present On Admission? Please check the appropriate box: ( x ) Present on Admission ( ) Not Present On Admission ( ) Clinically undetermined Thank you Soni THOMPSON
== END 2020-07-17 16:53 | disposition home or self-care (01) | DRG 291 ==
LOC: ED 11:41 → 2N 14:19 → SUATTDRO 14:19 → 2N 17:09

== ENCOUNTER 2020-08-16 11:58 | Observation (INO) ==
--- NOTE | 2020-08-16 12:47 | History & Physical Bridge Note ---
Date of Service August 16, 2020 History & Physical Bridge Note I have examined the patient, reviewed the History & Physical and in the interval since the performance of the History & Physical I have noted the following changes of clinical significance: recommend atrial flutter ablation with EPS. Discussed the procedure and potential risks. He understood and agreed to proceed. Consents signed.
--- NOTE | 2020-08-16 12:48 | Pre Anesthesia Assessment ---
Date of Service August 16, 2020 Pre Sedation Assessment Vital Signs Temp Pulse Resp BP Pulse Ox 08/16/20 12:05 36.6 C 98 H 18 114/62 97 Cardiovascular + regular rhythm Respiratory normal respiratory effort, lungs clear to auscultation Pre-Sedation Airway Assessment Smoking Status: Former smoker Hx Sleep Apnea: No Short, Thick Neck: No Thyromental Distance: > or= 3.5 Finger Breadths Oral Cavity: + WNL Mallampati Class: II ASA: ASA2 NPO Status Date of Last Intake of Fluids: 08/15/20 Date of Last Intake of Solid Food: 08/15/20 Procedure Planning Contraindications for Sedation: none Current Medications Reviewed: Yes Notes The planned sedation has been discussed with the patient. Informed Consent was obtained. I have identified the patient, determined the appropriateness of sedation and have assessed the patient immediately prior to the procedure. All medicine(s) and interventions are by my order.
[2020-08-16] MEDS ORDERED: fentaNYL citrate 100 MCG/2 ML VIAL ONE ×2 (12:56→14:22)
[2020-08-16] MEDS ORDERED: MIDAZOLAM HCL 5 MG/ML 1 ML VIAL ONE (12:56)
[2020-08-16] MEDS ORDERED: HEPARIN (PORCINE) 1000 UNIT/ML 10 ML (CATH LAB USE ONLY) ONE (13:44)
[2020-08-16] MEDS ORDERED: MIDAZOLAM HCL 1 MG/ML 2ML VIAL ONE (14:29)
[2020-08-16] MEDS ORDERED: OXYCODONE/ACETAMINOPHEN 5mg/325mg TAB PO PRN (15:45)
[2020-08-16] MEDS ORDERED: ACETAMINOPHEN 325 MG TAB PO PRN (15:45)
--- NOTE | 2020-08-16 15:53 | Discharge Summary ---
Date of Service August 17, 2020 Admission HPI Per Admitting Provider Pt admitted for elective atrial flutter ablation Admission Exam Per Admitting Provider aaox3, NAD NC/AT, EOMI Supple No JVD irregular S1/S2, No murmur CTA b/l no w/r/r soft nt/nd no LE edema b/l skin intact no focal deficits Principal Diagnosis atrial flutter s/p CTI flutter ablation Discharge Exam aaox3, NAD NC/AT, EOMI Supple No JVD Nrl S1/S2, No murmur CTA b/l no w/r/r soft nt/nd no LE edema b/l skin intact no focal deficits b/l groins soft, no hematoma Discharge Data Allergies Allergy/AdvReac Type Severity Reaction Status Date / Time No Known Allergies Allergy Unknown Verified 07/11/20 13:45 Procedures Performed Operation Date: 08/16/20 13:00 Actual Procedures p EPS + Ablation for SVT Flutter - Gibson Sequeira MD s 3D Mapping (Carto) - Gibson Sequeira MD s LA Pacing (Add-On) - Gibson Sequeira MD Ordered Studies ECG: SR 08/16/20 08:00 EP Lab Images for PACS ONCE Hospital Course (1) Atrial flutter with rapid ventricular response: Total Time Total Time Spent Total Time Spent (In Minutes): 35 Total Time Includes: Examination of the Patient, Discharge Planning, Medication Reconciliation and Other Discharge Plan Discharge Items Patient Disposition: Home - Self-Care Reason For Visit: AFLUTTER ABLATION Discharge Diagnosis: atrial flutter s/p ablation Condition on Discharge: Good Activity: Resume your previous activity Lifting: Gradually increase as tolerated Bathing: No limitations Sexual Activity: When tolerated Exercise/Sports: Gradually increase as tolerated Driving/Machine Use: No limitations Non-emergency contact: Primary Care Provider Call non-emergency contact if: you have any medication questions Follow-up/Referrals: Yoni Burden MD [Physician] - 08/21/20 10:45 am Kelly Dasilva PA-C [Physician Neuroscience Director Na] - 08/23/20 9:45 am Diet: Heart Healthy Addtl Attending Provider Instructions: F/u in [facility] in 1 month Stand-Alone Forms: [employer], Smoking Cessation Medications and DC Order Prescriptions: Continued metoprolol succinate 25 mg capsule,sprinkle,ER 24hr 25 mg PO QAM RF: 0 metformin 1,000 mg tablet 1,000 mg PO BIDM RF: 0 fenofibrate nanocrystallized 145 mg tablet 145 mg PO QAM RF: 0 citalopram [Celexa] 20 mg tablet 20 mg PO QAM RF: 0 atorvastatin [Lipitor] 40 mg tablet 40 mg PO QAM RF: 0 nitroglycerin 0.4 mg tablet, sublingual 0.4 mg SL .COMPLEX RF: 0 aspirin [Adult Low Dose Aspirin] 81 mg tablet,delayed release (DR/EC) 81 mg PO QAM RF: 0 iron,carbonyl-vitamin C 100-250 mg tablet 1 tab PO QAM RF: 0 multivitamin tablet 1 tab PO QAM RF: 0 (DME) Contour Next Test Strips strip See Dose Instructions .ROUTE .MEDSUPPLY Qty: 10 RF: 0 insulin lispro [Humalog KwikPen Insulin] 100 unit/mL insulin pen See Rx Instructions SQ TID RF: 0 (DME) insulin syringe-needle U-100 [BD Insulin Syringe Ultra-Fine] 1 mL 31 gauge x 5/16 syringe See Dose Instructions .ROUTE .MEDSUPPLY Qty: 10 RF: 0 (DME) pen needle, diabetic [Novofine 32] 32 gauge x 1/4" needle See Dose Instructions .ROUTE .MEDSUPPLY Qty: 50 RF: 0 Trulicity 1.5 mg/0.5 mL pen injector 1.5 mg SQ SUMMERS RF: 0 Levemir U-100 Insulin 100 unit/mL solution See Rx Instructions SQ DAILY RF: 0 furosemide [Lasix] 40 mg tablet 40 mg PO QAM Qty: 30 RF: 0 warfarin 5 mg tablet 5 mg PO DAILY Qty: 30 RF: 0 Discharge Orders: Discharge Order (Routine); Ordered 08/17/20 Ordered By: Gal Bobo Admission Data Admit Date/Time: 08/16/20 13:22 Attending Provider: Uma Amaya Admit Provider: Uma Amaya Primary Care Provider: Johnny Mejia Other Interventions: Discharge Summary Assessment (RN) Last Done: 08/17/20 12:45
[2020-08-16] MEDS ORDERED: NITROGLYCERIN SL 0.4 MG/TAB TAB SL PRN (16:00)
[2020-08-16] MEDS ORDERED: METFORMIN HCL 500 MG TAB PO SCH (17:00)
[2020-08-16] MEDS ORDERED: PHARMACY GLYCEMIC MGMT CONSULT PRN (17:04)
[2020-08-16] MEDS ORDERED: GLUCAGON FOR INJ 1 MG VIAL IM PRN (18:00)
[2020-08-16] MEDS ORDERED: GLUCOSE 10 TABS/TUBE PO PRN (18:00)
[2020-08-16] MEDS ORDERED: GLUCOSE 40% GEL 15 GM TUBE PO PRN (18:00)
[2020-08-16] MEDS ORDERED: CARBOHYDRATES FOR HYPOGLYCEMIA PO PRN (18:00)
[2020-08-16] MEDS ORDERED: DEXTROSE 50% 50 ML SYRINGE IV PRN (18:00)
[2020-08-16 18:01] LABS: INR 3.7 (0.9-1.1)
[2020-08-16] MEDS: INSULIN ASPART 100 UNITS/ML 3 ML PEN SC SCH ×2 (18:14→20:04)
[2020-08-16 18:18] LABS: Creatinine Clr Calc Pharmacy 98.6 ml/min; Est GFR (African American) 92.6; Est GFR (Non-African American) 79.9
[2020-08-16] MEDS ORDERED: INSULIN DETEMIR FLEXPEN/FLEX TOUCH 100 UNITS/ML 3ML SC SCH (21:00)
[2020-08-17] MEDS: INSULIN ASPART 100 UNITS/ML 3 ML PEN SC SCH ×4 (00:17→12:41)
[2020-08-17] MEDS ORDERED: INSULIN DETEMIR SQ SCH (09:00)
[2020-08-17] MEDS ORDERED: METOPROLOL SUCC 25MG EXT REL TAB PO SCH (09:00)
[2020-08-17] MEDS ORDERED: ASPIRIN 81 MG ECTAB PO SCH (09:00)
[2020-08-17] MEDS ORDERED: FENOFIBRATE NANOCRYSTALLIZED 145 MG TABLET PO SCH (09:00)
[2020-08-17] MEDS ORDERED: FUROSEMIDE 40 MG TAB PO SCH (09:00)
[2020-08-17] MEDS ORDERED: MULTIVITAMIN TAB PO SCH (09:00)
[2020-08-17] MEDS ORDERED: CITALOPRAM 20 MG TAB PO SCH (09:00)
[2020-08-17] MEDS ORDERED: ATORVASTATIN 40 MG TAB PO SCH (09:00)
[2020-08-17] MEDS ORDERED: IRON CARBONYL VITAMIN C PO SCH (09:00)
[2020-08-17 10:09] LABS: INR 3.4 (0.9-1.1)
--- NOTE | 2020-08-17 11:52 | Cardiology Progress Note ---
Date of Service August 17, 2020 Assessment & Plan (1) Atrial flutter with rapid ventricular response: Admission and Anticipated Discharge Date Admission Date: August 16, 2020 Results & Data ([facility]) Vital Signs (Past 12 Hours) Vital Signs Temp Pulse Resp BP Pulse Ox 08/17/20 04:00 36.6 C 101 H 18 123/72 94
[2020-08-17] MEDS ORDERED: WARFARIN SOD 5 MG TAB PO SCH (16:00)
[2020-08-18] MEDS ORDERED: NON-FORMULARY MEDICATION (Dulaglutide [Trulicity] 1.5 MG) SQ SCH (15:46)
--- NOTE | 2020-08-21 20:04 | Operative Report (OR) ---
DATE OF OPERATION: 08/16/2020 PREOPERATIVE DIAGNOSIS: Atrial flutter. POSTOPERATIVE DIAGNOSES: Atrial flutter along with bidirectional block over the cavotricuspid isthmus. SURGEON: Uma Amaya DO. ASSISTANTS: None. ANESTHESIA: Monitored conscious sedation administered under my supervision by Charmaine Diaz. Start time 13:19, end time 15:45. Total of 6 mg of Versed and 150 mcg of fentanyl. INTRAVENOUS FLUIDS: 72 mL. BLOOD LOSS: 5 mL. URINE OUTPUT: Not applicable. SPECIMENS: None. FINDINGS: See below. DRAINS: None. 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 Paroxysmal atrial flutter, he is on Coumadin. He underwent a cardioversion just recently but returned with recurrent flutter, so he was recommended a flutter ablation. CONSENT: Consent was obtained prior to the patient going into the electrophysiology lab. The patient was informed of the risks, benefits and alternative procedure. Risks include but not limited to sudden cardiac , cardiac arrhythmias, cerebrovascular accident, myocardial infarction, injury to the blood vessels, chamber of the heart or the [place] electrical system where he would need a permanent pacemaker, bleeding and infection. The patient understood these risks and agreed with procedure as planned. Informed consent was obtained. DESCRIPTION OF THE PROCEDURE: The patient was brought into the electrophysiology lab in a fasting state, was connected to continuous phototypesetting equipment monitor. Timeout was performed to assure patient and procedure correctly. He was prepped and draped over bilateral groins in normal surgical standard fashion. Monitored conscious sedation administered throughout the procedure for patient's comfort level. [place] precautions throughout the procedure. 10 mL of 1% lidocaine, bupivacaine mixture were given in the bilateral groins for local anesthesia. Then using the modified Seldinger technique, venous access was obtained in the following manner. The left femoral vein had a 7-Moldovan sheath followed by a 20 pole Halo catheter positioned around the right atrium. A 7-Moldovan sheath followed by a Decapolar DF curved coronary sinus catheter positioned in the coronary sinus. The right femoral vein had a 6-Moldovan sheath that was ultimately swapped out initially for an short 8-Moldovan sheath, and initially I tried an SR1 because of an SROs were not available, but this did not go very well, I just could not get the right positioning, so I ended up using a short 8-Moldovan sheath. Initially, I had used a [employer] curved ThermoCool ablation catheter, but this did not give enough reach, so I had to switch out the longer FJ curved. With the ablation catheter, we did 3D mapping of the atrial flutter and found it to be counterclockwise involving the cavotricuspid isthmus. The tachycardia cycle length was 230 milliseconds. We entrained the CTI line and found that tachycardia cycle length minus the PPI 230-270 was 40 showing that the tachycardia involved the cavotricuspid isthmus. When we paced from the distal coronary sinus and took the tachycardia cycle length minus the PPI, it was 130 milliseconds showing that again the tachycardia involves the cavotricuspid isthmus. Then I did 3D mapping of the His bundle region as well. Then I set up to do a cavotricuspid isthmus ablation at 35 cruz going from the tricuspid valve down to the IVC giving a series of stephens about 30 seconds in duration. During one of the stephens, we broke the tachycardia and then we started pacing from the coronary sinus proximal then we finished up our line and found that we had bidirectional block when we paced the coronary sinus proximal to the Halo distal, lateral to the line and we had a time of ____ and then when we paced the Halo distal and measured medial to the line of CS proximal it was the duration of ____. Electrophysiology study was performed with following findings: Sinus cycle length 671 milliseconds, NV interval 191 milliseconds, QRS 81 milliseconds, QT 367 milliseconds, AH 90 milliseconds, HV 75 milliseconds, the AV Wenckebach 410 milliseconds, AV node ERP 600/290 and 500/340. The atrial ERP was 600/230 and 500/220. The right ventricular ERP was 600/250 and 400/250. After successful ablation waiting period of at least 30 minutes, we double checked to make sure that there was still block across the line and the timing was still ____. Then all the catheters were pulled and the sheaths were then pulled and manual compression was used to establish hemostasis. IMPRESSION: 1. Counterclockwise typical atrial flutter involving the cavotricuspid isthmus. 2. Successful bidirectional block along the cavotricuspid isthmus after an atrial flutter ablation. PLAN: Monitor patient overnight, 12-lead ECG. He cannot do any heavy lifting or squatting for 1 week's time and he will follow up in our office as scheduled. I attest to the content of the Intraoperative Record and any orders documented therein. Any exception s are noted below.
== END 2020-08-17 12:50 | disposition home or self-care (01) ==
LOC: EP 11:58 → 2E 11:58 → EDSTATUS 13:00
DX: I25.5 Ischemic cardiomyopathy; I25.2 Old myocardial infarction; I50.9 Heart failure, unspecified; K21.9 Gastro-esophageal reflux disease without esophagitis; I25.10 Atherosclerotic heart disease of native coronary artery without angina pectoris; I48.92 Unspecified atrial flutter; E78.5 Hyperlipidemia, unspecified; E11.9 Type 2 diabetes mellitus without complications; Z95.5 Presence of coronary angioplasty implant and graft; Z79.01 Long term (current) use of anticoagulants; I11.0 Hypertensive heart disease with heart failure; I42.8 Other cardiomyopathies

== ENCOUNTER 2024-11-09 09:36 | Inpatient (IN) ==
--- NOTE | 2024-11-09 09:52 | Emergency Department Note ---
Impression & Plan Sepsis, Elevated lactic acid level, Leukocytosis, DEZ (acute kidney injury), Elevated troponin ED Provider Note NAME: NEHA BRADY AGE: 64 SEX: M : 1960 ARRIVES VIA: Ambulance INFORMANT: Patient ED PROVIDER(S): Tico Ramirez DO CHIEF COMPLAINT: Fever, weakness vomiting and diarrhea HPI: Patient is a 64-year-old male with past medical history of hypertension, A- flutter on Coumadin who presents to the ER for weakness and fevers. Symptoms started yesterday. He has been having nausea and vomiting. He admits to a cough and fevers of 102. He feels lightheaded anytime he gets up and moves. If he stays still this does not occur. Denies any chest pain or shortness of breath. No dysuria, urgency, or frequency. No focal weakness in the arms or legs. He notes that he slid off the couch yesterday. He did not hit his head. No pain from the fall with exception of his left thigh. No other exacerbating or remitting factors. ADDITIONAL HISTORY OBTAINED: Per HPI Chronic Medical/Social Conditions Affecting Care: Per HPI PAST MEDICAL HISTORY:See Below PAST SURGICAL HISTORY:See Below FAMILY HISTORY:See Below SOCIAL HISTORY:See Below HOME MEDICATIONS:See Below ALLERGIES:See Below VITALS:See Below PHYSICAL EXAMINATION: GENERAL: Sitting up in bed, alert, ill-appearing, disheveled EYE EXAM: normal conjunctiva. PERRL and EOM's grossly intact. OROPHARYNX: no exudate, no erythema, lips, buccal mucosa, and tongue normal and mucous membranes are moist NECK: supple, no nuchal rigidity, no adenopathy, non-tender LUNGS: Clear to auscultation. Normal chest wall mechanics HEART: no murmurs, S1 normal and S2 normal ABDOMEN: abdomen soft, non-tender, normo-active bowel sounds, no masses, no rebound or guarding. BACK: Back is symmetrical on inspection and there is no deformity, no midline tenderness, no CVA tenderness. SKIN: Erythema of the left lower casper, left thigh and left abdominal wall which is warm and tender UPPER EXTREMITIES: upper extremities are grossly normal. LOWER EXTREMITIES: Flexion-extension bilateral hips knees ankles and EHL intact. DPs 2 out of 4. Minimal tenderness over the left distal anterior femur. Skin is intact. NEURO EXAM: Normal sensorium, cranial nerves II-XII grossly intact, normal speech, no gross weakness of arms, no gross weakness of legs. MEDICAL DECISION MAKING: Patient is a 64-year-old male who presents ER for the above-stated complaint. IV was established and blood work was obtained. Labs show leukocytosis of 15,000. No significant anemia. Patient here for hyponatremia 130 and BUN elevated at 43. Creatinine was elevated 2. Glucose elevated at 360. Lactate at 5. LFTs and bilirubin were unremarkable. Troponin was elevated at 3000. He has no chest pain. EKG does have ST depressions. Procalcitonin was elevated at 9.6. Patient was covered with broad-spectrum antibiotics. He does have erythema on the leg and abdomen which could be consistent with a cellulitis. CT abdomen pelvis with a distended gallbladder and possible cellulitis on the abdomen/groin. Patient was covered with IV Rocephin, daptomycin and 2250 cc of normal saline which is just slightly above the 30 cc/kg for his ideal body weight at 2181 mL. He was not given the 3.7 L for his actual weight with the history of failure. Did consult cardiology and discussed the case with the hospitalist for further evaluation management treatment. Of note patient was also slightly hypoxic and was on 2 L nasal cannula. The CTs were done without contrast due to the renal failure. Horne had been placed. Did discuss the case with cardiology as I favor this is likely demand ischemia and they agree. Consults/Care Managements Discussions: Per [facility] Triage Nursing notes reviewed. Limited review of prior medical records performed Vital Signs: reviewed and remarkable for no significant abnormalities Differential diagnosis: Differential diagnosis includes etiologies such as sepsis, UTI, pneumonia, metabolic, electrolyte abnormalities, cardiac sources, intracerebral event, toxicologic, neurological, as well as others were entertained. ER treatment provided: See below Diagnostics interpreted by me include EKG and cardiac monitoring as listed below: -Cardiac Monitoring: An order was placed for continuous cardiac monitoring. The monitor shows a rate of 101 with sinus rhythm. -ECG: Sinus tachycardia rate of 109 Normal axis Right bundle branch block QTc [address] ST depressions in the anterior lateral and inferior leads -Laboratory studies:Interpreted by me as stated above in MDM and shown below. Imaging studies: Xrays: As interpreted by me:none CTs show: CT abdomen pelvis and CT of the chest as described above Procedures:none Critical Care: I have personally spent 75 minutes of critical care time in the direct management of this patient. This includes bedside care, interpretation of diagnostic studies, and testing, discussion with consultants, patient, and family members, and other required patient management activities. This 75 minutes is in excess of all separately billable procedures. Past Med/Surg History Problem List (Updated 11/09/24 @ 13:54 by Tico Ramirez DO) Elevated troponin (Acute) DEZ (acute kidney injury) (Acute) Leukocytosis (Acute) Elevated lactic acid level (Acute) Sepsis (Acute) Hematuria Acute decompensated heart failure Congestive heart failure (Acute) A-fib (Acute) Atrial flutter by electrocardiogram Dyspnea on exertion (Acute) Volume overload (Acute) Mood disorder (Chronic) HTN (hypertension) (Chronic) Dyslipidemia (Chronic) Coronary artery disease (Chronic) Diabetes mellitus, type II (Chronic) DKA (diabetic ketoacidoses) (Acute 12/03/14) Medical History (Updated 11/09/24 @ 13:54 by Tico Ramirez DO) Atrial flutter with rapid ventricular response Pt admitted for elective EPS and flutter ablation due to atrial flutter. He underwent procedure without any complications. monitored overnight and discharged home. Surgical History H/O colonoscopy "2011 repeat 5 years " History of dental surgery Status post coronary artery bypass grafting Family History Other Diabetes Pancreatic cancer Social History Smoking Status: Never smoker Tobacco Type: Smokeless Tobacco (Dip or Chew) Do You Dip or Chew Tobacco: Yes; Hx Alcohol Use: Yes Alcohol type: beer Alcohol Intake Frequency: Monthly or Less Hx Substance Use: No Preferred Language: Kinyarwanda Communication Ability: Effective Toolroom Attendant Required: No Beliefs That Will Affect Care: None Current Living Situation: Spouse Feels Safe at Home: Yes Assistive Devices: Glasses and Oxygen - Continuous Allergies Allergies Allergy/AdvReac Type Severity Reaction Status Date / Time No Known Allergies Allergy Unknown Verified 07/11/20 13:45 Home Meds Home Medications Medication Instructions Recorded Confirmed aspirin 81 mg tablet,delayed 81 mg PO QAM 07/19/19 11/09/24 release (Adult Low Dose Aspirin) atorvastatin 40 mg tablet (Lipitor) 40 mg PO HS 07/19/19 11/09/24 citalopram 20 mg tablet (Celexa) 20 mg PO QAM 07/19/19 11/09/24 fenofibrate nanocrystallized 145 145 mg PO QAM 07/19/19 11/09/24 mg tablet iron,carbonyl 100 mg-vitamin C 250 1 tab PO QAM 07/19/19 11/09/24 mg tablet metoprolol succinate 25 mg capsule 25 mg PO QAM 07/19/19 11/09/24 sprinkle, ext. release 24 hr multivitamin 1 tab PO QAM 07/19/19 11/09/24 nitroglycerin 0.4 mg sublingual 0.4 mg sublingual .COMPLEX 07/19/19 11/09/24 tablet insulin lispro 100 unit/mL See Rx Instructions subcut TID 09/18/19 11/09/24 subcutaneous pen (Humalog KwikPen (U-100) Insulin) insulin detemir U-100 100 unit/mL 100 unit subcut HS 01/11/20 11/09/24 subcutaneous solution (Levemir U-100 Insulin) apixaban 5 mg tablet (Eliquis) 5 mg PO BID 11/09/24 11/09/24 dapagliflozin propanediol 10 mg 10 mg PO DAILY 11/09/24 11/09/24 tablet metformin 1,000 mg tablet 1,000 mg PO BID 11/09/24 11/09/24 metoprolol succinate 100 mg 100 mg PO BID 11/09/24 11/09/24 tablet,extended release 24 hr sacubitril 24 mg-valsartan 26 mg 1 tab PO BID 11/09/24 11/09/24 tablet (Entresto) semaglutide 2 mg/dose (8 mg/3 mL) 2 mg subcut WK 11/09/24 11/09/24 subcutaneous pen injector (Ozempic) spironolactone 25 mg tablet 25 mg PO DAILY 11/09/24 11/09/24 Previous Rx's Medication Instructions Recorded furosemide 40 mg tablet (Lasix) 40 mg PO QAM #30 tabs 07/17/20 Results & Data (ED) Vital Signs Vital Signs - 24 hr 11/09/24 10:00 11/09/24 10:00 11/09/24 10:14 Temperature 37.1 C Temperature Source Oral Pulse Rate 111 H 111 H 108 H Pulse Rate from SpO2 Sensor Pulse Rhythm Regular Respiratory Rate 16 16 Respiratory Effort / Characteristics Non-Labored Respiratory Depth Normal Blood Pressure 120/62 Blood Pressure Mean 81 Pulse Oximetry 93 93 Oxygen Delivery Method Room Air Room Air Oxygen Flow Rate Sepsis Recent Fever Within 48 Hours Yes Sepsis New/Unexplained Change in Mental Status No Sepsis Action Taken by Nursing No Action Required Oxygen Flow Rate - Titration Pulse Oximetry Post Tiitration 11/09/24 10:21 11/09/24 10:30 11/09/24 10:51 Temperature Temperature Source Pulse Rate 109 H 109 H 109 H Pulse Rate from SpO2 Sensor 107 H Pulse Rhythm Respiratory Rate 26 H 20 29 H Respiratory Effort / Characteristics Respiratory Depth Blood Pressure 137/72 134/76 149/78 H Blood Pressure Mean 110 95 101 Pulse Oximetry 93 90 92 Oxygen Delivery Method Oxygen Flow Rate Sepsis Recent Fever Within 48 Hours Sepsis New/Unexplained Change in Mental Status Sepsis Action Taken by Nursing Oxygen Flow Rate - Titration Pulse Oximetry Post Tiitration 11/09/24 10:53 11/09/24 11:30 11/09/24 11:45 Temperature Temperature Source Pulse Rate 106 H 108 H Pulse Rate from SpO2 Sensor Pulse Rhythm Respiratory Rate 24 20 Respiratory Effort / Characteristics Respiratory Depth Blood Pressure 130/67 105/72 Blood Pressure Mean 88 82 Pulse Oximetry 87 L 95 Oxygen Delivery Method Room Air Nasal Cannula Nasal Cannula Oxygen Flow Rate 0 2 Sepsis Recent Fever Within 48 Hours Sepsis New/Unexplained Change in Mental Status Sepsis Action Taken by Nursing Oxygen Flow Rate - Titration 2 Pulse Oximetry Post Tiitration 96 11/09/24 12:15 11/09/24 13:34 11/09/24 14:15 Temperature 38.0 C H Temperature Source Oral Pulse Rate 105 H 110 H Pulse Rate from SpO2 Sensor Pulse Rhythm Respiratory Rate 20 Respiratory Effort / Characteristics Respiratory Depth Blood Pressure 108/60 Blood Pressure Mean 82 Pulse Oximetry Oxygen Delivery Method Oxygen Flow Rate Sepsis Recent Fever Within 48 Hours Sepsis New/Unexplained Change in Mental Status Sepsis Action Taken by Nursing Oxygen Flow Rate - Titration Pulse Oximetry Post Tiitration Laboratory Data 11/09/24 09:55 11/09/24 09:55 Lab Results 11/09/24 11/09/24 11/09/24 Range/Units 09:44 09:55 10:00 WBC 15.52 H (4.8-10.8) K/ul RBC 4.62 L (4.70-6.10) M/uL Hgb 14.9 (14.0-18.0) g/dl POC Hgb 16.3 (14.0-18.0) g/dl Hct 43.9 (42.0-52.0) % POC Hct 48 (42-52) % MCV 95.0 (80.0-100.0) fL MCH 32.3 (25.0-34.0) pg MCHC 33.9 (32.0-36.0) g/dL RDW Std Deviation 52.4 H (36.4-46.3) fL RDW Coeff of Sai 14.9 H (11.5-14.5) % Plt Count 93 L (130-400) K/uL MPV 12.9 H (9.4-12.4) fL Immature Gran % (Auto) 1.6 % Neut % (Auto) 89.0 % Lymph % (Auto) 6.4 % Pershing % (Auto) 2.7 % Eos % (Auto) 0.0 % Baso % (Auto) 0.3 % Neut # (Auto) 13.81 H (1.40-6.50) K/uL Lymph # (Auto) 0.99 L (1.20-3.40) K/uL Pershing # (Auto) 0.42 (0.11-0.59) K/uL Eos # (Auto) 0.00 (0.00-0.50) K/uL Baso # (Auto) 0.05 (0.00-0.20) K/uL Immature Gran # (Auto) 0.25 H (0.01-0.20) K/uL Toxic Vacuolation 1+ Dohle Bodies 1+ Polychromasia 1+ Tear Drop Cells 1+ PT Cancelled INR Cancelled POC Sodium 131 L (135-144) mmol/L Sodium 130 L (136-145) mmol/L POC Potassium 4.9 (3.3-5.0) mmol/L Potassium 5.0 (3.5-5.1) mmol/L POC Chloride 96 L (101-112) mmol/L Chloride 94 L (98-107) mmol/L Carbon Dioxide 23 (21-32) mmol/L POC Total CO2 23 L (24-31) mmol/L Anion Gap 13 H (3-11) POC Anion Gap 19.0 (16-25) mmol/L POC BUN 47 H (7-18) mg/dl BUN 43 H (6-23) mg/dl Creatinine 1.91 H (0.6-1.4) mg/dl POC Creatinine 1.9 H (0.6-1.3) mg/dl Est Cr Clr Drug Dosing 50.4 ml/min eGFR 38.42 BUN/Creatinine Ratio 22.5 H (10-20) Glucose 363 H* (70-99(Fasting)) mg/dl POC Glucose (70-99) mg/dl POC Glucose (other) 362 H* (70-99) mg/dl Lactate 5.2 H* (0.4-2.0) mmol/L Calcium 10.1 (8.6-10.3) mg/dl POC Ioniz Calcium Olman 1.22 (1.12-1.32) mmol/l Magnesium 1.7 (1.7-2.4) mg/dl Total Bilirubin 1.1 H (0.2-1.0) mg/dl Direct Bilirubin TNP AST 130 H (13-39) U/L ALT 50 (7-52) U/L Alkaline Phosphatase 45 (34-104) U/L Total Creatine Kinase (30-223) U/L Troponin I High Sens 3819.5 H* (0-20) pg/ml Total Protein 7.5 (6.0-8.3) gm/dl Albumin 3.9 (3.4-5.0) gm/dl Procalcitonin Cancelled Urine Color Urine Appearance (Clear) Urine pH (4.5-7.5) Ur Specific Olpe (1.000-1.030) Urine Protein (Negative) Urine Glucose (UA) (Negative) Urine Ketones (Negative) Urine Blood (Negative) Urine Nitrite (Negative) Urine Bilirubin (Negative) Urine Urobilinogen (Negative) Ur Leukocyte Esterase (Negative) Urine WBC (Auto) (0-5) /hpf Urine RBC (Auto) (0-2) /hpf U Hyaline Cast (Auto) (0-2) /lpf U Epithel Cells (Auto) (0-2) /hpf Urine Bacteria (Auto) (None Seen) Hyaline Casts (None Presnt) /lpf Granular Casts (None Prsent) /lpf Adenovirus (PCR) Not Detected (NotDetected) B. pertussis DNA (PCR) Not Detected (NotDetected) B.parapertussis DNA PCR Not Detected (NotDetected) C. pneumoniae DNA (PCR) Not Detected (NotDetected) Coronavirus OC43 (PCR) Not Detected (NotDetected) Coronavirus HKU1 (PCR) Not Detected (NotDetected) Coronavirus 229E (PCR) Not Detected (NotDetected) SARS-CoV-2 (PCR) Not Detected (NotDetected) Coronavirus NL63 (PCR) Not Detected (NotDetected) Human Metapneumovir PCR Not Detected (NotDetected) Influenza Type A (PCR) Not Detected (NotDetected) Influenza Type B (PCR) Not Detected (NotDetected) M. pneumoniae (PCR) Not Detected (NotDetected) Parainfluenza 1 (PCR) Not Detected (NotDetected) Parainfluenza 2 (PCR) Not Detected (NotDetected) Parainfluenza 3 (PCR) Not Detected (NotDetected) Parainfluenza 4 (PCR) Not Detected (NotDetected) RSV (PCR) Not Detected (NotDetected) Entero/Rhino (PCR) Not Detected (NotDetected) 11/09/24 11/09/24 11/09/24 Range/Units 10:54 12:00 12:07 WBC (4.8-10.8) K/ul RBC (4.70-6.10) M/uL Hgb (14.0-18.0) g/dl POC Hgb (14.0-18.0) g/dl Hct (42.0-52.0) % POC Hct (42-52) % MCV (80.0-100.0) fL MCH (25.0-34.0) pg MCHC (32.0-36.0) g/dL RDW Std Deviation (36.4-46.3) fL RDW Coeff of Sai (11.5-14.5) % Plt Count (130-400) K/uL MPV (9.4-12.4) fL Immature Gran % (Auto) % Neut % (Auto) % Lymph % (Auto) % Pershing % (Auto) % Eos % (Auto) % Baso % (Auto) % Neut # (Auto) (1.40-6.50) K/uL Lymph # (Auto) (1.20-3.40) K/uL Pershing # (Auto) (0.11-0.59) K/uL Eos # (Auto) (0.00-0.50) K/uL Baso # (Auto) (0.00-0.20) K/uL Immature Gran # (Auto) (0.01-0.20) K/uL Toxic Vacuolation Dohle Bodies Polychromasia Tear Drop Cells PT Cancelled INR Cancelled POC Sodium (135-144) mmol/L Sodium (136-145) mmol/L POC Potassium (3.3-5.0) mmol/L Potassium (3.5-5.1) mmol/L POC Chloride (101-112) mmol/L Chloride (98-107) mmol/L Carbon Dioxide (21-32) mmol/L POC Total CO2 (24-31) mmol/L Anion Gap (3-11) POC Anion Gap (16-25) mmol/L POC BUN (7-18) mg/dl BUN (6-23) mg/dl Creatinine (0.6-1.4) mg/dl POC Creatinine (0.6-1.3) mg/dl Est Cr Clr Drug Dosing ml/min eGFR BUN/Creatinine Ratio (10-20) Glucose (70-99(Fasting)) mg/dl POC Glucose (70-99) mg/dl POC Glucose (other) (70-99) mg/dl Lactate 3.1 H* (0.4-2.0) mmol/L Calcium (8.6-10.3) mg/dl POC Ioniz Calcium Olman (1.12-1.32) mmol/l Magnesium (1.7-2.4) mg/dl Total Bilirubin (0.2-1.0) mg/dl Direct Bilirubin TNP 0.2 AST (13-39) U/L ALT (7-52) U/L Alkaline Phosphatase (34-104) U/L Total Creatine Kinase 3981 H (30-223) U/L Troponin I High Sens 4523.8 H* (0-20) pg/ml Total Protein (6.0-8.3) gm/dl Albumin (3.4-5.0) gm/dl Procalcitonin 9.78 H Urine Color Yellow Urine Appearance Cloudy A (Clear) Urine pH 5.5 (4.5-7.5) Ur Specific Olpe 1.025 (1.000-1.030) Urine Protein 2+ H (Negative) Urine Glucose (UA) 3+ H (Negative) Urine Ketones Trace H (Negative) Urine Blood 3+ H (Negative) Urine Nitrite Negative (Negative) Urine Bilirubin Negative (Negative) Urine Urobilinogen Negative (Negative) Ur Leukocyte Esterase Trace H (Negative) Urine WBC (Auto) 6-10 H (0-5) /hpf Urine RBC (Auto) 3-5 H (0-2) /hpf U Hyaline Cast (Auto) >20 H (0-2) /lpf U Epithel Cells (Auto) 0-2 (0-2) /hpf Urine Bacteria (Auto) None Seen (None Seen) Hyaline Casts Present A (None Presnt) /lpf Granular Casts Present A (None Prsent) /lpf Adenovirus (PCR) (NotDetected) B. pertussis DNA (PCR) (NotDetected) B.parapertussis DNA PCR (NotDetected) C. pneumoniae DNA (PCR) (NotDetected) Coronavirus OC43 (PCR) (NotDetected) Coronavirus HKU1 (PCR) (NotDetected) Coronavirus 229E (PCR) (NotDetected) SARS-CoV-2 (PCR) (NotDetected) Coronavirus NL63 (PCR) (NotDetected) Human Metapneumovir PCR (NotDetected) Influenza Type A (PCR) (NotDetected) Influenza Type B (PCR) (NotDetected) M. pneumoniae (PCR) (NotDetected) Parainfluenza 1 (PCR) (NotDetected) Parainfluenza 2 (PCR) (NotDetected) Parainfluenza 3 (PCR) (NotDetected) Parainfluenza 4 (PCR) (NotDetected) RSV (PCR) (NotDetected) Entero/Rhino (PCR) (NotDetected) 11/09/24 11/09/24 11/09/24 Range/Units 12:14 12:20 14:23 WBC (4.8-10.8) K/ul RBC (4.70-6.10) M/uL Hgb (14.0-18.0) g/dl POC Hgb (14.0-18.0) g/dl Hct (42.0-52.0) % POC Hct (42-52) % MCV (80.0-100.0) fL MCH (25.0-34.0) pg MCHC (32.0-36.0) g/dL RDW Std Deviation (36.4-46.3) fL RDW Coeff of Sai (11.5-14.5) % Plt Count (130-400) K/uL MPV (9.4-12.4) fL Immature Gran % (Auto) % Neut % (Auto) % Lymph % (Auto) % Pershing % (Auto) % Eos % (Auto) % Baso % (Auto) % Neut # (Auto) (1.40-6.50) K/uL Lymph # (Auto) (1.20-3.40) K/uL Pershing # (Auto) (0.11-0.59) K/uL Eos # (Auto) (0.00-0.50) K/uL Baso # (Auto) (0.00-0.20) K/uL Immature Gran # (Auto) (0.01-0.20) K/uL Toxic Vacuolation Dohle Bodies Polychromasia Tear Drop Cells PT 11.7 INR 1.1 POC Sodium (135-144) mmol/L Sodium (136-145) mmol/L POC Potassium (3.3-5.0) mmol/L Potassium (3.5-5.1) mmol/L POC Chloride (101-112) mmol/L Chloride (98-107) mmol/L Carbon Dioxide (21-32) mmol/L POC Total CO2 (24-31) mmol/L Anion Gap (3-11) POC Anion Gap (16-25) mmol/L POC BUN (7-18) mg/dl BUN (6-23) mg/dl Creatinine (0.6-1.4) mg/dl POC Creatinine (0.6-1.3) mg/dl Est Cr Clr Drug Dosing ml/min eGFR BUN/Creatinine Ratio (10-20) Glucose (70-99(Fasting)) mg/dl POC Glucose 330 H* 308 H* (70-99) mg/dl POC Glucose (other) (70-99) mg/dl Lactate (0.4-2.0) mmol/L Calcium (8.6-10.3) mg/dl POC Ioniz Calcium Olman (1.12-1.32) mmol/l Magnesium (1.7-2.4) mg/dl Total Bilirubin (0.2-1.0) mg/dl Direct Bilirubin AST (13-39) U/L ALT (7-52) U/L Alkaline Phosphatase (34-104) U/L Total Creatine Kinase (30-223) U/L Troponin I High Sens (0-20) pg/ml Total Protein (6.0-8.3) gm/dl Albumin (3.4-5.0) gm/dl Procalcitonin Urine Color Urine Appearance (Clear) Urine pH (4.5-7.5) Ur Specific Olpe (1.000-1.030) Urine Protein (Negative) Urine Glucose (UA) (Negative) Urine Ketones (Negative) Urine Blood (Negative) Urine Nitrite (Negative) Urine Bilirubin (Negative) Urine Urobilinogen (Negative) Ur Leukocyte Esterase (Negative) Urine WBC (Auto) (0-5) /hpf Urine RBC (Auto) (0-2) /hpf U Hyaline Cast (Auto) (0-2) /lpf U Epithel Cells (Auto) (0-2) /hpf Urine Bacteria (Auto) (None Seen) Hyaline Casts (None Presnt) /lpf Granular Casts (None Prsent) /lpf Adenovirus (PCR) (NotDetected) B. pertussis DNA (PCR) (NotDetected) B.parapertussis DNA PCR (NotDetected) C. pneumoniae DNA (PCR) (NotDetected) Coronavirus OC43 (PCR) (NotDetected) Coronavirus HKU1 (PCR) (NotDetected) Coronavirus 229E (PCR) (NotDetected) SARS-CoV-2 (PCR) (NotDetected) Coronavirus NL63 (PCR) (NotDetected) Human Metapneumovir PCR (NotDetected) Influenza Type A (PCR) (NotDetected) Influenza Type B (PCR) (NotDetected) M. pneumoniae (PCR) (NotDetected) Parainfluenza 1 (PCR) (NotDetected) Parainfluenza 2 (PCR) (NotDetected) Parainfluenza 3 (PCR) (NotDetected) Parainfluenza 4 (PCR) (NotDetected) RSV (PCR) (NotDetected) Entero/Rhino (PCR) (NotDetected) Administered Medications Piperacillin Sod/Tazobactam Sod (Zosyn) 4.5 gm in 100 mls @ 25 mls/hr IV ONE ONE; Protocol Stop: 11/09/24 17:14 Last Infusion: 11/09/24 14:28 Dose: Infused Documented By: Admin: 11/09/24 13:31 Dose: 25 mls/hr Documented By: NRB Vancomycin HCl 2,250 mg/ (Sodium Chloride) 545 mls @ 200 mls/hr IV ONE ONE Stop: 11/09/24 16:28 Last Admin: 11/09/24 14:15 Dose: 200 mls/hr Documented By: BMK Discontinued Medications Sodium Chloride (Nss) 1,000 mls @ 999 mls/hr IV .Q1H1M ONE Stop: 11/09/24 10:48 Last Infusion: 11/09/24 11:14 Dose: Infused Documented By: Admin: 11/09/24 10:16 Dose: 999 mls/hr Documented By: ANT Ceftriaxone Sodium (Rocephin) 2,000 mg in 50 mls @ 100 mls/hr IV NOW STA Stop: 11/09/24 10:19 Last Infusion: 11/09/24 10:50 Dose: Infused Documented By: Admin: 11/09/24 10:16 Dose: 100 mls/hr Documented By: ANT Sodium Chloride (Nss) 1,000 mls @ 999 mls/hr IV .Q1H1M ONE Stop: 11/09/24 11:24 Last Infusion: 11/09/24 11:09 Dose: Infused Documented By: Admin: 11/09/24 10:53 Dose: 999 mls/hr Documented By: ANT Sodium Chloride (Nss) 250 mls @ 999 mls/hr IV .Q16M ONE Stop: 11/09/24 10:39 Last Infusion: 11/09/24 14:28 Dose: Infused Documented By: Admin: 11/09/24 14:15 Dose: 999 mls/hr Documented By: EL Daptomycin 550 mg/ Syringe 11 mls @ 5.5 mls/min IV Q24H [facility]; Protocol Stop: 11/11/24 13:14 Last Admin: 11/09/24 13:10 Dose: Not Given Documented By: ROSEMARY Insulin Glargine (Lantus Per Unit Charge) 60 units SC ONE STA Stop: 11/09/24 14:25 Last Admin: 11/09/24 14:26 Dose: 60 units Documented By: GISELE Co-signed By: ROSEMARY Insulin Human Regular (Novolin-R Insulin Per Unit Charge) 6 units IV NOW STA Stop: 11/09/24 12:03 Last Admin: 11/09/24 12:23 Dose: 6 units Documented By: GISELE Co-signed By: EL Imaging Data Radiologist's Impression: Femur X-Ray 11/09/24 09:55 XR femur LT 2V routine HISTORY: 64 years-old Male l leg pain acute left leg pain without reported trauma COMPARISON: None TECHNIQUE: 2 views of the left femur FINDINGS: Arterial calcifications. Minimal osteoarthritis of the femoral acetabular joint. Mild osteoarthritis of the knee. No acute fracture, dislocation or osseous erosion. IMPRESSION: No acute fracture or dislocation. ACT 112: Negative or not required by law. The above report was generated using voice recognition software. It may contain grammatical, syntax or spelling errors. Electronically signed by: Roosevelt Saenz M.D. 11/09/2024 12:59 PM Abdomen/Pelvis CT 11/09/24 10:38 CT OF THE ABDOMEN AND PELVIS WITHOUT CONTRAST CLINICAL HISTORY: Sepsis, DEZ COMPARISON STUDY: No previous studies for comparison. TECHNIQUE: Axial images of the abdomen and pelvis were obtained without IV contrast. Images were reviewed in the axial, sagittal, and coronal planes. Automated exposure control was utilized for the study. A dose lowering technique was utilized adhering to the principles of ALARA. FINDINGS: Please note that the chest CT will be reported separately. No renal, ureteral or bladder calculi are present. There is no hydronephrosis. The bladder is distended. The prostate is enlarged, measuring 6.4 cm in transverse diameter. Low-attenuation bilateral renal lesions are suboptimally assessed on unenhanced exam but favor cysts. Fat-containing bilateral adrenal lesions represent myelolipoma. Mild splenomegaly has developed since prior CT. Unenhanced images of the liver and pancreas are unremarkable. There are gallstones within the gallbladder. The gallbladder is moderately distended but there is no pericholecystic infiltration. There is no evidence for a bowel obstruction. Colonic diverticulosis without evidence for acute diverticulitis. There are prominent left inguinal, left iliac and retroperitoneal lymph nodes. Index left external iliac lymph node on image 356 measures 3.3 x 1.3 cm. There is subcutaneous stranding of the anterior abdominal wall. Stranding within the left groin is partially imaged. No fluid collections are identified. There is no soft tissue gas. IMPRESSION: 1. Partially imaged left groin stranding. This favors cellulitis. Subcutaneous stranding of the anterior abdominal wall may represent cellulitis or edema. No fluid collections. No soft tissue gas. 2. Mildly enlarged left inguinal, left external iliac and retroperitoneal lymph nodes which are probably reactive. 3. Cholelithiasis. Moderate gallbladder distention. No pericholecystic infiltration to strongly suggest acute cholecystitis. If right upper quadrant pain, ultrasound is recommended. 4. Mild splenomegaly which has developed since prior CT. 5. No urinary calculi or hydronephrosis. Enlarged prostate with distended bladder. ACT 112: Negative or not required by law. Electronically signed by: Geovani Gardner M.D. 11/09/2024 12:[address] 11/09/24 10:55 CT OF THE CHEST WITHOUT IV CONTRAST CLINICAL HISTORY: Sepsis. COMPARISON STUDY: Chest radiograph July 11, 2020. CT DOSE: 2690.94 mGy.cm TECHNIQUE: Axial images of the chest were obtained without IV contrast. Images were reviewed in the axial, sagittal, and coronal planes. IV contrast was not administered for this examination. Automated exposure control was utilized for the study. A dose lowering technique was utilized adhering to the principles of ALARA. FINDINGS: There are median sternotomy wires and postoperative findings from bypass grafting. Extensive coronary artery calcification is present. The heart is moderately enlarged. There is no pericardial effusion. No enlarged axillary, mediastinal or hilar lymph nodes are present. The central airways are patent. Lungs are suboptimally assessed due to respiratory motion. No consolidation is present. Subpleural opacities represent atelectasis. No suspicious pulmonary nodules are identified. There are no acute fractures within the bony thorax. The abdomen and pelvis CT will be reported separately. IMPRESSION: 1. No acute intrathoracic findings on unenhanced exam. 2. Moderate cardiomegaly and extensive coronary calcification. Status post median sternotomy and bypass grafting. 3. Subpleural opacities consistent with atelectasis. No consolidation to suggest pneumonia. ACT 112: Negative or not required by law. Electronically signed by: Geovani Gardner M.D. 11/09/2024 12:09 PM Discharge Plan Visit Data Chief Complaint: Illness Stated Complaint: FLU LIKE SX ED Provider: Tico Ramirez Discharge Problem: Sepsis, Elevated lactic acid level, Leukocytosis, DEZ (acute kidney injury), Elevated troponin Forms Stand Alone Forms: My [facility] Prescriptions Prescriptions: No Action metoprolol succinate 25 mg capsule,sprinkle,ER 24hr 25 mg PO QAM fenofibrate nanocrystallized 145 mg tablet 145 mg PO QAM citalopram [Celexa] 20 mg tablet 20 mg PO QAM atorvastatin [Lipitor] 40 mg tablet 40 mg PO HS nitroglycerin 0.4 mg tablet, sublingual 0.4 mg SL .COMPLEX Patient Comments: 0.4 mg SL VERY 5 MINUTES FOR UP TO 3 DOSES PRN FOR CHEST PAIN. CALL 911 IF PAIN PERSISTS; Rx Instructions: 0.4 mg SL VERY 5 MINUTES FOR UP TO 3 DOSES PRN FOR CHEST PAIN. CALL 911 IF PAIN PERSISTS; aspirin [Adult Low Dose Aspirin] 81 mg tablet,delayed release (DR/EC) 81 mg PO QAM iron,carbonyl-vitamin C 100-250 mg tablet 1 tab PO QAM multivitamin tablet 1 tab PO QAM insulin lispro [Humalog KwikPen Insulin] 100 unit/mL insulin pen See Rx Instructions SQ TID Patient Comments: Sliding Scale SQ TID with meals up to 100 units daily Rx Instructions: Sliding Scale SQ TID with meals up to 100 units daily (40/40/45) Levemir U-100 Insulin 100 unit/mL solution 100 unit SQ HS furosemide [Lasix] 40 mg tablet 40 mg PO QAM Qty: 30 0RF metoprolol succinate 100 mg tablet extended release 24 hr 100 mg PO BID spironolactone 25 mg tablet 25 mg PO DAILY metformin 1,000 mg tablet 1,000 mg PO BID Eliquis 5 mg tablet 5 mg PO BID sacubitril-valsartan [Entresto] 24-26 mg tablet 1 tab PO BID dapagliflozin propanediol 10 mg Tablet 10 mg PO DAILY Ozempic 2 mg/dose (8 mg/3 mL) Pen Injector 2 mg SUBCUT WK Rx Instructions: wednesday Referrals Referrals: PCP,NO [Physician] - Discharge Problem: Sepsis Qualifiers: Sepsis type: sepsis due to unspecified organism Sepsis acute organ dysfunction status: unspecified Qualified Code(s): A41.9 - Sepsis, unspecified organism Leukocytosis Qualifiers: Leukocytosis type: unspecified Qualified Code(s): D72.829 - Elevated white blood cell count, unspecified
[2024-11-09] MEDS: SODIUM CHLORIDE 0.9% 1,000 ML IV ONE ×2 (10:16→10:53)
[2024-11-09] MEDS: cefTRIAXone SODIUM 2,000 MG/50 ML BAG IV STA (10:16)
[2024-11-09 10:17] LABS: iSTAT Creatinine 1.9 mg/dl (0.6-1.3); iSTAT Hemoglobin 16.3 g/dl (14.0-18.0); iSTAT Ionized Calcium 1.22 mmol/l (1.12-1.32); iSTAT Potassium 4.9 mmol/L (3.3-5.0)
[2024-11-09 10:30] LABS: Hematocrit (blood only) 43.9 % (42.0-52.0); Hemoglobin 14.9 g/dl (14.0-18.0); Mean Corpuscular Hemoglobin 32.3 pg (25.0-34.0); Mean Corpuscular Hgb Conc 33.9 g/dL (32.0-36.0); Mean Platelet Volume 12.9 fL (9.4-12.4); Platelet Count 93 K/uL (130-400); RDW Coefficient of Variation 14.9 % (11.5-14.5); RDW Standard Deviation 52.4 fL (36.4-46.3); Red Blood Count 4.62 M/uL (4.70-6.10)
[2024-11-09 10:49] LABS: Alanine Aminotransferase 50 U/L (7-52); Albumin Level 3.9 gm/dl (3.4-5.0); Alkaline Phosphatase 45 U/L (34-104); Anion Gap 13 (3-11); Aspartate Aminotransferase 130 U/L (13-39); BUN Creatinine Ratio 22.5 (10-20); Bilirubin,Total 1.1 mg/dl (0.2-1.0); Blood Urea Nitrogen 43 mg/dl (6-23); Calcium 10.1 mg/dl (8.6-10.3); Carbon Dioxide 23 mmol/L (21-32); Chloride 94 mmol/L (98-107); Creatinine Clr Calc Pharmacy 50.4 ml/min; Glucose 363 mg/dl (70-99(Fasting)); Magnesium 1.7 mg/dl (1.7-2.4); Sodium 130 mmol/L (136-145); Total Protein 7.5 gm/dl (6.0-8.3)
[2024-11-09 10:54] LABS: Basophils # (auto) 0.05 K/uL (0.00-0.20); Basophils % (auto) 0.3 %; Dohle Bodies 1+; Immature Granulocytes # (auto) 0.25 K/uL (0.01-0.20); Immature Granulocytes % (auto) 1.6 %; Lymphocytes # (auto) 0.99 K/uL (1.20-3.40); Lymphocytes % (auto) 6.4 %; Monocytes # (auto) 0.42 K/uL (0.11-0.59); Monocytes % (auto) 2.7 %; Neutrophils # (auto) 13.81 K/uL (1.40-6.50); Polychromasia 1+; Tear Drop Cells 1+; Toxic Vacuolation 1+; White Blood Count 15.52 K/ul (4.8-10.8)
[2024-11-09 10:55] LABS: Troponin I High Sensitivity 3819.5 pg/ml (0-20)
[2024-11-09 11:15] LABS: Adenovirus PCR Not Detected (NotDetected); Bordetella parapertussis PCR Not Detected (NotDetected); Bordetella pertussis PCR Not Detected (NotDetected); Chlamydia pneumoniae PCR Not Detected (NotDetected); Coronavirus 229E PCR Not Detected (NotDetected); Coronavirus CoV-2 (COVID19)PCR Not Detected (NotDetected); Coronavirus HKU1 PCR Not Detected (NotDetected); Coronavirus NL63 PCR Not Detected (NotDetected); Coronavirus OC43PCR Not Detected (NotDetected); Human Metapneumovirus PCR Not Detected (NotDetected); Influenza A PCR Not Detected (NotDetected); Influenza B PCR Not Detected (NotDetected); Mycoplasma pneumoniae PCR Not Detected (NotDetected); Parainfluenza Virus 1 PCR Not Detected (NotDetected); Parainfluenza Virus 2 PCR Not Detected (NotDetected); Parainfluenza Virus 3 PCR Not Detected (NotDetected); Parainfluenza Virus 4 PCR Not Detected (NotDetected); Respiratory Syncytial VirusPCR Not Detected (NotDetected); Rhinovirus/Enterovirus PCR Not Detected (NotDetected)
--- NOTE | 2024-11-09 12:11 | CT Scan Report ---
CT OF THE CHEST WITHOUT IV CONTRAST CLINICAL HISTORY: Sepsis. COMPARISON STUDY: Chest radiograph July 11, 2020. CT DOSE: 2690.94 mGy.cm TECHNIQUE: Axial images of the chest were obtained without IV contrast. Images were reviewed in the axial, sagittal, and coronal planes. IV contrast was not administered for this examination. Automat ed exposure control was utilized for the study. A dose lowering technique was utilized adhering to t he principles of ALARA. FINDINGS: There are median sternotomy wires and postoperative findings from bypass grafting. Extensi ve coronary artery calcification is present. The heart is moderately enlarged. There is no pericardia l effusion. No enlarged axillary, mediastinal or hilar lymph nodes are present. The central airways a re patent. Lungs are suboptimally assessed due to respiratory motion. No consolidation is present. Walter bpleural opacities represent atelectasis. No suspicious pulmonary nodules are identified. There are n o acute fractures within the bony thorax. The abdomen and pelvis CT will be reported separately. IMPRESSION: 1. No acute intrathoracic findings on unenhanced exam. 2. Moderate cardiomegaly and extensive coronary calcification. Status post median sternotomy and bypa ss grafting. 3. Subpleural opacities consistent with atelectasis. No consolidation to suggest pneumonia. ACT 112: Negative or not required by law. Electronically signed by: Geovani Gardner M.D. 11/09/2024 12:09 PM
[2024-11-09 12:17] LABS: Creatine Kinase 3981 U/L (30-223)
[2024-11-09] MEDS: NovoLIN-R INSULIN PER UNIT CHARGE IV STA (12:23)
--- NOTE | 2024-11-09 12:31 | CT Scan Report ---
CT OF THE ABDOMEN AND PELVIS WITHOUT CONTRAST CLINICAL HISTORY: Sepsis, DEZ COMPARISON STUDY: No previous studies for comparison. TECHNIQUE: Axial images of the abdomen and pelvis were obtained without IV contrast. Images were revi ewed in the axial, sagittal, and coronal planes. Automated exposure control was utilized for the rhoda dy. A dose lowering technique was utilized adhering to the principles of ALARA. FINDINGS: Please note that the chest CT will be reported separately. No renal, ureteral or bladder ca lculi are present. There is no hydronephrosis. The bladder is distended. The prostate is enlarged, me asuring 6.4 cm in transverse diameter. Low-attenuation bilateral renal lesions are suboptimally asses sed on unenhanced exam but favor cysts. Fat-containing bilateral adrenal lesions represent myelolipom a. Mild splenomegaly has developed since prior CT. Unenhanced images of the liver and pancreas are un remarkable. There are gallstones within the gallbladder. The gallbladder is moderately distended but there is no pericholecystic infiltration. There is no evidence for a bowel obstruction. Colonic diver ticulosis without evidence for acute diverticulitis. There are prominent left inguinal, left iliac an d retroperitoneal lymph nodes. Index left external iliac lymph node on image 356 measures 3.3 x 1.3 c m. There is subcutaneous stranding of the anterior abdominal wall. Stranding within the left groin is partially imaged. No fluid collections are identified. There is no soft tissue gas. IMPRESSION: 1. Partially imaged left groin stranding. This favors cellulitis. Subcutaneous stranding of the anter ior abdominal wall may represent cellulitis or edema. No fluid collections. No soft tissue gas. 2. Mildly enlarged left inguinal, left external iliac and retroperitoneal lymph nodes which are proba fatuma reactive. 3. Cholelithiasis. Moderate gallbladder distention. No pericholecystic infiltration to strongly sugge st acute cholecystitis. If right upper quadrant pain, ultrasound is recommended. 4. Mild splenomegaly which has developed since prior CT. 5. No urinary calculi or hydronephrosis. Enlarged prostate with distended bladder. ACT 112: Negative or not required by law. Electronically signed by: Geovani Gardner M.D. 11/09/2024 12:29 PM
[2024-11-09 12:42] LABS: Appearance Urine Cloudy (Clear); Bacteria Urine Automated None Seen (None Seen); Bilirubin Urine Negative (Negative); Blood Urine 3+ (Negative); Cast Urine Automated >20 /lpf (0-2); Color Urine Yellow; Epithelial Cell Urine Auto 0-2 /hpf (0-2); Glucose Urine UA 3+ (Negative); Granular Casts Urine Present /lpf (None Prsent); Hyaline Casts Urine Present /lpf (None Presnt); Ketones Urine Trace (Negative); Leukocyte Esterase Urine Trace (Negative); Nitrite Urine Negative (Negative); Protein Urine 2+ (Negative); Specific Gravity Urine 1.025 (1.000-1.030); Urobilinogen Urine Negative (Negative); pH Urine 5.5 (4.5-7.5)
--- NOTE | 2024-11-09 13:00 | History & Physical Report ---
Date of Service November 09, 2024 Assessment & Plan (1) Severe sepsis: (2) Elevated troponin: (3) DEZ (acute kidney injury): (4) Nausea and vomiting: (5) Rash: (6) Atrial flutter: (7) HTN (hypertension): (8) Coronary artery disease: (9) Diabetes mellitus, type II: (10) Dyslipidemia: Plan This is a 64-year-old male with PMH of type 2 diabetes (a1c 7.22 Jun 2024), dyslipidemia, HFrEF (EF 40-45% on July 2024 echo), atrial flutter on eliquis, history of CABG in 2001 and other medical problems listed below who presents with fever and fall this AM and was found to meet severe sepsis criteria. Severe sepsis T 102 F, HR 110 WBC 15K, procal 9.78, lactate 5 -> 3.1 Possible sources: skin (fungal appearing rash in groin), GI (stool cx pending) Viral resp panel negative CT chest noted no acute abnormalities CT abd/Pelvis noted findings of cellulitis in lower abd/groin, mildly enlarged lymph nodes Receiving 2,250ml NSS to meet 30mg/kg fluid resuscitation based on ideal body weight Continue renally dosed vanco, zosyn Antifungal cream BID Trend lactate Follow urine, stool, blood cx Acute kidney injury Cr 1.91 (baseline Cr ~0.84) in setting of infection, PO losses, rhabdo Expect improvement with IV fluids Repeat BMP this afternoon Hold Farxiga, diuretics for now Nephro consulted given rhabdo and and HFrEF Rhabdomyolysis Fall but witnessed, no downtime reported CK 3,981 Trop elevated, DEZ Continue IV fluids Nephro as above Repeat CK in AM A flutter Ordered missed AM Toprol dose, takes 100mg BID Anticoagulated on Eliquis Elevated troponin Likely demand ischemia given infectious, rhabdo with trop elevated Trop 3819- >4523 EKG with RBBB (noted previously) Routine cards consult given h/o HFrEF, CAD HFrEF EF 40-45% on July 2024 echo Holding diuretics for now given DEZ, sepsis Cards consulted Close monitoring of volume status DM II A1c 7.22 Jun 2024 Hold home agents Basal/bolus while in-patient BSG AC HS Patient seen in collaboration with Dr. Leon. Please see addendum. I spent a total of 75 minutes coordinating, documenting, and providing care for this patient excluding time spent in the performance of separately billed services. History of Present Illness Chief Complaint: fever, fall Primary Care Provider: Tanner Marte MD This is a 64-year-old male with PMH of type 2 diabetes (a1c 7.22 Jun 2024), dyslipidemia, HFrEF (EF 40-45% on July 2024 echo), atrial flutter on eliquis, history of CABG in 2001 and other medical problems listed below who presents with fever and fall this AM. Was in normal state of health yesterday but woke up during the night with multiple bouts of vomiting and diarrhea. Also took his temp and had fever of 102 F. Went to stand this morning and slid to the ground, prompting presentation to ED. Has a cough that started yesterday. No abdominal pain or chest pain. Last took his meds Wednesday evening. No headache, lightheadedness, CP, SOB or abdominal pain. No dysuria. Has scratches on his abdomen and arms from his cat. Chronic back pain was exacerbated overnight. Lives with , no ambulatory assistive devices or oxygen at baseline. Allergies Allergy/AdvReac Type Severity Reaction Status Date / Time No Known Allergies Allergy Unknown Verified 07/11/20 13:45 Home Medications Medication Instructions Recorded Confirmed Type aspirin 81 mg tablet,delayed 81 mg PO QAM 07/19/19 11/09/24 History release (Adult Low Dose Aspirin) atorvastatin 40 mg tablet (Lipitor) 40 mg PO HS 07/19/19 11/09/24 History citalopram 20 mg tablet (Celexa) 20 mg PO QAM 07/19/19 11/09/24 History fenofibrate nanocrystallized 145 145 mg PO QAM 07/19/19 11/09/24 History mg tablet iron,carbonyl 100 mg-vitamin C 250 1 tab PO QAM 07/19/19 11/09/24 History mg tablet metoprolol succinate 25 mg capsule 25 mg PO QAM 07/19/19 11/09/24 History sprinkle, ext. release 24 hr multivitamin 1 tab PO QAM 07/19/19 11/09/24 History nitroglycerin 0.4 mg sublingual 0.4 mg sublingual .COMPLEX 07/19/19 11/09/24 History tablet insulin lispro 100 unit/mL See Rx Instructions subcut TID 09/18/19 11/09/24 History subcutaneous pen (Humalog KwikPen (U-100) Insulin) insulin detemir U-100 100 unit/mL 100 unit subcut HS 01/11/20 11/09/24 History subcutaneous solution (Levemir U-100 Insulin) furosemide 40 mg tablet (Lasix) 40 mg PO QAM #30 tabs 07/17/20 11/09/24 Rx apixaban 5 mg tablet (Eliquis) 5 mg PO BID 11/09/24 11/09/24 History dapagliflozin propanediol 10 mg 10 mg PO DAILY 11/09/24 11/09/24 History tablet metformin 1,000 mg tablet 1,000 mg PO BID 11/09/24 11/09/24 History metoprolol succinate 100 mg 100 mg PO BID 11/09/24 11/09/24 History tablet,extended release 24 hr sacubitril 24 mg-valsartan 26 mg 1 tab PO BID 11/09/24 11/09/24 History tablet (Entresto) semaglutide 2 mg/dose (8 mg/3 mL) 2 mg subcut WK 11/09/24 11/09/24 History subcutaneous pen injector (Ozempic) spironolactone 25 mg tablet 25 mg PO DAILY 11/09/24 11/09/24 History Past Med/Surg History Problem List (Updated 11/09/24 @ 14:38 by Giovana Ware PA-C) Rash Nausea and vomiting Severe sepsis Elevated troponin (Acute) DEZ (acute kidney injury) (Acute) Leukocytosis (Acute) Elevated lactic acid level (Acute) Atrial flutter by electrocardiogram Volume overload (Acute) Mood disorder (Chronic) HTN (hypertension) (Chronic) Dyslipidemia (Chronic) Coronary artery disease (Chronic) Diabetes mellitus, type II (Chronic) Medical History (Updated 11/09/24 @ 14:38 by Giovana Ware PA-C) Atrial flutter Atrial flutter with rapid ventricular response Pt admitted for elective EPS and flutter ablation due to atrial flutter. He underwent procedure without any complications. monitored overnight and discharged home. Surgical History H/O colonoscopy "2011 repeat 5 years " History of dental surgery Status post coronary artery bypass grafting Family History Other Diabetes Pancreatic cancer Social History Smoking Status: Never smoker Tobacco Type: Smokeless Tobacco (Dip or Chew) Do You Dip or Chew Tobacco: Yes; Hx Alcohol Use: Yes Alcohol type: beer Alcohol Intake Frequency: Monthly or Less Hx Substance Use: No Preferred Language: Australian Communication Ability: Effective Behavioral Scientist Required: No Beliefs That Will Affect Care: None Current Living Situation: Spouse Feels Safe at Home: Yes Assistive Devices: Glasses and Oxygen - Continuous Review of Systems Review of Systems: At least ten systems reviewed and negative except as noted in the HPI. Physical Exam Physical Exam: Please see Dr. Leon's addendum for physical exam. Results & Data Results & Data Vital Signs (Past 12 Hours) Vital Signs Temp Pulse Resp BP Pulse Ox O2 Del Method O2 Flow Rate 11/09/24 12:15 105 H 20 108/60 11/09/24 11:45 108 H 20 105/72 95 Nasal Cannula 2 11/09/24 11:30 106 H 24 130/67 11/09/24 10:53 87 L Room Air, Nasal Cannula 0 11/09/24 10:51 109 H 29 H 149/78 H 92 11/09/24 10:30 109 H 20 134/76 90 11/09/24 10:21 109 H 26 H 137/72 93 11/09/24 10:14 108 H 11/09/24 10:00 111 H 16 93 Room Air 11/09/24 10:00 37.1 C 111 H 16 120/62 93 Room Air Laboratory Results Short CBC 11/09/24 Range/Units 09:55 WBC 15.52 H (4.8-10.8) K/ul Hgb 14.9 (14.0-18.0) g/dl Hct 43.9 (42.0-52.0) % Plt Count 93 L (130-400) K/uL BMP 11/09/24 09:55 Sodium 130 L Potassium 5.0 Chloride 94 L Carbon Dioxide 23 BUN 43 H Creatinine 1.91 H Glucose 363 H* Calcium 10.1 Cardiac Enzymes 11/09/24 Range/Units 10:54 Total Creatine Kinase 3981 H (30-223) U/L Liver Function 11/09/24 11/09/2411/09/24 Range/Units 09:55 10:54 12:07 Total Bilirubin 1.1 H (0.2-1.0) mg/dl Direct Bilirubin TNP TNP 0.2 AST 130 H (13-39) U/L ALT 50 (7-52) U/L Alkaline Phosphatase 45 (34-104) U/L Albumin 3.9 (3.4-5.0) gm/dl Urine 11/09/24 Range/Units 12:00 Urine Color Yellow Urine Appearance Cloudy A (Clear) Urine pH 5.5 (4.5-7.5) Ur Specific [place] 1.025 (1.000-1.030) Urine Protein 2+ H (Negative) Urine Glucose (UA) 3+ H (Negative) Diagnostic Findings Femur X-Ray 11/09/24 09:55 XR femur LT 2V routine HISTORY: 64 years-old Male l leg pain acute left leg pain without reported trauma COMPARISON: None TECHNIQUE: 2 views of the left femur FINDINGS: Arterial calcifications. Minimal osteoarthritis of the femoral acetabular joint. Mild osteoarthritis of the knee. No acute fracture, dislocation or osseous erosion. IMPRESSION: No acute fracture or dislocation. ACT 112: Negative or not required by law. The above report was generated using voice recognition software. It may contain grammatical, syntax or spelling errors. Electronically signed by: Roosevelt Saenz M.D. 11/09/2024 12:59 PM Abdomen/Pelvis CT 11/09/24 10:38 CT OF THE ABDOMEN AND PELVIS WITHOUT CONTRAST CLINICAL HISTORY: Sepsis, DEZ COMPARISON STUDY: No previous studies for comparison. TECHNIQUE: Axial images of the abdomen and pelvis were obtained without IV contrast. Images were reviewed in the axial, sagittal, and coronal planes. Automated exposure control was utilized for the study. A dose lowering technique was utilized adhering to the principles of ALARA. FINDINGS: Please note that the chest CT will be reported separately. No renal, ureteral or bladder calculi are present. There is no hydronephrosis. The bladder is distended. The prostate is enlarged, measuring 6.4 cm in transverse diameter. Low-attenuation bilateral renal lesions are suboptimally assessed on unenhanced exam but favor cysts. Fat-containing bilateral adrenal lesions represent myelolipoma. Mild splenomegaly has developed since prior CT. Unenhanced images of the liver and pancreas are unremarkable. There are gallstones within the gallbladder. The gallbladder is moderately distended but there is no pericholecystic infiltration. There is no evidence for a bowel obstruction. Colonic diverticulosis without evidence for acute diverticulitis. There are prominent left inguinal, left iliac and retroperitoneal lymph nodes. Index left external iliac lymph node on image 356 measures 3.3 x 1.3 cm. There is subcutaneous stranding of the anterior abdominal wall. Stranding within the left groin is partially imaged. No fluid collections are identified. There is no soft tissue gas. IMPRESSION: 1. Partially imaged left groin stranding. This favors cellulitis. Subcutaneous stranding of the anterior abdominal wall may represent cellulitis or edema. No fluid collections. No soft tissue gas. 2. Mildly enlarged left inguinal, left external iliac and retroperitoneal lymph nodes which are probably reactive. 3. Cholelithiasis. Moderate gallbladder distention. No pericholecystic infiltration to strongly suggest acute cholecystitis. If right upper quadrant pain, ultrasound is recommended. 4. Mild splenomegaly which has developed since prior CT. 5. No urinary calculi or hydronephrosis. Enlarged prostate with distended bladder. ACT 112: Negative or not required by law. Electronically signed by: Geovani Gardner M.D. 11/09/2024 12:[address] 11/09/24 10:55 CT OF THE CHEST WITHOUT IV CONTRAST CLINICAL HISTORY: Sepsis. COMPARISON STUDY: Chest radiograph July 11, 2020. CT DOSE: 2690.94 mGy.cm TECHNIQUE: Axial images of the chest were obtained without IV contrast. Images were reviewed in the axial, sagittal, and coronal planes. IV contrast was not administered for this examination. Automated exposure control was utilized for the study. A dose lowering technique was utilized adhering to the principles of ALARA. FINDINGS: There are median sternotomy wires and postoperative findings from bypass grafting. Extensive coronary artery calcification is present. The heart is moderately enlarged. There is no pericardial effusion. No enlarged axillary, mediastinal or hilar lymph nodes are present. The central airways are patent. Lungs are suboptimally assessed due to respiratory motion. No consolidation is present. Subpleural opacities represent atelectasis. No suspicious pulmonary nodules are identified. There are no acute fractures within the bony thorax. The abdomen and pelvis CT will be reported separately. IMPRESSION: 1. No acute intrathoracic findings on unenhanced exam. 2. Moderate cardiomegaly and extensive coronary calcification. Status post median sternotomy and bypass grafting. 3. Subpleural opacities consistent with atelectasis. No consolidation to suggest pneumonia. ACT 112: Negative or not required by law. Electronically signed by: Geovani Gardner M.D. 11/09/2024 12:09 PM Supervising Physician Co-Signing Physician Notes Patient seen and examined Reports fever, vomiting, diarrhea, weakness since yesterday On exam, General: Ill appearing Eyes: PERRL, conjunctivae normal, not pale, anicteric sclerae, EOM intact bilaterally ENMT: External ear and nose normal, dry oral mucosa Respiratory: Normal respiratory effort, no respiratory distress, lungs clear to auscultation, no crackles and no wheezes Cardiovascular: RRR S1 S2 Gastrointestinal (Abdomen): Abdomen is not distended, soft, non-tender to palpation, no guarding, no palpable hepatosplenomegaly, normal bowel sounds Musculoskeletal: No pedal edema Skin: Scabs in different stages of healing on abdomen, Erythema. Scratch santana (reported to be from his cat), inguinal fungal rash more on left. Also involving skin folds Neurologic: Alert and oriented x 3, No focal weakness, sensation grossly intact Psychiatric: Euthymic affect Labs notable for leukocytosis, Cr 1.91, BUN 43, Glucose 363, lactate of 5.2- >3.1, Trop 3819->4523, CK 3981 CT chest noted no acute abnormalities CT abd/Pelvis noted findings of cellulitis in lower abd/groin, mildly enlarged lymph nodes Severe sepsis with Acute kidney injury Rhabdomyolysis Possible sources : Skin, GI IV vanc and zosyn, renally dose Follow up blood cultures and other infectious workup Complete IVF bolus 30cc/kg IBW and reassess Monitor Lactate Elevated trop may be demand ischemia in pt with HFrEF Will trend and get Cards eval Hold diuretic and entresto Hold farxiga Avoid nephrotoxins Considering DEZ with rhabdo and patient's reduced EF, will get Nephro to assist with mgt I spent a total of 50 minutes coordinating, documenting and providing care for this patient excluding time spent in performance of separately billed services (8) Coronary artery disease Associated angina: angina presence unspecified Coronary Disease-Associated Artery/Lesion type: [place] artery [place] vs. transplanted heart: sioux heart Qualified Code(s): I25.10 - Atherosclerotic heart disease of [place] coronary artery without angina pectoris (9) Diabetes mellitus, type II Diabetes mellitus complication status: with other specified complication Diabetes mellitus snf insulin use: with snf use Qualified Code(s): E11.69 - Type 2 diabetes mellitus with other specified complication; Z79.4 - residential (current) use of insulin
[2024-11-09] MEDS ORDERED: VANCOMYCIN CONSULT ACTIVE PRN ×2 (13:01→14:21)
[2024-11-09] MEDS: DAPTOmycin 550 MG in SYRINGE 0 ML IV SCH (13:10)
[2024-11-09] MEDS ORDERED: PHARMACY GLYCEMIC MGMT CONSULT PRN (13:17)
[2024-11-09] MEDS ORDERED: CARBOHYDRATES FOR HYPOGLYCEMIA PO PRN (13:25)
[2024-11-09] MEDS ORDERED: GLUCAGON FOR INJ 1 MG VIAL SQ PRN (13:25)
[2024-11-09] MEDS ORDERED: DEXTROSE 50% 50 ML SYRINGE IV PRN (13:25)
[2024-11-09] MEDS ORDERED: GLUCOSE 10 TAB/TUBE PO PRN (13:25)
[2024-11-09] MEDS ORDERED: GLUCOSE 40% GEL 15 GM TUBE PO PRN (13:25)
[2024-11-09] MEDS: PIPERACILLIN/TAZOBACTAM 4.5 GM/100 ML BAG IV ONE (13:31)
[2024-11-09 13:36] LABS: INR 1.1 (0.9-1.1); Prothrombin Time 11.7 Seconds (9.0-12.0)
[2024-11-09] MEDS ORDERED: LANTUS PER UNIT CHARGE SC SCH (14:15)
[2024-11-09] MEDS: SODIUM CHLORIDE 0.9% 250 ML IV ONE (14:15)
[2024-11-09] MEDS: VANCOMYCIN HCL 2,250 MG in SODIUM CHLORIDE 0.9% 500 ML IV ONE (14:15)
[2024-11-09] MEDS: LANTUS PER UNIT CHARGE SC STA (14:26)
[2024-11-09] MEDS: INSULIN ASPART PER UNIT CHARGE SC SCH (14:38)
[2024-11-09] MEDS: METOPROLOL TARTRATE 1 MG/ML VIAL IV STA ×3 (15:23→23:55)
[2024-11-09] MEDS: ACETAMINOPHEN 500 MG TAB PO STA (15:25)
[2024-11-09] MEDS: METOPROLOL SUCC 50MG EXT REL TAB PO STA (15:28)
[2024-11-09] MEDS ORDERED: Nursing to Pharmacy Communication SCH (18:15)
[2024-11-09] MEDS ORDERED: POLYETHYLENE (MIRALAX) 17 GM PACK PO PRN (19:29)
[2024-11-09] MEDS ORDERED: ONDANSETRON INJ 2 MG/ML 2 ML VIAL IV PRN (19:29)
--- OUTSIDE RECORDS SUMMARY | 2024-11-09 19:45 | External Medical Summary | Summary of Care ---
Author Name Unknown Organization [facility] Address [address] [facility] [place] [address] Phone [phone] Care Team Providers Care Glass Beveler Name Role Phone Tanner Marte MD Primary Care Provider [phone] Reason for Visit * Reason Onset Date Comments Medication Refill 10/24/2024 Encounter Details Date Type Department Care Team (Late st Contact Info) Description 10/24/2024 Telephone Pharmacy, [facility] [address] [place] [phone] [place], [facility] [address] [place] [address] Medication Refill Allergies No known active allergiesdocumented as of this encounter (statuses as of 10/24/2024) Medications MULTIVITAMIN PO TABSIndications: CVD (arteriosclerotic cardiovascular disease) once daily 34 3 03/24/20 10 Active VITAMIN C-IRON 125-200 MG PO TABSIndications: CVD (arteriosclerotic cardiovascular disease) one daily 31 Tab 3 12/09/19 11 Active LANCETS MISCIndications:DM type 2, not at goal (HCC) one touch ultra three times daily 90 Box 5 01/27/20 11 Active ASPIRIN LOW DOSE 81 MG PO CHEWIndications:Ol d myocardial infarct,Routine medical exam,DM type 2, not at goal (HCC),HTN, goal below 130/80,ASCVD (arteriosclerotic cardiovascular disease) 1 TABLET DAILY 30 Tab 1 09/20/20 12 Active NITROGLYCERIN 0.4 MG SL SUBLIndications: CVD (arteriosclerotic cardiovascular disease),Old myocardial infarct one tab under tongue as needed for chest pain maximum 3 doses 25 Tab 5 12/03/19 15 Active Additional Information Patient not taking.Reported on 08/29/2024 ONETOUCH ULTRA BLUE STRPIndications:DM type 2, not at goal (HCC) use three times a day. Strips for one Touch Mini 90 Strip 5 12/11/19 15 Active Aflibercept 2 MG/0.05ML Intravitreal Solution Prefilled Syringe (Locaweblea) Inject into eye 0.05 mL every 4 weeks . 0.15 mL 3 04/07/20 22 Active Atorvastatin Calcium 40 MG Oral Tablet (Lipitor)Indicatio ns:DM type 2, not at goal (HCC) Take 1 Tablet by mouth in the morning. 100 Tablet 4 10/11/2024 8:11 AM EST 03/30/20 24 Active metFORMIN HCl 1000 MG Oral Tablet (Glucophage)Indica tions:DM type 2, not at goal (HCC) Take 1 Tablet by mouth in the morning and 1 Tablet before bedtime with food. 200 Tablet 4 10/11/2024 8:11 AM EST 03/30/20 24 Active Citalopram Hydrobromide 20 MG Oral Tablet (CeleXA)Indication s:Anxiety state Take 1 Tablet by mouth in the morning. 100 Tablet 4 10/12/2024 9:30 AM EST 03/31/20 24 Active Apixaban 5 MG Oral Tablet (Eliquis)Indicatio ns:S/P ablation of atrial flutter,Typical atrial flutter (HCC) Take 1 Tablet by mouth in the morning and 1 Tablet before bedtime. 200 Tablet 4 07/12/2024 10:49 AM EDT 03/31/20 24 Active Dapagliflozin Propanediol 10 MG Oral Tablet (Farxiga) Take 1 Tablet by mouth in the morning. Obtaining from [place] [employer] [facility]. Active Ozempic (2 MG/DOSE) 8 MG/3ML Subcutaneous Solution Pen-injector (Semaglutide (2 MG/DOSE)) Inject 2 mg under the skin once a week. OBTAINING FROM [employer] PAP Active Insulin Degludec FlexTouch 200 UNIT/ML Subcutaneous Solution Pen-injector Inject 100 Units under the skin every evening. OBTAINING FROM [employer] Active Insulin Aspart 100 UNIT/ML Injection Solution (NovoLOG) Inject under the skin three times a day before meals. 45 WITH BREAKFAST, 45 WITH LUNCH, AND 45 WITH SUPPER OBTAINING FROM [employer] Active FreeStyle Ilya 3 Sensor Use as directed. Supplied by [facility] Active Apixaban 5 MG Oral Tablet (Eliquis)Indicatio ns:Typical atrial flutter (HCC) Take 1 Tablet by mouth in the morning and 1 Tablet before bedtime. 30 Tablet 07/12/20 24 Active Spironolactone 25 MG Oral Tablet (Aldactone) Take 1/2 Tablet by mouth in the morning. 45 Tablet 1 09/14/2024 6:05 PM EDT 07/28/20 24 Active Furosemide 40 MG Oral Tablet (Lasix) Take 1 Tablet by mouth daily in the morning as needed for swelling or weight gain 90 Tablet 1 07/28/2024 4:18 PM EDT 07/28/20 24 Active Entresto 24-26 MG Oral Tablet (sacubitril-valsar haines 24-26 mg per tab) Take 1 Tablet by mouth in the morning and 1 Tablet before bedtime. 200 Tablet 1 07/28/2024 4:18 PM EDT 07/28/20 24 Active Metoprolol Succinate ER 100 MG Oral Tablet Extended Release 24 Hour (Toprol XL)Indications:Old myocardial infarct,ASCVD (arteriosclerotic cardiovascular disease),HTN, goal below 140/90,Chronic systolic heart failure (HCC),Dilated cardiomyopathy (HCC) Take 1 Tablet by mouth in the morning and 1 Tablet before bedtime. 200 Tablet 4 09/28/2024 11:32 AM EST 09/05/20 24 Active Novofine Pen Needle 32G X 6 MM (NOVOFINE 32G PEN NEEDLE) Use 4 Each as directed. WITH INSULIN INJECTIONS. 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, unspecified whether halfway insulin use (HCC) 2 mg IZ PRN 04/08/2023 Active Aflibercept (Eylea) intraviteal prefilled syringe 2 mgIndications: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, unspecified whether equipment operator intermodal yard insulin use (HCC) 2 mg IZ PRN 04/08/2023 Active documented as of this encounter (statuses as of 10/24/2024) Active Problems Problem Noted Date Diagnosed Date Hypertensive heart disease w ith chronic systolic congestive heart failure 07/12/2024 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, with long-term current use of insulin 07/12/2024 Type 2 diabetes mellitus wit h diabetic cataract, with long-term current use of insulin 07/12/2024 Coronary artery disease invo lving [place] coronary artery of [place] heart without angina pectoris 06/30/2022 Ischemic cardiomyopathy 06/30/2022 Dilated cardiomyopathy 09/20/2020 S/P ablation of atrial flutter 09/20/2020 Atrial flutter 07/31/2020 Chronic systolic heart failure 07/31/2020 Dyslipidemia, goal LDL below 70 07/31/2015 Type 2 diabetes mellitus wit h hemoglobin A1c goal of less than 8.0% 03/21/2015 Overview (03/19/2016): ICD-10 update of inactive term HTN, goal below 140/90 01/29/2015 Anxiety state 05/12/2013 Abnormal results of liver function studies 05/12 Proteinuria 03/15/2012 Chews tobacco 03/15/2012 Old myocardial infarct 03/15/2012 Displacement of lumbar inter vertebral disc without myelopathy 01/01/2011 Esophageal reflux 03/24/2010 Chronic rhinitis 06/15/2003 Aortocoronary bypass status 03/14/2002 documented as of this encounter (statuses as of 10/24/2024) Resolved Problems Problem Noted Date Diagnosed Date Resolved Date Chest pain 05/12/2013 06/27/2013 Type 2 diabetes mellitus wit h hemoglobin A1c goal of less than 7.0% 02/10/2013 03/21/2015 Overview (03/17/2016): ICD-10 update of inactive term Severe obesity with body mas s index (BMI) of 35.0 to 39.9 with serious comorbidity 09/20/2012 Overview (09/07/2018): bmi= 36.88 09/20/12 ICD-10 update of inactive diagnosis Special screening for malign ant neoplasm of prostate 09/20/2012 06/27/2013 Severe obesity with body mas s index (BMI) of 35.0 to 39.9 with serious comorbidity 03/15/2012 Overview (09/07/2018): bmi= 36.73 03/15/12 ICD-10 update of inactive diagnosis Dyslipidemia, goal LDL below 100 03/15/2012 06/20/2015 ASCVD (arteriosclerotic card iovascular disease) 03/15/2012 06/07/2024 Overview (06/07/2024): duplicate OBESITY, BMI= 37.34 09/04/11 09/04/2011 06/27/2013 OBESITY, BMI= 38.02 05/11/11 05/11/2011 06/27/2013 DM type 2, not at goal 02/10/201103/15 OBESITY, BMI= 37.31 02/02/11 02/02/2011 06/27/2013 DM type 2 causing renal disease 02/02/2011 09/04/2011 Proteinuria 02/02/2011 03/15/2012 OBESITY, BMI= 36.88 01/01/11 01/01/2011 06/27/2013 CELLULITIS OF LEG. RIGHT LOWER 08/01/2010 06/27/2013 OBESITY, BMI= 36.73 03/24/10 03/24/2010 0 06/27/2013 Special screening for malign ant neoplasms, colon 03/24/2010 06/27/2013 Screening for prostate cancer 03/24/2010 06/27/2013 Screening for prostate cancer 11/20/2009 12/09/2009 Overview (12/09/2009): Modified by Screening Dx Protocol #6. Dyslipidemia, goal LDL below 70 11/04/2009 03/15/2012 Overview (11/04/2009): Per Lipid Taxonomy. OBESITY, BMI= 36.90 01/04/09 01/04/2009 06/27/2013 DM type 2, not at goal 12/07/200702/02 Dyslipidemia, goal to be determined 12/07/2007 11/04/2009 Overview (11/04/2009): Per Lipid Taxonomy. TOBACCO USE DISORDER- ORAL 12/07/2007 0 03/15/2012 PARONYCHIA OF TOE, LEFT GREAT LATERAL 12/22/2005 06/27/2013 OBESITY, BMI= 37.26 12/22/05 12/22/2005 06/27/2013 ROUTINE MEDICAL EXAM 12/22/2005 013 Special screening for malign ant neoplasms, colon 12/22/2005 01/30/2009 Overview (01/30/2009): Resolved per Screening Diagnosis Protocol #6 Screening for prostate cancer 12/22/2005 01/30/2009 Overview (01/30/2009): Resolved per Screening Diagnosis Protocol #6 Carbuncle of trunk 10/21/2005 9 Cellulitis of trunk 10/21/2005 01/04/20 09 ADVANCE DIRECTIVE INFORMATION 10/19/2005 09/25/2024 Overview (10/19/2005): No, Advance Directive brochure given to patient at prior appointment. Need for influenza vaccination 12/16/2004 06/27/2013 IMPOTENCE, ORGANIC ORIGN 10/23/200304/2013 OBESITY, BMI= 35.47 10/23/03 10/23/2003 06/27/2013 HTN, goal below 140/90 06/15/200311/20 Type 2 diabetes mellitus wit h hemoglobin A1c goal of less than 7.0% 07/19/2002 02/02/2011 Overview (03/17/2016): ICD-10 update of inactive term OLD MYOCARDIAL INFARCT 07/19/200203/15 ASCVD 03/15/2012 Atrial fibrillation 09/20/20 12 HTN, goal below 130/80 01/29 documented as of this encounter (statuses as of 10/24/2024) Immunizations Name Administration Dates Next Due COVID-19 mRNA, LNP-s, No Pre serve, 2-Dose Series (Pfizer) 11/08/2021,01/18/2021,12/28/2020 H1N1 2009 Influenza, IM 10/06/2009 Pneumococcal Conjugate Vacci ne, 20-valent (Ptnzess20) 03/28/2024 Pneumococcal Polysaccharide PPV23 (Pneumovax) 07/14/2020,07/23/2011,12/22/2005 Seasonal Influenza Vac., MDV , IM, 0.5 mL (Fluzone) 09/26/2013,07/23/2013,09/20/2012,09/17,10/09/2010,09/05/2009,09/25/2008 ,09/22/2005,12/16/2004,09/18/2003 Seasonal Influenza Virus Vac cine, Unspecified Formulation 08/28/2015,09/26/2013,07/23/2013,09/20,09/17/2011,10/09/2010,09/05/2009 ,09/25/2008,09/22/2005,12/16/2004,08/23 Seasonal Influenza, High Dos e, Trivalent, PF, IM (Fluzone HD) 07/28/2024 Seasonal Influenza, PF, 6 M & above, IM , (FluLaval or Fluzone) 09/05/2021 Seasonal Influenza, Quadriva lent, No Preserve, IM 08/28/2015 TD - Tetanus/Diptheria (ADULT) 08/04/2000 TD, Preservative Free 08/04/2000 TDAP, Age 7 and older, IM (Adacel) 12/06/2012, documented as of this encounter Social History Tobacco Use Types Packs/Day Years Used Date Smoking Tobacco: Never Smokeless Tobacco: Current Snuff Comments:1 can per day for 3 0 years. Alcohol Use Standard Drinks/Week Comments Yes 0 (1 standard drink = 0.6 oz pur e alcohol) seldom PHQ-2 Answer Date Recorded PHQ Adult Total Score 0 03/28/2024 Sex and Gender Information Value Date Recorded Sex Assigned at Not on file Legal Sex Male 5:03 AM EST Gender Identity Not on file Sexual Orientation Not on file documented as of this encounter Miscellaneous Notes * Telephone Encounter - Olive Stein RPh - 10/24/2024 12:50 PM EST [facility]07/2024-06/06/2025 LVM for patient and attached HW info attached to [facility] Rx. Olive Stein PharmD Clinical Pharmacist - Trouble Shooting Mechanic [facility] 10/24/2024 12:52 PM * Telephone Encounter - Miryam Jordan RP - 10/24/2024 11:52 AM EST Patient is unable to afford their prescription and would like assistance in getting this medication. Please see the following for further information regarding this request: Medication: Eliquis 5 mg BID Clinic location: [facility] Reason pt cannot pick-up: n/a Initial therapy?: no Has pt been without med?: no Patient's contact #: [phone] Pt would like to explore their options for obtaining this medication. Please advise pt at the phonenumber listed above. Thank you. Thanks, Miryam Jordan PharmD, [facility] Clinical Pharmacist Medication Therapy Disease Management 10/24/2024, 11:52 AM * Telephone Encounter - Joceline Hassan CPhT - 10/24/2024 11:31 AM EST Caller's name: Rolan Preferred call back number(OFFICE NUMBER FOR ): [phone] Reason for call: Pt states he's in need of refills on his Eliquis and Entresto, however, he is in the "donut hole" with his insurance. Pt would like to speak to Carmen Witt in regards to getting set up with obtaining these medications for a discount. Thank you, Joceline Hassan [facility] [place] [facility] [address] [place] [address] Dr. [address] [place] [address] [id number] 10/24/2024,11:32 AM documented in this encounter Plan of Treatment Upcoming Encounters Date Type Department Care Team (Late st Contact Info) Description 11/02/2024 7:40 AM EST [facility] [place] [phone] [facility] [address] [place] [address] 01/04/2025 3:00 PM EST Office Visit Ophthalmology, [facility] [address] [place] [address] Jemal Coleman, DO [address] [place] [address] 01/08/2025 10:00 AM EST Laboratory Laboratory, [facility] [place] [phone] [facility] [address] [place] [address] 01/16/2025 11:00 AM EST Office Visit Family Practice, [place] [facility] [address] [facility] [place] [phone] MarchTanner MD [address] [place] [address] 02/05/2025 10:30 AM EDT Office Visit Cardiology, [facility] [address] [place] [place] [address] Robert Flowers, DO [address] [place] [address] 04/26/2025 8:45 AM EDT Office Visit Ophthalmology, [facility] [address] [place] [address] Amarjit Santa MD [address] [place] [address] Health Maintenance Due Date Last Done Comments HIV Screening 1974 Hepatitis C Screening 1977 Cologuard 2004 Fecal Occult Blood Test 2004 Sigmoidoscopy 2004 Zoster Vaccines (1 of 2) 2009 DTap/Tdap Vaccines (3 - Td or Tdap) 12/06/2022 12/06/2012, 08/11/2010, 08/04/2000, Additional history exists COVID-19 Vaccine ( season) 2024 11/08/2021, 01/18/2021, 12/28/2020 HbA1c 01/18/2025 07/18/2024, 06/22, 03/28/2024, Additional history exists Albumin/Creatinine Ratio 03/28/2025 024, 02/22/2018, 12/05/2015, Additional history exists Depression Screening 03/28/2025 03/28/2024 Diabetic Foot Exam 03/28/2025 03/28/2024, 0 12/05/2015, 12/21/2014, Additional history exists Diabetic Eye Exam 04/19/2025 04/19/2024, , 04/10/2024, Additional history exists GFR 08/17/2025 08/17/2024, 07/23, 07/18/2024, Additional history exists Colonoscopy 09/04/2029 09/04/2024, 08/22, 12/04/2011 Colorectal Cancer Screening 09/04/2029 Pneumococcal Vaccine: 65+ Years Completed 03/28/2024, 07/14/2020, 07/23/2011, Additional history exists Influenza Vaccine (FLU shot) Completed 07/28/2024, 09/05/2021, 08/28/2015, Additional history exists RETIRED - COLONOSCOPY-EVERY 5 YRS AGES 18-100 Discontinued 09/04/2024, 09/04/2024, 12/04/2011, Additional history exists HPV (Gardasil) Vaccine Aged Out No lo nger eligible based on patient's age to complete this topic Hepatitis B Vaccine Aged Out No longe r eligible based on patient's age to complete this topic MENINGOCOCCAL (MENACTRA/MENVEO) Aged Out No longer eligible based on patient's age to complete this topic documented as of this encounter Medical Devices Implanted Type Area Chemical Tank Worker Device Identifier Shelf Expiration Date Model / Serial / Lot Hemostatic Clip Res 235cm - [id number] Implanted:Qty: 1 on 09/04/2024 by Juancarlos Muñoz MD at ENDOSCOPY [facility] : ENDOSCOPY 12/17/2026 [id number] / / [id number] documented as of this encounter Care Teams Glass Beveler Relationship Specialty Start Date End Date March, Tanner Santo MD [address] [place] [address] PCP - General Family Medicine 03/30/24 documented as of this encounter
--- OUTSIDE RECORDS SUMMARY | 2024-11-09 19:45 | External Medical Summary | Summary of Care ---
Author Name Unknown Organization [facility] Address [address] [facility] [place] [address] Phone [phone] Care Team Providers Care Brand Sales Consultant Name Role Phone Tanner Marte MD Primary Care Provider [phone] Reason for Visit * Reason Onset Date Comments Patient Assistance Program 10/06/2024 [place] Encounter Details Date Type Department Care Team (Late st Contact Info) Description 10/06/2024 Telephone Pharmacy, [address] [address] [facility] [address] [place] [address] [place] Program ([place]... Allergies No known active allergiesdocumented as of [...] Aflibercept 2 MG/0.05ML Intravitreal Solution Prefilled Syringe ([employer]) Inject into eye 0.05 mL every 4 weeks . 0.15 mL 3 04/07/20 22 Active Atorvastatin Calcium 40 MG Oral Tablet (Lipitor)Indicatio ns:DM type 2, not at goal (HCC) Take 1 Tablet by mouth in the morning. 100 Tablet 4 4 8:11 AM EST 03/30/20 24 Active metFORMIN HCl 1000 MG Oral Tablet (Glucophage)Indica tions:DM type 2, not at goal (HCC) Take 1 Tablet by mouth in the morning and 1 Tablet before bedtime with food. 200 Tablet 4 4 8:11 AM EST 03/30/20 24 Active Citalopram Hydrobromide 20 MG Oral Tablet (CeleXA)Indication s:Anxiety state Take 1 Tablet by mouth in the morning. 100 Tablet 4 4 9:30 AM EST 03/31/20 24 Active Apixaban 5 MG Oral Tablet (Eliquis)Indicatio ns:S/P ablation of atrial flutter,Typical atrial flutter (HCC) Take 1 Tablet by mouth in the morning and 1 Tablet before bedtime. 200 Tablet 4 4 10:49 AM EDT 03/31/20 24 Active Ozempic (2 MG/DOSE) 8 MG/3ML Subcutaneous Solution Pen-injector (Semaglutide (2 MG/DOSE)) Inject 2 mg under the skin once a week. OBTAINING FROM [employer] PAP Active Insulin Degludec FlexTouch 200 UNIT/ML Subcutaneous Solution Pen-injector Inject 100 Units under the skin every evening. OBTAINING FROM [employer] Active Insulin Aspart 100 UNIT/ML Injection Solution (NovoLOG) Inject under the skin three times a day before meals. 45 WITH BREAKFAST, 45 WITH LUNCH, AND 45 WITH SUPPER OBTAINING FROM [employer] Active FreeStyle Ilya 3 Sensor Use as directed. Supplied by [employer] Active Apixaban 5 MG Oral Tablet (Eliquis)Indicatio ns:Typical atrial flutter (HCC) Take 1 Tablet by mouth in the morning and 1 Tablet before bedtime. 30 Tablet 07/12/20 24 Active Spironolactone 25 MG Oral Tablet (Aldactone) Take 1/2 Tablet by mouth in the morning. 45 Tablet 1 4 6:05 PM EDT 07/28/20 24 Active Furosemide 40 MG Oral Tablet (Lasix) Take 1 Tablet by mouth daily in the morning as needed for swelling or weight gain 90 Tablet 1 4 4:18 PM EDT 07/28/20 24 Active Entresto 24-26 MG Oral Tablet (sacubitril-valsar haines 24-26 mg per tab) Take 1 Tablet by mouth in the morning and 1 Tablet before bedtime. 200 Tablet 1 4 4:18 PM EDT 07/28/20 24 Active Metoprolol Succinate ER 100 MG Oral Tablet Extended Release 24 Hour (Toprol XL)Indications:Old myocardial infarct,ASCVD (arteriosclerotic cardiovascular disease),HTN, goal below 140/90,Chronic systolic heart failure (HCC),Dilated cardiomyopathy (HCC) Take 1 Tablet by mouth in the morning and 1 Tablet before bedtime. 200 Tablet 4 4 11:32 AM EST 09/05/20 24 Active Novofine Pen Needle 32G X 6 MM (NOVOFINE 32G PEN NEEDLE) Use 4 Each as directed. WITH INSULIN INJECTIONS. 400 Each 3 10/03/20 24 Active Dapagliflozin Propanediol 10 MG Oral Tablet (Farxiga)Indicatio ns:Type 2 diabetes mellitus with hemoglobin A1c goal of less than 8.0% (HCC) Take 1 Tablet by mouth in the morning. [place]bt[place] from [place]. 90 Tablet 4 10/24/20 24 Active Dapagliflozin Propanediol 10 MG Oral Tablet (Farxiga) Take 1 Tablet by mouth in the morning. Obtaining from [place]. 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, unspecified whether jail insulin use (HCC) 2 mg IZ PRN 04/08/2023 Active Aflibercept (Eylea) intraviteal prefilled syringe 2 mgIndications: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, unspecified whether jail insulin use (HCC) 2 mg IZ PRN [...] insulin 07/12/2024 Coronary artery disease invo lving [place] coronary artery of [place] heart without angina pectoris 06/30/2022 Ischemic cardiomyopathy [...] IM 10/06/2009 Pneumococcal Conjugate Vacci ne, 20-valent ([id number]) 03/28/2024 Pneumococcal Polysaccharide PPV23 (Pneumovax) 07/14/2020,07/23/2011,12/22/2005 Seasonal [...] as of this encounter Miscellaneous Notes * Addendum Note - Miryam Jordan RPh - 10/24/2024 1:42 PM ESTAddended by: MIRYAM JORDAN on: 10/24/2024 01:42 PM Modules accepted: Orders * Telephone Encounter - Miryam Jordan RPh - 10/24/2024 1:41 PM EST Received fax requesting script for farxiga be sent to [facility]. Script sent. Miryam Jordan PharmD, BCACP Clinical Pharmacist Medication Therapy Disease Management 10/24/2024, 1:41 PM * Telephone Encounter - Miryam Jordan RPh - 10/06/2024 12:37 PM EST Filled out and faxed re-enrollment forms for patient to continue to get Farxiga 10 mg from [place]. Received successful confirmation of fax. Forms scanned into chart. Miryam Jordan PharmD Clinical Pharmacist Medication Therapy Disease Management 10/06/2024, 12:35 PM documented in this encounter Plan of Treatment Upcoming Encounters Date Type Department Care Team (Late st Contact Info) Description 11/02/2024 7:40 AM EST Office [facility] [address] [place] [phone] [facility] [address] [place] [address] 01/04/2025 3:00 PM EST Office Visit Ophthalmology, [facility] [address] [facility] [place] [address] Jemal Coleman, DO [address] [facility] [place] [address] 01/08/2025 10:00 AM EST Laboratory Laboratory, [facility] [address] [facility] [phone] [facility] [address] [place] [place] [address] 01/16/2025 11:00 AM EST Office Visit Family Practice, [facility] [address] [facility] [phone] Tanner Marte MD [address] [place] [address] 02/05/2025 10:30 AM EDT Office Visit Cardiology, [facility] [address] [facility] [place] [address] Robert Flowers, DO [address] [facility] [place] [address] 04/26/2025 8:45 AM EDT Office Visit Ophthalmology, [facility] [address] [place] [address] Amarjit Santa MD [address] [place] [address] Health Maintenance Due Date Last Done Comments HIV Screening 1974 Hepatitis C Screening 1977 Cologuard 2004 Fecal Occult Blood Test 2004 Sigmoidoscopy 2004 Zoster Vaccines (1 of 2) 2009 DTap/Tdap Vaccines (3 - Td or Tdap) 12/06/2022 12/06/2012, 08/11/2010, 08/04/2000, Additional history exists COVID-19 Vaccine (4 - season) 2024 11/08/2021, 01/18/2021, 12/28/2020 HbA1c 01/18/2025 [...] this encounter Medical Devices Implanted Type Area Tool Design Checker Device Identifier Shelf Expiration Date Model / Serial / Lot Hemostatic Clip Res 235cm - [id number] Implanted:Qty: 1 on 09/04/2024 by Juancarlos Muñoz MD at [facility] [employer] : ENDOSCOPY 12/17/2026 [id number] / / [id number] documented as of this encounter Visit Diagnoses Diagnosis Type 2 diabetes mellitus with hemoglobin A1c goal of less than 8.0% (HCC)- Primary documented in this encounter Care Teams Brand Sales Consultant Relationship Specialty Start Date End Date March, Tanner Santo MD [address] [place] [address] PCP - General Family Medicine 03/30/24 documented as of this encounter
--- OUTSIDE RECORDS SUMMARY | 2024-11-09 19:45 | External Medical Summary | Summary of Care ---
Author Name Unknown Organization [facility] Address [address] [facility] [place] [address] Phone [phone] Care Team Providers Care Manager Post Name Role Phone Tanner Marte MD Primary Care Provider [phone] Reason for Visit * Reason Comments Dosage Adjustment Via Phone (anticoag Cl inic) Diabetes Follow-Up Encounter Details Date Type Department Care Team (Late st Contact Info) Description 11/02/2024 10:30 AM EST Telemedicine Pharmacy, [facility] [address] [place] [phone] [place] [facility] [address] [place] [address] Type 2 diabetes mellitus with hemoglobin A1c goal of less than 8.0% (HCC)*; Typical atrial flutter (HCC) Allergies No known active allergiesdocumented as of this encounter (statuses as of 11/02/2024) Medications MULTIVITAMIN PO TABSIndications: CVD (arteriosclerotic cardiovascular [...] Aflibercept 2 MG/0.05ML Intravitreal Solution Prefilled Syringe ([employer]) Inject into eye 0.05 mL every 4 [...] the skin once a week. OBTAINING FROM [employer] PAP Active Insulin Degludec FlexTouch 200 UNIT/ML Subcutaneous Solution Pen-injector Inject 100 Units under the skin every evening. OBTAINING FROM [employer] Active Insulin Aspart 100 UNIT/ML Injection Solution (NovoLOG) Inject under the skin three times a day before meals. 45 WITH BREAKFAST, 45 WITH LUNCH, AND 45 WITH SUPPER OBTAINING FROM [employer] Active FreeStyle Ilya 3 Sensor Use as directed. Supplied by [employer] Active Spironolactone 25 MG Oral Tablet (Aldactone) [...] by mouth in the morning. [place]bt[place] from [place]. 90 Tablet 4 10/24/20 24 Active Apixaban 5 MG Oral Tablet (Eliquis)Indicatio ns:Typical atrial flutter (HCC) Take 1 Tablet by mouth in the morning and 1 Tablet before bedtime. Faxing a 30 day free voucher-- please do not fill through insurance - pt in bere hole. 60 Tablet 11/02/20 24 Active Ozempic (2 MG/DOSE) 8 MG/3ML Subcutaneous Solution Pen-injector (Semaglutide (2 MG/DOSE))Indicatio ns:Type 2 diabetes mellitus with hemoglobin A1c goal of less than 8.0% (HCC) Inject 2 mg under the skin once weekly 3 mL 11/02/20 24 Active Apixaban 5 MG Oral Tablet (Eliquis)Indicatio ns:Typical atrial flutter (HCC) Take 1 Tablet by mouth in the morning and 1 Tablet before bedtime. 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, unspecified whether long term acute care registered nurse insulin use (HCC) 2 mg IZ PRN 04/08/2023 Active Aflibercept (Eylea) intraviteal prefilled syringe 2 mgIndications: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, unspecified whether long-term insulin use (HCC) 2 mg IZ PRN 04/08/2023 Active documented as of this encounter (statuses as of 11/02/2024) Active Problems Problem Noted Date Diagnosed Date Hypertensive heart disease w ith chronic systolic congestive heart failure 07/12/2024 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, with long-term current use of insulin 07/12/2024 Type 2 diabetes mellitus wit h diabetic cataract, with long-term current use of insulin 07/12/2024 Coronary artery disease invo lving [place] coronary artery of [place] heart without angina pectoris 06/30/2022 Ischemic cardiomyopathy [...] as of this encounter (statuses as of 11/02/2024) Resolved Problems Problem Noted Date Diagnosed Date [...] 37.34 09/04/11 09/04/2011 06/27/2013 OBESITY, BMI= 38.02 6/2005/11/2011 06/27/2013 DM type 2, not at goal [...] as of this encounter (statuses as of 11/02/2024) Immunizations Name Administration Dates Next Due COVID-19 mRNA, LNP-s, No Pre serve, 2-Dose Series (Pfizer) 11/08/2021,01/18/2021,12/28/2020 H1N1 2009 Influenza, IM 10/06/2009 Pneumococcal Conjugate Vacci ne, 20-valent ([id number]) 03/28/2024 Pneumococcal Polysaccharide PPV23 (Pneumovax) 07/14/2020,07/23/2011,12/22/2005 Seasonal [...] on file documented as of this encounter Progress Notes * Jailyn Bustillos, [facility] - 11/02/2024 10:33 AM EST Pt was scheduled for MTM appointment this morning. He regrettably arrived 45 minutes late to the appointment, and I was unable to accommodate his visit into the schedule. I called him to reschedule, and he notes that he is out or almost out of the following medications: Eliquis -- I sent to Armida Newman with 30 day free trial voucher. Processed for $0 copay. [facility] to notify patient. Ozempic and pen needles-- has been without ozempic x 3 weeks, has about 2 weeks left of pen needles. I sent an e-secure email to [employer] farm loan representative to see if we can get a voucher for both until his 2024 enrollment goes into effect. Voucher received, ozempic sent to [facility] for 1 month supply free of charge with voucher. Spironolactone-- needed refill, reached out to cardiology team. Rescheduled for 11/08/2024 ,Jailyn Bustillos, PharmD, BCACP Clinical Pharmacist Medication Therapy Disease Management 11/02/2024, 12:12 PM documented in this encounter Miscellaneous Notes * Addendum Note - Jailyn Bustillos RPh - 11/02/2024 3:15 PM ESTAddended by: JAILYN BUSTILLOS on: 11/02/2024 03:15 PM Modules accepted: Orders documented in this encounter Plan of Treatment Upcoming Encounters Date Type Department Care Team (Late st Contact Info) Description 11/08/2024 11:00 AM EST [facility] [address] [facility] [place] [phone] [facility] [address] [place] [address] 01/04/2025 3:00 PM EST Office Visit Ophthalmology, [facility] [address] [facility] [place] [address] Jemal Coleman, [address] [facility] [place] [address] 01/08/2025 10:00 AM EST Laboratory Laboratory, [address] [facility] [place] [phone] [facility] [address] [facility] [place] [address] 01/16/2025 11:00 AM EST Office Visit Family [facility], [place] [address] [facility] [place] [phone] Tanner Marte MD [address] [place] [address] 02/05/2025 10:30 AM EDT Office Visit Cardiology, [facility] [address] [place] [address] Robert Flowers DO [address] [place] [address] 04/26/2025 8:45 AM EDT Office Visit Ophthalmology, [place] [address] [place] [address] Amarjit Santa MD [address] [facility] [place] [address] Health Maintenance Due Date Last Done Comments [...] this encounter Medical Devices Implanted Type Area Academic Tutor Device Identifier Shelf Expiration Date Model / Serial / Lot Hemostatic Clip Res 235cm - [id number] Implanted:Qty: 1 on 09/04/2024 by Juancarlos Muñoz MD at [facility] [employer] : ENDOSCOPY 12/17/2026 [id number] / / [id number] documented as of this encounter Visit Diagnoses Diagnosis Type 2 diabetes mellitus with hemoglobin A1c goal of less than 8.0% (HCC)- Primary Typical atrial flutter (HCC) Atrial flutter documented in this encounter Care Teams Manager Post Relationship Specialty Start Date End Date March, Tanner Santo MD [address] [place] [address] PCP - General Family Medicine 03/30/24 documented as of this encounter
--- OUTSIDE RECORDS SUMMARY | 2024-11-09 19:45 | External Medical Summary | Summary of Care ---
Author Name Unknown Organization [facility] Address [address] [facility] [place] [address] Phone [phone] Care Team Providers Care Striper Machine Name Role Phone Tanner Marte MD Primary Care Provider [phone] Encounter Details Date Type Department Care Team (Late st Contact Info) Description 11/02/2024 Refill Pharmacy, [address] [place] [phone] Miryam Jordan, [facility] [address] [place] [address] Chronic systolic heart failure (HCC)*; Dilated cardiomyopathy (HCC); Hypertensive heart disease with chronic systolic congestive heart failure (HCC) Allergies No known active allergiesdocumented as of this encounter (statuses as of 11/03/2024) Medications MULTIVITAMIN PO TABSIndications: CVD (arteriosclerotic cardiovascular disease) once daily 34 3 03/24/20 10 Active VITAMIN C-IRON 125-200 MG PO TABSIndications: CVD (arteriosclerotic cardiovascular disease) one daily 31 Tab 3 12/09/19 11 Active LANCETS MISCIndications:DM type 2, not at goal ([facility]) one touch ultra three times daily 90 Box 5 01/27/20 11 Active ASPIRIN LOW DOSE 81 MG PO CHEWIndications:Ol d myocardial infarct,Routine medical exam,DM type 2, not at goal ([facility]),HTN, goal below 130/80,ASCVD (arteriosclerotic cardiovascular disease) 1 [...] Aflibercept 2 MG/0.05ML Intravitreal Solution Prefilled Syringe (OptiMedicalea) Inject into eye 0.05 mL every 4 [...] the skin once a week. OBTAINING FROM [employer]or [employer] PAP Active Insulin Degludec FlexTouch 200 UNIT/ML Subcutaneous Solution Pen-injector Inject 100 Units under the skin every evening. OBTAINING FROM NOVONORDISK PAP Active Insulin Aspart 100 UNIT/ML Injection Solution (NovoLOG) Inject under the skin three times a day before meals. 45 WITH BREAKFAST, 45 WITH LUNCH, AND 45 WITH SUPPER OBTAINING FROM [employer] Active FreeStyle Ilya 3 Sensor Use as directed. Supplied by [employer]-Blink Active Furosemide 40 MG Oral Tablet (Lasix) [...] not fill through insurance - pt in [place]. 60 Tablet 11/02/20 24 Active Spironolactone 25 MG Oral Tablet (Aldactone)Indicat ions:Chronic systolic heart failure (HCC),Dilated cardiomyopathy (HCC),Hypertensive heart disease with chronic systolic congestive heart failure (HCC) Take 0.5 Tablets by mouth in the morning. 45 Tablet 1 11/03/20 24 Active Ozempic (2 MG/DOSE) 8 MG/3ML Subcutaneous Solution Pen-injector (Semaglutide (2 MG/DOSE))Indicatio ns:Type 2 diabetes mellitus with hemoglobin A1c goal of less than 8.0% (HCC) Inject 2 mg under the skin once weekly 3 mL 4 4:39 PM EST 11/02/20 Active Spironolactone 25 MG Oral Tablet (Aldactone) Take 1/2 Tablet by mouth in the morning. 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, unspecified whether longterm insulin use (HCC) 2 mg IZ PRN 04/08/2023 Active Aflibercept (Eylea) intraviteal prefilled syringe 2 mgIndications: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, unspecified whether longterm insulin use (HCC) 2 mg IZ PRN 04/08/2023 Active documented as of this encounter (statuses as of 11/03/2024) Active Problems Problem Noted Date Diagnosed Date Hypertensive heart disease w ith chronic systolic congestive heart failure 07/12/2024 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, with long-term current use of insulin 07/12/2024 Type 2 diabetes mellitus wit h diabetic cataract, with long-term current use of insulin 07/12/2024 Coronary artery disease invo lving [place] coronary artery of [place] heart without angina pectoris 06/30/2022 Ischemic cardiomyopathy [...] as of this encounter (statuses as of 11/03/2024) Resolved Problems Problem Noted Date Diagnosed Date [...] 09/04/11 09/04/2011 06/27/2013 OBESITY, BMI= 38.02 05/11/11 05/11/201106/27/2013 DM type 2, not at goal 02/10/201103/15 [...] as of this encounter (statuses as of 11/03/2024) Immunizations Name Administration Dates Next Due COVID-19 mRNA, LNP-s, No Pre serve, 2-Dose Series (T3 Search) 11/08/2021,01/18/2021,12/28/2020 H1N1 2009 Influenza, IM 10/06/2009 Pneumococcal Conjugate Vacci ne, 20-valent ([id number]) 03/28/2024 Pneumococcal Polysaccharide PPV23 (Pneumovax) 07/14/2020,07/23/2011,12/22/2005 Seasonal Influenza Vac., MDV , IM, 0.5 mL (Fluzone) 09/26/2013,07/23/2013,09/20/2012,09/17,10/09/2010,09/05/2009,09/25/2008 Seasonal Influenza Virus Vac cine, Unspecified Formulation 08/28/2015,09/26/2013,07/23/2013,09/20,09/17/2011,10/09/2010,09/05/2009 ,09/25/2008,09/22/2005,12/16/2004,08/23 Seasonal Influenza, High Dos e, Trivalent, PF, IM (Fluzone HD) 07/28/2024 Seasonal Influenza, PF, 6 M & above, IM , (FluLaval or Fluzone) 09/05/2021 Seasonal Influenza, Quadriva lent, No Preserve, IM 08/28/2015 TD, Preservative Free 08/04/2000 TDAP, Age 6 [...] encounter Miscellaneous Notes * Telephone Encounter - Josefina Rudolph [facility] - 11/03/2024 8:25 AM ESTSigned Prescriptions: Disp Refills Spironolactone 25 MG Oral Tablet (Aldacton*45 Tab*1 Sig: Take 0.5 Tablets by mouth in the morning.Authorizing Provider: MAUREEN FLOWERS User: JOSEFINA RUDOLPH * Telephone Encounter - Miryam Jordan RPh - 11/02/2024 10:49 AM EST Pt requesting refill of his spironolactone. Miryam Jordan, PharmD, BCACP Clinical Pharmacist Medication Therapy Disease Management 11/02/2024, 10:49 AM documented in this encounter Plan of Treatment Upcoming Encounters Date Type Department Care Team (Late st Contact Info) Description 11/08/2024 11:00 AM EST Telemedicine Pharmacy, [address] [place] [phone] [facility] [address] [facility] [place] [address] 01/04/2025 3:00 PM EST Office Visit Ophthalmology, [facility] [address] [place] [address] Jemal Coleman DO [address] [place] [address] 01/08/2025 10:00 AM EST Laboratory Laboratory, [facility] [address] [place] [phone] [facility] [address] [facility] [place] [address] 01/16/2025 11:00 AM EST Office Visit Family Practice, [facility] [address] [place] [phone] Tanner Marte MD [address] [facility] [place] [address] 02/05/2025 10:30 AM EDT Office Visit Cardiology, [facility] [address] [place] [address] Maureen Flowers DO [address] [place] [address] 04/26/2025 8:45 AM EDT Office Visit Ophthalmology, [place] [address] [facility] [place] [address] Amarjit Santa MD [address] [facility] [address] [place] [address] Health Maintenance Due Date Last Done Comments [...] this encounter Medical Devices Implanted Type Area Medical Research Assistant Device Identifier Shelf Expiration Date Model / Serial / Lot Hemostatic Clip Res 235cm - [id number] Implanted:Qty: 1 on 09/04/2024 by Juancarlos Muñoz MD at ENDOSCOPY [facility] [employer] : ENDOSCOPY 12/17/2026 [id number] / / [id number] documented as of this encounter Visit Diagnoses Diagnosis Chronic systolic heart failure (HCC)- Primary Chronic systolic heart failure Dilated cardiomyopathy (HCC) Other primary cardiomyopathies Hypertensive heart disease with chronic systolic congestive heart failure (HCC) documented in this encounter Care Teams Striper Machine Relationship Specialty Start Date End Date March, Tanner Santo MD [address] [place] [address] PCP - General Family Medicine 03/30/24 documented as of this encounter
--- OUTSIDE RECORDS SUMMARY | 2024-11-09 19:45 | External Medical Summary | Summary of Care ---
Author Name Unknown Organization [facility] Address [address] [facility] [place] [address] Phone [phone] Care Team Providers Care Power And Recovery Supervisor Name Role Phone Tanner Marte MD Primary Care Provider [phone] Reason for Visit * Reason Comments Dosage Adjustment Via Phone (anticoag Cl inic) Diabetes Follow-Up Encounter Details Date Type Department Care Team (Late st Contact Info) Description 11/02/2024 10:30 AM EST Telemedicine Pharmacy, [facility] [address] [place] [phone] [facility] [address] [place] [address] Type 2 diabetes mellitus with hemoglobin A1c [...] Aflibercept 2 MG/0.05ML Intravitreal Solution Prefilled Syringe (Cotera) Inject into eye 0.05 mL every 4 [...] the skin once a week. OBTAINING FROM [employer] PAP Active Insulin Degludec FlexTouch 200 UNIT/ML Subcutaneous Solution Pen-injector Inject 100 Units under the skin every evening. OBTAINING FROM [employer] Active Insulin Aspart 100 UNIT/ML Injection Solution (NovoLOG) Inject under the skin three times a day before meals. 45 WITH BREAKFAST, 45 WITH LUNCH, AND 45 WITH SUPPER OBTAINING FROM [employer] Active FreeStyle Ilya 3 Sensor Use as directed. Supplied by [employer] Active Spironolactone 25 MG Oral Tablet (Aldactone) [...] in the morning. Obtaining from [employer] [place] PAP. 90 Tablet 4 10/24/20 24 Active Apixaban 5 MG Oral Tablet (Eliquis)Indicatio ns:Typical atrial flutter (HCC) Take 1 Tablet by mouth in the morning and 1 Tablet before bedtime. Faxing a 30 day free voucher-- please do not fill through insurance - pt in [facility]. 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, unspecified whether terminal computer operator insulin use (HCC) 2 mg IZ PRN [...] insulin 07/12/2024 Coronary artery disease invo lving [place] coronary artery of [place] heart without angina pectoris 06/30/2022 Ischemic cardiomyopathy [...] mRNA, LNP-s, No Pre serve, 2-Dose Series (TriviaPad) 11/08/2021,01/18/2021,12/28/2020 H1N1 2009 Influenza, IM 10/06/2009 Pneumococcal Conjugate Vacci ne, 20-valent ([id number]) 03/28/2024 Pneumococcal Polysaccharide PPV23 (Pneumovax) 07/14/2020,07/23/2011,12/22/2005 Seasonal [...] as of this encounter Progress Notes * Miryam Jordan RPh - 11/02/2024 10:33 AM EST Pt was scheduled for [facility] appointment this morning. He regrettably arrived 45 minutes late to the appointment, and I was unable to accommodate his visit into the schedule. I called him to reschedule, and he notes that he is out or almost out of the following medications: Eliquis -- I sent to Armida Newman with 30 day free trial voucher. Processed for $0 copay. [facility] to notify patient. Ozempic and pen needles-- has been without ozempic x 3 weeks, has about 2 weeks left of pen needles. I sent an e-secure email to [facility] customer contact representative to see if we can get a voucher for both until his 2024 enrollment goes into effect. Spironolactone-- needed refill, reached out to cardiology team. Rescheduled for 11/08/2024 ,Miryam Jordan, PharmD, BCACP Clinical Pharmacist Medication Therapy Disease Management 11/02/2024, 12:12 PM documented in this encounter Plan of Treatment Upcoming Encounters Date Type Department Care Team (Late st Contact Info) Description 11/08/2024 11:00 AM EST Telemedicine Pharmacy, [address] [place] [phone] [facility] [address] [place] [address] 01/04/2025 3:00 PM EST Office Visit Ophthalmology, [facility] [address] [facility] [place] [address] Jemal Coleman, DO [address] [facility] [place] [address] 01/08/2025 10:00 AM EST Laboratory Laboratory, [facility] [address] [place] [phone] [place], Laboratory [address] [place] [address] 01/16/2025 11:00 AM EST Office Visit Family Practice, [facility] [address] [place] [phone] Tanner Marte MD [address] [facility] [address] 02/05/2025 10:30 AM EDT Office Visit Cardiology, [facility] [address] [facility] [place] [address] Robert Flowers, DO [address] [facility] [place] [address] 04/26/2025 8:45 AM EDT Office Visit Ophthalmology, [place] [address] [place] [address] Amarjit Santa MD [address] [place] [address] Health Maintenance Due Date Last Done Comments [...] this encounter Medical Devices Implanted Type Area Blood Bank Supervisor Device Identifier Shelf Expiration Date Model / Serial / Lot Hemostatic Clip Res 235cm - [id number] Implanted:Qty: 1 on 09/04/2024 by Juancarlos Muñoz MD at ENDOSCOPY [facility] : ENDOSCOPY 12/17/2026 [id number] / / [id number] documented as of this encounter Visit Diagnoses Diagnosis Type 2 diabetes mellitus with hemoglobin A1c goal of less than 8.0% (HCC)- Primary Typical atrial flutter (HCC) Atrial flutter documented in this encounter Care Teams Power And Recovery Supervisor Relationship Specialty Start Date End Date March, Tanner Santo MD [address] [place] [address] PCP - General Family Medicine 03/30/24 documented as of this encounter
--- OUTSIDE RECORDS SUMMARY | 2024-11-09 19:46 | External Medical Summary | Summary of Care ---
Author Name Unknown Organization [facility] Address [address] [facility] [place] [address] Phone [phone] Care Team Providers Care Executive Compensation Analyst Name Role Phone Tanner Marte MD Primary Care Provider [phone] Reason for Visit * Reason Onset Date Comments Medication Update 10/05/2024 REBECCA meds are here Encounter Details Date Type Department Care Team (Late st Contact Info) Description 10/05/2024 Telephone [facility] [address] [place] [address] Tanner Marte MD [address] [place] [address] Medication Update (REBECCA meds are here) Allergies No known active allergiesdocumented as of this encounter (statuses as of 10/05/2024) Medications MULTIVITAMIN PO TABSIndications: CVD (arteriosclerotic cardiovascular [...] Aflibercept 2 MG/0.05ML Intravitreal Solution Prefilled Syringe (Academizelea) Inject into eye 0.05 mL every 4 weeks . 0.15 mL 3 04/07/20 22 Active Atorvastatin Calcium 40 MG Oral Tablet (Lipitor)Indicatio ns:DM type 2, not at goal (HCC) Take 1 Tablet by mouth in the morning. 100 Tablet 4 07/05/2024 2:58 PM EDT 03/30/20 24 Active metFORMIN HCl 1000 MG Oral Tablet (Glucophage)Indica tions:DM type 2, not at goal (HCC) Take 1 Tablet by mouth in the morning and 1 Tablet before bedtime with food. 200 Tablet 4 07/05/2024 2:58 PM EDT 03/30/20 24 Active Citalopram Hydrobromide 20 MG Oral Tablet (CeleXA)Indication s:Anxiety state Take 1 Tablet by mouth in the morning. 100 Tablet 4 07/05/2024 2:58 PM EDT 03/31/20 24 Active Apixaban 5 MG Oral [...] the skin once a week. OBTAINING FROM NOVONORDISK PAP Active Insulin Degludec FlexTouch 200 UNIT/ML Subcutaneous Solution Pen-injector Inject 110 Units under the skin every evening. OBTAINING FROM [employer] Active Insulin Aspart 100 UNIT/ML Injection Solution (NovoLOG) Inject under the skin three times a day before meals. 45 WITH BREAKFAST, 45 WITH LUNCH, AND 55 WITH SUPPER OBTAINING FROM [employer] Active FreeStyle Ilya 3 Sensor Use as directed. 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, unspecified whether residential insulin use (HCC) 2 mg IZ PRN 04/08/2023 Active documented as of this encounter (statuses as of 10/05/2024) Active Problems Problem Noted Date Diagnosed Date Hypertensive heart disease w ith chronic systolic congestive heart failure 07/12/2024 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, with long-term current use of insulin 07/12/2024 Type 2 diabetes mellitus wit h diabetic cataract, with long-term current use of insulin 07/12/2024 Coronary artery disease invo lving [place] coronary artery of [place] heart without angina pectoris 06/30/2022 Ischemic cardiomyopathy [...] as of this encounter (statuses as of 10/05/2024) Resolved Problems Problem Noted Date Diagnosed Date [...] as of this encounter (statuses as of 10/05/2024) Immunizations Name Administration Dates Next Due COVID-19 mRNA, LNP-s, No Pre serve, 2-Dose Series (Pfizer) 11/08/2021,01/18/2021,12/28/2020 H1N1 2009 Influenza, IM 10/06/2009 Pneumococcal Conjugate Vacci ne, 20-valent ([id number]) 03/28/2024 Pneumococcal Polysaccharide PPV23 (Pneumovax) 07/14/2020,07/23/2011,12/22/2005 Seasonal [...] encounter Miscellaneous Notes * Telephone Encounter - Veronica Davdi LPN - 10/05/2024 11:39 AM EST Left message on pt's answering machine that his medication is in and ready to pick up worker. documented in this encounter Plan of Treatment Upcoming Encounters Date Type Department Care Team (Late st Contact Info) Description 10/06/2024 7:30 AM EST Office Visit Pharmacy, [place] [address] [facility] [address] [place] [facility] [address] [facility] [facility] [address] 10/11/2024 7:30 AM EST Office Visit Ophthalmology, [place] [address] [place] [address] Amarjit Santa MD [address] [facility] [place] [address] 01/04/2025 3:00 PM EST Office Visit Ophthalmology, [facility] [address] [facility] [place] [address] Jemal Coleman DO [facility] [place] [address] 01/08/2025 10:00 AM EST Laboratory [facility], [place] [facility] [address] [facility] [address] [place] [address] [facility] [address] 01/16/2025 11:00 AM EST Office Visit Family [facility] [place] [facility] [address] [facility] [place] [address] Tanner Marte MD [address] [facility] [place] [address] 02/05/2025 10:30 AM EDT Office Visit Cardiology, [facility] [address] [place] [address] Robert Flowers DO [address] [place] [address] Health Maintenance Due Date Last Done Comments [...] this encounter Medical Devices Implanted Type Area Tab Cutting Machine Operator Device Identifier Shelf Expiration Date Model / Serial / Lot Hemostatic Clip Res 235cm - [id number] Implanted:Qty: 1 on 09/04/2024 by Juancarlos Muñoz MD at ENDOSCOPY [facility] [employer] : ENDOSCOPY 12/17/2026 [id number] / / [id number] documented as of this encounter Care Teams Executive Compensation Analyst Relationship Specialty Start Date End Date March, Tanner Santo MD [address] [place] [address] PCP - General Family Medicine 03/30/24 documented as of this encounter
--- OUTSIDE RECORDS SUMMARY | 2024-11-09 19:46 | External Medical Summary | Summary of Care ---
Author Name Unknown Organization [facility] Address [address] [facility] [place] [address] Phone [phone] Care Team Providers Care Pipe Organ Tuner And Repairer Name Role Phone Tanner Marte MD Primary Care Provider [phone] Reason for Visit * Reason Onset Date Comments Patient Assistance Program 10/06/2024 [place] Re[place] Encounter Details Date Type Department Care Team (Late st Contact Info) Description 10/06/2024 Telephone Pharmacy, [address] [address] [facility] [address] [place] [address] Patient [place] Program ([place] Re-[place]... Allergies No known active allergiesdocumented as of this encounter (statuses as of 10/06/2024) Medications MULTIVITAMIN PO TABSIndications: CVD (arteriosclerotic cardiovascular [...] Aflibercept 2 MG/0.05ML Intravitreal Solution Prefilled Syringe ([employer]) Inject into eye 0.05 mL every 4 [...] the skin once a week. OBTAINING FROM [employer] Active Insulin Degludec FlexTouch 200 UNIT/ML Subcutaneous Solution Pen-injector Inject 100 Units under the skin every evening. OBTAINING FROM [employer] Active Insulin Aspart 100 UNIT/ML Injection Solution (NovoLOG) Inject under the skin three times a day before meals. 45 WITH BREAKFAST, 45 WITH LUNCH, AND 45 WITH SUPPER OBTAINING FROM [employer] Active FreeStyle Ilya 3 Sensor Use as directed. 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, unspecified whether intermodal customer service insulin use (HCC) 2 mg IZ PRN 04/08/2023 Active documented as of this encounter (statuses as of 10/06/2024) Active Problems Problem Noted Date Diagnosed Date Hypertensive heart disease w ith chronic systolic congestive heart failure 07/12/2024 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, with long-term current use of insulin 07/12/2024 Type 2 diabetes mellitus wit h diabetic cataract, with long-term current use of insulin 07/12/2024 Coronary artery disease invo lving [place] coronary artery of [place] heart without angina pectoris 06/30/2022 Ischemic cardiomyopathy [...] as of this encounter (statuses as of 10/06/2024) Resolved Problems Problem Noted Date Diagnosed Date [...] as of this encounter (statuses as of 10/06/2024) Immunizations Name Administration Dates Next Due COVID-19 mRNA, LNP-s, No Pre serve, 2-Dose Series ([employer]) 11/08/2021,01/18/2021,12/28/2020 H1N1 2009 Influenza, IM 10/06/2009 Pneumococcal Conjugate Vacci ne, 20-valent ([id number]) 03/28/2024 Pneumococcal Polysaccharide PPV23 (Pneumovax) 07/14/2020,07/23/2011,12/22/2005 Seasonal [...] encounter Miscellaneous Notes * Telephone Encounter - Miryam Jordan [facility] - 10/06/2024 12:37 PM EST Filled out and faxed re-enrollment forms for patient to continue to get Farxiga 10 mg from [place] &[place] PAP. Received successful confirmation of fax. Forms scanned into chart. Miryam Jordan, PharmD Clinical Pharmacist Medication Therapy Disease Management 10/06/2024, 12:35 PM documented in this encounter Plan of Treatment Upcoming Encounters Date Type Department Care Team (Late st Contact Info) Description 10/11/2024 7:30 AM EST Office Visit Ophthalmology, [place] [address] [facility] [place] [address] Amarjit Santa MD 21 [facility] [place] [address] 11/02/2024 7:40 AM EST Office Visit Pharmacy, [place] [address] [place] [address] [facility] [address] [place] [address] 01/04/2025 3:00 PM EST Office Visit Ophthalmology, [facility] [address] [facility] [place] [address] Jemal Coleman, [facility] [address] 01/08/2025 10:00 AM EST Laboratory Laboratory, [facility] [address] [facility] [address] [facility] [address] [place] [address] 01/16/2025 11:00 AM EST Office Visit Family Practice, [facility] [address] [place] [address] Tanner Marte MD [address] [place] [address] 02/05/2025 10:30 AM EDT Office Visit Cardiology, [facility] [address] [place] [address] Robert Flowers DO [address] [place] [address] Health Maintenance Due Date Last Done Comments HIV Screening 1974 Hepatitis C Screening 1977 Cologuard 2004 Fecal Occult Blood Test 2004 Sigmoidoscopy 2004 Zoster Vaccines (1 of 2) 2009 DTap/Tdap Vaccines (3 - Td or Tdap) 12/06/2022 12/06/2012, 08/11/2010, 08/04/2000, Additional history exists COVID-19 Vaccine ( - season) 2024 11/08/2021, 01/18/2021, 12/28/2020 HbA1c [...] this encounter Medical Devices Implanted Type Area Neuroscience Specialist Device Identifier Shelf Expiration Date Model / Serial / Lot Hemostatic Clip Res 235cm - [id number] Implanted:Qty: 1 on 09/04/2024 by Juancarlos Muñoz MD at ENDOSCOPY [facility] : ENDOSCOPY 12/17/2026 [id number] / / [id number] documented as of this encounter Visit Diagnoses Diagnosis Type 2 diabetes mellitus with hemoglobin A1c goal of less than 8.0% (HCC)- Primary documented in this encounter Care Teams Pipe Organ Tuner And Repairer Relationship Specialty Start Date End Date March, Tanner Santo MD [address] [place] [address] PCP - General Family Medicine 03/30/24 documented as of this encounter
--- OUTSIDE RECORDS SUMMARY | 2024-11-09 19:46 | External Medical Summary | Summary of Care ---
Author Name Unknown Organization [facility] Address [address] [facility] [place] [address] Phone [phone] Care Team Providers Care Towboat Captain Name Role Phone Laura Fisher MD Primary Care Provider [phone] Reason for Visit * Reason Onset Date Comments Medication Refill 10/03/2024 Encounter Details Date Type Department Care Team (Late st Contact Info) Description 10/03/2024 Refill [facility] [address] [place] [address] Laura Fisher MD [address] [place] [address] Allergies No known active allergiesdocumented as of [...] BLUE STRPIndications:DM type 2, not at goal ([facility]) use three times a day. Strips for one Touch Mini 90 Strip 5 12/11/19 15 Active Aflibercept 2 MG/0.05ML Intravitreal Solution Prefilled Syringe ([employer]) Inject into eye 0.05 mL every 4 weeks . 0.15 mL 3 04/07/20 22 Active Atorvastatin Calcium 40 MG Oral Tablet (Lipitor)Indicatio ns:DM type 2, not at goal ([facility]) Take 1 Tablet by mouth in the morning. 100 Tablet 4 4 2:58 PM EDT 03/30/20 24 Active metFORMIN HCl 1000 MG Oral Tablet (Glucophage)Indica tions:DM type 2, not at goal ([facility]) Take 1 Tablet by mouth in the morning and 1 Tablet before bedtime with food. 200 Tablet 4 4 2:58 PM EDT 03/30/20 24 Active Citalopram Hydrobromide 20 MG Oral Tablet (CeleXA)Indication s:Anxiety state Take 1 Tablet by mouth in the morning. 100 Tablet 4 4 2:58 PM EDT 03/31/20 24 Active Apixaban 5 MG Oral Tablet (Eliquis)Indicatio ns:S/P ablation of atrial flutter,Typical atrial flutter (HCC) Take 1 Tablet by mouth in the morning and 1 Tablet before bedtime. 200 Tablet 4 4 10:49 AM EDT 03/31/20 24 Active Dapagliflozin Propanediol 10 MG Oral Tablet (Farxiga) Take 1 Tablet by mouth in the morning. Obtaining from [place] & [place] PAP. Active Ozempic (2 MG/DOSE) 8 MG/3ML Subcutaneous Solution Pen-injector (Semaglutide (2 MG/DOSE)) Inject 2 mg under the skin once a week. OBTAINING FROM [employer] PAP Active Insulin Degludec FlexTouch 200 UNIT/ML Subcutaneous Solution Pen-injector Inject 110 Units under the skin every evening. OBTAINING FROM [employer] Active Insulin Aspart 100 UNIT/ML Injection Solution (NovoLOG) Inject under the skin three times a day before meals. 45 WITH BREAKFAST, 45 WITH LUNCH, AND 55 WITH SUPPER OBTAINING FROM [employer] Active FreeStyle Ilya 3 Sensor Use as directed. Supplied by [employer] Active Apixaban 5 MG Oral Tablet (Eliquis)Indicatio [...] INJECTIONS. 400 Each 3 10/03/20 24 Active Novofine Pen Needle 32G X 6 MM (NOVOFINE 32G PEN NEEDLE) Use 4 Each as directed. WITH INSULIN INJECTIONS. 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, unspecified whether mcc insulin use (HCC) 2 mg IZ PRN 04/08/2023 Active Aflibercept (Eylea) intraviteal prefilled syringe 2 mgIndications: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, unspecified whether mcc insulin use (HCC) 2 mg IZ PRN [...] insulin 07/12/2024 Coronary artery disease invo lving [place] coronary artery of [place] heart without angina pectoris 06/30/2022 Ischemic cardiomyopathy [...] IM 10/06/2009 Pneumococcal Conjugate Vacci ne, 20-valent ([id number]) 03/28/2024 Pneumococcal Polysaccharide PPV23 (Pneumovax) 07/14/2020,07/23/2011,12/22/2005 Seasonal [...] encounter Miscellaneous Notes * Telephone Encounter - Naa Rodriguez LPN - 10/05/2024 9:20 AM EST Patient aware and verbalized understanding Trent inform him the pen needles are not covered by [employer]. He has an appt with MTM he will discuss this then as he has been enrolled in the pt assistance program [facility] * Telephone Encounter - Jaelyn Chavez LPN - 10/04/2024 11:32 AM EST Left generic message on answering machine asking patient to return our call. If patient calls back pleas inform that needles were sent to the pharmacy. * Telephone Encounter - Laura Fisher MD - 10/03/2024 12:53 PM ESTSigned Prescriptions: Disp Refills Novofine Pen Needle 32G X 6 MM (NOVOFINE 3*400 Ea*3 Sig: Use 4 Each as directed. WITH INSULIN INJECTIONS. Authorizing Provider: LAURA FISHER * Telephone Encounter - Dannielle Bland [facility] - 10/03/2024 8:53 AM EST Pharmacists cannot authorize refills for meds listed as "historical" in chart. Please approve if appropriate. Thank you, Dannielle Bland PharmD Clinical Pharmacist [facility]ized [facility] Pharmacy Services ([facility]) 10/03/24 8:53 AM [phone] * Telephone Encounter - Maribel Stone PHARM Tech - 10/03/2024 8:50 AM EST Routed in error * Telephone Encounter - Maribel Stone PHARM Tech - 10/03/2024 8:48 AM EST Pt calling requesting the following medication below that is listed as "Historical". The following information was provided: Medication Name: Novofine Pen Needle 32G X 6 MM (NOVOFINE 32G PEN NEEDLE) Strength: n/a Directions: Use 4 Each as directed. WITH INSULIN INJECTIONS. OBTAINING FROM [employer] PAP Preferred Quantity: 100 Previous Prescriber: not listed Preferred Pharmacy: [facility] [address] [place] [address] Please review and approve if appropriate. Thank you, Maribel Stone Welt Rougher I [facility] Pharmacy Services ([facility]) 10/03/2024,8:48 AM documented in this encounter Plan of Treatment Upcoming Encounters Date Type Department Care Team (Late st Contact Info) Description 10/11/2024 7:30 AM EST Office Visit Ophthalmology, [place] [address] Amarjit Santa [place] [address] 11/02/2024 7:40 AM EST Office Visit Pharmacy [facility] [address] [place] [address] [place] [address] [facility] [address] [place] [facility] [place] [address] 01/04/2025 3:00 PM EST Office Visit Ophthalmology, [facility] [address] [facility] [place] [address] Jemal Coleman, DO [facility] [place] [address] 01/08/2025 10:00 AM EST Laboratory Laboratory, [facility] [address] [place] [address] [facility] [address] [place] [facility] [place] [address] 01/16/2025 11:00 AM EST Office Visit Family Practice, [facility] [address] [place] [address] MarchLaura MD [address] [place] [facility] [place] [address] 02/05/2025 10:30 AM EDT Office Visit Cardiology, [facility] [address] [facility] [place] [address] Robert Flowers, DO 132 [facility] [place] [address] Health Maintenance Due Date Last Done Comments HIV Screening 1974 Hepatitis C Screening 1977 Cologuard 2004 Fecal Occult Blood Test 2004 Sigmoidoscopy 2004 Zoster Vaccines (1 of 2) 2009 DTap/Tdap Vaccines (3 - Td or Tdap) 12/06/2022 12/06/2012, 08/11/2010, 08/04/2000, Additional history exists COVID-19 Vaccine ( season) 2024 11/08/2021, 01/18/2021, 12/28/2020 HbA1c 01/18/2025 07/18/2024, 06/22, 03/28/2024, Additional history exists Albumin/Creatinine Ratio 03/28/2025 05 024, 02/22/2018, 12/05/2015, Additional history exists Depression [...] this encounter Medical Devices Implanted Type Area Parachute/Combatant Diver Officer Device Identifier Shelf Expiration Date Model / Serial / Lot Hemostatic Clip Res 235cm - [id number] Implanted:Qty: 1 on 09/04/2024 by Juancarlos Muñoz MD at ENDOSCOPY [facility] : ENDOSCOPY 12/17/2026 [id number] / / [id number] documented as of this encounter Care Teams Towboat Captain Relationship Specialty Start Date End Date March, Laura Santo MD [address] [place] [address] PCP - General Family Medicine 03/30/24 documented as of this encounter
--- OUTSIDE RECORDS SUMMARY | 2024-11-09 19:46 | External Medical Summary | Summary of Care ---
Author Name Unknown Organization [facility] Address [address] [facility] [place] [address] Phone [phone] Care Team Providers Care Wellness Ambassador Name Role Phone Tanner Fisher MD Primary Care Provider [phone] Reason for Visit * Reason Onset Date Comments Medication Refill 10/03/2024 Encounter Details Date Type Department Care Team (Late st Contact Info) Description 10/03/2024 Refill [facility] [address] [place] [address] Tanner Fisher MD [address] [place] [address] Allergies No known active allergiesdocumented as of this encounter (statuses as of 10/03/2024) Medications MULTIVITAMIN PO TABSIndications: CVD (arteriosclerotic cardiovascular [...] type 2, not at goal ([facility]) use three times a day. Strips for one Touch Mini 90 Strip 5 12/11/19 15 Active Aflibercept 2 MG/0.05ML Intravitreal Solution Prefilled Syringe ([employer]) Inject into eye 0.05 mL every 4 weeks . 0.15 mL 3 04/07/20 22 Active Atorvastatin Calcium 40 MG Oral Tablet (Lipitor)Indicatio ns:DM type 2, not at goal ([facility]) Take 1 Tablet by mouth in the morning. 100 Tablet 4 4 2:58 PM EDT 03/30/20 24 Active metFORMIN HCl 1000 MG Oral Tablet (Glucophage)Indica tions:DM type 2, not at goal ([facility]) Take 1 Tablet by mouth in [...] the skin once a week. OBTAINING FROM [employer] PAP Active Insulin Degludec FlexTouch 200 UNIT/ML Subcutaneous Solution Pen-injector Inject 110 Units under the skin every evening. OBTAINING FROM [employer] Active Insulin Aspart 100 UNIT/ML Injection Solution (NovoLOG) Inject under the skin three times a day before meals. 45 WITH BREAKFAST, 45 WITH LUNCH, AND 55 WITH SUPPER OBTAINING FROM [employer] Active FreeStyle Ilya 3 Sensor Use as directed. Supplied by [employer] Active Apixaban 5 MG Oral Tablet (Eliquis)Indicatio [...] as directed. WITH INSULIN INJECTIONS. 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, unspecified whether intermediate insulin use (HCC) 2 mg IZ PRN 04/08/2023 Active Aflibercept (Eylea) intraviteal prefilled syringe 2 mgIndications: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, unspecified whether intermediate insulin use (HCC) 2 mg IZ PRN 04/08/2023 Active documented as of this encounter (statuses as of 10/03/2024) Active Problems Problem Noted Date Diagnosed Date Hypertensive heart disease w ith chronic systolic congestive heart failure 07/12/2024 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, with long-term current use of insulin 07/12/2024 Type 2 diabetes mellitus wit h diabetic cataract, with long-term current use of insulin 07/12/2024 Coronary artery disease invo lving [place] coronary artery of [place] heart without angina pectoris 06/30/2022 Ischemic cardiomyopathy [...] as of this encounter (statuses as of 10/03/2024) Resolved Problems Problem Noted Date Diagnosed Date [...] as of this encounter (statuses as of 10/03/2024) Immunizations Name Administration Dates Next Due COVID-19 mRNA, LNP-s, No Pre serve, 2-Dose Series (Pfizer) 11/08/2021,01/18/2021,12/28/2020 H1N1 2009 Influenza, IM 10/06/2009 Pneumococcal Conjugate Vacci ne, 20-valent ([id number]) 03/28/2024 Pneumococcal Polysaccharide PPV23 (Pneumovax) 07/14/2020,07/23/2011,12/22/2005 Seasonal [...] encounter Miscellaneous Notes * Telephone Encounter - Tanner Fisher MD - 10/03/2024 12:53 PM ESTSigned Prescriptions: Disp Refills Novofine Pen Needle 32G X 6 MM (NOVOFINE 3*400 Ea*3 Sig: Use 4 Each as directed. WITH INSULIN INJECTIONS. Authorizing Provider: TANNER FISHER * Telephone Encounter - Dannielle Bland [facility] - 10/03/2024 8:53 AM EST Pharmacists cannot authorize refills for meds listed as "historical" in chart. Please approve if appropriate. Thank you, Dannielle Bland PharmD Clinical Pharmacist Centralized Clinical Pharmacy Services ([facility]) 10/03/24 8:53 AM [phone] Electronically signed by Dannielle Bland [facility] at 10/03/2024 8:53 AM EST * Telephone Encounter - Maribel Stone PHARM [...] 100 Previous Prescriber: not listed Preferred Pharmacy: [facility] [address] [address] [place] Please review and approve if appropriate. Thank you, Maribel Stone Director Of Orthopedics I Centralized Clinical Pharmacy Services ([facility]PS) 10/03/2024,8:48 AM documented in this encounter Plan of Treatment Upcoming Encounters Date Type Department Care Team (Late st Contact Info) Description 10/03/2024 3:15 PM EST Office Visit [facility], [facility] [place] [address] Jemal Coleman DO [address] [facility] [place] [address] 10/06/2024 7:30 AM EST [facility]acy[facility] [place] [address] [facility] [address] [facility] [address] [place] [facility] [place] [address] 10/11/2024 7:30 AM EST Office Visit Ophthalmology, [place] [address] [facility] [place] [address] Amarjit Santa MD [address] [facility] [place] [address] 01/08/2025 10:00 AM EST Laboratory Laboratory, [facility] [address] [facility] [address] [place] [address] [facility] [address] 01/16/2025 11:00 AM EST Office Visit Family Practice, [facility] [address] [facility] [address] Tanner Fisher MD [address] [place] [address] Health Maintenance Due Date Last Done Comments [...] this encounter Medical Devices Implanted Type Area X Ray Examiner Of Aircraft Device Identifier Shelf Expiration Date Model / Serial / Lot Hemostatic Clip Res 235cm - [id number] Implanted:Qty: 1 on 09/04/2024 by Juancarlos Muñoz MD at ENDOSCOPY [facility] : ENDOSCOPY 12/17/2026 [id number] / / [id number] documented as of this encounter Care Teams Wellness Ambassador Relationship Specialty Start Date End Date March, Tanner Santo MD [address] [place] [address] PCP - General Family Medicine 03/30/24 documented as of this encounter
--- OUTSIDE RECORDS SUMMARY | 2024-11-09 19:46 | External Medical Summary | Summary of Care ---
Author Name Unknown Organization [facility] Address [address] [facility] [place] [address] Phone [phone] Care Team Providers Care Logistics Associate Name Role Phone Tanner Marte MD Primary Care Provider [phone] Reason for Visit * Reason Comments Follow Up * Precert (Within 10 days (routine)) - Authorized Specialty Diagnoses / Procedures Referred By Alberto willis Referred To Contact Ophthalmology Diagnoses Type 2 diabetes mellitus with mild nonproliferative diabetic retinopathy with macular edema, bilateral (HCC) Procedures FL AFLIBERCEPT INJECTION FL INTRAVITREAL NJX PHARMACOLOGIC AGT SPX Jemal Coleman DO [address] [place] [address] Phone: tel: fax: Referral ID Status Reason Start Date Expiration Date V isits Requested Visits Authorized [id number] Authorized Precert 04/18/2024 11/21/2099 [id number] Encounter Details Date Type Department Care Team (Late st Contact Info) Description 10/03/2024 3:15 PM EST Office Visit Ophthalmology, [facility] [address] [place] [address] Jemal Coleman DO [address] [place] [address] 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 Obtaining from [employer] PAP. Active Ozempic (2 MG/DOSE) 8 MG/3ML Subcutaneous Solution Pen-injector (Semaglutide (2 MG/DOSE)) Inject 2 mg under the skin once a week. OBTAINING FROM [employer] Active Insulin Degludec FlexTouch 200 UNIT/ML Subcutaneous Solution Pen-injector Inject 110 Units under the skin every evening. OBTAINING FROM [employer] Active Insulin Aspart 100 UNIT/ML Injection Solution (NovoLOG) Inject under the skin three times a day before meals. 45 WITH BREAKFAST, 45 WITH LUNCH, AND 55 WITH SUPPER OBTAINING FROM [employer] Active FreeStyle Ilya 3 Sensor Use as directed. 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, unspecified whether [facility] insulin use (HCC) 2 mg IZ PRN [...] insulin 07/12/2024 Coronary artery disease invo lving [place] coronary artery of [place] heart without angina pectoris 06/30/2022 Ischemic cardiomyopathy [...] mRNA, LNP-s, No Pre serve, 2-Dose Series ([employer]) 11/08/2021,01/18/2021,12/28/2020 H1N1 2009 Influenza, IM 10/06/2009 Pneumococcal Conjugate Vacci ne, 20-valent ([id number]) 03/28/2024 Pneumococcal Polysaccharide PPV23 (Pneumovax) 07/14/2020,07/23/2011,12/22/2005 Seasonal [...] as of this encounter Progress Notes * Jemal Coleman, - 10/03/2024 3:15 PM EST [facility] [place] Nursing Notes: Gracy Moise TECH 10/03/24 1533 Signed Rolan Patel is a 64 year old year old male who presents for Mod. NPDR OU. Last Office Visit: 07/12/2024 (in office), Visit date not found (telemedicine) Patient currently states no change in vision. Are you diabetic? Yes. Do you check your blood sugars daily? YES. Fasting BS this mornin mg/dl. Last Hemoglobin A1C: Lab Results Component Value Date/Time HGBA1C 7.1 (H) 07/18/2024 09:55 AM HGBA1C 7.4 (H) 07/04/2024 09:54 AM HGBA1C 9.1 (H) 03/28/2024 09:54 AM HGBA1C 9.2 (H) 10/22/2020 10:00 AM HGBA1C 9.3 (A) 07/10/2020 12:00 AM HGBA1C 8.9 (A) 03/06/2020 12:00 AM HGBA1C 8.2 (H) 01/09/2020 09:45 AM HGBA1C 9.6 (H) 05/16/2019 08:[address]? yes OCT image(s), fundus of both eyes acquired and filed/scanned into chart. Base Eye Exam Visual Acuity (Snellen - Linear) Right Left Dist cc 20/70 20/100 -2 Dist ph cc NI 20/80 -2 Correction: Glasses Tonometry (Tonopen, 3:31 PM) Right Left Pressure 16 16 Pupils Shape React APD Right Round Slow None Left Round Slow None Visual Feldman (Counting fingers) Right Left Full Full Extraocular Movement Right Left Abnormal, Nystagmus Abnormal, Nystagmus -- -- -- -- -- -- -- -- -- -- -- -- -- -- -- -- Neuro/Psych Oriented x3: Yes Mood/Affect: Normal Dilation Both eyes: 0.5% Proparacaine @ 3:30 PM Dilation #2 Both eyes: 1.0% Mydriacyl, 2.5% Phenylephrine @ 3:31 PM Dilation #3 Both eyes: 1.0% Mydriacyl @ 3:32 PM Dilation Comments Patient cautioned that effects of dilation may last 2-7 hours dependant upon individual reaction. It was discussed that driving while dilated is not recommended. EXTERNAL: The ocular adnexae are unremarkable. SLE: Lids/Lashes: wnl OU Conjunctiva/Sclera: quiet OU Cornea: clear OU Anterior Chamber: deep and quiet OU Iris: diffuse TID OU; no NVI OU Lens: 1-2+NSC OU Dilated fundus exam OD: vitreous: clear optic nerve: 0.55, no edema/pallor/NVD macula: ampoule filler, trace dme vessels: wnl periphery: ampoule filler, no RT/RD Dilated fundus exam OS: vitreous: clear optic nerve: 0.7, no edema/pallor/NVD macula: ampoule filler, trace dme vessels: wnl periphery: ampoule filler, no RT/RD OCT Interpretation: OD: absence of foveal depression, mostly resolved trace CIDME, no PVD--improved 27um prior worse 44um prior STABLE, prior improved, prior improved 18um prior improved, prior trace improved 10um, prior improved 26um prior improved 26um, prior mild improved 18um OS: absence of foveal depression, trace CIDME, no PVD--STABLE, prior improved 48um prior improved 45um prior mixed, prior trace improved, priorno change, prior improved 26um, prior trace improved OCTA Interpretation: 12/15/2021 OD: nonexistent CINDY OS: small CINDY A/P: 1. Moderate Nonproliferative Diabetic Retinopathy OU -DM2 x >20 years -h/o poor compliance -admits BS poorly controlled at times -recommend HgbA1C <7, BP and lipid control. OD: -Avastin OD 02/17/22, 01/12/22--only mildly improved on OCT and VA stable and pt does not see improvement -OCT has improved w/o injections in past -Eylea OD 04/19/24......09/02/22, 07/21/22, 06/19/22, 05/18/22 -(overall sig improved (127um) from pre anti-VEGF) -OCT/VA worse OS: -Eylea OS 03/19/23, 12/28/22, 10/21/22 -An examination for this condition was completed which is unrelated to the procedure that was performed today -monitor 2. Ocular albinism -diag since childhood -baseline VA 60/50-60 -foveal hypoplasia OU 3. Alternating XT 4. Cataracts OU - watch 5. Glaucoma suspect -followed by Dr. Santa -pt has restricted license F/u w/ me 12 weeks OCT OU Jemal Coleman DO ophth: Amarjit Santa MD documented in this encounter Nursing Notes * Gracy Moise TECH - 10/03/2024 3:26 PM EST Rolan Patel is a 64 year old year old male who presents for Mod. NPDR OU. Last Office Visit: 07/12/2024 (in office), Visit date not found (telemedicine) Patient currently states no change in vision. Are you diabetic? Yes. Do you check your blood sugars daily? YES. Fasting BS this mornin mg/dl. Last Hemoglobin A1C: Lab Results Component Value Date/Time HGBA1C 7.1 (H) 07/18/2024 09:55 AM HGBA1C 7.4 (H) 07/04/2024 09:54 AM HGBA1C 9.1 (H) 03/28/2024 09:54 AM HGBA1C 9.2 (H) 10/22/2020 10:00 AM HGBA1C 9.3 (A) 07/10/2020 12:00 AM HGBA1C 8.9 (A) 03/06/2020 12:00 AM HGBA1C 8.2 (H) 01/09/2020 09:45 AM HGBA1C 9.6 (H) 05/16/2019 08:[address]? yes OCT image(s), fundus of both eyes acquired and filed/scanned into chart. documented in this encounter Plan of Treatment Upcoming Encounters Date Type Department Care Team (Late st Contact Info) Description 10/06/2024 7:30 AM EST Office Visit Pharmacy, [place] [address] [place] [address] [facility] [address] [facility] [place] [address] 10/11/2024 7:30 AM EST Office Visit Ophthalmology, [place] [address] [place] [address] Amarjit Santa MD [address] [place] [address] 01/04/2025 3:00 PM EST Office Visit Ophthalmology, [facility] [address] [place] [address] Jemal Coleman DO [address] [place] [address] 01/08/2025 10:00 AM EST Laboratory [facility], [address] [address] [facility] [address] [place] [address] 01/16/2025 11:00 AM EST Office Visit Family Practice, [address] [address] MarchTanner MD [address] [place] [address] 02/05/2025 10:30 AM EDT Office Visit Cardiology, [facility] [address] [place] [address] Robert Flowers DO [address] [place] [address] Scheduled Orders Name Type Priority Associated Diagnoses Orde r Schedule RETINA SCAN DIAGNOSTIC IMAGE, POSTERIOR Procedures Routine 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, unspecified whether terminal operator insulin use (HCC) Ordered: 10/03/2024 FUNDUS PHOTOGRAPHY Procedures Routine 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, unspecified whether [facility] insulin use (HCC) Ordered: 10/03/2024 Health Maintenance Due Date Last Done Comments [...] this encounter Medical Devices Implanted Type Area Photogrammetric Technician Device Identifier Shelf Expiration Date Model / Serial / Lot Hemostatic Clip Res 235cm - [id number] Implanted:Qty: 1 on 09/04/2024 by Juancarlos Muñoz MD at [facility]OSCOPY [facility] [employer] : ENDOSCOPY 12/17/2026 [id number] / / [id number] documented as of this encounter Visit Diagnoses Diagnosis 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
--- OUTSIDE RECORDS SUMMARY | 2024-11-09 19:46 | External Medical Summary | Summary of Care ---
Author Name Unknown Organization [facility] Address [address] [facility] [place] [address] Phone [phone] Care Team Providers Care Ship/Rec/Doc Control Name Role Phone Laura Fisher MD Primary Care Provider [phone] Reason for Visit * Reason Onset Date Comments Medication Refill 10/03/2024 Encounter Details Date Type Department Care Team (Late st Contact Info) Description 10/03/2024 Refill [facility] [address] [place] [address] Laura Fisher MD [address] [place] [address] Allergies No known active allergiesdocumented as of this encounter (statuses as of 10/04/2024) Medications MULTIVITAMIN PO TABSIndications: CVD (arteriosclerotic cardiovascular [...] BLUE STRPIndications:DM type 2, not at goal ([facility]) use three times a day. Strips for one Touch Mini 90 Strip 5 12/11/19 15 Active Aflibercept 2 MG/0.05ML Intravitreal Solution Prefilled Syringe ([employer]) Inject into eye 0.05 mL every 4 weeks . 0.15 mL 3 04/07/20 22 Active Atorvastatin Calcium 40 MG Oral Tablet (Lipitor)Indicatio ns:DM type 2, not at goal ([facility]) Take 1 Tablet by mouth in the morning. 100 Tablet 4 4 2:58 PM EDT 03/30/20 24 Active metFORMIN HCl 1000 MG Oral Tablet (Glucophage)Indica tions:DM type 2, not at goal ([facility]) Take 1 Tablet by mouth in the [...] the skin once a week. OBTAINING FROM [employer] PAP Active Insulin Degludec FlexTouch 200 UNIT/ML Subcutaneous Solution Pen-injector Inject 110 Units under the skin every evening. OBTAINING FROM [employer] Active Insulin Aspart 100 UNIT/ML Injection Solution ([employer]) Inject under the skin three times a day before meals. 45 WITH BREAKFAST, 45 WITH LUNCH, AND 55 WITH SUPPER OBTAINING FROM [employer] Active FreeStyle Ilya 3 Sensor Use as directed. Supplied by [employer] Active Apixaban 5 MG Oral Tablet (Eliquis)Indicatio [...] as directed. WITH INSULIN INJECTIONS. 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, unspecified whether [facility]p insulin use (HCC) 2 mg IZ PRN 04/08/2023 Active Aflibercept (Eylea) intraviteal prefilled syringe 2 mgIndications: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, unspecified whether usp insulin use (HCC) 2 mg IZ PRN 04/08/2023 Active documented as of this encounter (statuses as of 10/04/2024) Active Problems Problem Noted Date Diagnosed Date Hypertensive heart disease w ith chronic systolic congestive heart failure 07/12/2024 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, with long-term current use of insulin 07/12/2024 Type 2 diabetes mellitus wit h diabetic cataract, with long-term current use of insulin 07/12/2024 Coronary artery disease invo lving [place] coronary artery of [place] heart without angina pectoris 06/30/2022 Ischemic cardiomyopathy [...] as of this encounter (statuses as of 10/04/2024) Resolved Problems Problem Noted Date Diagnosed Date [...] as of this encounter (statuses as of 10/04/2024) Immunizations Name Administration Dates Next Due COVID-19 mRNA, LNP-s, No Pre serve, 2-Dose Series ([employer]) 11/08/2021,01/18/2021,12/28/2020 H1N1 2009 Influenza, IM 10/06/2009 Pneumococcal Conjugate Vacci ne, 20-valent ([id number]) 03/28/2024 Pneumococcal Polysaccharide PPV23 (Pneumovax) 07/14/2020,07/23/2011,12/22/2005 Seasonal [...] encounter Miscellaneous Notes * Telephone Encounter - Jaelyn Chavez LPN [...] FISHER * Telephone Encounter - Dannielle Bland RPh - 10/03/2024 8:53 AM EST Pharmacists cannot authorize refills for meds listed as "historical" in chart. Please approve if appropriate. Thank you, Dannielle Bland PharmD Clinical Pharmacist [facility] 10/03/24 8:53 AM [phone] * Telephone Encounter - Maribel Stone PHARM [...] 100 Previous Prescriber: not listed Preferred Pharmacy: [facility] [address] [place] [address] Please review and approve if appropriate. Thank you, Maribel Stone Gas Derrick Operator I [facility] ([facility]) 10/03/2024,8:48 AM documented in this encounter Plan of Treatment Upcoming Encounters Date Type Department Care Team (Late st Contact Info) Description 10/06/2024 7:30 AM EST Office Visit Pharmacy, [address] [address] [facility] [address] [place] [address] 10/11/2024 7:30 AM EST Office Visit Ophthalmology, [place] [address] [place] [address] Amarjit Santa MD [address] [place] [address] 01/04/2025 3:00 PM EST Office Visit Ophthalmology, [facility] [address] [facility] [place] [address] Jemal Coleman, [address] [facility] [place] [address] 01/08/2025 10:00 AM EST [facility] [place] [facility] [address] [facility] [place] [address] [place]n [place] [address] [facility] [place] [address] 01/16/2025 11:00 AM EST [facility] [place] [facility] [address] [facility] [place] [address] March, Laura Santo MD [address] [place] [address] 02/05/2025 10:30 AM EDT Office Visit Cardiology, [facility] [address] [facility] [place] [address] Robert Flowers DO [address] [place] [address] Health Maintenance Due Date Last Done Comments [...] this encounter Medical Devices Implanted Type Area Family Manager Device Identifier Shelf Expiration Date Model / Serial / Lot Hemostatic Clip Res 235cm - [id number] Implanted:Qty: 1 on 09/04/2024 by Juancarlos Muñoz MD at ENDOSCOPY [facility] [employer] : ENDOSCOPY 12/17/2026 [id number] / / [id number] documented as of this encounter Care Teams Ship/Rec/Doc Control Relationship Specialty Start Date End Date March, Laura Santo MD [address] [place] [address] PCP - General Family Medicine 03/30/24 documented as of this encounter
--- OUTSIDE RECORDS SUMMARY | 2024-11-09 19:46 | External Medical Summary | Summary of Care ---
Author Name Unknown Organization [facility] Address [address] [facility] [place] [address] Phone [phone] Care Team Providers Care Rotating Equipment Specialist Name Role Phone Tanner Marte MD Primary Care Provider [phone] Reason for Visit * Reason Comments Follow Up Encounter Details Date Type Department Care Team (Late st Contact Info) Description 10/11/2024 7:30 AM EST Office Visit OphthalmologyBeny 21 [place] [address] Amarjit Santa MD [address] [place] [address] Suspected glaucoma of both eyes*; Combined forms of age-related cataract of both eyes; Ocular albinism (HCC) Allergies No known active allergiesdocumented as of this encounter (statuses as of 10/11/2024) Medications MULTIVITAMIN PO TABSIndications: CVD (arteriosclerotic cardiovascular [...] Aflibercept 2 MG/0.05ML Intravitreal Solution Prefilled Syringe (Magma Flooring) Inject into eye 0.05 mL every 4 [...] under the skin every evening. OBTAINING FROM [employer] Active Insulin Aspart 100 UNIT/ML Injection Solution (NovoLOG) Inject under the skin three times a day before meals. 45 WITH BREAKFAST, 45 WITH LUNCH, AND 45 WITH SUPPER OBTAINING FROM [employer] Active FreeStyle Ilya 3 Sensor Use as directed. 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, unspecified whether chcf insulin use (HCC) 2 mg IZ PRN 04/08/2023 Active documented as of this encounter (statuses as of 10/11/2024) Active Problems Problem Noted Date Diagnosed Date Hypertensive heart disease w ith chronic systolic congestive heart failure 07/12/2024 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, with long-term current use of insulin 07/12/2024 Type 2 diabetes mellitus wit h diabetic cataract, with long-term current use of insulin 07/12/2024 Coronary artery disease invo lving [place] coronary artery of [place] heart without angina pectoris 06/30/2022 Ischemic cardiomyopathy [...] as of this encounter (statuses as of 10/11/2024) Resolved Problems Problem Noted Date Diagnosed Date [...] as of this encounter (statuses as of 10/11/2024) Immunizations Name Administration Dates Next Due COVID-19 mRNA, LNP-s, No Pre serve, 2-Dose Series (Pfizer) 11/08/2021,01/18/2021,12/28/2020 H1N1 2009 Influenza, IM 10/06/2009 Pneumococcal Conjugate Vacci ne, 20-valent ([id number]) 03/28/2024 Pneumococcal Polysaccharide PPV23 (Pneumovax) 07/14/2020,07/23/2011,12/22/2005 Seasonal [...] as of this encounter Progress Notes * Amarjit Snata MD - 10/11/2024 7:36 AM EST [facility] DEPARTMENT OF OPHTHALMOLOGY OUTPATIENT CLINIC NOTES PATIENT NAME: Rolan Patel (64 year old male) PRIMARY CARE PHYSICIAN: Tanner Marte MD CC: pressure check HPI: here for pressure check; not using glaucoma gtt ROS: no eye pain POH: see below Past Medical History: Diagnosis Date Acute anterior myocardial infarction (HCC) 02/27/2002 Anemia ASCVD (arteriosclerotic cardiovascular disease) Atrial fibrillation (HCC) [employer] (background diabetic retinopathy) (HCC) Benign neoplasm of colon 12/04/2011 adenomatous polyp Chronic rhinitis Chronic systolic heart failure (HCC) 07/31/2020 DM type 2, not at goal (HCC) Dyslipidemia, goal LDL below 100 Glaucoma suspect FH-; 575/578;-2/-2;0.5/0.7 (04/14);VF 08/12 - NG HTN, goal below 130/80 Ocular albinism (HCC) OD c TID (per Gala Guillory); BCVA 60/50 Past Surgical History: Procedure Laterality Date COLONOSCOPY W/ LESION REMOVAL, SNARE 12/04/2011 Adenomatous polyps, repeat in 5 years COLONOSCOPY, DIAGNOSTIC (RECTUM) 09/04/2024 poor prep/diverticulosis/biopsies show adenomatous polyps/recall 1 year/COLONOSCOPY FLEXIBLE PROXIMAL DIAGNOSTIC performed by Juancarlos Muñoz MD at ENDOSCOPY [facility] CORONARY ARTERIES BYPASS, TWO 03/02/2002 60% RCA, 50% PDA, 100%LAD DENTAL SURGERY PROCEDURE NEC root canal 09/24 INJECTION OF EYE DRUG Right 01/12/2022 # 1 Avastin OD, Dr. Coleman INJECTION OF EYE DRUG Right 02/17/2022 # 2 Avastin OD, Dr. Coleman INJECTION OF EYE DRUG Right 05/18/2022 # 1 Eylea OD, Dr. Coleman - [id number] med INJECTION OF EYE DRUG Right 06/17/2022 # 2 Eylea OD, Dr. Coleman - [id number] Med INJECTION OF EYE DRUG Right 07/21/2022 # 3 Eylea OD, Dr. Coleman [id number] med INJECTION OF EYE DRUG Right 09/02/2022 #4 Eylea OD, Dr Coleman INJECTION OF EYE DRUG Left 10/21/2022 # 1 Eylea OS, Dr. Coleman *CVIM Med. INJECTION OF EYE DRUG Left 12/28/2022 # 2 Eylea OS, Dr. Coleman * CVIM Med INJECTION OF EYE DRUG Left 03/19/2023 # 3 Eylea OS, Dr. Coleman (CVIM MED) INJECTION OF EYE DRUG Right 04/19/2024 # [address] Coleman OTHER (INFORMATION) ACT [address] Coleman (12-15-21) OTHER (INFORMATION) Bilateral AVASTIN OU CONSENT SIGNED, Dr. Coleman/Esdras (Exp 01/12/23) OTHER (INFORMATION) Bilateral EYLEA OU CONSENT DR. COLEMAN/ESDRAS EXP. 05/18/23 OTHER (INFORMATION) CONSENT OU EYLEA EXP 06/01/24; DR COLEMAN/ESDRAS OTHER (INFORMATION) Eylea OU consent signed, Dr. Coleman/Esdras expires 04/19/2025 Meds: Current Outpatient Medications Medication Sig Dispense Refill MULTIVITAMIN PO TABS once daily 34 3 VITAMIN C-IRON 125-200 MG PO TABS one daily 31 Tab 3 LANCETS MISC one touch ultra three times daily 90 Box 5 ASPIRIN LOW DOSE 81 MG PO CHEW 1 TABLET DAILY 30 Tab 1 NITROGLYCERIN 0.4 MG SL SUBL one tab under tongue as needed for chest pain maximum 3 doses (Patientnot taking: Reported on 08/29/2024) 25 Tab 5 ONETOUCH ULTRA BLUE STRP use three times a day. Strips for one Touch Mini 90 Strip 5 Aflibercept 2 MG/0.05ML Intravitreal Solution Prefilled Syringe (Eylea) Inject into eye 0.05 mL every 4 weeks . 0.15 mL 3 Atorvastatin Calcium 40 MG Oral Tablet (Lipitor) Take 1 Tablet by mouth in the morning. 100 Tablet 4 metFORMIN HCl 1000 MG Oral Tablet (Glucophage) Take 1 Tablet by mouth in the morning and 1 Tablet before bedtime with food. 200 Tablet 4 Citalopram Hydrobromide 20 MG Oral Tablet (CeleXA) Take 1 Tablet by mouth in the morning. 100 Tablet 4 Apixaban 5 MG Oral Tablet (Eliquis) Take 1 Tablet by mouth in the morning and 1 Tablet before bedtime. 200 Tablet 4 Dapagliflozin Propanediol 10 MG Oral Tablet (Farxiga) Take 1 Tablet by mouth in the morning. Obtaining from [employer] & [employer] PAP. Ozempic (2 MG/DOSE) 8 MG/3ML Subcutaneous Solution Pen-injector (Semaglutide (2 MG/DOSE)) Inject 2 mg under the skin once a week. OBTAINING FROM [employer] Insulin Degludec FlexTouch 200 UNIT/ML Subcutaneous Solution Pen-injector Inject 100 Units under the skin every evening. OBTAINING FROM [employer] Insulin Aspart 100 UNIT/ML Injection Solution (NovoLOG) Inject under the skin three times a day before meals. 45 WITH BREAKFAST, 45 WITH LUNCH, AND 45 WITH SUPPER OBTAINING FROM [employer] FreeStyle Ilya 3 Sensor Use as directed. Supplied by [employer] Apixaban 5 MG Oral Tablet (Eliquis) Take 1 Tablet by mouth in the morning and 1 Tablet before bedtime. 30 Tablet 0 Spironolactone 25 MG Oral Tablet (Aldactone) Take 1/2 Tablet by mouth in the morning. 45 Tablet 1 Furosemide 40 MG Oral Tablet (Lasix) Take 1 Tablet by mouth daily in the morning as needed for swelling or weight gain 90 Tablet 1 Entresto 24-26 MG Oral Tablet (sacubitril-valsartan 24-26 mg per tab) Take 1 Tablet by mouth in themorning and 1 Tablet before bedtime. 200 Tablet 1 Metoprolol Succinate ER 100 MG Oral Tablet Extended Release 24 Hour (Toprol XL) Take 1 Tablet by mouth in the morning and 1 Tablet before bedtime. 200 Tablet 4 Novofine Pen Needle 32G X 6 MM (NOVOFINE 32G PEN NEEDLE) Use 4 Each as directed. WITH INSULIN INJECTIONS. 400 Each 3 Current Facility-Administered Medications Medication Dose Route Frequency Provider Last Rate Last Admin ROPivacaine (Naropin) inj 1.5 mg 0.3 mL Injection PRN Jemal Coleman, DO 1.5 mg at 04/19/24 0958 Aflibercept (Eylea) intraviteal prefilled syringe 2 mg 2 mg Intravitreal PRN Jemal Coleman T,DO 2 mg at 04/19/24 0958 Aflibercept (Eylea) intraviteal prefilled syringe 2 mg 2 mg Intravitreal PRN Jemal Coleman T,DO Allergies: Review of patient's allergies indicates: No Known Allergies EXAM: VA (CC) OD: 20/50 VA (CC) OS: 20/500 EXTERNAL: Lids: WNL Conjunctiva: WNL OU XT SLIT LAMP Cornea: clear OU Tear Film: WNL OU A/C: D/Q OU Lens: cataracts OU Iris: TID OU TA OD: 18; OS: 17; 7:36 AM ASSESSMENT/PLAN Glaucoma suspect - IOP OK Cataracts OU - watch Ocular albinism c foveal hypoplasia RTC: 6 mo - dilated Amarjit Santa MD 10/11/2024 7:36 AM I spent a total of 20-29 minutes (exact time 21 mins) on the date of service in preparation, delivery, and documentation of the care provided to Rolan Patel excluding any time spent in the performance of separately billed services or time spent by another provider/QHP. documented in this encounter Nursing Notes * Macey Salgado TECH - 10/11/2024 7:26 AM EST VA (CC) OD: 20/50 VA (CC) OS: 20/500 documented in this encounter Plan of Treatment Upcoming Encounters Date Type Department Care Team (Late st Contact Info) Description 11/02/2024 7:40 AM EST [facility] [place] [address] [facility] [address] [facility] [address] [facility] [address] 01/04/2025 3:00 PM EST Office Visit Ophthalmology, [facility] [address] [place] [address] Jemal Coleman, DO [address] [facility] [place] [address] 01/08/2025 10:00 AM EST Laboratory Laboratory, [address] [place] [address] [facility] [address] [facility] [address] 01/16/2025 11:00 AM EST Office [address], [address] [address] Tanner Matre MD [address] [facility] [address] 02/05/2025 10:30 AM EDT Office Visit Cardiology, [facility] [address] [place] [address] Robert Flowers, DO [address] [place] [address] 04/26/2025 8:45 AM EDT Office Visit Ophthalmology, [place] [address] [facility] [place] [address] Amarjit Santa MD [address] [facility] [place] [address] Health Maintenance Due Date Last Done Comments [...] this encounter Medical Devices Implanted Type Area Superintendent Schools Device Identifier Shelf Expiration Date Model / Serial / Lot Hemostatic Clip Res 235cm - [id number] Implanted:Qty: 1 on 09/04/2024 by Juancarlos Muñoz MD at ENDOSCOPY [facility] : ENDOSCOPY 12/17/2026 [id number] / / [id number] documented as of this encounter Visit Diagnoses Diagnosis Suspected glaucoma of both eyes- Primary Combined forms of age-related cataract of both eyes Other and combined forms of senile cataract 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
--- OUTSIDE RECORDS SUMMARY | 2024-11-09 19:46 | External Medical Summary | Summary of Care ---
Author Name Unknown Organization [facility] Address [address] [facility] [place] [address] Phone [phone] Care Team Providers Care Cement Storage Worker Name Role Phone Tanner Marte MD Primary Care Provider [phone] Reason for Visit * Reason Onset Date Comments Medication Refill 10/24/2024 Encounter Details Date Type Department Care Team (Late st Contact Info) Description 10/24/2024 Telephone Pharmacy, [facility] [address] [facility] [place] [phone] [place], [facility] [address] [place] [address] Medication Refill Allergies No known active allergiesdocumented [...] Aflibercept 2 MG/0.05ML Intravitreal Solution Prefilled Syringe (Exindalea) Inject into eye 0.05 mL every 4 [...] the skin once a week. OBTAINING FROM [employer] PAP Active Insulin Degludec FlexTouch 200 UNIT/ML Subcutaneous Solution Pen-injector Inject 100 Units under the skin every evening. OBTAINING FROM [employer] Active Insulin Aspart 100 UNIT/ML Injection Solution (NovoLOG) Inject under the skin three times a day before meals. 45 WITH BREAKFAST, 45 WITH LUNCH, AND 45 WITH SUPPER OBTAINING FROM [employer] Active FreeStyle Ilya 3 Sensor Use as directed. 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, unspecified whether wheel truer insulin use (HCC) 2 mg IZ PRN [...] insulin 07/12/2024 Coronary artery disease invo lving [place] coronary artery of [place] heart without angina pectoris 06/30/2022 Ischemic cardiomyopathy [...] IM 10/06/2009 Pneumococcal Conjugate Vacci ne, 20-valent ([id number]) 03/28/2024 Pneumococcal Polysaccharide PPV23 (Pneumovax) 07/14/2020,07/23/2011,12/22/2005 Seasonal [...] Notes * Telephone Encounter - Miryam Jordan RP - 10/24/2024 11:52 AM EST Patient is unable to afford their prescription and would like assistance in getting this medication. Please see the following for further information regarding this request: Medication: Eliquis 5 mg BID Clinic location: [facility] Reason pt cannot pick-up: n/a Initial therapy?: no Has pt been without med?: no Patient's contact #: [phone] Pt would like to explore their options for obtaining this medication. Please advise pt at the phonenumber listed above. Thank you. Thanks, Miryam Jordan, PharmD, BCACP Clinical Pharmacist Medication Therapy Disease Management 10/24/2024, 11:52 AM * Telephone Encounter - Joceline Hassan CPhT - 10/24/2024 11:31 AM EST Caller's name: Rolan Preferred call back number(OFFICE NUMBER FOR ): [phone] Reason for call: Pt states he's in need of refills on his Eliquis and Entresto, however, he is in the "donut hole" with his insurance. Pt would like to speak to Carmen Witt in regards to getting set up with obtaining these medications for a discount. Thank you, Joceline Hassan CPhT Teacher Early Childhood Development II [facility] [address] [place] [address] [address] [place] [address] [id number] 10/24/2024,11:32 AM documented in this encounter Plan of Treatment Upcoming Encounters Date Type Department Care Team (Late st Contact Info) Description 11/02/2024 7:40 AM EST [facility] [place] [phone] [place] [address] 01/04/2025 3:00 PM EST Office Visit Ophthalmology, [facility] [address] [facility] [place] [address] Jemal Coleman, DO [address] [place] [address] 01/08/2025 10:00 AM EST Laboratory Laboratory, [address] [place] [phone] [place] [place] [address] 01/16/2025 11:00 AM EST Office Visit [facility] [address] [facility] [phone] Tanner Marte MD 226 [place] [address] 02/05/2025 10:30 AM EDT Office Visit Cardiology, [facility] [place] [address] Robert Flowers, DO 132 [facility] [place] [address] 04/26/2025 8:45 AM EDT Office Visit Ophthalmology, [place] [address] [place] [address] Amarjit Santa MD [address] [place] [address] Health Maintenance Due Date Last Done Comments [...] this encounter Medical Devices Implanted Type Area Glycerin Operator Device Identifier Shelf Expiration Date Model / Serial / Lot Hemostatic Clip Res 235cm - [id number] Implanted:Qty: 1 on 09/04/2024 by Juancarlos Muñoz MD at ENDOSCOPY [facility] : ENDOSCOPY 12/17/2026 [id number] / / [id number] documented as of this encounter Care Teams Cement Storage Worker Relationship Specialty Start Date End Date March, Tanner Santo MD [address] [facility] [place] [id number] PCP - General Family Medicine 03/30/24 documented as of this encounter
--- OUTSIDE RECORDS SUMMARY | 2024-11-09 19:46 | External Medical Summary | Summary of Care ---
Author Name Unknown Organization [facility] Address [address] [facility] [place] [address] Phone [phone] Care Team Providers Care Quality Assurance Inspector Name Role Phone Laura Fisher MD Primary Care Provider [phone] Reason for Visit * Reason Onset Date Comments Medication Refill 10/03/2024 Encounter Details Date Type Department Care Team (Late st Contact Info) Description 10/03/2024 Refill [facility] [address] [place] [address] Laura Fisher MD [address] [place] [address] Allergies No known active allergiesdocumented [...] BLUE STRPIndications:DM type 2, not at goal ([facility]) use three times a day. Strips for one Touch Mini 90 Strip 5 12/11/19 15 Active Aflibercept 2 MG/0.05ML Intravitreal Solution Prefilled Syringe (56.comlea) Inject into eye 0.05 mL every 4 weeks . 0.15 mL 3 04/07/20 22 Active Atorvastatin Calcium 40 MG Oral Tablet (Lipitor)Indicatio ns:DM type 2, not at goal ([facility]) Take 1 Tablet by mouth in the morning. 100 Tablet 4 4 2:58 PM EDT 03/30/20 24 Active metFORMIN HCl 1000 MG Oral Tablet (Glucophage)Indica tions:DM type 2, not at goal ([facility]) Take 1 Tablet by mouth in the [...] the skin once a week. OBTAINING FROM [employer] PAP Active Insulin Degludec FlexTouch 200 UNIT/ML Subcutaneous Solution Pen-injector Inject 110 Units under the skin every evening. OBTAINING FROM [employer] Active Insulin Aspart 100 UNIT/ML Injection Solution (NovoLOG) Inject under the skin three times a day before meals. 45 WITH BREAKFAST, 45 WITH LUNCH, AND 55 WITH SUPPER OBTAINING FROM [employer] Active FreeStyle Ilya 3 Sensor Use as directed. Supplied by [employer] Active Apixaban 5 MG Oral Tablet (Eliquis)Indicatio [...] as directed. WITH INSULIN INJECTIONS. 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 * Telephone Encounter - Jaelyn Chavez LPN [...] Telephone Encounter - Dannielle Bland [facility] - 10/03/2024 8:53 AM EST Pharmacists cannot authorize refills for meds listed as "historical" in chart. Please approve if appropriate. Thank you, Dannielle Bland PharmD Clinical Pharmacist [facility] ([facility]) 10/03/24 8:53 AM [phone] * Telephone Encounter - Maribel Stone PHARM [...] 100 Previous Prescriber: not listed Preferred Pharmacy: [facility] [address] [place] [address] Please review and approve if appropriate. Thank you, Maribel Stone Supervisor [employer] I [facility] ([facility]) 10/03/2024,8:48 AM documented in this encounter Plan of Treatment Upcoming Encounters Date Type Department Care Team (Late st Contact Info) Description 10/06/2024 7:30 AM EST Office Visit Pharmacy, [place] [address] [facility] [address] [place] [address] [facility] [place] [address] 10/11/2024 7:30 AM EST Office Visit Ophthalmology, [place] [address] [place] [address] [place] [phone] Amarjit Santa MD [address] [place] [address] 01/04/2025 3:00 PM EST Office Visit Ophthalmology, [facility] [address] [facility] [place] [address] Jemal Coleman DO [facility] [place] [address] 01/08/2025 10:00 AM EST Laboratory Laboratory, [address] [address] [place], [facility] [address] [place] [address] 01/16/2025 11:00 AM EST Office Visit Family Practice, [address] [address] MarchLaura MD [address] [place] [address] 02/05/2025 10:30 AM EDT Office Visit Cardiology, [facility] [place] [address] Robert Flowers, 132 [facility] [place] [address] Health Maintenance Due Date Last Done Comments [...] this encounter Medical Devices Implanted Type Area Public Health Advisor Device Identifier Shelf Expiration Date Model / Serial / Lot Hemostatic Clip Res 235cm - [id number] Implanted:Qty: 1 on 09/04/2024 by Juancarlos Muñoz MD at ENDOSCOPY [facility] : ENDOSCOPY 12/17/2026 [id number] / / [id number] documented as of this encounter Care Teams Quality Assurance Inspector Relationship Specialty Start Date End Date March, Laura Santo MD [address] [place] [address] PCP - General Family Medicine 03/30/24 documented as of this encounter
--- OUTSIDE RECORDS SUMMARY | 2024-11-09 19:46 | External Medical Summary | Summary of Care ---
Author Name Unknown Organization [facility] Address [address] [facility] [place] [address] Phone [phone] Care Team Providers Care Record Changer Tester Name Role Phone Tanner Marte MD Primary Care Provider [phone] Reason for Visit * Reason Comments Dosage Adjustment In Person (Anticoag Cl inic) Diabetes Follow-Up Encounter Details Date Type Department Care Team (Late st Contact Info) Description 10/06/2024 7:30 AM EST Office Visit Pharmacy, [place] [address] [place] [address] [facility] [address] [place] [address] Type 2 diabetes mellitus with hemoglobin A1c goal of less than 8.0% ([facility])* Allergies No known active allergiesdocumented as of [...] Aflibercept 2 MG/0.05ML Intravitreal Solution Prefilled Syringe (DotAlign) Inject into eye 0.05 mL every 4 [...] the skin once a week. OBTAINING FROM [employer] Active Insulin Degludec FlexTouch 200 UNIT/ML Subcutaneous Solution Pen-injector Inject 100 Units under the skin every evening. OBTAINING FROM [employer] Active Insulin Aspart 100 UNIT/ML Injection Solution (NovoLOG) Inject under the skin three times a day before meals. 45 WITH BREAKFAST, 45 WITH LUNCH, AND 45 WITH SUPPER OBTAINING FROM [employer] Active FreeStyle Ilya 3 Sensor Use as directed. Supplied by [employer] 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 - 10/06/2024 7:30 AM EST Images from the original note were not included. Medication Therapy Disease Management Clinic - Diabetes Management Progress Note Rolan Patel, identified by name and date of , is a 64 year old male being seen for diabetesmanagement/education. Patient presents for return diabetic visit. DIABETES: Current diabetic medications: Metformin 1000 mg twice daily Farxiga 10 mg once daily Ozempic 2 mg weekly- Sundays Degludec U-200 110 units daily Novolog 45 units in AM and 45 units with lunch and 55 units at supper eGFR >90 mL/min 03/28/24 Medication Injection Site: Abdomen Lifestyle: Diet: improved - eating smaller portions in general Glucose Review/SMBG: Readings obtained from patient device Hypoglycemia: Does your blood sugar go below 70 mg/dL? Yes, recently: Hyperglycemia symptoms present: none Recent Labs Units 07/18/24 0955 07/04/24 0954 03/28/24 0954 HEMOGLOBIN A1C - [facility] % 7.1* 7.4* 9.1* Recent Labs Units 08/17/24 0847 08/09/24 0757 07/18/24 0955 ESTIMATED GLOMERULAR FILTRATION RATE - [facility] mL/min 89 87 85 CREATININE - [facility] mg/dL 1.0 1.0 1.0 HYPERTENSION: Patient on ACEi/ARB: yes BP Readings from Last 3 Encounters: 09/05/24 111/63 09/04/24 107/55 07/28/24 129/72 Blood pressure at goal: yes HYPERLIPIDEMIA: Recent Labs Units 07/18/24 0955 07/04/24 0954 03/28/24 0954 LDL CHOLESTEROL (DIRECT MEASURE) - [facility] mg/dL 59 36 51 Does patient have clinical ASCVD? Yes, is patient LDL less than 55 mg/dL? No: from cardio note 09/05/24: Dyslipidemia, Hypertriglyceridemia - LDL controlled, 59 mg/dL (goal <55 mg/dL) - TG elevated at 269 mg/dL which is down trending - Will monitor TG level and consider adding Vascepa at future visit -Can follow up with [facility] HEALTH MAINTENANCE REVIEW: Health Maintenance Due Topic Date Due HIV Screening Never done Hepatitis C Screening Never done Zoster Vaccines (1 of 2) Never done DTap/Tdap Vaccines (3 - Td or Tdap) 12/06/2022 COVID-19 Vaccine (4 - 2023- season) 2024 ASSESSMENT & PLAN: ICD-10-CM 1. Type 2 diabetes mellitus with hemoglobin A1c goal of less than 8.0% (HCC) E11.9 Considerations: - above PACE cutoff - obtaining medications from NovoNordisk and [place] & [place] PAP - can reapply for 2024 NovoNordisk 09/05/2024 - Ilya 3 supplied by [facility] Medical BG Readings - Blood sugars unstable lately. Patient has been having issues with low blood sugars, and he double checked with a fingerstick, so he can confirm that it is not a faulty sensor, or a compression low. The lows are happening overnight and also late evening after supper. Medications - Reviewed current regimen, patient is adherent to regimen. We will decrease novolog and degludec doses to try to reduce/eliminate the low blood sugars. Also re-enrolling patient for Bon and [place] and [place] PAP-- forms printed and patient signed them while in clinic today. Diet, Exercise, Lifestyle - Does report that he is eating less overall . . Patient is agreeable to SMBG with ilya 3 daily. Patient aware to contact clinic if any hypoglycemia before next visit. MEDICATION CHANGES: yes, see below; preferred pharmacy: [facility] Diabetic Medications: Metformin 1000 mg twice daily Farxiga 10 mg once daily Ozempic 2 mg weekly- Sundays DEC Degludec U-200 100 units daily DEC Novolog 45 units in AM and 45 units with lunch and 45 units at supper eGFR 89 mL/min 08/17/24 HEALTH MAINTENANCE INTERVENTIONS: Labs: Up to Date Immunizations: due for tdap and shingrix Foot Exam: Up to Date Eye Exam: Up to Date Annual Wellness Visit: Up to Date FOLLOW UP: Return to clinic in 5 weeks 11/02/2024 I spent a total of 20-29 minutes (exact time 29 mins) on the date of service in preparation, delivery, and documentation of the care provided to Rolan Patel excluding any time spent in the performance of separately billed services. Miryam Jordan [facility] Clinical Pharmacist - Freight Sales Broker Medication Therapy Management Clinic 10/06/2024, 7:30 AM documented in this encounter Plan of Treatment Upcoming Encounters Date Type Department Care Team (Late st Contact Info) Description 10/11/2024 7:30 AM EST Office Visit Ophthalmology, [place] [address] [place] [address] Amarjit Santa MD [address] [facility] [place] [address] 11/02/2024 7:40 AM EST Office Visit Pharmacy, [place] [address] [place] [facility] [place] [address] [place] [address] [place] [place] [address] 01/04/2025 3:00 PM EST Office Visit Ophthalmology, [facility] [address] [facility] [address] Jemal Coleman DO [address] [facility] [place] [address] 01/08/2025 10:00 AM EST [facility], [facility] [address] [facility] [address] [facility] [address] [place] [place] [address] 01/16/2025 11:00 AM EST Office Visit Family Practice, [facility] [address] [facility] [place] [address] Tanner Marte MD [address] [place] [address] 02/05/2025 10:30 AM EDT Office Visit Cardiology, [facility] [address] [place] [address] Robert Flowers, [address] [place] [address] Health Maintenance Due Date Last Done Comments [...] this encounter Medical Devices Implanted Type Area Title Supervisor Device Identifier Shelf Expiration Date Model / Serial / Lot Hemostatic Clip Res 235cm - [id number] Implanted:Qty: 1 on 09/04/2024 by Juancarlos Muñoz MD at ENDOSCOPY [facility] : ENDOSCOPY 12/17/2026 [id number] / / [id number] documented as of this encounter Visit Diagnoses Diagnosis Type 2 diabetes mellitus with hemoglobin A1c goal of less than 8.0% (HCC)- Primary documented in this encounter Care Teams Record Changer Tester Relationship Specialty Start Date End Date March, Tanner Santo MD [address] [place] [address] PCP - General Family Medicine 03/30/24 documented as of this encounter
--- OUTSIDE RECORDS SUMMARY | 2024-11-09 19:46 | External Medical Summary | Summary of Care ---
Author Name Unknown Organization [facility] Address [address] [facility] [place] [address] Phone [phone] Care Team Providers Care Game Show Host Name Role Phone Tanner Marte MD Primary Care Provider [phone] Reason for Visit * Reason Onset Date Comments Patient Assistance Program 10/06/2024 NovoN ordisk Reenrollment Encounter Details Date Type Department Care Team (Late st Contact Info) Description 10/06/2024 Telephone Pharmacy, [address] [address] [facility] [address] [place] [address] Patient Assistance Program (NovoNordisk Re... Allergies No known active allergiesdocumented as of [...] Aflibercept 2 MG/0.05ML Intravitreal Solution Prefilled Syringe ([employer]) Inject into eye 0.05 mL every 4 [...] the skin once a week. OBTAINING FROM [employer] Active Insulin Degludec FlexTouch 200 UNIT/ML Subcutaneous Solution Pen-injector Inject 100 Units under the skin every evening. OBTAINING FROM [employer] Active Insulin Aspart 100 UNIT/ML Injection Solution (NovoLOG) Inject under the skin three times a day before meals. 45 WITH BREAKFAST, 45 WITH LUNCH, AND 45 WITH SUPPER OBTAINING FROM [employer] Active FreeStyle Ilya 3 Sensor Use as directed. 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, unspecified whether [facility] insulin use (HCC) 2 mg IZ PRN [...] 07/12/2024 Coronary artery disease invo lving [place] coronary artery of [place] heart without angina pectoris 06/30/2022 Ischemic cardiomyopathy [...] mRNA, LNP-s, No Pre serve, 2-Dose Series ([employer]) 11/08/2021,01/18/2021,12/28/2020 H1N1 2009 Influenza, IM 10/06/2009 Pneumococcal Conjugate Vacci ne, 20-valent ([id number]) 03/28/2024 Pneumococcal Polysaccharide PPV23 (Pneumovax) 07/14/2020,07/23/2011,12/22/2005 Seasonal [...] Notes * Telephone Encounter - Miryam Jordan [facility] - 10/06/2024 12:34 PM EST Filled out and faxed re-enrollment forms for patient to continue to get Ozempic 2 mg, Aspart U 100 flexpens, Degludec U200 flexpens, and Novofine needles from NovoNordisk PAP. Received successful confirmation of fax. Forms scanned into chart. Miryam Jordan, PharmD Clinical Pharmacist Medication Therapy Disease Management 10/06/2024, 12:35 PM documented in this encounter Plan of Treatment Upcoming Encounters Date Type Department Care Team (Late st Contact Info) Description 10/11/2024 7:30 AM EST Office Visit Ophthalmology, [place] [address] [place] [address] Amarjit Santa MD [address] [place] [address] 11/02/2024 7:40 AM EST Office Visit Pharmacy, [place] [address] [facility] [place] [address] [place], [facility] [address] [place] [address] 01/04/2025 3:00 PM EST Office Visit Ophthalmology, [facility] [address] [facility] [place] [address] Jemal Coleman DO [address] [facility] [place] [address] 01/08/2025 10:00 AM EST Laboratory Laboratory, [facility] [address] [facility] [address] [facility] [address] [place] [address] 01/16/2025 11:00 AM EST Office Visit [facility], [place] [facility] [place] [address] [place] [address] Tanner Marte MD [address] [place] [address] 02/05/2025 10:30 AM EDT Office Visit Cardiology, [facility] [address] [place] [address] Robert Flowers, [address] [place] [address] Health Maintenance Due Date Last Done Comments [...] this encounter Medical Devices Implanted Type Area Forensic Identification Specialist Device Identifier Shelf Expiration Date Model / Serial / Lot Hemostatic Clip Res 235cm - [id number] Implanted:Qty: 1 on 09/04/2024 by Juancarlos Muñoz MD at [facility] [employer] : ENDOSCOPY 12/17/2026 [id number] / / [id number] documented as of this encounter Visit Diagnoses Diagnosis Type 2 diabetes mellitus with hemoglobin A1c goal of less than 8.0% (HCC)- Primary documented in this encounter Care Teams Game Show Host Relationship Specialty Start Date End Date March, Tanner Santo MD [address] [place] [address] PCP - General Family Medicine 03/30/24 documented as of this encounter
--- OUTSIDE RECORDS SUMMARY | 2024-11-09 19:47 | External Medical Summary | Summary of Care ---
Author Name Unknown Organization [facility] Address [address] [facility] [place] [address] Phone [phone] Care Team Providers Care Cheese Cook Name Role Phone Tanner Marte MD Primary Care Provider [phone] Reason for Visit * Auth/Cert Specialty Diagnoses / Procedures Referred By Alberto willis Referred To Contact Diagnoses Diverticulitis Diverticulitis [K57.92] Procedures COLONOSCOPY, DIAGNOSTIC (RECTUM) COLONOSCOPY FLEXIBLE PROXIMAL DIAGNOSTIC Juancarlos Muñoz MD [address] [place] [address] [facility] [address] [place] [address] Referral ID Status Reason Start Date Expiration Date Visits Re quested Visits Authorized [id number] Encounter Details Date Type Department Care Team (Latest Contact Info) Description 09/04/2024 7:00 AM EDT - 09/04/2024 9:01 AM EDT Hospital Encounter [facility], Endoscopy Room [facility] [address] [place] [address] Juancarlos Muñoz MD [address] [place] [address] Colonoscopy Discharge Disposition: Home - Self Care Allergies No known active allergiesdocumented as of this encounter (statuses as of 09/04/2024) Medications Medication Sig Dispensed Refills Start Date End Date Status MULTIVITAMIN PO TABSIndications:ASCV D (arteriosclerotic cardiovascular disease) once daily 34 3 03/24/2010 Active VITAMIN C-IRON 125-200 MG PO TABSIndications:ASCV D (arteriosclerotic cardiovascular disease) one daily 31 Tab 3 12/09/2010 Active LANCETS MISCIndications:DM type 2, not at goal (HCC) one touch ultra three times daily 90 Box 5 01/26/2011 Active ASPIRIN LOW DOSE 81 MG PO CHEWIndications:Old myocardial infarct,Routine medical exam,DM type 2, not at goal (HCC),HTN, goal below 130/80,ASCVD (arteriosclerotic cardiovascular disease) 1 TABLET DAILY 30 Tab 1 09/20/2012 Active NITROGLYCERIN 0.4 MG SL SUBLIndications:ASCV D (arteriosclerotic cardiovascular disease),Old myocardial infarct one tab under tongue as needed for chest pain maximum 3 doses 25 Tab 5 12/03/2014 Active Additional Information Patient not taking.Reported on 08/29/2024 ONETOUCH ULTRA BLUE STRPIndications:DM type 2, not at goal (HCC) use three times a day. Strips for one Touch Mini 90 Strip 5 12/11/2014 Active Aflibercept 2 MG/0.05ML Intravitreal Solution Prefilled Syringe ([employer]) Inject into eye 0.05 mL every 4 weeks . 0.15 mL 3 04/07/2022 Active Atorvastatin Calcium 40 MG Oral Tablet (Lipitor)Indications :DM type 2, not at goal (HCC) Take 1 Tablet by mouth in the morning. 100 Tablet 4 03/30/2024 Active metFORMIN HCl 1000 MG Oral Tablet (Glucophage)Indicati ons:DM type 2, not at goal (HCC) Take 1 Tablet by mouth in the morning and 1 Tablet before bedtime with food. 200 Tablet 4 03/30/2024 Active Citalopram Hydrobromide 20 MG Oral Tablet (CeleXA)Indications: Anxiety state Take 1 Tablet by mouth in the morning. 100 Tablet 4 03/31/2024 Active Metoprolol Succinate ER 100 MG Oral Tablet Extended Release 24 Hour (Toprol XL)Indications:Old myocardial infarct,ASCVD (arteriosclerotic cardiovascular disease),HTN, goal below 140/90,Chronic systolic heart failure (HCC),Dilated cardiomyopathy (HCC) Take 1 Tablet by mouth in the morning. 100 Tablet 4 03/31/2024 Active Metoprolol Succinate ER 50 MG Oral Tablet Extended Release 24 Hour (toPROL XL)Indications:Old myocardial infarct,ASCVD (arteriosclerotic cardiovascular disease),HTN, goal below 140/90,Chronic systolic heart failure (HCC),Dilated cardiomyopathy (HCC) Take 1 Tablet by mouth at bedtime. 100 Tablet 4 03/31/2024 Active Apixaban 5 MG Oral Tablet (Eliquis)Indications :S/P ablation of atrial flutter,Typical atrial flutter (HCC) Take 1 Tablet by mouth in the morning and 1 Tablet before bedtime. 200 Tablet 03/31/2024 Active Dapagliflozin Propanediol 10 MG Oral Tablet (Farxiga) Take 1 Tablet by mouth in the morning. Obtaining from [employer] PAP. Active Ozempic (2 MG/DOSE) 8 MG/3ML Subcutaneous Solution Pen-injector (Semaglutide (2 MG/DOSE)) Inject 2 mg under the skin once a week. OBTAINING FROM [employer] Active Insulin Degludec FlexTouch 200 UNIT/ML Subcutaneous Solution Pen-injector Inject 110 Units under the skin every evening. OBTAINING FROM [employer] Active Insulin Aspart 100 UNIT/ML Injection Solution (NovoLOG) Inject under the skin three times a day before meals. 45 WITH BREAKFAST, 45 WITH LUNCH, AND 55 WITH SUPPER OBTAINING FROM [employer] Active Novofine Pen Needle 32G X 6 MM (NOVOFINE 32G PEN NEEDLE) Use 4 Each as directed. WITH INSULIN INJECTIONS. OBTAINING FROM [employer] Active FreeStyle Ilya 3 Sensor Use as directed. Supplied by [employer] Active Apixaban 5 MG Oral Tablet (Eliquis)Indications :Typical atrial flutter (HCC) Take 1 Tablet by mouth in the morning and 1 Tablet before bedtime. 30 Tablet 07/12/2024 Active Spironolactone 25 MG Oral Tablet (Aldactone) Take 1/2 Tablet by mouth in the morning. 45 Tablet 1 07/28/2024 Active Furosemide 40 MG Oral Tablet (Lasix) Take 1 Tablet by mouth daily in the morning as needed for swelling or weight gain 90 Tablet 1 07/28/2024 Active Entresto 24-26 MG Oral Tablet (sacubitril-valsarta n 24-26 mg per tab) Take 1 Tablet by mouth in the morning and 1 Tablet before bedtime. 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, with long-term current use of insulin 07/12/2024 Type 2 diabetes mellitus wit h diabetic cataract, with long-term current use of insulin 07/12/2024 Coronary artery disease invo lving [place] coronary artery of [place] heart without angina pectoris 06/30/2022 Ischemic cardiomyopathy 06/30/2022 Dilated cardiomyopathy 09/20/2020 S/P ablation of atrial flutter 09/20/2020 Atrial flutter 07/31/2020 Chronic systolic heart failure 07/31/2020 Dyslipidemia, goal LDL below 70 07/31/2015 Type 2 diabetes mellitus wit h hemoglobin A1c goal of less than 8.0% 03/21/2015 Overview: ICD-10 update of inactive term HTN, goal below 140/90 01/29/2015 Anxiety state 05/12/2013 Abnormal results of liver function studies 05/12 Proteinuria 03/15/2012 Chews tobacco 03/15/2012 Old myocardial infarct 03/15/2012 Displacement of lumbar inter vertebral disc without myelopathy 01/01/2011 Esophageal reflux 03/24/2010 ADVANCE DIRECTIVE INFORMATION 10/19/2005 Overview: No, Advance Directive brochure given to patient at prior appointment. Chronic rhinitis 06/15/2003 Aortocoronary bypass status 03/14/2002 documented as of this encounter (statuses as of 09/04/2024) Resolved Problems Problem Noted Date Diagnosed Date Resolved Date Chest pain 05/12/2013 06/27/2013 Type 2 diabetes mellitus wit h hemoglobin A1c goal of less than 7.0% 02/10/2013 03/21/2015 Overview: ICD-10 update of inactive term Severe obesity with body mas s index (BMI) of 35.0 to 39.9 with serious comorbidity 09/20/2012 Overview: bmi= 36.88 09/20/12 ICD-10 update of inactive diagnosis Special screening for malign ant neoplasm of prostate 09/20/2012 06/27/2013 Severe obesity with body mas s index (BMI) of 35.0 to 39.9 with serious comorbidity 03/15/2012 Overview: bmi= 36.73 03/15/12 ICD-10 update of inactive diagnosis Dyslipidemia, goal LDL below 100 03/15/2012 06/20/2015 ASCVD (arteriosclerotic card iovascular disease) 03/15/2012 06/07/2024 Overview: duplicate OBESITY, BMI= 37.34 09/04/11 09/04/2011 06/27/2013 [...] 06/27/2013 Screening for prostate cancer 11/20/2009 12/09/2009 Overview: Modified by Screening Dx Protocol #6. Dyslipidemia, goal LDL below 70 11/04/2009 03/15/2012 Overview: Per Lipid Taxonomy. OBESITY, BMI= 36.90 01/04/09 01/04/2009 06/27/2013 DM type 2, not at goal 12/07/200702/02 Dyslipidemia, goal to be determined 12/07/2007 11/04/2009 Overview: Per Lipid Taxonomy. TOBACCO USE DISORDER- ORAL 12/07/2007 0 03/15/2012 PARONYCHIA OF TOE, LEFT GREAT LATERAL 12/22/2005 06/27/2013 OBESITY, BMI= 37.26 12/22/05 12/22/2005 06/27/2013 ROUTINE MEDICAL EXAM 12/22/2005 013 Special screening for malign ant neoplasms, colon 12/22/2005 01/30/2009 Overview: Resolved per Screening Diagnosis Protocol #6 Screening for prostate cancer 12/22/2005 01/30/2009 Overview: Resolved per Screening Diagnosis Protocol #6 Carbuncle of trunk 10/21/2005 9 Cellulitis of trunk 10/21/2005 01/04/20 09 Need for influenza vaccination 12/16/2004 06/27/2013 IMPOTENCE, ORGANIC ORIGN 10/23/200304/2013 OBESITY, BMI= 35.47 10/23/03 10/23/2003 06/27/2013 HTN, goal below 140/90 06/15/200311/20 Type 2 diabetes mellitus wit h hemoglobin A1c goal of less than 7.0% 07/19/2002 02/02/2011 Overview: ICD-10 update of inactive term OLD MYOCARDIAL INFARCT 07/19/200203/15 ASCVD 03/15/2012 Atrial fibrillation 09/20/20 12 HTN, goal below 130/80 01/29 documented as of this encounter (statuses as of 09/04/2024) Immunizations Name Administration Dates Next Due COVID-19 mRNA, LNP-s, No Pre serve, 2-Dose Series (Pfizer) 11/08/2021,01/18/2021,12/28/2020 H1N1 2009 Influenza, IM 10/06/2009 Pneumococcal Conjugate Vacci ne, 20-valent ([id number]) 03/28/2024 Pneumococcal Polysaccharide PPV23 (Pneumovax) 07/14/2020,07/23/2011,12/22/2005 Seasonal [...] Recorded Sex Assigned at Not on file Gender Identity Not on file Sexual Orientation Not on file Job Start Date Occupation Industry Not on file Not on file Not on file documented as of this encounter Last Filed Vital Signs Vital Sign Reading Time Taken Comments Blood Pressure 107/55 09/04/2024 8:45 AM EDT Pulse 86 09/04/2024 8:45 AM EDT Temperature 36.5 C (97.7 F) 09/04/2024 8:45 AM ED T Respiratory Rate 16 09/04/2024 8:45 AM EDT Oxygen Saturation 97% 09/04/2024 8:45 AM EDT Inhaled Oxygen Concentration - - Weight 121.1 kg (267 lb) 09/04/2024 7:07 AM EDT Height 175.3 cm (5' 9.02") 09/04/2024 7:07 AM ED T Body Mass Index 39.41 09/04/2024 7:07 AM EDT documented in this encounter H&P Notes * Juancarlos Muñoz MD - 09/04/2024 7:41 AM EDT Endoscopy Pre-Procedure Assessment Name: Rolan Patel Date: 09/04/2024 Time: 7:41 AM Procedure: Colonoscopy; with Indication(s) of average risk screening Endoscopy Pre-Procedure Assessment: Prior to the procedure, the patient was identified. The patient's history, medications and allergies were reviewed as per the Anesthesia Assessment. The patient is competent. The risks and benefits of the proposed procedure and the planned sedation were discussed with the patient. All questions were answered and informed consent for the procedure was obtained. This patient has undergone a preprocedural evaluation. A determination has been made to proceed with the planned procedure under [facility] procedural guidelines and the [facility] Non-Emergent, Elective Medical Services and Treatment Recommendations (published on 02-27-20). The community and hospital prevalence of COVID-19 has been discussed as well as this patient's specific risks associated with SARS-CoV-19 infection. Based upon the clinical acuity and patient-specific care considerations, this procedure is deemed a Tier II - Intermediate acuity treatment or service with either progression or the threat of progressive disease related to the delay in treatment. Not providing the service has the potential for increasing morbidity or mortality. BP 131/73 | Pulse 108 | Temp 37.2 C (98.9 F) (Tympanic) | Resp 18 | Ht 1.753 m (5' 9.02") | Wt 121.1 kg (267 lb) | SpO2 98% | BMI 39.41 kg/m | BSA 2.43 m Prior to Admission medications Medication Sig Last Dose Discont. Entresto 24-26 MG Oral Tablet (sacubitril-valsartan 24-26 mg per tab) Take 1 Tablet by mouth in themorning and 1 Tablet before bedtime. Past Week Furosemide 40 MG Oral Tablet (Lasix) Take 1 Tablet by mouth daily in the morning as needed for swelling or weight gain Past Week Spironolactone 25 MG Oral Tablet (Aldactone) Take 1/2 Tablet by mouth in the morning. Past Week Apixaban 5 MG Oral Tablet (Eliquis) Take 1 Tablet by mouth in the morning and 1 Tablet before bedtime. Past Week [employer] 3 Sensor Use as directed. Supplied by [employer] 09/04/2024 Apixaban 5 MG Oral Tablet (Eliquis) Take 1 Tablet by mouth in the morning and 1 Tablet before bedtime. Past Week Citalopram Hydrobromide 20 MG Oral Tablet (CeleXA) Take 1 Tablet by mouth in the morning. Past Week Metoprolol Succinate ER 100 MG Oral Tablet Extended Release 24 Hour (Toprol XL) Take 1 Tablet by mouth in the morning. Past Week Metoprolol Succinate ER 50 MG Oral Tablet Extended Release 24 Hour (toPROL XL) Take 1 Tablet by mouth at bedtime. Past Week Atorvastatin Calcium 40 MG Oral Tablet (Lipitor) Take 1 Tablet by mouth in the morning. 08/29/2024 Dapagliflozin Propanediol 10 MG Oral Tablet (Farxiga) Take 1 Tablet by mouth in the morning. Obtaining from [place] [employer] PAP. Past Week Insulin Aspart 100 UNIT/ML Injection Solution (NovoLOG) Inject under the skin three times a day before meals. 45 WITH BREAKFAST, 45 WITH LUNCH, AND 55 WITH SUPPER OBTAINING FROM [employer] Past Week Insulin Degludec FlexTouch 200 UNIT/ML Subcutaneous Solution Pen-injector Inject 110 Units under the skin every evening. OBTAINING FROM [employer] Past Week metFORMIN HCl 1000 MG Oral Tablet (Glucophage) Take 1 Tablet by mouth in the morning and 1 Tablet before bedtime with food. Past Week Novofine Pen Needle 32G X 6 MM (NOVOFINE 32G PEN NEEDLE) Use 4 Each as directed. WITH INSULIN INJECTIONS. OBTAINING FROM [employer] 09/04/2024 Ozempic (2 MG/DOSE) 8 MG/3ML Subcutaneous Solution Pen-injector (Semaglutide (2 MG/DOSE)) Inject 2 mg under the skin once a week. OBTAINING FROM [employer] Past Month ONETOUCH ULTRA BLUE STRP use three times a day. Strips for one Touch Mini 09/04/2024 ASPIRIN LOW DOSE 81 MG PO CHEW 1 TABLET DAILY Past Week LANCETS MISC one touch ultra three times daily 09/04/2024 VITAMIN C-IRON 125-200 MG PO TABS one daily Past Week MULTIVITAMIN PO TABS once daily Past Week Aflibercept 2 MG/0.05ML Intravitreal Solution Prefilled Syringe ([employer]) Inject into eye 0.05 mL every 4 weeks . Over 30 Days NITROGLYCERIN 0.4 MG SL SUBL one tab under tongue as needed for chest pain maximum 3 doses Patient not taking: Reported on 08/29/2024 Over 30 Days Review of patient's allergies indicates: No Known Allergies Physical Exam: Mental Status Examination: alert and oriented. General: nad, calm Airway Examination: normal oropharyngeal airway and neck mobility. CV: no JVD Respiratory Examination: symmetrical excursion Abd:soft/ntd ASA Grade: III - A patient with severe systemic disease. After reviewing the risks and benefits, the patient was deemed in satisfactory condition to undergothe procedure. The anesthesia plan was to use general anesthesia. Juancarlos Muñoz MD 09/04/2024 documented in this encounter Procedure Notes * Tanner Marte MD - 09/04/2024 7:44 AM EDTAssociated Order(s): COLONOSCOPY [facility] Patient Name: Rolan Patel Procedure Date: 09/04/2024 7:44 AM Date of : 1960 Admit Type: Outpatient Note Status: Finalized Date of : 1960 Admit Type: Outpatient Age: 64 Room: Endo 2 Gender: Male Note Status: Finalized Procedure: Colonoscopy Indications: Screening for colorectal malignant neoplasm Providers: Juancarlos Muñoz MD (Doctor) Referring MD: Tanner Marte (Referring MD) Medicines: Propofol per Anesthesia Complications: No immediate complications. Estimated blood loss: None. Procedure: Pre-Anesthesia Assessment: - - Prior to the procedure, a History and Physical was performed, patient medications, allergies and sensitivities were reviewed. The patient's tolerance of previous anesthesia was reviewed. See [facility] for further details. - The risks, benefits, and alternatives of the procedure including the sedation options and risks were discussed with the patient. All questions were answered and informed consent was obtained. - Patient identification and proposed procedure were verified prior to the procedure by the physician and the nurse. The procedure was verified in the procedure room. - See [facility] for documentation of the pre-procedure assessment including ASA status. - After I obtained informed consent, the scope was carefully and meticulously passed under direct vision only when the lumen was definitively identified. CO2 insufflation was utilized throughout the entire procedure exclusively. After I obtained informed consent, the scope was passed under direct vision. All instruments were visually inspected immediately before and after removal from the patient to ensure they are fully intact. Throughout the procedure, the patient's blood pressure, pulse, and oxygen saturations were monitored continuously.The colonoscopy was performed with ease. The patient tolerated the procedure well. The quality of the bowel preparation was fair. The [id number] Colonoscope ([id number]) was introduced through the anus and advanced to the cecum, identified by appendiceal orifice and ileocecal valve. Findings & Specimens: The terminal ileum appeared normal. A 1 mm polyp was found in the cecum. The polyp was sessile. The polyp was removed with a jumbo cold forceps. Resection and retrieval were complete. The pathology specimen was placed into Bottle Number 1. Five sessile polyps were found in the ascending colon. The polyps were 3 to 5 mm in size. These polyps were removed with a cold snare. Resection and retrieval were complete. The pathology specimen was placed into Bottle Number 2. Two sessile polyps were found in the sigmoid colon. The polyps were 5 to 10 mm in size. These polyps were removed with a cold snare. Resection and retrieval were complete. The pathology specimen was placed into Bottle Number 3. To prevent bleeding post-intervention, one hemostatic clip was successfully placed (MR conditional). There was no bleeding during, or at the end, of the procedure. Small-mouthed diverticula were found in the sigmoid colon and descending colon. Internal hemorrhoids were found during retroflexion. The exam was otherwise without abnormality on direct and retroflexion views. Impression: - Preparation of the colon was fair. - The examined portion of the ileum was normal. - One 1 mm polyp in the cecum, removed with a jumbo cold forceps. Resected and retrieved. - Five 3 to 5 mm polyps in the ascending colon, removed with a cold snare. Resected and retrieved. - Two 5 to 10 mm polyps in the sigmoid colon, removed with a cold snare. Resected and retrieved. Clip (MR conditional) was placed. - Diverticulosis in the sigmoid colon and in the descending colon. - Internal hemorrhoids. - The examination was otherwise normal on direct and retroflexion views. Recommendation: - Discharge patient to home (with escort). - Repeat colonoscopy in 6-12 months given polyps and prep quality for surveillance based on pathology results. - Patient has a contact number available for emergencies. The signs and symptoms of potential delayed complications were discussed with the patient. Return to normal activities tomorrow. Written discharge instructions were provided to the patient. - Resume eliquis tomorrow Juancarlos Muñoz MD 09/04/2024 8:29:00 AM This report has been signed electronically. documented in this encounter Nursing Notes * Opal Bocanegra RN - 09/04/2024 9:00 AM EDT Patient is alert, pain free and tolerating po fluids prior to discharge. Patient has been visited by Dr. Muñoz. Patient has received and demonstrates understanding of discharge instructions. Patient Ambulated to private auto accompanied by staff. * Opal Bocanegra RN - 09/04/2024 8:31 AM EDT Patient transferred to post endo s/p Colonoscopy. Patient is awake and alert. - exhibits no signs of pain. Respirations are even and unlabored on room air. NSR in the 50s on the monitor. Abdomen soft and non distended. Vital signs stable. * Kenn Ureña RN - 09/04/2024 8:28 AM EDT See anesthesia record for medication administered during procedure. Kenn Ureña RN Specimen(s) and location(s) verified with physician post procedure 8:28 AM Kenn Ureña RN Pt tavo colonoscopy w/ polypectomies well. No Abd pressure applied to assist w/ advancement of the scope. Abd soft post proc. To recovery lying on L side. Pre cleaning of scope at the bedside started by lead manufacturing technician. * Olive Quintana RN - 09/04/2024 7:26 AM EDT The following pt discharge instructions reviewed with pt prior to prodedure: No driving today. No alcohol today. No signing of legal documents. Rest as much as possible today and can return to normal activities tomorrow. No operating any heavy equipment today. Diet as tolerated. Pt verbalized understanding. documented in this encounter Miscellaneous Notes * Result Encounter Note - Tanner Marte MD - 09/04/2024 9:01 AM EDT Result noted. Await pathology to determine timing of repeat colonoscopy. Tanner Marte MD documented in this encounter Plan of Treatment Upcoming Encounters Date Type Department Care Team (Late st Contact Info) Description 09/05/2024 8:00 AM EDT Office Visit Cardiology, [facility] [address] [place] [address] [facility] Cardiology [facility] [address] [place] [address] 10/03/2024 3:15 PM EST Office Visit Ophthalmology, [facility] [address] [place] [address] Jemal Coleman DO [address] [place] [address] 10/06/2024 7:30 AM EST Office Visit Pharmacy, [address] [address] 10/11/2024 7:30 AM EST Office Visit Ophthalmology, [place] [address] Amarjit Santa MD [address] [place] [address] 01/08/2025 10:00 AM EST Laboratory Laboratory, [place] [address] [place] [phone] [facility] [address] [place] [address] 01/16/2025 11:00 AM EST Office Visit Family [facility], [place] [address] [place] [phone] MarchTanner MD [address] [place] [address] 02/14/2025 10:30 AM EDT Office Visit Cardiology, [facility] [address] [facility] [place] [address] [address] Flowers O, [address] [place] [place] [address] Pending Results Name Type Priority Associated Diagnoses Date /Time SURGICAL PATHOLOGY Pathology Routine Diverticulitis 09/04/2024 8:27 AM EDT Scheduled Orders Name Type Priority Associated Diagnoses Orde r Schedule SURGICAL PATHOLOGY Pathology Routine Diverticulitis Release Upon Ordering for 1 Occurrences starting 09/04/2024 Scheduled Procedures Name Priority Associated Diagnoses Date/Ti me COLONOSCOPY FLEXIBLE PROXIMA L DIAGNOSTIC Diverticulitis 09/04/2024 7:59 AM EDT Health Maintenance Due Date Last Done Comments [...] 07/18/2024, Additional history exists Colonoscopy 09/04/2029 09/04/2024, 12/04/2011 Colorectal Cancer Screening 09/04/2029 Pneumococcal Vaccine: 65+ Years Completed 03/28/2024, 07/14/2020, 07/23/2011, Additional history exists Influenza Vaccine (FLU shot) Completed 07/28/2024, 09/05/2021, 08/28/2015, Additional history exists RETIRED - COLONOSCOPY-EVERY 5 YRS AGES 18-100 Discontinued 09/04/2024, 12/04/2011, 12/04/2011 HPV (Gardasil) Vaccine Aged Out No lo nger eligible based on patient's age to complete this topic Hepatitis B Vaccine Aged Out No longe r eligible based on patient's age to complete this topic MENINGOCOCCAL (MENACTRA/MENVEO) Aged Out No longer eligible based on patient's age to complete this topic documented as of this encounter Medical Devices Implanted Type Area Pharmacy District Manager Device Identifier Shelf Expiration Date Model / Serial / Lot Hemostatic Clip Res 235cm - [id number] Implanted:Qty: 1 on 09/04/2024 by Juancarlos Muñoz MD at ENDOSCOPY [facility] : ENDOSCOPY 12/17/2026 [id number] / / [id number] documented as of this encounter Procedures Procedure Name Priority Date/Time Associated Diagnosis Comments GLUCOSE METER, POINT OF CARE DASHAWN 09/04/2024 8:36 AM EDT COLONOSCOPY 09/04/2024 7:44 AM EDT GLUCOSE METER, POINT OF CARE DASHAWN 09/04/2024 7:37 AM EDT documented in this encounter Results * (ABNORMAL) GLUCOSE METER, POINT OF CARE (09/04/2024 8:36 AM EDT) GLUCOSE - POCT 212(H) 70 - 120 mg/dL 09/04/2024 8:41 AM EDT LAB[facility]AT[facility] [place] 57-00 Blood Whole blood specimen / Unknown 09/04/2024 8:36 AM EDT 09/04/2024 8:41 AM EDT Juancarlos Muñoz MD LAB POINT OF CARE TE ST DOCKED DEVICE UNSOLICITED RESULTS [facility] [place] [address] [place] [id number] * COLONOSCOPY (09/04/2024 7:44 AM EDT) 09/04/2024 7:44 AM EDT Narrative Procedure Note Tanner Marte MD - 09/04/2024 7:44 AM EDT [facility] Patient Name: Rolan Patel Procedure Date: 09/04/2024 7:44 AM Date of : 1960 Admit Type: Outpatient Note Status:Finalized Date of : 1960 Admit Type: Outpatient Age: 64 Room: [facility] 2 Gender: Male Note Status: Finalized Procedure: Colonoscopy Indications: Screening for colorectal malignant neoplasm Providers: Juancarlos Muñoz MD (Doctor) Referring MD: Tanner Marte (Referring MD) Medicines: Propofol per Anesthesia Complications: No immediate complications. Estimated blood loss:None. Procedure: Pre-Anesthesia Assessment: - - Prior to the procedure, a History and Physicalwas performed, patient medications, allergies and sensitivities were reviewed. Thepatient's tolerance of previous anesthesia was reviewed. See [facility] for furtherdetails. - The risks, benefits, and alternatives of theprocedure including the sedation options and risks were discussed with the patient.All questions were answered and informed consent was obtained. - Patient identification and proposed procedurewere verified prior to the procedure by the physician and the nurse. The procedure wasverified in the procedure room. - See [facility] for documentation of the pre-procedureassessment including ASA status. - After I obtained informed consent, the scope wascarefully and meticulously passed under direct vision only when the lumen wasdefinitively identified. CO2 insufflation was utilized throughout the entire procedureexclusively. After I obtained informed consent, the scope waspassed under direct vision. All instruments were visually inspected immediatelybefore and after removal from the patient to ensure they are fully intact. Throughout the procedure, the patient's bloodpressure, pulse, and oxygen saturations were monitored continuously.The colonoscopy wasperformed with ease. The patient tolerated the procedure well. The quality of thebowel preparation was fair. The [id number] Colonoscope ([id number]) was introducedthrough the anus and advanced to the cecum, identified by appendiceal orifice andileocecal valve. Findings & Specimens: The terminal ileum appeared normal. A 1 mm polyp was found in the cecum. The polyp was sessile. The polypwas removed with a jumbo cold forceps. Resection and retrieval were complete. The pathologyspecimen was placed into Bottle Number 1. Five sessile polyps were found in the ascending colon. The polypswere 3 to 5 mm in size. These polyps were removed with a cold snare. Resection and retrieval werecomplete. The pathology specimen was placed into Bottle Number 2. Two sessile polyps were found in the sigmoid colon. The polyps were 5to 10 mm in size. These polyps were removed with a cold snare. Resection and retrieval werecomplete. The pathology specimen was placed into Bottle Number 3. To prevent bleeding post-intervention,one hemostatic clip was successfully placed (MR conditional). There was no bleeding during,or at the end, of the procedure. Small-mouthed diverticula were found in the sigmoid colon anddescending colon. Internal hemorrhoids were found during retroflexion. The exam was otherwise without abnormality on direct and retroflexionviews. Impression: - Preparation of the colon was fair. - The examined portion of the ileum was normal. - One 1 mm polyp in the cecum, removed with a jumbocold forceps. Resected and retrieved. - Five 3 to 5 mm polyps in the ascending colon,removed with a cold snare. Resected and retrieved. - Two 5 to 10 mm polyps in the sigmoid colon,removed with a cold snare. Resected and retrieved. Clip (MR conditional) was placed. - Diverticulosis in the sigmoid colon and in thedescending colon. - Internal hemorrhoids. - The examination was otherwise normal on directand retroflexion views. Recommendation: - Discharge patient to home (with escort). - Repeat colonoscopy in 6-12 months given polypsand prep quality for surveillance based on pathology results. - Patient has a contact number available foremergencies. The signs and symptoms of potential delayed complications were discussed withthe patient. Return to normal activities tomorrow. Written discharge instructionswere provided to the patient. - Resume eliquis tomorrow Juancarlos Muñoz MD 09/04/2024 8:29:00 AM This report has been signed electronically. Tanner Marte MD GASTRO LOWER * (ABNORMAL) GLUCOSE METER, POINT OF CARE (09/04/2024 7:37 AM EDT) GLUCOSE - POCT 242(H) 70 - 120 mg/dL 09/04/2024 7:42 AM EDT [facility] Blood Whole blood specimen / Unknown 09/04/2024 7:37 AM EDT 09/04/2024 7:42 AM EDT Juancarlos Muñoz MD LAB POINT OF CARE TE ST DOCKED DEVICE UNSOLICITED RESULTS [facility] [place] [facility] [address] [facility] [address] documented in this encounter Visit Diagnoses Diagnosis Diverticulitis Diverticulitis of colon (without mention of hemorrhage) documented in this encounter Administered Medications Inactive Administered Medications - up to 3 most recent administrations Medication Order MAR Action Action Date Dose Rate Site insulin aspart (NovoLOG) inj 5 Units 5 Units, Subcutaneous, ONCE, 1 dose, On Wed09/04/24 at 0830 Given 09/04/2024 7:56 AM EDT 5 Units Other-Specify isolyte-S pH 7.4 infusion Intravenous, at 100 mL/hr, Plasma-LYTE 148, isolyte-S, and isolyte-S pH 7.4 are considered equivalent - including for MAR barcode scanning., CONTINUOUS, Starting on Wed09/04/24 at 0745, Until Wed09/04/24 at 1303, Pre-Op Continue from Pre-Op 09/04/2024 7:55 AM EDT 100 mL/hr New Bag 09/04/2024 7:39 AM EDT 100 mL/hr documented in this encounter Active and Recently Administered Medications Times are shown in EDT. Scheduled Medication Order 09/02/2024 09/03/2024 09/04/2024 insulin aspart (NovoLOG) inj 5 Units (COMPLETED) 5 Units, Subcutaneous, ONCE, 1 dose, On Wed09/04/24 at 0830 0756 (Given - Provid er: Olive Quintana RN - Comment: R upper arm2RN preet Ureña RN) Continuous Medication Order 09/02/2024 09/03/2024 09/04/2024 isolyte-S pH 7.4 infusion Intravenous, at 100 mL/hr, Plasma-LYTE 148, isolyte-S, and isolyte-S pH 7.4 are considered equivalent - including for MAR barcode scanning., CONTINUOUS, Starting on Wed09/04/24 at 0745, Until Wed09/04/24 at 1303, Pre-Op 0739 (New Bag - Prov ider: Olive Quintana RN)0755 (Continue from Pre-Op - Provider: Nata Hamm CRNA)0828 (Anes Intra-Op Fluid - Provider: Nata Hamm CRNA) documented in this encounter Care Teams Cheese Cook Relationship Specialty Start Date End Date March, Tanner Santo MD [address] [facility] [place] [id number] PCP - General Family Medicine 03/30/24 documented as of this encounter
--- OUTSIDE RECORDS SUMMARY | 2024-11-09 19:47 | External Medical Summary ---
Author Name Unknown Address Unknown Organization : Laboratory Report Ordering Provider Test Date Status ETIENNE VIVAR 09/04/2024 07:37:00 Final Observation Date Value Abnormality Reference (Units ) Status Glucose Point of Care 09/04/2024 07:37:00 242 Above high normal 70-120 (mg/dL) Final Performing Location
--- OUTSIDE RECORDS SUMMARY | 2024-11-09 19:47 | External Medical Summary ---
Author Name Unknown Address Unknown Organization K0G:[facility] [place] [address] - [address] [place] [address] Laboratory Report Ordering Provider Test Date Status COMFORT DALTON 08/17/2024 08:47:25 Final Observation Date Value Abnormality Reference (Units ) Status BUN 08/17/2024 08:47:25 19 6-20 (mg/dL) Final Creatinine 08/17/2024 08:47:25 1.0 0.6-1.2 (mg/dL) Final Glomerular filtration rate/1.73 sq M.predicted [Volume Rate/Area] in Serum, Plasma or Blood by Creatinine-based formula (CKD-EPI) 08/17/2024 08:47:25 89 >=60 (mL/min) Final eGFR is calculated based on the CKD-EPI 2020 equation. Sodium 08/17/2024 08:47:25 140 135-146 (m mol/L) Final Potassium 08/17/2024 08:47:25 4.5 3.5-5.1 (m mol/L) Final Cl 08/17/2024 08:47:25 100 98-107 (mm ol/L) Final CO2 08/17/2024 08:47:25 28 22-32 (mmo l/L) Final Anion gap 08/17/2024 08:47:25 12 7-15 (mmol /L) Final Glucose 08/17/2024 08:47:25 116 70-120 (mg /dL) Final Calcium 08/17/2024 08:47:25 10.4 Above high normal 8. 4-10.2 (mg/dL) Final Performing Location [facility] [address] [place] [address]
--- OUTSIDE RECORDS SUMMARY | 2024-11-09 19:47 | External Medical Summary | Summary of Care ---
Author Name Unknown Organization [facility] Address [address] [facility] [place] [address] Phone [phone] Care Team Providers Care Personnel Psychologist Name Role Phone Tanner Marte MD Primary Care Provider [phone] Reason for Visit * Reason Onset Date Comments No Show 09/02/2024 [facility] No Show Auto mation Encounter Details Date Type Department Care Team (Late st Contact Info) Description 09/02/2024 Telephone Cardiology, [facility] [address] [facility] [place] [address] [facility] Cardiology [facility] [address] [facility] [place] [address] No Show ([facility] No Show Automation) Allergies No known active allergiesdocumented as of this encounter (statuses as of 09/02/2024) Medications Medication Sig Dispensed Refills Start Date [...] Aflibercept 2 MG/0.05ML Intravitreal Solution Prefilled Syringe (Micro[employer]plays Grouplea) Inject into eye 0.05 mL every 4 [...] Tablet by mouth at bedtime. 100 Tablet 03/31/2024 Active Apixaban 5 MG Oral Tablet (Eliquis)Indications :S/P ablation of atrial flutter,Typical atrial flutter (HCC) Take 1 Tablet by mouth in the morning and 1 Tablet before bedtime. 200 Tablet 4 03/31/2024 Active Dapagliflozin Propanediol 10 MG Oral Tablet (Farxiga) Take 1 Tablet by mouth in the morning. Obtaining from [employer] P[employer]. Active Ozempic (2 MG/DOSE) 8 MG/3ML Subcutaneous Solution Pen-injector (Semaglutide (2 MG/DOSE)) Inject 2 mg under the skin once a week. OBTAINING FROM [employer] Active Insulin Degludec FlexTouch 200 UNIT/ML Subcutaneous Solution Pen-injector Inject 110 Units under the skin every evening. OBTAINING FROM [employer] Active Insulin Aspart 100 UNIT/ML Injection Solution (NovoLOG) Inject under the skin three times a day before meals. 45 WITH BREAKFAST, 45 WITH LUNCH, AND 55 WITH SUPPER OBTAINING FROM [employer] Active Novofine Pen Needle 32G X 6 MM (NOVOFINE 32G PEN NEEDLE) Use 4 Each as directed. WITH INSULIN INJECTIONS. OBTAINING FROM [employer] Active FreeStyle Ilya 3 Sensor Use as directed. Supplied by [employer] Active Apixaban 5 MG Oral Tablet (Eliquis)Indications [...] before bedtime. 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, unspecified whether terminal carman insulin use (HCC) 2 mg IZ PRN 04/08/2023 Active Aflibercept (Eylea) intraviteal prefilled syringe 2 mgIndications: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, unspecified whether residential insulin use (HCC) 2 mg IZ PRN 04/08/2023 Active documented as of this encounter (statuses as of 09/02/2024) Active Problems Problem Noted Date Diagnosed Date [...] as of this encounter (statuses as of 09/02/2024) Resolved Problems Problem Noted Date Diagnosed Date [...] as of this encounter (statuses as of 09/02/2024) Immunizations Name Administration Dates Next Due COVID-19 mRNA, LNP-s, No Pre serve, 2-Dose Series (Mamba) 11/08/2021,01/18/2021,12/28/2020 H1N1 2009 Influenza, IM 10/06/2009 Pneumococcal Conjugate Vacci ne, 20-valent ([id number]) 03/28/2024 Pneumococcal Polysaccharide PPV23 (Pneumovax) 07/14/2020,07/23/2011,12/22/2005 Seasonal [...] encounter Miscellaneous Notes * Telephone Encounter - Jaron, No Show - 09/02/2024 7:13 AM EDT Dear Rolan Patel, Looks like you missed an appointment with [facility] ELIZA GABRIEL on 08/22/2024 at 08:00 AM. If you haven't already rescheduled, you have a couple of options: Reschedule in [email or web address] Call us at [phone] Can't make a future appointment? Cancel and let someone else have your spot! It's easy to do via [employer] or by calling us. Thanks for trusting [facility] with your care. We hope to see you back in our office soon. Sincerely, [facility] documented in this encounter Plan of Treatment Upcoming Encounters Date Type Department Care Team (Late st Contact Info) Description 09/04/2024 8:00 AM EDT Hospital Encounter ENDO [facility], Endoscopy Room [facility] [address] [place] [address] Juancarlos Muñoz MD [address] [place] [address] 09/04/2024 8:00 AM EDT - 09/04/2024 8:30 AM EDT Surgery ENDO [facility], Endoscopy Room [facility] [address] [place] [phone] Juancarlos Muñoz MD [address] [place] [address] COLONOSCOPY FLEXIBLE PROXIMAL DIAGNOSTIC 09/05/2024 8:00 AM EDT Office Visit Cardiology, [facility] [address] [place] [address] [facility] Cardiology [facility] [address] [place] [address] 10/03/2024 3:15 PM EST Office Visit Ophthalmology, [facility] [address] [place] [address] Jemal Coleman DO [address] [place] [address] 10/06/2024 7:30 AM EST [address] [address] [place], [facility] [address] [place] [address] 10/11/2024 7:30 AM EST Office Visit Ophthalmology, [place] [address] [id number] Amarjit Snata MD [address] [place] [address] 01/08/2025 10:00 AM EST Laboratory Laboratory, [place] [address] [place] [phone] [facility] [address] [place] [address] 01/16/2025 11:00 AM EST Office Visit Family [facility], [place] [address] [facility] [place] [phone] Tanner Marte MD [address] [place] [address] 02/14/2025 10:30 AM EDT Office Visit Cardiology, [facility] [address] [facility] [place] [address] Robert Flowers O, DO [address] [facility] [place] [address] Scheduled Procedures Name Priority Associated Diagnoses Date/Ti me COLONOSCOPY FLEXIBLE PROXIMA L DIAGNOSTIC Diverticulitis 09/04/2024 8:00 AM EDT Health Maintenance Due Date Last Done Comments HIV Screening 1974 Hepatitis C Screening 1977 Cologuard 2004 Fecal Occult Blood Test 2004 Sigmoidoscopy 2004 Zoster Vaccines (1 of 2) 2009 Colonoscopy 12/04/2016 12/04/2011 Colorectal Cancer Screening 12/04/2016 DTap/Tdap Vaccines (3 - Td or Tdap) [...] 08/17/2025 08/17/2024, 07/23, 07/18/2024, Additional history exists RETIRED - COLONOSCOPY-EVERY 5 YRS AGES 18-100 Discontinued 12/04/2011, 12/04/2011 Pneumococcal Vaccine: 65+ Years Completed 03/28/2024, 07/14/2020, 07/23/2011, Additional history exists Influenza Vaccine (FLU shot) Completed 07/28/2024, 09/05/2021, 08/28/2015, Additional history exists HPV (Gardasil) Vaccine Aged Out No lo nger eligible based on patient's age to complete this topic Hepatitis B Vaccine Aged Out No longe r eligible based on patient's age to complete this topic MENINGOCOCCAL (MENACTRA/MENVEO) Aged Out No longer eligible based on patient's age to complete this topic documented as of this encounter Medical Devices Not on filedocumented as of this encounter Care Teams Personnel Psychologist Relationship Specialty Start Date End Date March, Tanner Santo MD [address] [facility] [place] [address] PCP - General Family Medicine 03/30/24 documented as of this encounter
--- OUTSIDE RECORDS SUMMARY | 2024-11-09 19:47 | External Medical Summary | Summary of Care ---
Author Name Unknown Organization [facility] Address [address] [facility] [place] [address] Phone [phone] Care Team Providers Care Wafer Mounter Name Role Phone Tanner Marte MD Primary Care Provider [phone] Reason for Visit * Reason Comments Outpatient Testing Encounter Details Date Type Department Care Team (Late st Contact Info) Description 08/17/2024 9:20 AM EDT [facility], [facility] [id number] [facility] 132 [place] [address] Chronic systolic heart failure (HCC) Allergies No known active allergiesdocumented as of this encounter (statuses as of 08/17/2024) Medications Medication Sig Dispensed Refills Start Date [...] 3 doses 25 Tab 5 12/03/2014 Active ONETOUCH ULTRA BLUE STRPIndications:DM type 2, not at goal (HCC) use three times a day. Strips for one Touch Mini 90 Strip 5 12/11/2014 Active Aflibercept 2 MG/0.05ML Intravitreal Solution Prefilled Syringe ([employer]Bin1 ATE) Inject into eye 0.05 mL every 4 weeks . 0.15 mL 3 04/07/2022 Active Atorvastatin Calcium 40 MG Oral Tablet (Lipitor)Indications :DM type 2, not at goal (HCC) Take 1 Tablet by mouth in the morning. 100 Tablet 03/30/2024 Active metFORMIN HCl 1000 MG Oral Tablet (Glucophage)Indicati ons:DM type 2, not at goal (HCC) Take 1 Tablet by mouth in the morning and 1 Tablet before bedtime with food. 200 Tablet 03/30/2024 Active Citalopram Hydrobromide 20 MG Oral Tablet (CeleXA)Indications: Anxiety state Take 1 Tablet by mouth in the morning. 100 Tablet 03/31/2024 Active Metoprolol Succinate ER 100 MG Oral Tablet Extended Release 24 Hour (Toprol XL)Indications:Old myocardial infarct,ASCVD (arteriosclerotic cardiovascular disease),HTN, goal below 140/90,Chronic systolic heart failure (HCC),Dilated cardiomyopathy (HCC) Take 1 Tablet by mouth in the morning. 100 Tablet 03/31/2024 Active Metoprolol Succinate ER 50 MG [...] by mouth in the morning. Obtaining from [employer] PAP. Active Ozempic (2 MG/DOSE) 8 MG/3ML Subcutaneous Solution Pen-injector (Semaglutide (2 MG/DOSE)) Inject 2 mg under the skin once a week. OBTAINING FROM [employer] Active Insulin Degludec FlexTouch 200 UNIT/ML Subcutaneous Solution Pen-injector Inject 110 Units under the skin every evening. OBTAINING FROM [employer] Active Insulin Aspart 100 UNIT/ML Injection Solution (NovoLOG) Inject under the skin three times a day before meals. 45 WITH BREAKFAST, 45 WITH LUNCH, AND 55 WITH SUPPER OBTAINING FROM [employer] Active Novofine Pen Needle 32G X 6 MM (NOVOFINE 32G PEN NEEDLE) Use 4 Each as directed. WITH INSULIN INJECTIONS. OBTAINING FROM [employer] Active FreeStyle Ilya 3 Sensor Use as directed. 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, unspecified whether fdc insulin use (HCC) 2 mg IZ PRN 04/08/2023 Active documented as of this encounter (statuses as of 08/17/2024) Active Problems Problem Noted Date Diagnosed Date Hypertensive heart disease w ith chronic systolic congestive heart failure 07/12/2024 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, with long-term current use of insulin 07/12/2024 Type 2 diabetes mellitus wit h diabetic cataract, with long-term current use of insulin 07/12/2024 Coronary artery disease invo lving sitka coronary artery of sitka heart without angina pectoris 06/30/2022 Ischemic cardiomyopathy [...] as of this encounter (statuses as of 08/17/2024) Resolved Problems Problem Noted Date Diagnosed Date [...] as of this encounter (statuses as of 08/17/2024) Immunizations Name Administration Dates Next Due COVID-19 mRNA, LNP-s, No Pre serve, 2-Dose Series ([employer]) 11/08/2021,01/18/2021,12/28/2020 H1N1 2009 Influenza, IM 10/06/2009 Pneumococcal Conjugate Vacci ne, 20-valent ([id number]) 03/28/2024 Pneumococcal Polysaccharide PPV23 (Pneumovax) 07/14/2020,07/23/2011,12/22/2005 Seasonal Influenza Virus Vac cine, Unspecified Formulation 08/28/2015,09/26/2013,07/23/2013,09/20,09/17/2011,10/09/2010,09/05/2009 ,09/25/2008,09/22/2005,12/16/2004,08/23 Seasonal Influenza, High Dos e, Trivalent, PF, IM (Fluzone HD) 07/28/2024 Seasonal Influenza, PF, 6 M & above, IM , (FluLaval or Fluzone) 09/05/2021 Seasonal Influenza, Quadriva lent, No Preserve, IM 08/28/2015 Seasonal Influenza, Trivalen t, (IIV3), with Preserv, (Fluzone) 09/26/2013,07/23/2013,09/20/2012,09/17,10/09/2010,09/05/2009,09/25/2008 TD, Preservative Free 08/04/2000 TDAP, Age 6 [...] on file documented as of this encounter Plan of Treatment Upcoming Encounters Date Type Department Care Team (Late st Contact Info) Description 08/22/2024 8:00 AM EDT [facility] [address] [place] [address] [facility] Cardiology [facility] [address] [place] [address] 09/04/2024 8:00 AM EDT Hospital Encounter ENDO [facility], Endoscopy Room [facility] [address] [place] [phone] Juancarlos Muñoz MD [address] [place] [address] 09/04/2024 8:00 AM EDT - 09/04/2024 8:30 AM EDT Surgery ENDO [facility], Endoscopy Room [facility] [address] [place], [place] [phone] Juancarlos Muñoz MD [address] [place], [place] [address] COLONOSCOPY FLEXIBLE PROXIMAL DIAGNOSTIC 10/03/2024 3:15 PM EST Office Visit Ophthalmology, [facility] [address] [place] [address] Jemal Coleman DO [address] [place] [address] 10/06/2024 7:30 AM EST Office Visit Pharmacy, [place] [address] [place] [facility] [address] [facility] [address] [place] [address] 10/11/2024 7:30 AM EST [facility], [place] [facility] [place] [address] Amarjit Santa MD [address] [facility] [address] 01/08/2025 10:00 AM EST Laboratory Laboratory, [place] [address] [place] [facility] [place] [phone] [facility] [address] [place] [facility] [place] [address] 01/16/2025 11:00 AM EST Office Visit Family [facility], [place] [address] [place] [address] MarchTanner MD [address] [place] [address] 02/14/2025 10:30 AM EDT Office Visit Cardiology, [facility] [address] [place] [address] Robert Flowers DO [address] [place] [address] Pending Results Name Type Priority Associated Diagnoses Date /Time BASIC METABOLIC PANEL Lab Routine Chronic systolic heart failure (HCC) 08/17/2024 8:47 AM EDT Scheduled Procedures Name Priority Associated Diagnoses Date/Ti or COLONOSCOPY FLEXIBLE PROXIMA L DIAGNOSTIC Diverticulitis 09/04/2024 [...] 04/19/2024, , 04/10/2024, Additional history exists GFR 08/09/2025 08/09/2024, 06/23, 07/04/2024, Additional history exists RETIRED - COLONOSCOPY-EVERY 5 [...] Not on filedocumented as of this encounter Visit Diagnoses Diagnosis Chronic systolic heart failure (HCC) Chronic systolic heart failure Diverticulitis Diverticulitis of colon (without mention of hemorrhage) documented in this encounter Care Teams Wafer Mounter Relationship Specialty Start Date End Date March, Tanner Snato MD [address] [place] [address] PCP - General Family Medicine 03/30/24 documented as of this encounter
--- OUTSIDE RECORDS SUMMARY | 2024-11-09 19:47 | External Medical Summary | Summary of Care ---
Author Name Unknown Organization [facility] Address [address] [facility] [place] [address] Phone [phone] Care Team Providers Care Naphthalene Operator Helper Name Role Phone Tanner Marte MD Primary Care Provider [phone] Reason for Visit * Reason Comments Dosage Adjustment In Person (Anticoag Cl inic) Congestive Heart Failure Encounter Details Date Type Department Care Team (Late st Contact Info) Description 09/05/2024 8:00 AM EDT Office Visit Cardiology, [facility] [address] [facility] [place] [address] [facility] Cardiology [facility] [address] [facility] [place] [address] Dyslipidemia, goal LDL below 70*; Old myocardial infarct; ASCVD (arteriosclerotic cardiovascular disease); HTN, goal below 140/90; Chronic systolic heart failure (HCC); Dilated cardiomyopathy (HCC) Allergies No known active allergiesdocumented as of this encounter (statuses as of 09/05/2024) Medications Medication Sig Dispensed Refills Start Date End Date Status MULTIVITAMIN PO TABSIndications:ASC VD (arteriosclerotic cardiovascular disease) once daily 34 3 0 Active VITAMIN C-IRON 125-200 MG PO TABSIndications:ASC VD (arteriosclerotic cardiovascular disease) one daily 31 Tab 3 1 Active LANCETS MISCIndications:DM type 2, not at goal (HCC) one touch ultra three times daily 90 Box 5 1 Active ASPIRIN LOW DOSE 81 MG PO CHEWIndications:Old myocardial infarct,Routine medical exam,DM type 2, not at goal (HCC),HTN, goal below 130/80,ASCVD (arteriosclerotic cardiovascular disease) 1 TABLET DAILY 30 Tab 1 2 Active NITROGLYCERIN 0.4 MG SL SUBLIndications:ASC VD (arteriosclerotic cardiovascular disease),Old myocardial infarct one tab under tongue as needed for chest pain maximum 3 doses 25 Tab 5 5 Active Additional Information Patient not taking.Reported on 08/29/2024 LTG Exam Prep PlatformTOPlaza Bank ULTRA BLUE STRPIndications:DM type 2, not at goal (HCC) use three times a day. Strips for one Touch Mini 90 Strip 5 5 Active Aflibercept 2 MG/0.05ML Intravitreal Solution Prefilled Syringe ([employer]) Inject into eye 0.05 mL every 4 weeks . 0.15 mL 3 2 Active Atorvastatin Calcium 40 MG Oral Tablet (Lipitor)Indication s:DM type 2, not at goal (HCC) Take 1 Tablet by mouth in the morning. 100 Tablet 4 4 Active metFORMIN HCl 1000 MG Oral Tablet (Glucophage)Indicat ions:DM type 2, not at goal (HCC) Take 1 Tablet by mouth in the morning and 1 Tablet before bedtime with food. 200 Tablet 4 4 Active Citalopram Hydrobromide 20 MG Oral Tablet (CeleXA)Indications :Anxiety state Take 1 Tablet by mouth in the morning. 100 Tablet 4 4 Active Apixaban 5 MG Oral Tablet (Eliquis)Indication s:S/P ablation of atrial flutter,Typical atrial flutter (HCC) Take 1 Tablet by mouth in the morning and 1 Tablet before bedtime. 200 Tablet 4 4 Active Dapagliflozin Propanediol 10 MG Oral Tablet (Farxiga) Take 1 Tablet by mouth in the morning. Obtaining from [employer] PAP. Active Ozempic (2 MG/DOSE) 8 MG/3ML Subcutaneous Solution Pen-injector (Semaglutide (2 MG/DOSE)) Inject 2 mg under the skin once a week. OBTAINING FROM [employer] PAP Active Insulin Degludec FlexTouch 200 UNIT/ML Subcutaneous Solution Pen-injector Inject 110 Units under the skin every evening. OBTAINING FROM [employer] Active Insulin Aspart 100 UNIT/ML Injection Solution (NovoLOG) Inject under the skin three times a day before meals. 45 WITH BREAKFAST, 45 WITH LUNCH, AND 55 WITH SUPPER OBTAINING FROM [employer] Active Novofine Pen Needle 32G X 6 MM (NOVOFINE 32G PEN NEEDLE) Use 4 Each as directed. WITH INSULIN INJECTIONS. OBTAINING FROM [employer] Active FreeStyle Ilya 3 Sensor Use as directed. Supplied by [employer] Active Apixaban 5 MG Oral Tablet (Eliquis)Indication s:Typical atrial flutter (HCC) Take 1 Tablet by mouth in the morning and 1 Tablet before bedtime. 30 Tablet 4 Active Spironolactone 25 MG Oral Tablet (Aldactone) Take 1/2 Tablet by mouth in the morning. 45 Tablet 1 4 Active Furosemide 40 MG Oral Tablet (Lasix) Take 1 Tablet by mouth daily in the morning as needed for swelling or weight gain 90 Tablet 1 4 Active Entresto 24-26 MG Oral Tablet (sacubitril-valsart an 24-26 mg per tab) Take 1 Tablet by mouth in the morning and 1 Tablet before bedtime. 200 Tablet 1 4 Active Metoprolol Succinate ER 100 MG Oral Tablet Extended Release 24 Hour (Toprol XL)Indications:Old myocardial infarct,ASCVD (arteriosclerotic cardiovascular disease),HTN, goal below 140/90,Chronic systolic heart failure (HCC),Dilated cardiomyopathy (HCC) Take 1 Tablet by mouth in the morning and 1 Tablet before bedtime. 200 Tablet 4 4 Active Metoprolol Succinate ER 100 MG Oral Tablet Extended Release 24 Hour (Toprol XL)Indications:Old myocardial infarct,ASCVD (arteriosclerotic cardiovascular disease),HTN, goal below 140/90,Chronic systolic heart failure (HCC),Dilated cardiomyopathy (HCC) Take 1 Tablet by mouth in the morning. 100 Tablet 4 4 09/05/20 24 Discontinued Metoprolol Succinate ER 50 MG Oral Tablet Extended Release 24 Hour (toPROL XL)Indications:Old myocardial infarct,ASCVD (arteriosclerotic cardiovascular disease),HTN, goal below 140/90,Chronic systolic heart failure (HCC),Dilated cardiomyopathy (HCC) Take 1 Tablet by mouth at bedtime. 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) 2 mg IZ PRN 04/08/2023 Active Aflibercept (Eylea) intraviteal prefilled syringe 2 mgIndications: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, unspecified whether care home insulin use (HCC) 2 mg IZ PRN 04/08/2023 Active documented as of this encounter (statuses as of 09/05/2024) Active Problems Problem Noted Date Diagnosed Date Hypertensive heart disease w ith chronic systolic congestive heart failure 07/12/2024 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, with long-term current use of insulin 07/12/2024 Type 2 diabetes mellitus wit h diabetic cataract, with long-term current use of insulin 07/12/2024 Coronary artery disease invo lving [place] coronary artery of [place] heart without angina pectoris 06/30/2022 Ischemic cardiomyopathy [...] as of this encounter (statuses as of 09/05/2024) Resolved Problems Problem Noted Date Diagnosed Date [...] as of this encounter (statuses as of 09/05/2024) Immunizations Name Administration Dates Next Due COVID-19 mRNA, LNP-s, No Pre serve, 2-Dose Series ([employer]) 11/08/2021,01/18/2021,12/28/2020 H1N1 2009 Influenza, IM 10/06/2009 Pneumococcal Conjugate Vacci ne, 20-valent ([id number]) 03/28/2024 Pneumococcal Polysaccharide PPV23 (Pneumovax) 07/14/2020,07/23/2011,12/22/2005 Seasonal [...] Sign Reading Time Taken Comments Blood Pressure 111/63 09/05/2024 8:07 AM EDT Pulse 93 09/05/2024 8:07 AM EDT Temperature - - Respiratory Rate - - Oxygen Saturation - - Inhaled Oxygen Concentration - - Weight 120.7 kg (266 lb) 09/05/2024 8:07 AM EDT Height - - Body Mass Index 39.26 09/04/2024 7:07 AM EDT documented in this encounter Patient Instructions * Patient Instructions* Tiera Shepherd RPh - 09/05/2024 8:19 AM EDT Increase Metoprolol to 100 mg in the morning and 100 mg in the afternoon Get Fasting blood work and Miryam will review this at your appointment Our number is [phone] if you have any questions or concerns documented in this encounter Progress Notes * Tiera Shepherd RPh - 09/05/2024 8:02 AM EDT PHARMACY CHRONIC DISEASE MANAGEMENT - HEART FAILURE Rolan Patel is an 64 year old patient referred to the Heart Failure MTM clinic by Dr. Flowers for the following: General heart failure medication optimization HPI: Patient has heart failure assessment: Heart failure with REDUCED ejection fraction (SYStolic heart failure) with ischemic heart disease Most recent LVEF: 40-44% 08/17/24 echo Previous LVEF: 40 % Date: 03/08/23 Modality: Echo 40 % Date: 12/10/20 Modality: Echo 52 % Date: 03/26/21 Modality: Stress test Home vitals: Does patient monitor BP at home? no Any dizziness or lightheadedness: Denies Home BP log results: N/A Does patient monitor HR at home? no Home HR log results: N/A Does patient monitor weight at home? yes Any increased edema or shortness of breath: Denies Home weight log results: 265-267 lbs at home Objective: BP Readings from Last 3 Encounters: 09/05/24 111/63 09/04/24 107/55 07/28/24 129/72 Pulse Readings from Last 3 Encounters: 09/05/24 93 09/04/24 86 07/28/24 83 Wt Readings from Last 3 Encounters: 09/05/24 120.7 kg (266 lb) 09/04/24 121.1 kg (267 lb) 07/28/24 121.4 kg (267 lb 9.6 oz) Lab Results Component Value Date/Time CREATININE - [facility] 1.0 08/17/2024 08:47 AM CREATININE - [facility] 1.0 08/09/2024 07:57 AM CREATININE - [facility] 1.0 07/18/2024 09:55 AM CREATININE - [facility] 1.0 11/05/2020 09:00 AM CREATININE - [facility] 1.0 10/22/2020 10:00 AM CREATININE - [facility] 1.1 07/31/2020 03:21 PM CREATININE, RANDOM URINE - [facility] 40 03/28/2024 09:54 AM CREATININE, RANDOM URINE - [facility] 63 02/22/2018 08:45 AM CREATININE, RANDOM URINE - [facility] 94 12/05/2015 08:06 AM CREATININE, RANDOM URINE - [facility] 82 02/18/2015 10:14 AM Lab Results Component Value Date/Time SODIUM - [facility] 140 08/17/2024 08:47 AM SODIUM - [facility] 137 08/09/2024 07:57 AM SODIUM - [facility] 137 07/18/2024 09:55 AM SODIUM - [facility] 136 11/05/2020 09:00 AM SODIUM - [facility] 137 10/22/2020 10:00 AM SODIUM - [facility] 138 07/31/2020 03:21 PM SODIUM POCT - [facility] 137 03/02/2002 10:25 AM SODIUM POCT - [facility] 136 03/02/2002 09:46 AM SODIUM POCT - [facility] 135 03/02/2002 07:35 AM Lab Results Component Value Date/Time POTASSIUM - [facility] 4.5 08/17/2024 08:47 AM POTASSIUM - [facility] 5.2 (H) 08/09/2024 07:57 AM POTASSIUM - [facility] 4.6 07/18/2024 09:55 AM POTASSIUM - [facility] 4.7 11/05/2020 09:00 AM POTASSIUM - [facility] 5.4 (H) 10/22/2020 10:00 AM POTASSIUM - [facility] 4.9 07/31/2020 03:21 PM POTASSIUM POCT - [facility] 3.6 03/02/2002 10:25 AM POTASSIUM POCT - [facility] 3.9 03/02/2002 09:46 AM POTASSIUM POCT - [facility] 3.9 03/02/2002 07:35 AM Lab Results Component Value Date/Time HGB 16.3 03/28/2024 09:54 AM HGB 15.1 03/04/2023 11:45 AM HGB 14.6 10/07/2021 08:45 AM HGB 16.0 07/31/2020 03:21 PM HGB 15.6 02/22/2018 08:45 AM HGB 13.7 (L) 12/21/2014 08:26 AM Diet Review: not reviewed Current Heart Failure Medication(s): Metoprolol ER 100 mg AM, 50 mg PM Farxiga 10 mg daily (AZ&Me) Entresto 24-26 mg twice daily - started 07/07/24 ([facility]) Lasix 40 mg daily Eliquis 5 mg twice daily Atorvastatin 40 mg daily Aspirin 81 mg daily Nitrostat 0.4 mg prn chest pain Spironolactone 12.5 mg daily - Started 07/28/24 Eligible for [facility]? Agree or Declined? Already uses Assessment & Plan: Cardiomyopathy - Mixed ischemic/nonischemic etiology in the setting of prolonged tachycardia, atrial flutter with rapid ventricular response. - EF40-45% per most recent echocardiogram 03/08/2023 -Will not titrate Entresto or aldactone due to hx elevated K - Increase metoprolol to 100 mg BID Patient feeling well today. Compliant with and tolerating medications. Does not monitor BP/HR at home but does monitor weights. Denies dizziness, swelling, and shortness of breath. Due to lower bloodpressures and higher heart rates will plan to increase metoprolol to 100 mg BID to maximize dosing.Patient also experienced hyperkalemia after starting spironolactone 12.5 mg in July. Due to these constraints, with the increase in metoprolol, the patients GDMT is optimized. Over income for PACE. Patient has [place] for Entresto and AZ&me for Farxiga. 2. Typical atrial flutter status post CTI ablation with Dr. Swartz 08/16/20 3. Coronary Artery Disease - Chronic ischemic heart disease with hx of inferior posterior MS s/p CABG in 2001 with LEWIS to LAD, radial artery to PDA. 4. Dyslipidemia, Hypertriglyceridemia - LDL controlled, 59 mg/dL (goal <55 mg/dL) - TG elevated at 269 mg/dL which is down trending - Will monitor TG level and consider adding Vascepa at future visit -Can follow up with ZABRINA Vora 5. Type 2 Diabetes - HbA1c further improved from 7.4% to 7.1% - Follows with ZABRINA [place] - Continue current medications Heart Failure medications: INC: Metoprolol ER 100 mg AM, 100 mg PM Farxiga 10 mg daily (AZ&Me) Entresto 24-26 mg twice daily - started 07/07/24 ([facility]) Lasix 40 mg daily Eliquis 5 mg twice daily Atorvastatin 40 mg daily Aspirin 81 mg daily Nitrostat 0.4 mg prn chest pain Spironolactone 12.5 mg daily - Started 07/28/24 Labs Due: Lipid panel ordered to trend TG Vaccines Due: Not reviewed Follow up: None needed MTM will sign off at this time as GDMT is optimized. I spent a total of 20-29 minutes (exact time 25 mins) on the date of service in preparation, delivery, and documentation of the care provided to Rolan Patel excluding any time spent in the performance of separately billed services or time spent by another provider/QHP. Tiera Shepherd [facility] Clinical Pharmacist Medication Therapy Disease Management 09/05/2024,8:03 AM documented in this encounter Plan of Treatment Upcoming Encounters Date Type Department Care Team (Late st Contact Info) Description 10/03/2024 3:15 PM EST Office Visit Ophthalmology, [facility] [address] [place] [address] Jemal Coleman, [address] [place] [address] 10/06/2024 7:30 AM EST Office Visit Pharmacy, [place] [address] [place] [address] [facility] [address] [place] [address] 10/11/2024 7:30 AM EST Office Visit Ophthalmology, [place] [address] [facility] [place] [address] Amarjit Santa MD [address] [place] [address] 01/08/2025 10:00 AM EST Laboratory Laboratory, [place] [address] [place] [phone] [facility] [address] [place] [address] 01/16/2025 11:00 AM EST Office Visit Family [facility] [address] [place] [id number] Tanner Marte MD [address] [place] [address] 02/14/2025 10:30 AM EDT Office Visit Cardiology, [facility] [address] [place] [address] Robert Flowers, [address] [place] [address] Scheduled Orders Name Type Priority Associated Diagnoses Orde r Schedule LIPID PANEL WITH DIRECT LDL IF TG IS HIGH Lab Routine Dyslipidemia, goal LDL below 70 Expected: 09/05/2024, Expires: 09/05/2025 Health Maintenance Due Date Last Done Comments [...] this encounter Medical Devices Implanted Type Area Roll Clamp Operator Device Identifier Shelf Expiration Date Model / Serial / Lot Hemostatic Clip Res 235cm - [id number] Implanted:Qty: 1 on 09/04/2024 by Juancarlos Muñoz MD at ENDOSCOPY [facility] : ENDOSCOPY 12/17/2026 [id number] / / [id number] documented as of this encounter Visit Diagnoses Diagnosis Dyslipidemia, goal LDL below 70- Primary Other and unspecified hyperlipidemia Old myocardial infarct Old myocardial infarction ASCVD (arteriosclerotic cardiovascular disease) Unspecified cardiovascular disease HTN, goal below 140/90 Unspecified essential hypertension Chronic systolic heart failure (HCC) Chronic systolic heart failure Dilated cardiomyopathy (HCC) Other primary cardiomyopathies documented in this encounter Care Teams Naphthalene Operator Helper Relationship Specialty Start Date End Date March, Tanner Santo MD [address] [place] [address] PCP - General Family Medicine 03/30/24 documented as of this encounter
--- OUTSIDE RECORDS SUMMARY | 2024-11-09 19:47 | External Medical Summary ---
Author Name Unknown Address Unknown Organization : Laboratory Report Ordering Provider Test Date Status ETIENNE VIVAR 09/04/2024 08:36:18 Final Observation Date Value Abnormality Reference (Units ) Status Glucose Point of Care 09/04/2024 08:36:18 212 Above high normal 70-120 (mg/dL) Final Performing Location
--- OUTSIDE RECORDS SUMMARY | 2024-11-09 19:47 | External Medical Summary | Summary of Care ---
Author Name Unknown Organization [facility] Address [address] [facility] [place] [address] Phone [phone] Care Team Providers Care Irrigating Pump Operator Name Role Phone Tanner Marte MD Primary Care Provider [phone] Reason for Visit * Reason Onset Date Comments Test Results 08/18/2024 Encounter Details Date Type Department Care Team (Late st Contact Info) Description 08/18/2024 Telephone Cardiology, [facility] [address] [place] [address] Yoni Navas PA-C [address] [place] [id number] Test Results Allergies No known active allergiesdocumented as of this encounter (statuses as of 08/18/2024) Medications Medication Sig Dispensed Refills Start Date [...] Aflibercept 2 MG/0.05ML Intravitreal Solution Prefilled Syringe ([employer]) Inject into eye 0.05 mL every 4 [...] by mouth in the morning. Obtaining from [employer] PAP. Active Ozempic (2 MG/DOSE) 8 MG/3ML Subcutaneous Solution Pen-injector (Semaglutide (2 MG/DOSE)) Inject 2 mg under the skin once a week. OBTAINING FROM [employer] Active Insulin Degludec FlexTouch 200 UNIT/ML Subcutaneous Solution Pen-injector Inject 110 Units under the skin every evening. OBTAINING FROM [employer] Active Insulin Aspart 100 UNIT/ML Injection Solution (NovoLOG) Inject under the skin three times a day before meals. 45 WITH BREAKFAST, 45 WITH LUNCH, AND 55 WITH SUPPER OBTAINING FROM [employer] Active Novofine Pen Needle 32G X 6 MM (NOVOFINE 32G PEN NEEDLE) Use 4 Each as directed. WITH INSULIN INJECTIONS. OBTAINING FROM [employer] Active FreeStyle Ilya 3 Sensor Use as directed. 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, 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) 2 mg IZ PRN 04/08/2023 Active documented as of this encounter (statuses as of 08/18/2024) Active Problems Problem Noted Date Diagnosed Date Hypertensive heart disease w ith chronic systolic congestive heart failure 07/12/2024 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, with long-term current use of insulin 07/12/2024 Type 2 diabetes mellitus wit h diabetic cataract, with long-term current use of insulin 07/12/2024 Coronary artery disease invo lving squaxin coronary artery of squaxin heart without angina pectoris 06/30/2022 Ischemic cardiomyopathy [...] as of this encounter (statuses as of 08/18/2024) Resolved Problems Problem Noted Date Diagnosed Date [...] as of this encounter (statuses as of 08/18/2024) Immunizations Name Administration Dates Next Due COVID-19 mRNA, LNP-s, No Pre serve, 2-Dose Series ([employer]) 11/08/2021,01/18/2021,12/28/2020 H1N1 2009 Influenza, IM 10/06/2009 Pneumococcal Conjugate Vacci ne, 20-valent ([id number]) 03/28/2024 Pneumococcal Polysaccharide PPV23 (Pneumovax) 07/14/2020,07/23/2011,12/22/2005 Seasonal [...] encounter Miscellaneous Notes * Telephone Encounter - Ren King LPN - 08/18/2024 4:43 PM EDT Called and informed patient of Yoni's message. Patient verbalized understanding. ----- Message from Yoni Navas sent at 08/18/2024 4:42 PM EDT ----- Echo findings are stable. EF 40-44%. Continue GDMT titration via [facility] * Telephone Encounter - Ren King LPN - 08/18/2024 4:43 PM EDT ----- Message from Yoni Navas sent at 08/18/2024 4:42 PM EDT ----- Echo findings are stable. EF 40-44%. Continue GDMT titration via [facility] documented in this encounter Plan of Treatment Upcoming Encounters Date Type Department Care Team (Late st Contact Info) Description 08/22/2024 8:00 AM EDT Office Visit Cardiology, [facility] [address] [place] [address] [facility] [address] Cardiology [facility] [address] [place] [address] 09/04/2024 8:00 AM EDT Hospital Encounter ENDO [facility], Endoscopy Room [facility] [address] [place] [address] Juancarlos Muñoz MD [address] [place] [address] 09/04/2024 8:00 AM EDT - 09/04/2024 8:30 AM EDT Surgery ENDO [facility], Endoscopy Room [facility] [address] [place] [address] Juancarlos Muñoz MD [address] [place] [address] COLONOSCOPY FLEXIBLE PROXIMAL DIAGNOSTIC 10/03/2024 3:15 PM EST Office Visit Ophthalmology, [facility] [address] [place] [address] Jemal Coleman DO [address] [place] [address] 10/06/2024 7:30 AM EST Office Visit Pharmacy, [place] [address] [place] [address] [facility] [address] [place] [address] 10/11/2024 7:30 AM EST Office Visit Ophthalmology, [place] [address] [facility] [place] [address] Amarjit Santa MD [address] [place] [address] 01/08/2025 10:00 AM EST Laboratory Laboratory, [place] [address] [place] [phone] [facility] [address] [place] [address] 01/16/2025 11:00 AM EST Office Visit Family [facility], [place] [address] [facility] [phone] MarchTanner MD [address] [place] [address] 02/14/2025 10:30 AM EDT Office Visit Cardiology, [facility] [address] [place] [address] Robert Flowers, [address] [place] [address] Scheduled Procedures Name Priority Associated Diagnoses Date/Ti [...] filedocumented as of this encounter Care Teams Irrigating Pump Operator Relationship Specialty Start Date End Date March, Tanner Santo MD [address] [place] [address] PCP - General Family Medicine 03/30/24 documented as of this encounter
--- OUTSIDE RECORDS SUMMARY | 2024-11-09 19:47 | External Medical Summary | Summary of Care ---
Author Name Unknown Organization [facility] Address [address] [facility] [place] [address] Phone [phone] Care Team Providers Care Glue Maker Bone Name Role Phone Tanner Marte MD Primary Care Provider Encounter Details Date Type Department Care Team (Late st Contact Info) Description 08/10/2024 Telephone Pharmacy, [place] [place] [address] [facility] [address] [place] [address] Allergies No known active allergiesdocumented as of this encounter (statuses as of 08/10/2024) Medications Medication Sig Dispensed Refills Start Date [...] Aflibercept 2 MG/0.05ML Intravitreal Solution Prefilled Syringe ([employer]) Inject into eye 0.05 mL every 4 [...] the skin once a week. OBTAINING FROM [employer] Active Insulin Degludec FlexTouch 200 UNIT/ML Subcutaneous Solution Pen-injector Inject 110 Units under the skin every evening. OBTAINING FROM [employer] Active Insulin Aspart 100 UNIT/ML Injection Solution (NovoLOG) Inject under the skin three times a day before meals. 45 WITH BREAKFAST, 45 WITH LUNCH, AND 55 WITH SUPPER OBTAINING FROM [employer] Active Novofine Pen Needle 32G X 6 MM (NOVOFINE 32G PEN NEEDLE) Use 4 Each as directed. WITH INSULIN INJECTIONS. OBTAINING FROM [employer] Active FreeStyle Ilya 3 Sensor Use as directed. 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, with long-term current use of insulin 07/12/2024 Type 2 diabetes mellitus wit h diabetic cataract, with long-term current use of insulin 07/12/2024 Coronary artery disease invo lving seminole coronary artery of seminole heart without angina pectoris 06/30/2022 Ischemic cardiomyopathy [...] as of this encounter (statuses as of 08/10/2024) Resolved Problems Problem Noted Date Diagnosed Date [...] as of this encounter (statuses as of 08/10/2024) Immunizations Name Administration Dates Next Due COVID-19 mRNA, LNP-s, No Pre serve, 2-Dose Series ([employer]O) 11/08/2021,01/18/2021,12/28/2020 H1N1 2009 Influenza, IM 10/06/2009 Pneumococcal Conjugate Vacci ne, 20-valent ([id number]) 03/28/2024 Pneumococcal Polysaccharide PPV23 (Pneumovax) 07/14/2020,07/23/2011,12/22/2005 Seasonal [...] encounter Miscellaneous Notes * Telephone Encounter - Tiera Shepherd [facility] - 08/10/2024 11:19 AM EDT Contacts Contact Date/Time Type Contact Phone/Fax 08/10/2024 11:31 AM EDT Phone (Outgoing) Rolan Patel (Self) [phone] (M) Spoke to Patient Spoke to patient and informed him of his high potassium level of 5.2 on his BMP from 08/09. Lab Results Component Value Date/Time POTASSIUM - [facility] 5.2 (H) 08/09/2024 07:57 AM POTASSIUM - [facility] 4.6 07/18/2024 09:55 AM POTASSIUM - [facility] 4.5 07/04/2024 09:54 AM POTASSIUM - [facility] 4.7 11/05/2020 09:00 AM POTASSIUM - [facility] 5.4 (H) 10/22/2020 10:00 AM POTASSIUM - [facility] 4.9 07/31/2020 03:21 PM POTASSIUM POCT - [facility] 3.6 03/02/2002 10:25 AM POTASSIUM POCT - [facility] 3.9 03/02/2002 09:46 AM POTASSIUM POCT - [facility] 3.9 03/02/2002 07:35 AM Educated patient on low potassium diet. Handout was offered to be sent to the patient via email as he does not have MyG, but states that he feels confident with reading labels and looking up potassium content in certain foods like fruits and vegetables. Reviewed certain foods that are high and veryhigh in potassium, which included foods that the patient consumes regularly (such as potatoes, bananas, broccoli, tomatoes and asparagus) safe range of potassium is between 3.5-5. Patient was instructed to get an updated BMP in one week (08/17) to recheck the potassium level. He is agreeable to adhere to a low potassium diet and get lab work (ordered). Tiera Shepherd, NatalieD Clinical Pharmacist 08/10/2024 11:39 AM documented in this encounter Plan of Treatment Upcoming Encounters Date Type Department Care Team (Late st Contact Info) Description 08/17/2024 8:15 AM EDT Cardiac Studies Cardiac Studies, [facility] [address] [place] [address] 08/22/2024 8:00 AM EDT [facility] [place] [address] [facility] [place] [address] [place] [address] 09/04/2024 8:00 AM EDT Hospital Encounter ENDO [facility], Endoscopy Room [facility] [address] [place] [phone] Juancarlos Muñoz MD [address] [place] [address] 09/04/2024 8:00 AM EDT - 09/04/2024 8:30 AM EDT Surgery ENDO [facility], Endoscopy Room [facility] [address] [place] [address] Juancarlos Muñoz MD [address] [place], [place] [address] COLONOSCOPY FLEXIBLE PROXIMAL DIAGNOSTIC 10/03/2024 3:15 PM EST Office Visit Ophthalmology, [facility] [address] [place] [address] Jemal Coleman DO [address] [place] [address] 10/06/2024 7:30 AM EST Office Visit Pharmacy, [place] [address] [place] [address] [facility] [address] [place] [address] 10/11/2024 7:30 AM EST Office Visit Ophthalmology, [place] [facility] [place] [address] Amarjit Santa MD [address] [place] [address] 01/08/2025 10:00 AM EST Laboratory Laboratory, [place] [address] [facility] [phone] [facility] [address] [facility] [place] [address] 01/16/2025 11:00 AM EST Office Visit Family [facility], [place] [address] [place] [address] MarchTanner MD [address] [place] [address] 02/14/2025 10:30 AM EDT Office Visit Cardiology, [facility] [address] [place] [address] Robert Flowers DO [address] [place] [address] Scheduled Orders Name Type Priority Associated Diagnoses Orde r Schedule BASIC METABOLIC PANEL Lab Routine Chronic systolic heart failure (HCC) Expected: 08/17/2024, Expires: 08/10/2025 Scheduled Procedures Name Priority Associated Diagnoses Date/Ti [...] failure (HCC)- Primary Chronic systolic heart failure Diverticulitis Diverticulitis of colon (without mention of hemorrhage) documented in this encounter Care Teams Glue Maker Bone Relationship Specialty Start Date End Date March, Tanner Santo MD [address] [place] [address] PCP - General Family Medicine 03/30/24 documented as of this encounter
--- OUTSIDE RECORDS SUMMARY | 2024-11-09 19:47 | External Medical Summary | Summary of Care ---
Author Name Unknown Organization [facility] Address [address] [facility] [place] [address] Phone [phone] Care Team Providers Care Online Media Buyer Name Role Phone Tanner Marte MD Primary Care Provider [phone] Reason for Visit * Reason Comments Dosage Adjustment In Person (Anticoag Cl inic) Congestive Heart Failure Encounter Details Date Type Department Care Team (Late st Contact Info) Description 09/05/2024 8:00 AM EDT Office Visit Cardiology, [facility] [address] [facility] [place] [address] [facility] Cardiology [facility] [address] [facility] [place] [address] Dyslipidemia, goal LDL below 70*; Old myocardial [...] Additional Information Patient not taking.Reported on 08/29/2024 ImmuneticsTOSunGard ULTRA BLUE STRPIndications:DM type 2, not at goal (HCC) use three times a day. Strips for one Touch Mini 90 Strip 5 5 Active Aflibercept 2 MG/0.05ML Intravitreal Solution Prefilled Syringe (E[employer]) Inject into eye 0.05 mL every 4 [...] the skin once a week. OBTAINING FROM [employer] PAP Active Insulin Degludec FlexTouch 200 UNIT/ML Subcutaneous Solution Pen-injector Inject 110 Units under the skin every evening. OBTAINING FROM [employer] Active Insulin Aspart 100 UNIT/ML Injection Solution (NovoLOG) Inject under the skin three times a day before meals. 45 WITH BREAKFAST, 45 WITH LUNCH, AND 55 WITH SUPPER OBTAINING FROM [employer] Active Novofine Pen Needle 32G X 6 MM (NOVOFINE 32G PEN NEEDLE) Use 4 Each as directed. WITH INSULIN INJECTIONS. OBTAINING FROM [employer] Active FreeStyle Ilya 3 Sensor Use as directed. 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 (HCC) 2 mg IZ PRN 04/08/2023 Active Aflibercept (Eylea) intraviteal prefilled syringe 2 mgIndications: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, unspecified whether snf insulin use (HCC) 2 mg IZ PRN [...] insulin 07/12/2024 Coronary artery disease invo lving stebbins coronary artery of stebbins heart without angina pectoris 06/30/2022 Ischemic cardiomyopathy [...] mRNA, LNP-s, No Pre serve, 2-Dose Series ([employer]) 11/08/2021,01/18/2021,12/28/2020 H1N1 2009 Influenza, IM 10/06/2009 Pneumococcal Conjugate Vacci ne, 20-valent ([id number]) 03/28/2024 Pneumococcal Polysaccharide PPV23 (Pneumovax) 07/14/2020,07/23/2011,12/22/2005 Seasonal [...] this at your appointment Our number is [phone] if you have any questions or concerns [...] 24-26 mg twice daily - started 07/07/24 ([facility]) Lasix 40 mg daily Eliquis 5 mg twice daily Atorvastatin 40 mg daily Aspirin 81 mg daily Nitrostat 0.4 mg prn chest pain Spironolactone 12.5 mg daily - Started 07/28/24 [email or web address]? Agree or Declined? Already [...] optimized. Over income for PACE. Patient has [employer] for Entresto and [place]&me for Farxiga. 2. Typical atrial flutter status post CTI ablation with Dr. Swartz 08/16/20 3. Coronary Artery Disease - Chronic ischemic heart disease with hx of inferior posterior [place] s/p CABG in 2001 with LEWIS to [...] 24-26 mg twice daily - started 07/07/24 ([facility]) Lasix 40 mg daily Eliquis 5 [...] time spent by another provider/QHP. Tiera Shepherd [facility] Clinical Pharmacist Medication Therapy Disease Management 09/05/2024,8:03 AM documented in this encounter Plan of Treatment Upcoming Encounters Date Type Department Care Team (Late st Contact Info) Description 10/03/2024 3:15 PM EST Office Visit Ophthalmology, [facility] [address] [place] [address] Jemal Coleman, [address] [place] [address] 10/06/2024 7:30 AM EST Office Visit Pharmacy, [place] [address] [place] [address] [facility] [address] [place] [address] 10/11/2024 7:30 AM EST Office Visit Ophthalmology, [place] [address] [place] [address] Amarjit Santa MD [address] [place] [address] 01/08/2025 10:00 AM EST Laboratory Laboratory, [place] [address] [place] [phone] [facility] [address] [place] [address] 01/16/2025 11:00 AM EST Office Visit Family [facility] [address] [place] [phone] Tanner Marte MD [address] [place] [address] 02/14/2025 10:30 AM EDT Office Visit Cardiology, [facility] [address] [place] [address] Robert Flowers, [address] [place] [address] Scheduled Orders Name Type Priority Associated Diagnoses [...] this encounter Medical Devices Implanted Type Area Bill Cutter Device Identifier Shelf Expiration Date Model / Serial / Lot Hemostatic Clip Res 235cm - [id number] Implanted:Qty: 1 on 09/04/2024 by Juancarlos Muñoz MD at ENDOSCOPY [facility] : ENDOSCOPY 12/17/2026 [id number] / / [id number] documented as of this encounter Visit Diagnoses Diagnosis Dyslipidemia, goal LDL below 70- Primary Other and unspecified hyperlipidemia Old myocardial infarct Old myocardial infarction ASCVD (arteriosclerotic cardiovascular disease) Unspecified cardiovascular disease HTN, goal below 140/90 Unspecified essential hypertension Chronic systolic heart failure (HCC) Chronic systolic heart failure Dilated cardiomyopathy (HCC) Other primary cardiomyopathies documented in this encounter Care Teams Online Media Buyer Relationship Specialty Start Date End Date March, Tanner Santo MD [address] [place] [address] PCP - General Family Medicine 03/30/24 documented as of this encounter
--- OUTSIDE RECORDS SUMMARY | 2024-11-09 19:47 | External Medical Summary | Summary of Care ---
Author Name Unknown Organization [facility] Address [address] [facility] [place] [address] Phone [phone] Care Team Providers Care Claim Examiner Name Role Phone Tanner Marte MD Primary Care Provider [phone] Reason for Visit * Reason Onset Date Comments Advice 08/31/2024 Encounter Details Date Type Department Care Team (Late st Contact Info) Description 08/31/2024 Telephone [facility] [address] [place] [address] Tanner Marte MD [address] [place] [address] Advice Allergies No known active allergiesdocumented as of [...] Aflibercept 2 MG/0.05ML Intravitreal Solution Prefilled Syringe (Easycause) Inject into eye 0.05 mL every 4 [...] by mouth in the morning. Obtaining from [employer] PAP. Active Ozempic (2 MG/DOSE) 8 MG/3ML Subcutaneous Solution Pen-injector (Semaglutide (2 MG/DOSE)) Inject 2 mg under the skin once a week. OBTAINING FROM [employer] Active Insulin Degludec FlexTouch 200 UNIT/ML Subcutaneous Solution Pen-injector Inject 110 Units under the skin every evening. OBTAINING FROM [employer] Active Insulin Aspart 100 UNIT/ML Injection Solution (NovoLOG) Inject under the skin three times a day before meals. 45 WITH BREAKFAST, 45 WITH LUNCH, AND 55 WITH SUPPER OBTAINING FROM [employer] Active Novofine Pen Needle 32G X 6 MM (NOVOFINE 32G PEN NEEDLE) Use 4 Each as directed. WITH INSULIN INJECTIONS. OBTAINING FROM [employer] Active FreeStyle Ilya 3 Sensor Use as directed. Supplied by [employer] Active Apixaban 5 MG Oral Tablet (Eliquis)Indications [...] both eyes and macular edema, unspecified whether ferry terminal agent insulin use (HCC) 1.5 mg IJ PRN 07/21/2022 Active Aflibercept (Eylea) intraviteal prefilled syringe 2 mgIndications: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, unspecified whether ferry terminal agent insulin use (HCC) 2 mg IZ PRN [...] insulin 07/12/2024 Coronary artery disease invo lving [place] coronary artery of [place] heart without angina pectoris 06/30/2022 Ischemic cardiomyopathy [...] mRNA, LNP-s, No Pre serve, 2-Dose Series ([email or web address]) 11/08/2021,01/18/2021,12/28/2020 H1N1 2009 Influenza, IM 10/06/2009 Pneumococcal Conjugate Vacci ne, 20-valent ([id number]) 03/28/2024 Pneumococcal Polysaccharide PPV23 (Pneumovax) 07/14/2020,07/23/2011,12/22/2005 Seasonal [...] encounter Miscellaneous Notes * Telephone Encounter - Martha Schuler LPN - 09/04/2024 10:54 AM EDT Pt had colonscopy done 08/31 * Telephone Encounter - Sinan Lock OSA - 08/31/2024 8:08 AM EDT Pt has question, schedule for a colonoscopy who takes insulin should consult with his pcp, and thenpt received letter to drink clear liquids 2 day before procedure. Please to call pt back. documented in this encounter Plan of Treatment Upcoming Encounters Date Type Department Care Team (Late st Contact Info) Description 09/05/2024 8:00 AM EDT Office Visit Card[facility], [facility] [address] [facility] [address] [facility] [address] [place], [place] [address] 10/03/2024 3:15 PM EST Office Visit Ophthalmology, [facility] 132 [facility] [place], [place] [address] Jemal Coleman DO 132 [facility] [place] [address] 10/06/2024 7:30 AM EST Office Visit Pharmacy, [place] [address] [place] [address] [facility] [address] [place] [address] 10/11/2024 7:30 AM EST Office Visit Ophthalmology, [place] [address] [place] [address] Amarjit Santa MD [address] [place] [address] 01/08/2025 10:00 AM EST Laboratory Laboratory, [place] [address] [place] [id number] [facility] [address] [place] [facility] [place] [address] 01/16/2025 11:00 AM EST Office Visit Family [facility], [place] [address] [place] [address] MarchTanner MD [address] [place] [address] 02/14/2025 10:30 AM EDT Office Visit Cardiology, [facility] [address] [place] [address] Robert Flowers, [address] [place] [address] Scheduled Procedures Name Priority Associated Diagnoses Date/Ti [...] this encounter Medical Devices Implanted Type Area Supervisor Operations Device Identifier Shelf Expiration Date Model / Serial / Lot Hemostatic Clip Res 235cm - [id number] Implanted:Qty: 1 on 09/04/2024 by Juancarlos Muñoz MD at ENDOSCOPY [facility] : ENDOSCOPY 12/17/2026 [id number] / / [id number] documented as of this encounter Care Teams Claim Examiner Relationship Specialty Start Date End Date March, Tanner Santo MD [address], [place] [id number] PCP - General Family Medicine 03/30/24 documented as of this encounter
--- OUTSIDE RECORDS SUMMARY | 2024-11-09 19:47 | External Medical Summary | Summary of Care ---
Author Name Unknown Organization [facility] Address [address] [facility] [place] [address] Phone [phone] Care Team Providers Care Air Traffic Control Specialist Center Name Role Phone Tanner Marte MD Primary Care Provider [phone] Encounter Details Date Type Department Care Team (Late st Contact Info) Description 09/28/2024 Population Health External Data Unspecified Department Allergies No known active allergiesdocumented as of this encounter (statuses as of 09/29/2024) Medications MULTIVITAMIN PO TABSIndications: CVD (arteriosclerotic cardiovascular [...] in the morning. Obtaining from [employer] PAP. Active Ozempic (2 MG/DOSE) 8 MG/3ML Subcutaneous Solution Pen-injector (Semaglutide (2 MG/DOSE)) Inject 2 mg under the skin once a week. OBTAINING FROM [employer] PAP Active Insulin Degludec FlexTouch 200 UNIT/ML Subcutaneous Solution Pen-injector Inject 110 Units under the skin every evening. OBTAINING FROM [employer] PAP Active Insulin Aspart 100 UNIT/ML Injection Solution (NovoLOG) Inject under the skin three times a day before meals. 45 WITH BREAKFAST, 45 WITH LUNCH, AND 55 WITH SUPPER OBTAINING FROM [employer] PAP Active Novofine Pen Needle 32G X 6 MM (NOVOFINE 32G PEN NEEDLE) Use 4 Each as directed. WITH INSULIN INJECTIONS. OBTAINING FROM [employer] PAP Active FreeStyle Ilya 3 Sensor Use as directed. Supplied by [employer] Active Apixaban 5 MG Oral Tablet (Eliquis)Indicatio [...] 09/28/2024 11:32 AM EST 09/05/20 24 Active Hospital, Clinic, or Other Facility Administered Medication Ordered Dose Route Frequency Start Date End Date Status ROPivacaine (Naropin) inj 1.5 mgIndications: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, unspecified whether life skills coach insulin use (HCC) 1.5 mg IJ PRN 07/21/2022 Active Aflibercept (Eylea) intraviteal prefilled syringe 2 mgIndications: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, unspecified whether life skills coach insulin use (HCC) 2 mg IZ PRN 04/08/2023 Active Aflibercept (Eylea) intraviteal prefilled syringe 2 mgIndications: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, unspecified whether 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 skills coach insulin use (HCC) 2 mg IZ PRN 04/08/2023 Active documented as of this encounter (statuses as of 09/29/2024) Active Problems Problem Noted Date Diagnosed Date Hypertensive heart disease w ith chronic systolic congestive heart failure 07/12/2024 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, with long-term current use of insulin 07/12/2024 Type 2 diabetes mellitus wit h diabetic cataract, with long-term current use of insulin 07/12/2024 Coronary artery disease invo lving [place] coronary artery of [place] heart without angina pectoris 06/30/2022 Ischemic cardiomyopathy [...] as of this encounter (statuses as of 09/29/2024) Resolved Problems Problem Noted Date Diagnosed Date Resolved Date Chest pain 05/12/2013 06/27/2013 Type 2 diabetes mellitus wit h hemoglobin A1c goal of less than 7.0% 02/10/2013 03/21/2015 Overview (03/17/2016): ICD-10 update of inactive term Severe obesity with body mas s index (BMI) of 35.0 to 39.9 with serious comorbidity 09/20/2012 Overview (09/07/2018): bmi= 36.88 10/30/12 ICD-10 update of inactive diagnosis Special screening [...] as of this encounter (statuses as of 09/29/2024) Immunizations Name Administration Dates Next Due COVID-19 mRNA, LNP-s, No Pre serve, 2-Dose Series ([employer]) 11/08/2021,01/18/2021,12/28/2020 H1N1 2009 Influenza, IM 10/06/2009 Pneumococcal Conjugate Vacci ne, 20-valent ([id number]) 03/28/2024 Pneumococcal Polysaccharide PPV23 (Pneumovax) 07/14/2020,07/23/2011,12/22/2005 Seasonal [...] 10/03/2024 3:15 PM EST Office Visit Ophthalmology, [facility] [address] [place] [address] Jemal Coleman, [address] [place] [address] 10/06/2024 7:30 AM EST Office Visit Pharmacy, [place] [address] [place] [address] [place], [facility] [address] [place] [address] 10/11/2024 7:30 AM EST Office Visit Ophthalmology, [place] [address] [facility] [place] [address] Amarjit Santa MD [address] [place] [address] 01/08/2025 10:00 AM EST Laboratory Laboratory, [facility] [address] [place] [address] [place], Laboratory [address] [place] [address] 01/16/2025 11:00 AM EST Office Visit Family Practice, [address] [address] March, Tanner Santo MD [address] [place] [address] Health Maintenance Due Date Last Done Comments [...] this encounter Medical Devices Implanted Type Area Staffing Administrator Device Identifier Shelf Expiration Date Model / Serial / Lot Hemostatic Clip Res 235cm - [id number] Implanted:Qty: 1 on 09/04/2024 by Juancarlos Muñoz MD at ENDOSCOPY [facility] : ENDOSCOPY 12/17/2026 [id number] / / [id number] documented as of this encounter Care Teams Air Traffic Control Specialist Center Relationship Specialty Start Date End Date March, Tanner Santo MD [address], [place] [phone] PCP - General Family Medicine 03/30/24 documented as of this encounter
--- OUTSIDE RECORDS SUMMARY | 2024-11-09 19:47 | External Medical Summary | Summary of Care ---
Author Name Unknown Organization [facility] Address [address] [facility] [place] [address] Phone [phone] Care Team Providers Care Industrial Paramedic Name Role Phone Tanner Marte MD Primary Care Provider [phone] Encounter Details Date Type Department Care Team (Late st Contact Info) Description 09/07/2024 Orders Only PATIENT PORTAL DO NOT DELETE THIS DEPT USED BY [place] [id number] Allergies No known active allergiesdocumented as of this encounter (statuses as of 09/07/2024) Medications Medication Sig Dispensed Refills Start Date [...] the morning. 100 Tablet 4 03/31/2024 Active Apixaban 5 MG Oral Tablet (Eliquis)Indications :S/P ablation of atrial flutter,Typical atrial flutter (HCC) Take 1 Tablet by mouth in the morning and 1 Tablet before bedtime. 200 Tablet 4 03/31/2024 Active Dapagliflozin Propanediol 10 MG Oral Tablet (Farxiga) Take 1 Tablet by mouth in the morning. Obtaining from [employer] PAP. Active Ozempic (2 MG/DOSE) 8 MG/3ML Subcutaneous Solution Pen-injector (Semaglutide (2 MG/DOSE)) Inject 2 mg under the skin once a week. OBTAINING FROM [employer] Active Insulin Degludec FlexTouch 200 UNIT/ML Subcutaneous Solution Pen-injector Inject 110 Units under the skin every evening. OBTAINING FROM [employer] Active Insulin Aspart 100 UNIT/ML Injection Solution (NovoLOG) Inject under the skin three times a day before meals. 45 WITH BREAKFAST, 45 WITH LUNCH, AND 55 WITH SUPPER OBTAINING FROM [employer] Active Novofine Pen Needle 32G X 6 MM (NOVOFINE 32G PEN NEEDLE) Use 4 Each as directed. WITH INSULIN INJECTIONS. OBTAINING FROM [employer] Active FreeStyle Ilya 3 Sensor Use as directed. Supplied by [employer] Active Apixaban 5 MG Oral Tablet (Eliquis)Indications [...] before bedtime. 200 Tablet 1 07/28/2024 Active Metoprolol Succinate ER 100 MG Oral Tablet Extended Release 24 Hour (Toprol XL)Indications:Old myocardial infarct,ASCVD (arteriosclerotic cardiovascular disease),HTN, goal below 140/90,Chronic systolic heart failure (HCC),Dilated cardiomyopathy (HCC) Take 1 Tablet by mouth in the morning and 1 Tablet before bedtime. 200 Tablet 4 09/05/2024 Active Hospital, Clinic, or Other Facility Administered [...] as of this encounter (statuses as of 09/07/2024) Active Problems Problem Noted Date Diagnosed Date [...] as of this encounter (statuses as of 09/07/2024) Resolved Problems Problem Noted Date Diagnosed Date [...] as of this encounter (statuses as of 09/07/2024) Immunizations Name Administration Dates Next Due COVID-19 mRNA, LNP-s, No Pre serve, 2-Dose Series ([employer]) 11/08/2021,01/18/2021,12/28/2020 H1N1 2009 Influenza, IM 10/06/2009 Pneumococcal Conjugate Vacci ne, 20-valent ([id number]) 03/28/2024 Pneumococcal Polysaccharide PPV23 (Pneumovax) 07/14/2020,07/23/2011,12/22/2005 Seasonal [...] 10/03/2024 3:15 PM EST [facility] [place] [address] Jemal Coleman DO 132 [facility] [place] [address] 10/06/2024 7:30 AM EST Office Visit Pharmacy, [place] [address] [place] [address] [facility] [address] [place] [address] 10/11/2024 7:30 AM EST Office Visit Ophthalmology, [place] [address] [place] [address] Amarjit Santa MD [address] [place] [address] 01/08/2025 10:00 AM EST Laboratory Laboratory, [place] [address] [place] [address] [place], Laboratory [address] [place] [address] 01/16/2025 11:00 AM EST Office Visit Family Practice, [place] [address] [place] [facility] [place] [address] March, Tanner Santo MD [address] [place] [facility] [place] [address] Health Maintenance Due Date Last Done Comments [...] this encounter Medical Devices Implanted Type Area Machine Maintenance Supervisor Device Identifier Shelf Expiration Date Model / Serial / Lot Hemostatic Clip Res 235cm - [id number] Implanted:Qty: 1 on 09/04/2024 by Juancarlos Muñoz MD at ENDOSCOPY [facility] : ENDOSCOPY 12/17/2026 [id number] / / [id number] documented as of this encounter Care Teams Industrial Paramedic Relationship Specialty Start Date End Date March, Tanner Santo MD [address], [place] [phone] PCP - General Family Medicine 03/30/24 documented as of this encounter
--- OUTSIDE RECORDS SUMMARY | 2024-11-09 19:48 | External Medical Summary | Summary of Care ---
Author Name Unknown Organization [facility] Address [address] [facility] [place] [address] Phone [phone] Care Team Providers Care Prestidigitator Name Role Phone Tanner Marte MD Primary Care Provider [phone] Reason for Visit * Reason Onset Date Comments Congestive Heart Failure Medication Administration 07/28/2024 Flu an d/or Pneumo Inj Encounter Details Date Type Department Care Team (Late st Contact Info) Description 07/28/2024 8:00 AM EDT Office Visit Cardiology, [facility] [address] [facility] [place] [address] [facility] Cardiology [facility] 132 [facility] [place] [address] Ischemic cardiomyopathy*; Need for prophylactic vaccination and inoculation against influenza Allergies No known active allergiesdocumented as of this encounter (statuses as of 07/28/2024) Medications Medication Sig Dispensed Refills Start Date End Date Status MULTIVITAMIN PO TABSIndications: CVD (arteriosclerotic cardiovascular disease) once daily 34 3 0 Active VITAMIN C-IRON 125-200 MG PO TABSIndications: [...] 1 2 Active NITROGLYCERIN 0.4 MG SL SUBLIndications: CVD (arteriosclerotic cardiovascular disease),Old myocardial infarct one tab under tongue as needed for chest pain maximum 3 doses 25 Tab 5 5 Active ONETOUCH ULTRA BLUE STRPIndications:DM type 2, not at goal (HCC) use three times a day. Strips for one Touch Mini 90 Strip 5 5 Active Aflibercept 2 MG/0.05ML Intravitreal Solution Prefilled Syringe ([employer]onic [employer]) Inject into eye 0.05 mL every 4 [...] the morning. 100 Tablet 4 4 Active Metoprolol Succinate ER 100 MG Oral Tablet Extended Release 24 Hour (Toprol XL)Indications:Old myocardial infarct,ASCVD (arteriosclerotic cardiovascular disease),HTN, goal below 140/90,Chronic systolic heart failure (HCC),Dilated cardiomyopathy (HCC) Take 1 Tablet by mouth in the morning. 100 Tablet 4 4 Active Metoprolol Succinate ER 50 MG Oral Tablet Extended Release 24 Hour (toPROL XL)Indications:Old myocardial infarct,ASCVD (arteriosclerotic cardiovascular disease),HTN, goal below 140/90,Chronic systolic heart failure (HCC),Dilated cardiomyopathy (HCC) Take 1 Tablet by mouth at bedtime. 100 Tablet 4 4 Active Apixaban 5 MG Oral Tablet (Eliquis)Indicatio ns:S/P ablation of atrial flutter,Typical atrial flutter (HCC) Take 1 Tablet by mouth in the morning and 1 Tablet before bedtime. 200 Tablet 4 4 Active Dapagliflozin Propanediol 10 MG Oral Tablet (Farxiga) Take 1 Tablet by mouth in the morning. Obtaining from [employer] PAP. Active Ozempic (2 MG/DOSE) 8 MG/3ML Subcutaneous Solution Pen-injector (Semaglutide (2 MG/DOSE)) Inject 2 mg under the skin once a week. OBTAINING FROM [employer] Active Insulin Degludec FlexTouch 200 UNIT/ML Subcutaneous Solution Pen-injector Inject 110 Units under the skin every evening. OBTAINING FROM [employer] Active Insulin Aspart 100 UNIT/ML Injection Solution (NovoLOG) Inject under the skin three times a day before meals. 45 WITH BREAKFAST, 45 WITH LUNCH, AND 55 WITH SUPPER OBTAINING FROM [employer] Active Novofine Pen Needle 32G X 6 MM (NOVOFINE 32G PEN NEEDLE) Use 4 Each as directed. WITH INSULIN INJECTIONS. OBTAINING FROM [employer] Active FreeStyle Ilya 3 Sensor Use as directed. Supplied by [employer] Active Apixaban 5 MG Oral Tablet (Eliquis)Indicatio [...] 4 Active Entresto 24-26 MG Oral Tablet (sacubitril-valsar haines 24-26 mg per tab) Take 1 Tablet by mouth in the morning and 1 Tablet before bedtime. 200 Tablet 1 4 Active furosemide (LASIX) 40 MG Tablet Take 1 Tablet by mouth in the morning. In the morning.. 0 024 Discontinued Entresto 24-26 MG Oral Tablet (sacubitril-valsar haines 24-26 mg per tab) Take 1 Tablet by mouth in the morning and 1 Tablet before bedtime. 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, unspecified whether rn long term care insulin use (HCC) 2 mg IZ PRN 04/08/2023 Active Aflibercept (Eylea) intraviteal prefilled syringe 2 mgIndications: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, unspecified whether half-way insulin use (HCC) 2 mg IZ PRN 04/08/2023 Active documented as of this encounter (statuses as of 07/28/2024) Active Problems Problem Noted Date Diagnosed Date Hypertensive heart disease w ith chronic systolic congestive heart failure 07/12/2024 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, with long-term current use of insulin 07/12/2024 Type 2 diabetes mellitus wit h diabetic cataract, with long-term current use of insulin 07/12/2024 Coronary artery disease invo lving mohegan coronary artery of mohegan heart without angina pectoris 06/30/2022 Ischemic cardiomyopathy [...] as of this encounter (statuses as of 07/28/2024) Resolved Problems Problem Noted Date Diagnosed Date [...] as of this encounter (statuses as of 07/28/2024) Immunizations Name Administration Dates Next Due COVID-19 mRNA, LNP-s, No Pre serve, 2-Dose Series (Pfizer) 11/08/2021,01/18/2021,12/28/2020 H1N1 2009 Influenza, IM 10/06/2009 Pneumococcal Conjugate Vacci ne, 20-valent (Piphlej97) 03/28/2024 Pneumococcal Polysaccharide PPV23 (Pneumovax) 07/14/2020,07/23/2011,12/22/2005 Seasonal Influenza Virus Vac cine, Unspecified Formulation 08/28/2015,09/26/2013,07/23/2013,09/20,09/17/2011,10/09/2010,09/05/2009 ,09/25/2008,09/22/2005,12/16/2004,08/23 Seasonal Influenza, High Dos e, Trivalent, PF, IM (Fluzone HD) 07/28/2024 Seasonal Influenza, PF, 6 M & above, IM , (FluLaval or Fluzone) 09/05/2021 Seasonal Influenza, Quadriva lent, No Preserve, IM 08/28/2015 Seasonal Influenza, Trivalen t, (IIV3), with Preserv, (Fluzone) 09/26/2013,07/23/2013,09/20/2012,09/17,10/09/2010,09/05/2009,09/25/2008 ,09/22/2005,12/16/2004,09/18/2003 TD - Tetanus/Diptheria (ADULT) 08/04/2000 TD, Preservative [...] Sign Reading Time Taken Comments Blood Pressure 129/72 07/28/2024 8:07 AM EDT Pulse 83 07/28/2024 8:07 AM EDT Temperature - - Respiratory Rate - - Oxygen Saturation - - Inhaled Oxygen Concentration - - Weight 121.4 kg (267 lb 9.6 oz) 07/28/2024 8:07 AM EDT Height - - Body Mass Index 39.52 07/12/2024 10:43 AM EDT documented in this encounter Patient Instructions * Patient Instructions* Tiera Shepherd RPh - 07/28/2024 8:24 AM EDT Start Spironolactone 12.5 mg once a day (1/2 tablet) Lab work in 5-7 days ~~PATIENT INSTRUCTIONS FOR FLU SHOT~~ Possible side effects of influenza vaccine, (flu shot), are usually mild and include: 1. Soreness or redness at injection site 2. Low grade fever 3. Body aches You may use Tylenol/Acetaminophen as needed for these symptoms. LET YOUR DOCTOR KNOW IMMEDIATELY IF YOU HAVE DIFFICULTY BREATHING OR SWALLOWING, EXPERIENCE ITCHINGOF FEET OR HANDS, HAVE SWELLING OF EYES, FACE OR INSIDE OF NOSE. documented in this encounter Progress Notes * Tiera Shepherd RPh - 07/28/2024 8:06 AM EDT PHARMACY CHRONIC DISEASE MANAGEMENT - HEART FAILURE Rolan Patel is an 64 year old patient referred to the Heart Failure MTM clinic by Robert Flowers DO for the following: General heart failure medication optimization HPI: Patient has heart failure assessment: Heart failure with REDUCED ejection fraction (SYStolic heart failure) with ischemic heart disease Most recent LVEF: 40 % Date: 03/08/23 Modality: Echo Previous LVEF: 40 % Date: 12/10/20 Modality: Echo 52 % Date: 03/26/21 Modality: Stress test Home vitals: Does patient monitor BP at home? Yes, but has not checked in a while Any dizziness or lightheadedness: denies Home BP log results: N/A Does patient monitor HR at home? Yes, but has not checked in a while Home HR log results: N/A Does patient monitor weight at home? yes Any increased edema or shortness of breath: denies Home weight log results: 266.6 lb at home, reports has been stable Objective: BP Readings from Last 3 Encounters: 07/28/24 129/72 07/12/24 132/64 07/07/24 138/86 Pulse Readings from Last 3 Encounters: 07/28/24 83 07/12/24 81 07/07/24 72 Wt Readings from Last 3 Encounters: 07/28/24 121.4 kg (267 lb 9.6 oz) 07/12/24 120.2 kg (265 lb) 06/07/24 118.9 kg (262 lb 3.2 oz) Lab Results Component Value Date/Time CREATININE - [facility] 1.0 07/18/2024 09:55 AM CREATININE - [facility] 1.0 07/04/2024 09:54 AM CREATININE - [facility] 0.9 03/28/2024 09:54 AM CREATININE - [facility] 1.0 11/05/2020 09:00 AM CREATININE - [facility] 1.0 10/22/2020 10:00 AM CREATININE - [facility] 1.1 07/31/2020 03:21 PM CREATININE, RANDOM URINE - [facility] 40 03/28/2024 09:54 AM CREATININE, RANDOM URINE - [facility] 63 02/22/2018 08:45 AM CREATININE, RANDOM URINE - [facility] 94 12/05/2015 08:06 AM CREATININE, RANDOM URINE - [facility] 82 02/18/2015 10:14 AM CREATININE-OUTSIDE LAB 0.94 07/10/2020 12:00 AM Lab Results Component Value Date/Time SODIUM - [facility] 137 07/18/2024 09:55 AM SODIUM - [facility] 139 07/04/2024 09:54 AM SODIUM - [facility] 140 03/28/2024 09:54 AM SODIUM - [facility] 136 11/05/2020 09:00 AM SODIUM - [facility] 137 10/22/2020 10:00 AM SODIUM - [facility] 138 07/31/2020 03:21 PM SODIUM, WHOLE BLOOD - [facility] 137 03/02/2002 10:25 AM SODIUM, WHOLE BLOOD - [facility] 136 03/02/2002 09:46 AM SODIUM, WHOLE BLOOD - [facility] 135 03/02/2002 07:35 AM Lab Results Component Value Date/Time POTASSIUM - [facility] 4.6 07/18/2024 09:55 AM POTASSIUM - [facility] 4.5 07/04/2024 09:54 AM POTASSIUM - [facility] 4.4 03/28/2024 09:54 AM POTASSIUM - [facility] 4.7 11/05/2020 09:00 AM POTASSIUM - [facility] 5.4 (H) 10/22/2020 10:00 AM POTASSIUM - [facility] 4.9 07/31/2020 03:21 PM POTASSIUM, WHOLE BLOOD - [facility] 3.6 03/02/2002 10:25 AM POTASSIUM, WHOLE BLOOD - [facility] 3.9 03/02/2002 09:46 AM POTASSIUM, WHOLE BLOOD - [facility] 3.9 03/02/2002 07:35 AM POTASSIUM-OUTSIDE LAB 4.4 07/10/2020 12:00 AM Lab Results Component Value Date/Time HGB 16.3 03/28/2024 09:54 AM HGB 15.1 03/04/2023 11:45 AM HGB 14.6 10/07/2021 08:45 AM HGB 16.0 07/31/2020 03:21 PM HGB 15.6 02/22/2018 08:45 AM HGB 13.7 (L) 12/21/2014 08:26 AM Diet Review: not reviewed Current Heart Failure Medication(s): Metoprolol ER 100 mg AM, 50 mg PM Farxiga 10 mg daily (AZ & Me) Entresto 24-26 mg twice daily-started 07/07/24 ([facility]) Lasix 40 mg daily as needed Eliquis 5 mg twice daily Atorvastatin 40 mg daily Aspirin 81 mg daily Nitrostat 0.4 mg prn chest pain Eligible for [facility]? Agree or Declined? Already uses [facility] Assessment & Plan: Cardiomyopathy - Mixed ischemic/nonischemic etiology in the setting of prolonged tachycardia, atrial flutter with rapid ventricular response. - EF40-45% per most recent echocardiogram 03/08/2023 - Start Spironolactone 12.5 mg once a day - Get blood work in 5-7 days after starting spironolactone Patient feeling well today. Compliant with and tolerating medications. Does not monitor BP/HR at home, but states he does have a machine. Denies headache, dizziness, lightheadedness. BP 129/72 today. Over income for PACE. Patient has [employer] for Entresto and AZ&me for Farxiga Educated patient that renal function and potassium will need to be monitored on this medication. Instructed the patient to monitor blood pressure manually as well as watch for sign of hypotension such as dizziness or lightheadedness. Instructed patient to monitor for cough. 2. Typical atrial flutter status post CTI ablation with Dr. Swartz 08/16/20 3. Coronary Artery Disease - Chronic ischemic heart disease with hx of inferior posterior ND s/p CABG in 2001 with LEWIS to LAD, radial artery to PDA. 4. Dyslipidemia, Hypertriglyceridemia - LDL controlled, 36 mg/dL (goal <55 mg/dL) - TG elevated at 269 mg/dL which is down trending - Will monitor TG level and consider adding Vascepa at future visit 5. Type 2 Diabetes - HbA1c further improved from 7.4% to 7.1% - Follows with ZABRINA Pickens - Continue current medications Heart Failure medications: Metoprolol ER 100 mg AM, 50 mg PM Farxiga 10 mg daily Entresto 24-26 mg twice daily Lasix 40 mg daily as needed for edema Eliquis 5 mg twice daily Atorvastatin 40 mg daily Aspirin 81 mg daily Nitrostat 0.4 mg prn chest pain START: Spironolactone 12.5 mg daily Labs Due: BMP in 5-7 days Vaccines Due: Not reviewed. Administered Influenza vaccine Follow up: 3 weeks I spent a total of 20-29 minutes (exact time 27 mins) on the date of service in preparation, delivery, and documentation of the care provided to Roaln Patel excluding any time spent in the performance of separately billed services or time spent by another provider/QHP. Tiera Shepherd RPh Clinical Pharmacist Medication Therapy Disease Management 07/28/2024,8:08 AM PRE - ADMINISTRATION DOCUMENTATION Are you experiencing any cold symptoms or fever? No Have you had Guillain-[place] Syndrome (an illness that causes paralysis) within the last 6 weeks? No Have you had the flu shot in the past? YES Have you ever had a reaction to the flu shot? No Tiera Shepherd RPh, 07/28/2024 8:26 AM Immunization Administration Documentation Time Out Procedure Performed: Yes Patient Identified (Ask Name/Date of ): Yes Does the patient have a fever greater than 101 degrees today? No Patient allergic to latex? No VFC Stock: No Immunization(s) verified: Yes, Immunization Name: Flu, VIS Sheet(s) given: No Verified Side and Site: Yes Verified Shot(s) with Parent(s)/Patient: Yes documented in this encounter Miscellaneous Notes * Addendum Note - Chantell Platt [facility] - 07/28/2024 9:54 AM EDT Addended by: CHANTELL PLATT on: 07/28/2024 09:54 AM Modules accepted: Orders documented in this encounter Plan of Treatment Upcoming Encounters Date Type Department Care Team (Late st Contact Info) Description 08/17/2024 8:15 AM EDT Cardiac Studies Cardiac Studies, [facility] [address] [place] [address] 08/22/2024 8:00 AM EDT Office Visit Cardiology, [facility] 132 [place] [address] [facility] Cardiology [facility] [address] [place] [address] 09/04/2024 8:00 AM EDT Hospital Encounter ENDO [facility], Endoscopy Room [facility] [address] [place] [phone] Juancarlos Muñoz MD [address] [place] [address] 09/04/2024 8:00 AM EDT - 09/04/2024 8:30 AM EDT Surgery ENDO [facility], Endoscopy Room [facility] [address] [place] [id number] Juancarlos Muñoz MD [address] [place] [address] COLONOSCOPY FLEXIBLE PROXIMAL DIAGNOSTIC 10/03/2024 3:15 PM EST Office Visit Ophthalmology, [facility] [address] [facility] [place] [address] Jemal Coleman DO [address] [place] [address] 10/06/2024 7:30 AM EST [facility] [address] [place] [address] [facility] [address] [place] [address] 10/11/2024 7:30 AM EST Office Visit Ophthalmology, [place] [address] [facility] [place] [address] Amarjit Santa MD [address] [place] [address] 01/08/2025 10:00 AM EST Laboratory Laboratory, [place] [address] [facility] [place] [phone] [facility] [address] [place] [address] 01/16/2025 11:00 AM EST Office Visit Family [facility] [address] [place] [facility] [place] [phone] Tanner Marte MD [address] [place] [facility] [place] [address] 02/14/2025 10:30 AM EDT Office Visit Cardiology, [facility] [address] [place] [address] Robert Flowers DO [address] [place] [address] Scheduled Orders Name Type Priority Associated Diagnoses Orde r Schedule BASIC METABOLIC PANEL Lab Routine Ischemic cardiomyopathy Expected: 08/04/2024, Expires: 07/28/2025 Scheduled Procedures Name Priority Associated Diagnoses Date/Ti [...] 04/19/2024, , 04/10/2024, Additional history exists GFR 07/18/2025 07/18/2024, 06/22, 03/28/2024, Additional history exists RETIRED - COLONOSCOPY-EVERY 5 [...] as of this encounter Visit Diagnoses Diagnosis Ischemic cardiomyopathy- Primary Other specified forms of chronic ischemic heart disease Need for prophylactic vaccination and inoculation against influenza Diverticulitis Diverticulitis of colon (without mention of hemorrhage) documented in this encounter Care Teams Prestidigitator Relationship Specialty Start Date End Date March, Tanner Santo MD [address] [place] [address] PCP - General Family Medicine 03/30/24 documented as of this encounter
--- OUTSIDE RECORDS SUMMARY | 2024-11-09 19:48 | External Medical Summary ---
Author Name Unknown Address Unknown Organization [id number]:[facility] - [address] [place] [address] Laboratory Report Ordering Provider Test Date Status 07/18/2024 09:55:00 Final Observation Date Value Abnormality Reference (Units ) Status LDL, (direct) 07/18/2024 09:55:00 59 <=129 (mg/dL) Final LDL Cholesterol Reference Ra nges (mg/dL):
<70 Target level for high risk ASCVD patient
<100 Optimal for general population
100-129 Near optimal for general population
130-159 Borderline high
160-189 High
>=190 Very high Performing Location LABORATORY [facility] - [address] [place] [address]
--- OUTSIDE RECORDS SUMMARY | 2024-11-09 19:48 | External Medical Summary | Summary of Care ---
Author Name Unknown Organization [facility] Address [address] [facility] [place] [address] Phone [phone] Care Team Providers Care Geographic Information System Analyst Name Role Phone MarchTanner MD Primary Care Provider [phone] Reason for Visit * Reason Onset Date Comments Test Results 07/21/2024 Labs results Encounter Details Date Type Department Care Team (Late st Contact Info) Description 07/21/2024 Telephone [facility] [address] [place] [address] MarchTanner MD [address] [place] [address] Test Results (Labs results) Allergies No known active allergiesdocumented as of this encounter (statuses as of 07/26/2024) Medications Medication Sig Dispensed Refills Start Date [...] Touch Mini 90 Strip 5 12/11/2014 Active furosemide (LASIX) 40 MG Tablet Take 1 Tablet by mouth in the morning. In the morning.. 07/17/2020 Active Aflibercept 2 MG/0.05ML Intravitreal Solution Prefilled [...] by mouth in the morning. Obtaining from [employer] Me PAP. Active Ozempic (2 MG/DOSE) 8 MG/3ML Subcutaneous Solution Pen-injector (Semaglutide (2 MG/DOSE)) Inject 2 mg under the skin once a week. OBTAINING FROM [employer] Active Insulin Degludec FlexTouch 200 UNIT/ML Subcutaneous Solution Pen-injector Inject 110 Units under the skin every evening. OBTAINING FROM [employer] Active Insulin Aspart 100 UNIT/ML Injection Solution (NovoLOG) Inject under the skin three times a day before meals. 45 WITH BREAKFAST, 45 WITH LUNCH, AND 55 WITH SUPPER OBTAINING FROM [employer] Active Novofine Pen Needle 32G X 6 MM (NOVOFINE 32G PEN NEEDLE) Use 4 Each as directed. WITH INSULIN INJECTIONS. OBTAINING FROM [employer] Active FreeStyle Ilya 3 Sensor Use as directed. Supplied by [employer] Active Entresto 24-26 MG Oral Tablet (sacubitril-valsarta n 24-26 mg per tab) Take 1 Tablet by mouth in the morning and 1 Tablet before bedtime. 60 Tablet 07/07/2024 Active Apixaban 5 MG Oral Tablet (Eliquis)Indications :Typical atrial flutter (HCC) Take 1 Tablet by mouth in the morning and 1 Tablet before bedtime. 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, unspecified whether alf insulin use (HCC) 2 mg IZ PRN 04/08/2023 Active Aflibercept (Eylea) intraviteal prefilled syringe 2 mgIndications: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, unspecified whether exterminator helper insulin use (HCC) 2 mg IZ PRN 04/08/2023 Active documented as of this encounter (statuses as of 07/26/2024) Active Problems Problem Noted Date Diagnosed Date Hypertensive heart disease w ith chronic systolic congestive heart failure 07/12/2024 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, with long-term current use of insulin 07/12/2024 Type 2 diabetes mellitus wit h diabetic cataract, with long-term current use of insulin 07/12/2024 Coronary artery disease invo lving [place] coronary artery of [place] heart without angina pectoris 06/30/2022 Ischemic cardiomyopathy [...] as of this encounter (statuses as of 07/26/2024) Resolved Problems Problem Noted Date Diagnosed Date [...] as of this encounter (statuses as of 07/26/2024) Immunizations Name Administration Dates Next Due COVID-19 mRNA, LNP-s, No Pre serve, 2-Dose Series ([employer]) 11/08/2021,01/18/2021,12/28/2020 H1N1 2009 Influenza, IM 10/06/2009 Pneumococcal Conjugate Vacci ne, 20-valent ([id number]) 03/28/2024 Pneumococcal Polysaccharide PPV23 (Pneumovax) 07/14/2020,07/23/2011,12/22/2005 Seasonal Influenza Virus Vac cine, Unspecified Formulation 08/28/2015,09/26/2013,07/23/2013,09/20,09/17/2011,10/09/2010,09/05/2009 ,09/25/2008,09/22/2005,12/16/2004,08/23 Seasonal Influenza, PF, 6 M & above, [...] encounter Miscellaneous Notes * Telephone Encounter - Catherine Mcfarland LPN - 07/26/2024 2:47 PM EDT Patient(s) returned call. Informed of message. Verbalized understanding. * Telephone Encounter - Ronnell Joy CMA - 07/21/2024 9:34 AM EDT Primary mobile number was not in service, just beeped, called secondary mobile number, spoke to and provided nurse line and requested call back from Rol[facility] for test results. Please transfer to dedicated nurse line if call back received. * Telephone Encounter - Ronnell Joy CMA - 07/21/2024 9:31 AM EDT ----- Message from Tanner Marte MD sent at 07/19/2024 7:57 AM EDT ----- Please notify patient that A1C has improved to 7.1. Fats in the blood are improving. Continue to follow with pharmacy for ongoing management. Tanner Marte MD documented in this encounter Plan of Treatment Upcoming Encounters Date Type Department Care Team (Late st Contact Info) Description 07/28/2024 8:00 AM EDT Office Visit Cardiology, [facility] [address] [place] [address] [place] [facility] Cardiology [place] [address] [place] [address] 08/17/2024 8:15 AM EDT Cardiac Studies Cardiac Studies, [facility] [address] [place] [address] 09/04/2024 8:00 AM EDT Hospital Encounter ENDO [facility], Endoscopy Room [facility] [address] [place] [phone] Juancarlos Muñoz MD [address] [place] [address] 09/04/2024 8:00 AM EDT - 09/04/2024 8:30 AM EDT Surgery ENDO [facility], Endoscopy Room [facility] [address] [place] [phone] Juancarlos Muñoz MD [address] [place] [address] COLONOSCOPY FLEXIBLE PROXIMAL DIAGNOSTIC 10/03/2024 3:15 PM EST Office Visit Ophthalmology, [facility] [address] [place] [address] Jemal Coleman, DO [address] [place] [address] 10/06/2024 7:30 AM EST Office Visit Pharmacy, [place] [address] [place] [facility] [address] [facility] [address] [place] [address] 10/11/2024 7:30 AM EST Office Visit Ophthalmology, [place] [address] [place] [address] Amarjit Santa MD [address] [place] [address] 01/08/2025 10:00 AM EST Laboratory Laboratory, [place] [address] [place] [phone] [facility] [address] [place] [facility] [place] [address] 01/16/2025 11:00 AM EST Office Visit [facility] [address] [place] [phone] Tanner Marte MD [address] [place] [address] 02/14/2025 10:30 AM EDT Office Visit Cardiology, [facility] [address] [place] [address] Robert Flowers, DO [address] [place] [address] Scheduled Procedures Name Priority Associated Diagnoses Date/Ti [...] Additional history exists COVID-19 Vaccine (4 - 2022- season) 2024 11/08/2021, 01/18/2021, 12/28/2020 Influenza Vaccine (FLU shot) (#1) 2024 09/05/2021, 08/28/2015, 08/28/2015, Additional history exists HbA1c 01/18/2025 07/18/2024, 0801/2024, 03/28/2024, Additional history exists Albumin/Creatinine Ratio 03/28/2025 024, 02/22/2018, 12/05/2015, Additional history exists Depression Screening 03/28/2025 03/28/2024 Diabetic Foot Exam 03/28/2025 03/28/2024, 0 12/05/2015, 12/21/2014, Additional history exists Diabetic Eye Exam 04/19/2025 04/19/2024, , 04/10/2024, Additional history exists GFR 07/18/2025 07/18/2024, 0801/2024, 03/28/2024, Additional history exists RETIRED - COLONOSCOPY-EVERY 5 YRS AGES 18-100 Discontinued 12/04/2011, 12/04/2011 Pneumococcal Vaccine: 65+ Years Completed 03/28/2024, 07/14/2020, 07/23/2011, Additional history exists HPV (Gardasil) Vaccine Aged [...] filedocumented as of this encounter Care Teams Geographic Information System Analyst Relationship Specialty Start Date End Date March, Tanner Santo MD [address] [place] [address] PCP - General Family Medicine 03/30/24 documented as of this encounter
--- OUTSIDE RECORDS SUMMARY | 2024-11-09 19:48 | External Medical Summary | Summary of Care ---
Author Name Unknown Organization [facility] Address [address] [facility] [place] [address] Phone [phone] Care Team Providers Care Counseling Center Director Name Role Phone Tanner Marte MD Primary Care Provider [phone] Reason for Visit * Reason Onset Date Comments Congestive Heart Failure Medication Administration 07/28/2024 Flu an d/or Pneumo Inj Encounter Details Date Type Department Care Team (Late st Contact Info) Description 07/28/2024 8:00 AM EDT Office Visit Cardiology, [facility] [address] [facility] [place] [address] [facility]iology [facility] [address] [facility] [place] [address] Ischemic cardiomyopathy*; Need for prophylactic vaccination and [...] Aflibercept 2 MG/0.05ML Intravitreal Solution Prefilled Syringe ([employer]ek[employer]) Inject into eye 0.05 mL every 4 [...] by mouth in the morning. Obtaining from [employer] PAP. Active Ozempic (2 MG/DOSE) 8 MG/3ML Subcutaneous Solution Pen-injector (Semaglutide (2 MG/DOSE)) Inject 2 mg under the skin once a week. OBTAINING FROM [employer] Active Insulin Degludec FlexTouch 200 UNIT/ML Subcutaneous Solution Pen-injector Inject 110 Units under the skin every evening. OBTAINING FROM [employer] Active Insulin Aspart 100 UNIT/ML Injection Solution (NovoLOG) Inject under the skin three times a day before meals. 45 WITH BREAKFAST, 45 WITH LUNCH, AND 55 WITH SUPPER OBTAINING FROM [employer] Active Novofine Pen Needle 32G X 6 MM (NOVOFINE 32G PEN NEEDLE) Use 4 Each as directed. WITH INSULIN INJECTIONS. OBTAINING FROM [employer] Active FreeStyle Ilya 3 Sensor Use as directed. Supplied by [employer] Active Apixaban 5 MG Oral Tablet (Eliquis)Indicatio ns:Typical atrial flutter (HCC) Take 1 Tablet by mouth in the morning and 1 Tablet before bedtime. 30 Tablet 4 Active Spironolactone 25 MG Oral Tablet (Aldactone) Take 0.5 Tablets by mouth in the morning. 45 Tablet 1 4 Active Furosemide 40 MG Oral Tablet (Lasix) Take 1 Tablet by mouth daily as needed for Other (As needed for swelling or weight gain). In the morning. 90 Tablet 1 4 Active Entresto 24-26 [...] unspecified whether exterminator helper insulin use (HCC) 1.5 mg IJ PRN [...] insulin 07/12/2024 Coronary artery disease invo lving [place] coronary artery of [place] heart without angina pectoris 06/30/2022 Ischemic cardiomyopathy [...] mRNA, LNP-s, No Pre serve, 2-Dose Series ([employer]) 11/08/2021,01/18/2021,12/28/2020 H1N1 2009 Influenza, IM 10/06/2009 Pneumococcal Conjugate Vacci ne, 20-valent ([id number]) 03/28/2024 Pneumococcal Polysaccharide PPV23 (Pneumovax) 07/14/2020,07/23/2011,12/22/2005 Seasonal [...] Me) Entresto 24-26 mg twice daily-started 07/07/24 ([facility]) Lasix 40 mg daily as needed Eliquis 5 mg twice daily Atorvastatin 40 mg daily Aspirin 81 mg daily Nitrostat 0.4 mg prn chest pain Eligible for [facility] pharmacy? Agree or Declined? Already uses scroll kit Assessment & Plan: Cardiomyopathy - Mixed ischemic/nonischemic [...] today. Over income for PACE. Patient has [employer] for Entresto and [place] for Farxiga Educated [...] heart disease with hx of inferior posterior SD s/p CABG in 2001 with LEWIS to [...] time spent by another provider/QHP. Tiera Shepherd [facility] Clinical Pharmacist Medication Therapy Disease Management 07/28/2024,8:08 AM PRE - ADMINISTRATION DOCUMENTATION Are you experiencing any cold symptoms or fever? No Have you had Guillain-[place] Syndrome (an illness that causes paralysis) within the last 6 weeks? No Have you had the flu shot in the past? YES Have you ever had a reaction to the flu shot? No Tiera JooaKhloe, 07/28/2024 8:26 AM Immunization Administration Documentation Time [...] Notes * Addendum Note - Chantell Platt RPh - 07/28/2024 9:54 AM EDT Addended by: CHANTELL PLATT on: 07/28/2024 09:54 AM Modules accepted: Orders documented in this encounter Plan of Treatment Upcoming Encounters Date Type Department Care Team (Late st Contact Info) Description 08/17/2024 8:15 AM EDT Cardiac Studies Cardiac Studies, [facility] [address] [place] [address] 08/22/2024 8:00 AM EDT Office Visit Cardiology, [facility] [address] [place] [address] [place] [facility] Cardiology [facility] [address] [place] [address] 09/04/2024 8:00 AM EDT Hospital Encounter ENDO [facility], Endoscopy Room [facility] [address] [place] [phone] Juancarlos Muñoz MD [address] [place] [address] 09/04/2024 8:00 AM EDT - 09/04/2024 8:30 AM EDT Surgery ENDO [facility], Endoscopy Room [facility] [address] [place] [phone] Juancarlos Muñoz MD [address] [place] [address] COLONOSCOPY FLEXIBLE PROXIMAL DIAGNOSTIC 10/03/2024 3:15 PM EST Office Visit Ophthalmology, [facility] [address] [place] [address] Jemal Coleman, [address] [place] [address] 10/06/2024 7:30 AM EST [facility] [address] [place] [facility] [place] [address] [facility] [address] [place] [facility] [place] [address] 10/11/2024 7:30 AM EST Office Visit Ophthalmology, [place] [address] [facility] [place] [address] Amarjit Santa MD [address] [facility] [place] [address] 01/08/2025 10:00 AM EST Laboratory Laboratory, [place] [address] [place] [phone] [facility] [address] [place] [address] 01/16/2025 11:00 AM EST Office Visit Family [facility] [address] [place] [facility] [place] [phone] Tanner Marte MD [address] [place] [address] 02/14/2025 10:30 AM EDT Office Visit Cardiology, [facility] [address] [place] [address] Robert Flowers DO [address] [place] [address] Scheduled Orders Name Type Priority Associated Diagnoses [...] hemorrhage) documented in this encounter Care Teams Counseling Center Director Relationship Specialty Start Date End Date March, Tanner Santo MD [address] [place] [address] PCP - General Family Medicine 03/30/24 documented as of this encounter
--- OUTSIDE RECORDS SUMMARY | 2024-11-09 19:48 | External Medical Summary | Summary of Care ---
Author Name Unknown Organization [facility] Address [address] [facility] [place] [address] Phone [phone] Care Team Providers Care Chemical Sales Representative Name Role Phone MarchTanner MD Primary Care Provider [phone] Reason for Visit * Reason Onset Date Comments Nurse Documentation 07/13/2024 Encounter Details Date Type Department Care Team (Late st Contact Info) Description 07/13/2024 Telephone Located Within [facility] [address] [place] [address] Tanner Marte MD [address] [place] [address] Nurse Documentation Allergies No known active allergiesdocumented as of this encounter (statuses as of 07/13/2024) Medications Medication Sig Dispensed Refills Start Date [...] Aflibercept 2 MG/0.05ML Intravitreal Solution Prefilled Syringe ([employer]aha P[employer]) Inject into eye 0.05 mL every 4 [...] by mouth in the morning. Obtaining from [employer] PAP. Active Ozempic (2 MG/DOSE) 8 MG/3ML Subcutaneous Solution Pen-injector (Semaglutide (2 MG/DOSE)) Inject 2 mg under the skin once a week. OBTAINING FROM [employer] Active Insulin Degludec FlexTouch 200 UNIT/ML Subcutaneous Solution Pen-injector Inject 110 Units under the skin every evening. OBTAINING FROM [employer] Active Insulin Aspart 100 UNIT/ML Injection Solution (NovoLOG) Inject under the skin three times a day before meals. 45 WITH BREAKFAST, 45 WITH LUNCH, AND 55 WITH SUPPER OBTAINING FROM [employer] Active Novofine Pen Needle 32G X 6 MM (NOVOFINE 32G PEN NEEDLE) Use 4 Each as directed. WITH INSULIN INJECTIONS. OBTAINING FROM [employer] Active FreeStyle Ilya 3 Sensor Use as directed. 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, unspecified whether fdc insulin use (HCC) 2 mg IZ PRN 04/08/2023 Active documented as of this encounter (statuses as of 07/13/2024) Active Problems Problem Noted Date Diagnosed Date Hypertensive heart disease w ith chronic systolic congestive heart failure 07/12/2024 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, with long-term current use of insulin 07/12/2024 Type 2 diabetes mellitus wit h diabetic cataract, with long-term current use of insulin 07/12/2024 Coronary artery disease invo lving [place] coronary artery of [place] heart without angina pectoris 06/30/2022 Ischemic cardiomyopathy [...] as of this encounter (statuses as of 07/13/2024) Resolved Problems Problem Noted Date Diagnosed Date [...] as of this encounter (statuses as of 07/13/2024) Immunizations Name Administration Dates Next Due COVID-19 mRNA, LNP-s, No Pre serve, 2-Dose Series ([employer]) 11/08/2021,01/18/2021,12/28/2020 H1N1 2009 Influenza, IM 10/06/2009 Pneumococcal Conjugate Vacci ne, 20-valent ([id number]) 03/28/2024 Pneumococcal Polysaccharide PPV23 (Pneumovax) 07/14/2020,07/23/2011,12/22/2005 Seasonal Influenza Virus Vac cine, Unspecified Formulation 08/28/2015,09/26/2013,07/23/2013,09/20,09/17/2011,10/09/2010,09/05/2009 ,09/25/2008,09/22/2005,12/16/2004,08/23 Seasonal Influenza, PF, 6 M & above, IM , (FluLaval or Fluzone) 09/05/2021 Seasonal Influenza, Quadriva lent, No Preserve, IM 08/28/2015 Seasonal Influenza, Split, I IV3, With Preserve, Inj 09/26/2013,07/23/2013,09/20/2012,09/17,10/09/2010,09/05/2009,09/25/2008 TD, Preservative Free 08/04/2000 TDAP, Age [...] Telephone Encounter - Jaelyn Chavez LPN - 07/13/2024 11:53 AM EDT Contacted patient and he was made aware that his 2 bags of insulin are here and are to be picked up. They are in the med room fridge for picker operator documented in this encounter Plan of Treatment Upcoming Encounters Date Type Department Care Team (Late st Contact Info) Description 07/28/2024 8:00 AM EDT [facility] [address] [place] [address] [place] [facility] Cardiology [place] [address] 08/17/2024 8:15 AM EDT Cardiac Studies Cardiac Studies, [place] [place] [address] [place] [address] 09/04/2024 8:00 AM EDT Hospital Encounter ENDO [facility], Endoscopy Room [facility] [address] [place] [phone] Juancarlos Muñoz MD [address] [place] [address] 09/04/2024 8:00 AM EDT - 09/04/2024 8:30 AM EDT Surgery ENDO [facility], Endoscopy Room [facility] [address] [place] [phone] Juancarlos Muñoz MD [address] [place] [address] COLONOSCOPY FLEXIBLE PROXIMAL DIAGNOSTIC 10/03/2024 3:15 PM EST Office Visit Ophthalmology, [facility] [address] [place] [address] Jemal Coleman DO [address] [place], [place] [address] 10/06/2024 7:30 AM EST Office Visit Pharmacy, [place] [address] [facility] [place] [address] [facility] [address] [place] [address] 10/11/2024 7:30 AM EST Office Visit Ophthalmology, [place] [address] [place] [address] Amajrit Santa MD [address] [facility] [place] [address] 01/08/2025 10:00 AM EST Laboratory Laboratory, [place] [address] [facility] [place] [phone] [facility] [address] [facility] [address] 01/16/2025 11:00 AM EST Office Visit Family [facility], [place] [address] [place] [address] Tanner Marte MD [address] [facility] [address] 02/14/2025 10:30 AM EDT Office Visit Cardiology, [facility] [address] [place] [address] Robert Flowers DO [address] [place] [address] Scheduled Procedures Name Priority Associated Diagnoses Date/Ti me COLONOSCOPY FLEXIBLE PROXIMA L DIAGNOSTIC Diverticulitis 09/04/2024 8:00 AM EDT Health Maintenance Due Date Last Done Comments HIV Screening 1974 Hepatitis C Screening 1977 Cologuard 2004 Fecal Occult Blood Test 2004 Sigmoidoscopy 2004 Zoster Vaccines (1 of 2) 2009 Colonoscopy 12/04/2016 12/04/2011 Colorectal Cancer Screening 12/04/2016 DTaP,Tdap,and Td Vaccines (3 - Td or Tdap) 12/06/2022 12/06/2012, 08/11/2010, 08/04/2000, Additional history exists COVID-19 Vaccine (4 - season) 2023 11/08/2021, 01/18/2021, 12/28/2020 Influenza Vaccine (FLU shot) (#1) 2024 09/05/2021, 08/28/2015, 08/28/2015, Additional history exists HbA1c 01/04/2025 07/04/2024, 050 05/2024, 03/09/2022, Additional history exists Albumin/Creatinine Ratio 03/28/2025 024, 02/22/2018, 12/05/2015, Additional history exists Depression Screening 03/28/2025 03/28/2024 Diabetic Foot Exam 03/28/2025 03/28/2024, 0 12/05/2015, 12/21/2014, Additional history exists Diabetic Eye Exam 04/19/2025 04/19/2024, , 04/10/2024, Additional history exists GFR 07/04/2025 07/04/2024, 05/2024, 03/04/2023, Additional history exists RETIRED - COLONOSCOPY-EVERY 5 [...] filedocumented as of this encounter Care Teams Chemical Sales Representative Relationship Specialty Start Date End Date March, Tanner Santo MD [address] [place] [address] PCP - General Family Medicine 03/30/24 documented as of this encounter
--- OUTSIDE RECORDS SUMMARY | 2024-11-09 19:48 | External Medical Summary ---
Author Name Unknown Address Unknown Organization K01:LABORATORY [facility] [place] - [address] [place] [address] Laboratory Report Ordering Provider Test Date Status 07/18/2024 09:55:00 Final Observation Date Value Abnormality Reference (Units ) Status BUN 07/18/2024 09:55:00 20 6-20 (mg/dL) Final Creatinine 07/18/2024 09:55:00 1.0 0.6-1.2 (mg/dL) Final Glomerular filtration rate/1.73 sq M.predicted [Volume Rate/Area] in Serum, Plasma or Blood by Creatinine-based formula (CKD-EPI) 07/18/2024 09:55:00 85 >=60 (mL/min) Final eGFR is calculated based on the CKD-EPI 2020 equation. Sodium 07/18/2024 09:55:00 137 135-146 (m mol/L) Final Potassium 07/18/2024 09:55:00 4.6 3.5-5.1 (m mol/L) Final Cl 07/18/2024 09:55:00 99 98-107 (mm ol/L) Final CO2 07/18/2024 09:55:00 24 22-32 (mmo l/L) Final Anion gap 07/18/2024 09:55:00 14 7-15 (mmol /L) Final Glucose 07/18/2024 09:55:00 119 70-120 (mg /dL) Final Albumin 07/18/2024 09:55:00 4.7 3.8-5.0 (g /dL) Final AST (Aspartate aminotransferase) 07/18/2024 09:55:00 38 10-50 (U/L) Final Alk Phos 07/18/2024 09:55:00 98 35-130 (U/ L) Final Bilirubin, Total 07/18/2024 09:55:00 0.4 <=1 .2 (mg/dL) Final Calcium 07/18/2024 09:55:00 10.2 8.4-10.2 ( mg/dL) Final Protein 07/18/2024 09:55:00 7.2 6.0-8.3 (g /dL) Final ALT (Alanine aminotransferase) 07/18/2024 09:55:00 49 10-50 (U/L) Final Performing Location LABORATORY [facility] [place] - [address] [facility] [address]
--- OUTSIDE RECORDS SUMMARY | 2024-11-09 19:48 | External Medical Summary | Summary of Care ---
Author Name Unknown Organization [facility] Address [address] [facility] [place] [address] Phone [phone] Care Team Providers Care Forestry Pilot Name Role Phone Tanner Marte MD Primary Care Provider [phone] Reason for Visit * Reason Comments Outpatient Testing Encounter Details Date Type Department Care Team (Late st Contact Info) Description 07/18/2024 10:00 AM EDT Laboratory Laboratory, [place] [address] [place] [address] [place], Laboratory [address] [place] [address] Ischemic cardiomyopathy; Type 2 diabetes mellitus with hemoglobin A1c goal of less than 8.0% (HCC); Dyslipidemia, goal LDL below 70; HTN, goal below 140/90 Allergies No known active allergiesdocumented as of this encounter (statuses as of 07/18/2024) Medications Medication Sig Dispensed Refills Start Date [...] Aflibercept 2 MG/0.05ML Intravitreal Solution Prefilled Syringe (ecoATM) Inject into eye 0.05 mL every 4 [...] by mouth in the morning. Obtaining from [employer] PAP. Active Ozempic (2 MG/DOSE) 8 MG/3ML Subcutaneous Solution Pen-injector (Semaglutide (2 MG/DOSE)) Inject 2 mg under the skin once a week. OBTAINING FROM [employer] Active Insulin Degludec FlexTouch 200 UNIT/ML Subcutaneous Solution Pen-injector Inject 110 Units under the skin every evening. OBTAINING FROM [employer] Active Insulin Aspart 100 UNIT/ML Injection Solution (NovoLOG) Inject under the skin three times a day before meals. 45 WITH BREAKFAST, 45 WITH LUNCH, AND 55 WITH SUPPER OBTAINING FROM [employer] Active Novofine Pen Needle 32G X 6 MM (NOVOFINE 32G PEN NEEDLE) Use 4 Each as directed. WITH INSULIN INJECTIONS. OBTAINING FROM [employer] Active FreeStyle Ilya 3 Sensor Use as directed. 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, unspecified whether termite control representative insulin use (HCC) 2 mg IZ PRN 04/08/2023 Active documented as of this encounter (statuses as of 07/18/2024) Active Problems Problem Noted Date Diagnosed Date Hypertensive heart disease w ith chronic systolic congestive heart failure 07/12/2024 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, with long-term current use of insulin 07/12/2024 Type 2 diabetes mellitus wit h diabetic cataract, with long-term current use of insulin 07/12/2024 Coronary artery disease invo lving [place] coronary artery of [place] heart without angina pectoris 06/30/2022 Ischemic cardiomyopathy [...] as of this encounter (statuses as of 07/18/2024) Resolved Problems Problem Noted Date Diagnosed Date [...] as of this encounter (statuses as of 07/18/2024) Immunizations Name Administration Dates Next Due COVID-19 mRNA, LNP-s, No Pre serve, 2-Dose Series ([employer]) 11/08/2021,01/18/2021,12/28/2020 H1N1 2009 Influenza, IM 10/06/2009 Pneumococcal Conjugate Vacci ne, 20-valent ([id number]) 03/28/2024 Pneumococcal Polysaccharide PPV23 (Pneumovax) 07/14/2020,07/23/2011,12/22/2005 Seasonal [...] 07/28/2024 8:00 AM EDT Office Visit Cardiology, [facility] [address] [place] [address] [address] [facility] Cardiology [facility] [address] [place] [address] 08/17/2024 8:15 AM EDT Cardiac Studies Cardiac Studies, [facility] [address] [place] [address] 09/04/2024 8:00 AM EDT Hospital Encounter ENDO [facility], Endoscopy Room [facility] [address] [place] [phone] Juancarlos Muñoz MD [address] [place] [address] 09/04/2024 8:00 AM EDT - 09/04/2024 8:30 AM EDT Surgery ENDO [facility], Endoscopy Room [facility] [address] [place], [place] [phone] Juancarlos Muñoz MD [address] [place] [address] COLONOSCOPY FLEXIBLE PROXIMAL DIAGNOSTIC 10/03/2024 3:15 PM EST Office Visit Ophthalmology, [facility] [address] [place] [address] Jemal Coleman DO [address] [place] [address] 10/06/2024 7:30 AM EST Office Visit Pharmacy, [place] [address] [place] [facility] [address] [facility] [address] [place] [facility] [address] 10/11/2024 7:30 AM EST Office Visit Ophthalmology, [place] [address] [facility] [place] [address] Amarjit Santa MD [address] [place] [address] 01/08/2025 10:00 AM EST Laboratory Laboratory, [place] [address] [facility] [phone] [facility] [address] [place] [facility] [place] [address] 01/16/2025 11:00 AM EST Office Visit Family [facility], [place] [address] [facility] [phone] Tanner Marte MD [address] [place] [address] 02/14/2025 10:30 AM EDT Office Visit Cardiology, [facility] [address] [place] [address] Robert [place] DO [address] [place] [address] Pending Results Name Type Priority Associated Diagnoses Date /Time HEMOGLOBIN A1C Lab Routine Type 2 diabetes mellitus with hemoglobin A1c goal of less than 8.0% (HCC) 07/18/2024 9:55 AM EDT LIPID PANEL WITH DIRECT LDL IF TG IS HIGH Lab Routine Dyslipidemia, goal LDL below 70 07/18/2024 9:55 AM EDT COMPREHENSIVE METABOLIC PANEL Lab Routine HTN, goal below 140/90 07/18/2024 9:55 AM EDT Scheduled Procedures Name Priority Associated [...] Additional history exists COVID-19 Vaccine ( season) 2023 11/08/2021, 01/18/2021, 12/28/2020 Influenza Vaccine (FLU shot) (#1) 2024 09/05/2021, 08/28/2015, 08/28/2015, Additional history exists HbA1c 01/04/2025 07/04/2024, 05/0 05/2024, 03/09/2022, Additional history exists Albumin/Creatinine Ratio [...] of this encounter Visit Diagnoses Diagnosis Ischemic cardiomyopathy Other specified forms of chronic ischemic heart disease Type 2 diabetes mellitus with hemoglobin A1c goal of less than 8.0% (HCC) Dyslipidemia, goal LDL below 70 Other and unspecified hyperlipidemia HTN, goal below 140/90 Unspecified essential hypertension Diverticulitis Diverticulitis of colon (without mention of hemorrhage) documented in this encounter Care Teams Forestry Pilot Relationship Specialty Start Date End Date March, Tanner Santo [facility] [address] [facility] [address] PCP - General Family Medicine 03/30/24 documented as of this encounter
--- OUTSIDE RECORDS SUMMARY | 2024-11-09 19:48 | External Medical Summary | Summary of Care ---
Author Name Unknown Organization [facility] Address [address] [facility] [place] [address] Phone [phone] Care Team Providers Care Labor Relations Representative Name Role Phone Tanner Marte MD Primary Care Provider [phone] Reason for Visit * Reason Onset Date Comments Medication Pre-auth 07/18/2024 BRAIN ARGUETA S Encounter Details Date Type Department Care Team (Late st Contact Info) Description 07/18/2024 Telephone Ophthalmology, [facility] [address] [place] [address] Jemal Coleman DO [address] [place] [address] Medication Pre-auth (BRAIN POMPA) Allergies No known active allergiesdocumented as of this encounter (statuses as of 07/19/2024) Medications Medication Sig Dispensed Refills Start Date [...] Aflibercept 2 MG/0.05ML Intravitreal Solution Prefilled Syringe (Arradiancelea) Inject into eye 0.05 mL every 4 [...] by mouth in the morning. Obtaining from [employer] PAP. Active Ozempic (2 MG/DOSE) 8 MG/3ML Subcutaneous Solution Pen-injector (Semaglutide (2 MG/DOSE)) Inject 2 mg under the skin once a week. OBTAINING FROM [employer] Active Insulin Degludec FlexTouch 200 UNIT/ML Subcutaneous Solution Pen-injector Inject 110 Units under the skin every evening. OBTAINING FROM [employer] Active Insulin Aspart 100 UNIT/ML Injection Solution (NovoLOG) Inject under the skin three times a day before meals. 45 WITH BREAKFAST, 45 WITH LUNCH, AND 55 WITH SUPPER OBTAINING FROM [employer] Active Novofine Pen Needle 32G X 6 MM (NOVOFINE 32G PEN NEEDLE) Use 4 Each as directed. WITH INSULIN INJECTIONS. OBTAINING FROM [employer] Active FreeStyle Ilya 3 Sensor Use as directed. 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, unspecified whether terminal gauger supervisor insulin use (HCC) 2 mg IZ PRN 04/08/2023 Active documented as of this encounter (statuses as of 07/19/2024) Active Problems Problem Noted Date Diagnosed Date Hypertensive heart disease w ith chronic systolic congestive heart failure 07/12/2024 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, with long-term current use of insulin 07/12/2024 Type 2 diabetes mellitus wit h diabetic cataract, with long-term current use of insulin 07/12/2024 Coronary artery disease invo lving [place] coronary artery of [place] heart without angina pectoris 06/30/2022 Ischemic cardiomyopathy [...] as of this encounter (statuses as of 07/19/2024) Resolved Problems Problem Noted Date Diagnosed Date [...] as of this encounter (statuses as of 07/19/2024) Immunizations Name Administration Dates Next Due COVID-19 mRNA, LNP-s, No Pre serve, 2-Dose Series (Pfizer) 11/08/2021,01/18/2021,12/28/2020 H1N1 2009 Influenza, IM 10/06/2009 Pneumococcal Conjugate Vacci ne, 20-valent ([id number]) 03/28/2024 Pneumococcal Polysaccharide PPV23 (Pneumovax) 07/14/2020,07/23/2011,12/22/2005 Seasonal [...] encounter Miscellaneous Notes * Telephone Encounter - Uma Aaron OSA - 07/18/2024 10:36 AM EDT Patient is [employer] GOLD and would get patient assistance through [employer] not [facility]. I spoke with patient, He is now enrolled for [employer] for cost of Arradiancelea through end 2023. * Telephone Encounter - Danna Astudillo MED ASSIST - 07/18/2024 9:26 AM EDT Received fax from [email or web address] stating missing info needed to enroll pt in program, does not list what is missing asking for call. Re# [id number] Please call documented in this encounter Plan of Treatment Upcoming Encounters Date Type Department Care Team (Late st Contact Info) Description 07/28/2024 8:00 AM EDT Office Visit Cardiology, [facility] [address] [place] [address] [facility] Cardiology [facility] [address] [place] [address] 08/17/2024 8:15 AM EDT Cardiac Studies Cardiac Studies, [facility] [address] [place] [address] 09/04/2024 8:00 AM EDT Hospital Encounter ENDO [facility], Endoscopy Room [facility] [address] [place] [phone] Juancarlos Muñoz MD [address] [place] [address] 09/04/2024 8:00 AM EDT - 09/04/2024 8:30 AM EDT Surgery ENDO [facility], Endoscopy Room [facility] [address] [place] [phone] Juancarlos Muñoz MD [address] [place] [address] COLONOSCOPY FLEXIBLE PROXIMAL DIAGNOSTIC 10/03/2024 3:15 PM EST Office Visit Ophthalmology, [facility] [address] [place] [address] Jemal Coleman DO [address] [place] [address] 10/06/2024 7:30 AM EST Office Visit Pharmacy, [address], [place] [address] [place] [address] [address] [facility], [place] [address] 10/11/2024 7:30 AM EST Office Visit Ophthalmology, [place] [address] [place] [address] Amarjit Santa MD [address] [place] [address] 01/08/2025 10:00 AM EST Laboratory Laboratory, [place] [address] [place] [address] [facility] [address] [place], [place] [address] 01/16/2025 11:00 AM EST Office Visit Family [facility], [place] [address] [place] [facility] [place] [address] Tanner Marte MD [address] [place], [place] [phone] 02/14/2025 10:30 AM EDT Office Visit Cardiology, [facility] [address] [facility] [place] [address] Robert [place], [address] [facility] [place] [address] Scheduled Procedures Name Priority Associated Diagnoses Date/Ti [...] 08/28/2015, Additional history exists HbA1c 01/18/2025 07/18/2024, 06/22, 03/28/2024, Additional history [...] filedocumented as of this encounter Care Teams Labor Relations Representative Relationship Specialty Start Date End Date March, Tanner Santo MD [address] [place] [facility] [address] PCP - General Family Medicine 03/30/24 documented as of this encounter
--- OUTSIDE RECORDS SUMMARY | 2024-11-09 19:48 | External Medical Summary ---
Author Name Unknown Address Unknown Organization K01:LABORATORY [facility] - [address] [place] [address] Laboratory Report Ordering Provider Test Date Status GABRIEL LAZARO 08/09/2024 07:57:32 Final Observation Date Value Abnormality Reference (Units ) Status BUN 08/09/2024 07:57:32 17 6-20 (mg/dL) Final Creatinine 08/09/2024 07:57:32 1.0 0.6-1.2 (mg/dL) Final Glomerular filtration rate/1.73 sq M.predicted [Volume Rate/Area] in Serum, Plasma or Blood by Creatinine-based formula (CKD-EPI) 08/09/2024 07:57:32 87 >=60 (mL/min) Final eGFR is calculated based on the CKD-EPI 2020 equation. Sodium 08/09/2024 07:57:32 137 135-146 (m mol/L) Final Potassium 08/09/2024 07:57:32 5.2 Above high normal 3. 5-5.1 (mmol/L) Final Cl 08/09/2024 07:57:32 97 Below low normal 98- 107 (mmol/L) Final CO2 08/09/2024 07:57:32 27 22-32 (mmo l/L) Final Anion gap 08/09/2024 07:57:32 13 7-15 (mmol /L) Final Glucose 08/09/2024 07:57:32 184 Above high normal 70 -120 (mg/dL) Final Calcium 08/09/2024 07:57:32 9.8 8.4-10.2 ( mg/dL) Final Performing Location [facility] - [address] [place] [address]
--- OUTSIDE RECORDS SUMMARY | 2024-11-09 19:48 | External Medical Summary | Summary of Care ---
Author Name Unknown Organization [facility] Address [address] [facility] [place] [address] Phone [phone] Care Team Providers Care Rasper Machine Operator Name Role Phone MarchTanner MD Primary Care Provider [phone] Reason for Visit * Reason Onset Date Comments Test Results 07/21/2024 Labs results Encounter Details Date Type Department Care Team (Late st Contact Info) Description 07/21/2024 Telephone [facility] [address] [place] [address] MarchTanner MD [address] [place] [address] Test Results (Labs results) Allergies No known active allergiesdocumented as of this encounter (statuses as of 07/21/2024) Medications Medication Sig Dispensed Refills Start Date [...] by mouth in the morning. Obtaining from [employer] PAP. Active Ozempic (2 MG/DOSE) 8 MG/3ML Subcutaneous Solution Pen-injector (Semaglutide (2 MG/DOSE)) Inject 2 mg under the skin once a week. OBTAINING FROM [employer] Active Insulin Degludec FlexTouch 200 UNIT/ML Subcutaneous Solution Pen-injector Inject 110 Units under the skin every evening. OBTAINING FROM [employer] Active Insulin Aspart 100 UNIT/ML Injection Solution (NovoLOG) Inject under the skin three times a day before meals. 45 WITH BREAKFAST, 45 WITH LUNCH, AND 55 WITH SUPPER OBTAINING FROM [employer] Active Novofine Pen Needle 32G X 6 MM (NOVOFINE 32G PEN NEEDLE) Use 4 Each as directed. WITH INSULIN INJECTIONS. OBTAINING FROM [employer] Active FreeStyle Ilya 3 Sensor Use as directed. 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, unspecified whether terminal computer operator insulin use (HCC) 2 mg IZ PRN 04/08/2023 Active documented as of this encounter (statuses as of 07/21/2024) Active Problems Problem Noted Date Diagnosed Date Hypertensive heart disease w ith chronic systolic congestive heart failure 07/12/2024 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, with long-term current use of insulin 07/12/2024 Type 2 diabetes mellitus wit h diabetic cataract, with long-term current use of insulin 07/12/2024 Coronary artery disease invo lving [place] coronary artery of [place] heart without angina pectoris 06/30/2022 Ischemic cardiomyopathy [...] as of this encounter (statuses as of 07/21/2024) Resolved Problems Problem Noted Date Diagnosed Date [...] as of this encounter (statuses as of 07/21/2024) Immunizations Name Administration Dates Next Due COVID-19 mRNA, LNP-s, No Pre serve, 2-Dose Series ([employer]) 11/08/2021,01/18/2021,12/28/2020 H1N1 2009 Influenza, IM 10/06/2009 Pneumococcal Conjugate Vacci ne, 20-valent ([id number]) 03/28/2024 Pneumococcal Polysaccharide PPV23 (Pneumovax) 07/14/2020,07/23/2011,12/22/2005 Seasonal [...] encounter Miscellaneous Notes * Telephone Encounter - Ronnell Joy CMA [...] 07/28/2024 8:00 AM EDT Office Visit Cardiology, [facility] [address] [place] [address] [facility] Cardiology [facility] [address] [place] [address] 08/17/2024 8:15 AM EDT Cardiac Studies Cardiac Studies, [facility] [address] [place] [address] 09/04/2024 8:00 AM EDT Hospital Encounter ENDO [facility], Endoscopy Room [facility] [address] [place] [phone] Juancarlos Muñoz MD [address] [place] [address] 09/04/2024 8:00 AM EDT - 09/04/2024 8:30 AM EDT Surgery ENDO [facility], Endoscopy Room [facility] [address] [place] [phone] Juancarlos Muñoz MD [address] [place] [address] COLONOSCOPY FLEXIBLE PROXIMAL DIAGNOSTIC 10/03/2024 3:15 PM EST Office Visit Ophthalmology, [facility] [address] [place] [address] Jemal Coleman DO [address] [place] [address] 10/06/2024 7:30 AM EST Office Visit [facility], [place] [address] [address] [facility], [place] [address] [place] [address] [place] [facility] [place] [address] 10/11/2024 7:30 AM EST Office Visit Ophthalmology, [place] [address] [facility] [place] [address] Amarjit Santa MD [address] [facility] [place] [address] 01/08/2025 10:00 AM EST Laboratory Laboratory, [place] [address] [place] [phone] [facility] [address] [place], [place] [address] 01/16/2025 11:00 AM EST Office Visit Family [facility], [place] [address] [place] [address] MarchTanner MD [address] [place] [address] 02/14/2025 10:30 AM EDT Office Visit [facility], [facility] [place] [address] Robert [place] O, DO [address] [facility] [place] [address] Scheduled Procedures Name Priority Associated Diagnoses Date/Ti [...] Additional history exists COVID-19 Vaccine (4 - 2023-24 season) 2023 11/08/2021, 01/18/2021, 12/28/2020 Influenza Vaccine [...] filedocumented as of this encounter Care Teams Rasper Machine Operator Relationship Specialty Start Date End Date March, Tanner Santo MD [address] [place] [address] PCP - General Family Medicine 03/30/24 documented as of this encounter
--- OUTSIDE RECORDS SUMMARY | 2024-11-09 19:48 | External Medical Summary | Summary of Care ---
Author Name Unknown Organization [facility] Address [address] [facility] [place] [address] Phone [phone] Care Team Providers Care Vehicle Dismantler Name Role Phone Tanner Marte MD Primary Care Provider [phone] Reason for Visit * Reason Comments Outpatient Testing Encounter Details Date Type Department Care Team (Late st Contact Info) Description 08/09/2024 8:20 AM EDT Laboratory Laboratory, [place] [address] [place] [address] [place], Laboratory [address] [place] [address] Ischemic cardiomyopathy Allergies No known active allergiesdocumented as of this encounter (statuses as of 08/09/2024) Medications Medication Sig Dispensed Refills Start Date [...] Aflibercept 2 MG/0.05ML Intravitreal Solution Prefilled Syringe (Brozengo) Inject into eye 0.05 mL every 4 [...] in the morning. Obtaining from [employer] PAP. Active Ozempic (2 MG/DOSE) 8 MG/3ML Subcutaneous Solution Pen-injector (Semaglutide (2 MG/DOSE)) Inject 2 mg under the skin once a week. OBTAINING FROM [employer] Active Insulin Degludec FlexTouch 200 UNIT/ML Subcutaneous Solution Pen-injector Inject 110 Units under the skin every evening. OBTAINING FROM [employer] Active Insulin Aspart 100 UNIT/ML Injection Solution (NovoLOG) Inject under the skin three times a day before meals. 45 WITH BREAKFAST, 45 WITH LUNCH, AND 55 WITH SUPPER OBTAINING FROM [employer] Active Novofine Pen Needle 32G X 6 MM (NOVOFINE 32G PEN NEEDLE) Use 4 Each as directed. WITH INSULIN INJECTIONS. OBTAINING FROM [employer] Active FreeStyle Ilya 3 Sensor Use as directed. Supplied by [employer]. 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, unspecified whether medical terminologist insulin use (HCC) 2 mg IZ PRN 04/08/2023 Active documented as of this encounter (statuses as of 08/09/2024) Active Problems Problem Noted Date Diagnosed Date Hypertensive heart disease w ith chronic systolic congestive heart failure 07/12/2024 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, with long-term current use of insulin 07/12/2024 Type 2 diabetes mellitus wit h diabetic cataract, with long-term current use of insulin 07/12/2024 Coronary artery disease invo lving [place] coronary artery of [place] heart without angina pectoris 06/30/2022 Ischemic cardiomyopathy [...] as of this encounter (statuses as of 08/09/2024) Resolved Problems Problem Noted Date Diagnosed Date [...] as of this encounter (statuses as of 08/09/2024) Immunizations Name Administration Dates Next Due COVID-19 mRNA, LNP-s, No Pre serve, 2-Dose Series ([employer]) 11/08/2021,01/18/2021,12/28/2020 H1N1 2009 Influenza, IM 10/06/2009 Pneumococcal Conjugate Vacci ne, 20-valent ([id number]) 03/28/2024 Pneumococcal Polysaccharide PPV23 (Pneumovax) 07/14/2020,07/23/2011,12/22/2005 Seasonal [...] 8:15 AM EDT Cardiac Studies Cardiac Studies, [facility] [address] [facility] [place] [address] 08/22/2024 8:00 AM EDT Office Visit Cardiology, [facility] [place] [address] [place], [facility] Cardiology [facility] [address] [place] [address] 09/04/2024 8:00 AM EDT Hospital Encounter ENDO [facility], Endoscopy Room [facility] [address] [place] [address] Juancarlos Muñoz MD [address] [place] [address] 09/04/2024 8:00 AM EDT - 09/04/2024 8:30 AM EDT Surgery ENDO [facility], Endoscopy Room [facility] [address] [place] [address] Juancarlos Muñoz MD [address] [place] [address] COLONOSCOPY FLEXIBLE PROXIMAL DIAGNOSTIC 10/03/2024 3:15 PM EST Office Visit Ophthalmology, [facility] [address] [place] [address] Jemal Coleman, [address] [place] [address] 10/06/2024 7:30 AM EST Office Visit Pharmacy, [place] [address] [place] [address] [facility] [address] [place] [address] 10/11/2024 7:30 AM EST Office Visit Ophthalmology, [place] [address] [facility] [place] [address] Amarjit Santa MD [address] [facility] [place] [address] 01/08/2025 10:00 AM EST Laboratory Laboratory, [place] [address] [place] [phone] [facility] [address] [place] [address] 01/16/2025 11:00 AM EST Office Visit [facility] [address] [place] [address] MarchTanner MD [address] [place] [address] 02/14/2025 10:30 AM EDT Office Visit Cardiology, [facility] [address] [place] [address] Robert Flowers DO [address] [place] [address] Pending Results Name Type Priority Associated Diagnoses Date /Time BASIC METABOLIC PANEL Lab Routine Ischemic cardiomyopathy 08/09/2024 7:57 AM EDT Scheduled Procedures Name Priority Associated [...] specified forms of chronic ischemic heart disease Diverticulitis Diverticulitis of colon (without mention of hemorrhage) documented in this encounter Care Teams Vehicle Dismantler Relationship Specialty Start Date End Date March, Tanner Santo MD [address] [place] [address] PCP - General Family Medicine 03/30/24 documented as of this encounter
--- OUTSIDE RECORDS SUMMARY | 2024-11-09 19:48 | External Medical Summary | Summary of Care ---
Author Name Unknown Organization [facility] Address [address] [facility] [place] [address] Phone [phone] Care Team Providers Care Clinical Pathologist Name Role Phone Tanner Marte MD Primary Care Provider [phone] Encounter Details Date Type Department Care Team (Late st Contact Info) Description 08/07/2024 Telephone Gastroenterology, [facility] [address] [place] [address] Juancarlos Muñoz MD [address] [place] [address] Allergies No known active allergiesdocumented as of this encounter (statuses as of 08/07/2024) Medications Medication Sig Dispensed Refills Start Date [...] Aflibercept 2 MG/0.05ML Intravitreal Solution Prefilled Syringe (Facebooklea) Inject into eye 0.05 mL every 4 [...] the skin once a week. OBTAINING FROM [employer] Active Insulin Degludec FlexTouch 200 UNIT/ML Subcutaneous Solution Pen-injector Inject 110 Units under the skin every evening. OBTAINING FROM [employer] Active Insulin Aspart 100 UNIT/ML Injection Solution (NovoLOG) Inject under the skin three times a day before meals. 45 WITH BREAKFAST, 45 WITH LUNCH, AND 55 WITH SUPPER OBTAINING FROM [employer] Active Novofine Pen Needle 32G X 6 MM (NOVOFINE 32G PEN NEEDLE) Use 4 Each as directed. WITH INSULIN INJECTIONS. OBTAINING FROM [employer] Active FreeStyle Ilya 3 Sensor Use as directed. 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, unspecified whether jail insulin use (HCC) 2 mg IZ PRN 04/08/2023 Active documented as of this encounter (statuses as of 08/07/2024) Active Problems Problem Noted Date Diagnosed Date Hypertensive heart disease w ith chronic systolic congestive heart failure 07/12/2024 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, with long-term current use of insulin 07/12/2024 Type 2 diabetes mellitus wit h diabetic cataract, with long-term current use of insulin 07/12/2024 Coronary artery disease invo lving [place] coronary artery of [place] heart without angina pectoris 06/30/2022 Ischemic cardiomyopathy [...] as of this encounter (statuses as of 08/07/2024) Resolved Problems Problem Noted Date Diagnosed Date [...] as of this encounter (statuses as of 08/07/2024) Immunizations Name Administration Dates Next Due COVID-19 mRNA, LNP-s, No Pre serve, 2-Dose Series (DecaWave) 11/08/2021,01/18/2021,12/28/2020 H1N1 2009 Influenza, IM 10/06/2009 Pneumococcal Conjugate Vacci ne, 20-valent ([id number]) 03/28/2024 Pneumococcal Polysaccharide PPV23 (Pneumovax) 07/14/2020,07/23/2011,12/22/2005 Seasonal [...] 8:15 AM EDT Card[facility] Studies [facility] [address] [place] [address] 08/22/2024 8:00 AM EDT Office Visit Cardiology, [facility] [address] [address] [place] [facility] Cardiology [place] [address] 09/04/2024 8:00 AM EDT Hospital Encounter ENDO [facility], Endoscopy Room [facility] [address] [place] [phone] Juancarlos Muñoz MD [address] [place] [address] 09/04/2024 8:00 AM EDT - 09/04/2024 8:30 AM EDT Surgery ENDO [facility], Endoscopy Room [facility] [address] [place] [address] Juancarlos Muñoz MD [address] [place] [address] COLONOSCOPY FLEXIBLE PROXIMAL DIAGNOSTIC 10/03/2024 3:15 PM EST Office Visit Ophthalmology, [facility] [address] [place] [address] Jemal Coleman DO [address] [place] [address] 10/06/2024 7:30 AM EST Office Visit Pharmacy, [place] [address] [place] [address] [place], [facility] [address] [place] [address] 10/11/2024 7:30 AM EST Office Visit Ophthalmology, [place] [address] [place] [address] Amarjit Santa MD [address] [place] [address] 01/08/2025 10:00 AM EST Laboratory Laboratory, [place] [address] [place] [address] [facility] [address] [place] [address] 01/16/2025 11:00 AM EST Office Visit Family [facility] [address] [facility] [phone] MarchTanner MD [address] [place] [address] 02/14/2025 10:30 AM EDT Office Visit Cardiology, [facility] [address] [place] [address] Robert Flowers DO [address] [place] [address] Scheduled Procedures Name Priority Associated Diagnoses Date/Ti [...] filedocumented as of this encounter Care Teams Clinical Pathologist Relationship Specialty Start Date End Date March, Tanner Santo MD [address] [place] [facility] [place] [address] PCP - General Family Medicine 03/30/24 documented as of this encounter
--- OUTSIDE RECORDS SUMMARY | 2024-11-09 19:48 | External Medical Summary ---
Author Name Unknown Address Unknown Organization K01:LABORATORY [facility] - [address] [place] [address] Laboratory Report Ordering Provider Test Date Status 07/18/2024 09:55:00 Final Observation Date Value Abnormality Reference (Units ) Status HbA1C 07/18/2024 09:55:00 7.1 Above high normal 4. 0-5.6 (%) Final The use of HbA1c to monitor glycemic status is based on normal hemoglobin and HbA composition. This test should not be used in patients with abnormal hemoglobin that affects the half life of the red blood cell or the in vivo glycation rates. Glucose, estimated average 07/18/2024 09:55:00 157 Above high normal <126 (mg/dL) Alfredo jovel Performing Location LABORATORY [facility] - [address] [place] [address]
--- OUTSIDE RECORDS SUMMARY | 2024-11-09 19:48 | External Medical Summary ---
Author Name Unknown Address Unknown Organization K01:LABORATORY [facility] [place] - [address] [facility] [address] [place] [address] Laboratory Report Ordering Provider Test Date Status 07/18/2024 09:55:00 Final Observation Date Value Abnormality Reference (Units ) Status Triglyceride 07/18/2024 09:55:00 269 Above high normal <=174 (mg/dL) Final Triglyceride Reference Range s (mg/dL):
<150 Acceptable
150-174 Borderline high
175-499 High
>=500 Very high Cholesterol 07/18/2024 09:55:00 118 <200 (mg /dL) Final Total Cholesterol Reference Ranges (mg/dL):
<200 Desirable
200-239 Borderline high
>=240 High HDL 07/18/2024 09:55:00 29 Below low normal >39 (mg/dL) Final HDL Cholesterol Reference Ra nges (mg/dL):
>=60 High (Desirable)
<50 Low (Undesirable) For Females
<40 Low (Undesirable) For Males NON-HDL CHOLESTEROL 07/18/2024 09:55:00 89 <=159 (mg/dL) Final Non-HDL Cholesterol Referenc e Range (mg/dL):
<100 Target level for high risk ASCVD patient
<130 Optimal for general population
130-159 Near optimal for general population
160-189 Borderline High
190-219 High
>=220 Very High Performing Location LABORATORY [facility] - [address] [place] [address]
--- OUTSIDE RECORDS SUMMARY | 2024-11-09 19:48 | External Medical Summary | Summary of Care ---
Author Name Unknown Organization [facility] Address [address] [facility] [place] [address] Phone [phone] Care Team Providers Care Carpet Finishing Supervisor Name Role Phone Tanner Marte MD Primary Care Provider [phone] Reason for Visit * Reason Onset Date Comments Congestive Heart Failure Medication Administration 07/28/2024 Flu an d/or Pneumo Inj Encounter Details Date Type Department Care Team (Late st Contact Info) Description 07/28/2024 8:00 AM EDT Office Visit Cardiology, [facility] [address] [facility] [place] [address] [facility] Cardiology [facility] [address] [facility] [place] [address] Ischemic cardiomyopathy*; Need for prophylactic vaccination and [...] Aflibercept 2 MG/0.05ML Intravitreal Solution Prefilled Syringe (PayTangoleNarval[employer]) Inject into eye 0.05 mL every 4 [...] by mouth in the morning. Obtaining from [employer] PAP. Active Ozempic (2 MG/DOSE) 8 MG/3ML Subcutaneous Solution Pen-injector (Semaglutide (2 MG/DOSE)) Inject 2 mg under the skin once a week. OBTAINING FROM [employer] Active Insulin Degludec FlexTouch 200 UNIT/ML Subcutaneous Solution Pen-injector Inject 110 Units under the skin every evening. OBTAINING FROM [employer] Active Insulin Aspart 100 UNIT/ML Injection Solution (NovoLOG) Inject under the skin three times a day before meals. 45 WITH BREAKFAST, 45 WITH LUNCH, AND 55 WITH SUPPER OBTAINING FROM [employer] Active Novofine Pen Needle 32G X 6 MM (NOVOFINE 32G PEN NEEDLE) Use 4 Each as directed. WITH INSULIN INJECTIONS. OBTAINING FROM [employer] Active FreeStyle Ilya 3 Sensor Use as directed. Supplied by [employer] Active Apixaban 5 MG Oral Tablet (Eliquis)Indicatio [...] insulin 07/12/2024 Coronary artery disease invo lving [place] coronary artery of [place] heart without angina pectoris 06/30/2022 Ischemic cardiomyopathy [...] mRNA, LNP-s, No Pre serve, 2-Dose Series (Bikanta) 11/08/2021,01/18/2021,12/28/2020 H1N1 2009 Influenza, IM 10/06/2009 Pneumococcal Conjugate Vacci ne, 20-valent ([id number]) 03/28/2024 Pneumococcal Polysaccharide PPV23 (Pneumovax) 07/14/2020,07/23/2011,12/22/2005 Seasonal [...] Me) Entresto 24-26 mg twice daily-[facility] Lasix 40 mg daily as needed Eliquis 5 mg twice daily Atorvastatin 40 mg daily Aspirin 81 mg daily Nitrostat 0.4 mg prn chest pain Eligible for [email or web address] Mail Order pharmacy? Agree or Declined? Already uses [email or web address] Assessment & Plan: Cardiomyopathy - Mixed ischemic/nonischemic [...] today. Over income for PACE. Patient has [employer] for Entresto and [employer] for Far[employer] Educated [...] heart disease with hx of inferior posterior MT s/p CABG in 2001 with LEWIS to [...] time spent by another provider/QHP. Tiera Shepherd [facility] Clinical Pharmacist Medication Therapy Disease Management 07/28/2024,8:08 AM PRE - ADMINISTRATION DOCUMENTATION Are you experiencing any cold symptoms or fever? No Have you had Guillain-Paulina Syndrome (an illness that causes paralysis) within the last 6 weeks? No Have you had the flu shot in the past? YES Have you ever had a reaction to the flu shot? No Tiera JoaoKhloe, 07/28/2024 8:26 AM Immunization Administration Documentation Time [...] 8:15 AM EDT Cardiac Studies Cardiac Studies, [facility] [address] [place] [address] 08/22/2024 8:00 AM EDT Office Visit Cardiology, [facility] [address] [place] [address] [place] [facility] Cardiology [facility] [address] [place] [address] 09/04/2024 8:00 AM EDT Hospital Encounter ENDO [facility], Endoscopy Room [facility] [address] [place] [phone] Juancarlos Muñoz MD [address] [place] [address] 09/04/2024 8:00 AM EDT - 09/04/2024 8:30 AM EDT Surgery ENDO [facility], Endoscopy Room [facility] [address] [place] [phone] Juancarlos Muñoz MD [address] [place] [address] COLONOSCOPY FLEXIBLE PROXIMAL DIAGNOSTIC 10/03/2024 3:15 PM EST Office Visit Ophthalmology, [facility] [address] [facility] [place] [address] Jemal Coleman, [address] [place] [address] 10/06/2024 7:30 AM EST [facility] [address] [place] [facility] [place] [address] [facility] [address] [place] [facility] [place] [address] 10/11/2024 7:30 AM EST Office Visit Ophthalmology, [place] [address] [facility] [place] [address] Amarijt Santa MD [address] [facility] [place] [address] 01/08/2025 10:00 AM EST Laboratory Laboratory, [place] [address] [place] [phone] [facility] [address] [place] [address] 01/16/2025 11:00 AM EST Office Visit Family [facility] [address] [facility] [place] [phone] Tanner Marte MD [address] [place] [address] 02/14/2025 10:30 AM EDT Office Visit Cardiology, [facility] [address] [place] [address] Robert Flowers DO [address] [place] [address] Scheduled Orders Name Type Priority Associated Diagnoses [...] hemorrhage) documented in this encounter Care Teams Carpet Finishing Supervisor Relationship Specialty Start Date End Date March, Tanner Santo MD [address] [place] [address] PCP - General Family Medicine 03/30/24 documented as of this encounter
--- OUTSIDE RECORDS SUMMARY | 2024-11-09 19:49 | External Medical Summary | Summary of Care ---
Author Name Unknown Organization [facility] Address [address] [address] Phone [phone] Care Team Providers Care Child Study Team Director Name Role Phone Tanner Marte MD Primary Care Provider [phone] Reason for Visit * Reason Onset Date Comments Medication Problem 07/07/2024 Encounter Details Date Type Department Care Team (Late st Contact Info) Description 07/07/2024 Telephone Cardiology, [facility] [address] [facility] [place] [id number] [facility] [address] [facility] [place] [phone] Medication Problem Allergies No known active allergiesdocumented as of this encounter (statuses as of 07/11/2024) Medications Medication Sig Dispensed Refills Start Date [...] weeks . 0.15 mL 3 04/07/2022 Active Zoster Vac Recomb Adjuvanted 50 MCG/0.5ML Intramuscular Suspension Reconstituted (Shingrix)Indication s:Need for vaccination for zoster Inject 0.5 mL into a large muscle now and repeat dose in 60 to 180 days 1 Each 1 03/28/2024 Active Additional Information Patient not taking.Reported on 04/19/2024 Atorvastatin Calcium 40 MG Oral Tablet (Lipitor)Indications [...] by mouth in the morning. Obtaining from [employer] PAP. Active Ozempic (2 MG/DOSE) 8 MG/3ML Subcutaneous Solution Pen-injector (Semaglutide (2 MG/DOSE)) Inject 2 mg under the skin once a week. OBTAINING FROM [employer] Active Insulin Degludec FlexTouch 200 UNIT/ML Subcutaneous Solution Pen-injector Inject 110 Units under the skin every evening. OBTAINING FROM [employer] Active Insulin Aspart 100 UNIT/ML Injection Solution (NovoLOG) Inject under the skin three times a day before meals. 45 WITH BREAKFAST, 45 WITH LUNCH, AND 55 WITH SUPPER OBTAINING FROM [employer] Active Novofine Pen Needle 32G X 6 MM (NOVOFINE 32G PEN NEEDLE) Use 4 Each as directed. WITH INSULIN INJECTIONS. OBTAINING FROM [employer] Active FreeStyle Ilya 3 Sensor Use as directed. Supplied by [employer] Active Entresto 24-26 MG Oral Tablet (sacubitril-valsarta n 24-26 mg per tab) Take 1 Tablet by mouth in the morning and 1 Tablet before bedtime. 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, unspecified whether continuous churn buttermaker insulin use (HCC) 2 mg IZ PRN 04/08/2023 Active Aflibercept (Eylea) intraviteal prefilled syringe 2 mgIndications: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, unspecified whether correction insulin use (HCC) 2 mg IZ PRN 04/08/2023 Active documented as of this encounter (statuses as of 07/11/2024) Active Problems Problem Noted Date Diagnosed Date Coronary artery disease invo lving [place] coronary artery of [place] heart without angina pectoris 06/30/2022 Ischemic cardiomyopathy [...] as of this encounter (statuses as of 07/11/2024) Resolved Problems Problem Noted Date Diagnosed Date [...] as of this encounter (statuses as of 07/11/2024) Immunizations Name Administration Dates Next Due COVID-19 mRNA, LNP-s, No Pre serve, 2-Dose Series (Correx) 11/08/2021,01/18/2021,12/28/2020 H1N1 2009 Influenza, IM 10/06/2009 Pneumococcal Conjugate Vacci ne, 20-valent ([id number]) 03/28/2024 Pneumococcal Polysaccharide PPV23 (Pneumovax) 07/14/2020,07/23/2011,12/22/2005 Seasonal Influenza Virus Vac cine, Unspecified Formulation 08/28/2015,09/26/2013,07/23/2013,09/20,09/17/2011,10/09/2010,09/05/2009 ,09/25/2008,09/22/2005,12/16/2004,08/23 Seasonal Influenza, PF, 6 M & above, IM , (FluLaval or Fluzone) 09/05/2021 Seasonal Influenza, Quadriva lent, No Preserve, IM 08/28/2015 Seasonal Influenza, Split, I IV3, With Preserve, Inj 09/26/2013,07/23/2013,09/20/2012,09/17,10/09/2010,09/05/2009,09/25/2008 ,09/22/2005,12/16/2004,09/18/2003 TD - Tetanus/Diptheria (ADULT) 08/04/2000 [...] Telephone Encounter - Olive Stein RPh - 07/11/2024 1:29 PM EDT Called [facility] pharmacy and communicated [employer] gre[employer] info to be added to their system. Will inform patient at upcoming [facility] appt. * Telephone Encounter - Olive Stein RPh - 07/07/2024 4:24 PM EDT Patient with cardiomyopathy requiring cost assistance for [employer]. Over income for PACE, but may be eligible for [employer] greyson. Thank you, Olive Stein, PharmD Clinical Pharmacist - Student Specialist Medication Therapy [facility] documented in this encounter Plan of Treatment Upcoming Encounters Date Type Department Care Team (Late st Contact Info) Description 07/12/2024 10:40 AM EDT Office Visit [facility] [address] [place] [phone] [facility] Marte [facility] [address] [facility] [address] 07/12/2024 3:15 PM EDT Office Visit Ophthalmology, [facility] [address] [place] [address] Jemal Coleman DO [address] [place] [address] 07/28/2024 8:00 AM EDT Office Visit Cardiology, [facility] [address] [place] [address] [facility] Cardiology [facility] [address] [place] [address] 08/17/2024 8:15 AM EDT Cardiac Studies Cardiac Studies, [facility] [address] [place] [address] 09/04/2024 8:00 AM EDT Hospital Encounter ENDO [facility], End[facility] [address] [place] [phone] Juancarlos Muñoz MD [address] [place] [address] 09/04/2024 8:00 AM EDT - 09/04/2024 8:30 AM EDT Surgery ENDO [facility], End[facility] [address] [place] [address] Juancarlos Muñoz MD [address] [place] [address] COLONOSCOPY FLEXIBLE PROXIMAL DIAGNOSTIC 10/06/2024 7:30 AM EST Office Visit Pharm[facility], [place] [address] [facility] [address] [place] [facility] [address] [facility] [place] [address] 10/11/2024 7:30 AM EST Office Visit Ophthalmology, [place] [address] [place] [address] Amarjit Santa MD [address] [place] [address] 02/14/2025 10:30 AM EDT Office Visit Cardiology, [facility] [address] [place] [address] Robert Flowers DO [address] [place] [address] Scheduled Procedures Name Priority Associated Diagnoses Date/Ti [...] filedocumented as of this encounter Care Teams Child Study Team Director Relationship Specialty Start Date End Date March, Tanner Santo MD [address] [place] [address] PCP - General Family Medicine 03/30/24 documented as of this encounter
--- OUTSIDE RECORDS SUMMARY | 2024-11-09 19:49 | External Medical Summary ---
Author Name Unknown Address Unknown Organization K01:[facility] [place] [address] [place] [address] Laboratory Report Ordering Provider Test Date Status 07/04/2024 09:54:03 Final Observation Date Value Abnormality Reference (Units ) Status BUN 07/04/2024 09:54:03 25 Above high normal 6-20 (mg/dL) Final Creatinine 07/04/2024 09:54:03 1.0 0.6-1.2 (mg/dL) Final Glomerular filtration rate/1.73 sq M.predicted [Volume Rate/Area] in Serum, Plasma or Blood by Creatinine-based formula (CKD-EPI) 07/04/2024 09:54:03 84 >=60 (mL/min) Final eGFR is calculated based on the CKD-EPI 2020 equation. Sodium 07/04/2024 09:54:03 139 135-146 (m mol/L) Final Potassium 07/04/2024 09:54:03 4.5 3.5-5.1 (m mol/L) Final Cl 07/04/2024 09:54:03 99 98-107 (mm ol/L) Final CO2 07/04/2024 09:54:03 24 22-32 (mmo l/L) Final Anion gap 07/04/2024 09:54:03 16 Above high normal 7- 15 (mmol/L) Final Glucose 07/04/2024 09:54:03 168 Above high normal 70 -120 (mg/dL) Final Albumin 07/04/2024 09:54:03 4.4 3.8-5.0 (g /dL) Final AST (Aspartate aminotransferase) 07/04/2024 09:54:03 51 Above high normal 10-50 (U/L) Final Alk Phos 07/04/2024 09:54:03 102 35-130 (U/ L) Final Bilirubin, Total 07/04/2024 09:54:03 0.4 <=1 .2 (mg/dL) Final Calcium 07/04/2024 09:54:03 9.9 8.4-10.2 ( mg/dL) Final Protein 07/04/2024 09:54:03 6.5 6.0-8.3 (g /dL) Final ALT (Alanine aminotransferase) 07/04/2024 09:54:03 55 Above high normal 10-50 (U/L) Final Performing Location [facility] [place] [facility] [address] [facility] [address]
--- OUTSIDE RECORDS SUMMARY | 2024-11-09 19:49 | External Medical Summary | Summary of Care ---
Author Name Unknown Organization [facility] Address [address] [facility] [place] [address] Phone [phone] Care Team Providers Care Dishing Machine Operator Name Role Phone Tanner Marte MD Primary Care Provider [phone] Reason for Visit * Reason Comments Outpatient Testing Encounter Details Date Type Department Care Team (Late st Contact Info) Description 07/04/2024 10:00 AM EDT Laboratory Laboratory, [place] [address] [place] [address] [place] [address] [place] [address] Hypercalcemia; Type 2 diabetes mellitus with hemoglobin A1c goal of less than 8.0% ([facility]) Allergies No known active allergiesdocumented as of this encounter (statuses as of 07/04/2024) Medications Medication Sig Dispensed Refills Start Date [...] the morning. 100 Tablet 4 03/30/2024 Active Lisinopril 10 MG Oral Tablet (Prinivil)Indication s:DM type 2, not at goal (HCC) Take 1 Tablet by mouth in the morning. 100 Tablet 1 03/30/2024 Active metFORMIN HCl 1000 MG Oral [...] by mouth in the morning. Obtaining from [employer] PAP. Active Ozempic (2 MG/DOSE) 8 MG/3ML Subcutaneous Solution Pen-injector (Semaglutide (2 MG/DOSE)) Inject 2 mg under the skin once a week. OBTAINING FROM [employer] Active Insulin Degludec FlexTouch 200 UNIT/ML Subcutaneous Solution Pen-injector Inject 110 Units under the skin every evening. OBTAINING FROM [employer] Active Insulin Aspart 100 UNIT/ML Injection Solution (NovoLOG) Inject under the skin three times a day before meals. 45 WITH BREAKFAST, 45 WITH LUNCH, AND 55 WITH SUPPER OBTAINING FROM [employer] Active Novofine Pen Needle 32G X 6 MM (NOVOFINE 32G PEN NEEDLE) Use 4 Each as directed. WITH INSULIN INJECTIONS. OBTAINING FROM [employer] Active FreeStyle Ilya 3 Sensor Use as directed. 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, unspecified whether intermediate card tender insulin use (HCC) 2 mg IZ PRN 04/08/2023 Active Aflibercept (Eylea) intraviteal prefilled syringe 2 mgIndications: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, unspecified whether intermediate card tender insulin use (HCC) 2 mg IZ PRN 04/08/2023 Active documented as of this encounter (statuses as of 07/04/2024) Active Problems Problem Noted Date Diagnosed Date Coronary artery disease invo lving [place] coronary artery of [place] heart without angina pectoris 06/30/2022 Ischemic cardiomyopathy [...] as of this encounter (statuses as of 07/04/2024) Resolved Problems Problem Noted Date Diagnosed Date [...] as of this encounter (statuses as of 07/04/2024) Immunizations Name Administration Dates Next Due COVID-19 mRNA, LNP-s, No Pre serve, 2-Dose Series ([employer]) 11/08/2021,01/18/2021,12/28/2020 H1N1 2009 Influenza, IM 10/06/2009 Pneumococcal Conjugate Vacci ne, 20-valent ([id number]) 03/28/2024 Pneumococcal Polysaccharide PPV23 (Pneumovax) 07/14/2020,07/23/2011,12/22/2005 Seasonal [...] Team (Late st Contact Info) Description 07/07/2024 1:00 PM EDT Office Visit Cardiology, [facility] [address] [place] [address] [facility] Cardiology [facility] [address] [place] [address] 07/12/2024 10:40 AM EDT Office Visit [facility] [address] [place] [address] MarchTanner MD [address] [place] [address] 08/17/2024 8:15 AM EDT Cardiac Studies Cardiac Studies, [facility] [address] [place] [address] 09/04/2024 8:00 AM EDT Hospital Encounter ENDO [facility], Endoscopy Room [facility] [address] [place] [phone] Juancarlos Muñoz MD [address] [place] [address] 09/04/2024 8:00 AM EDT - 09/04/2024 8:30 AM EDT Surgery ENDO [facility], Endoscopy Room [facility] [address] [place] [phone] Juancarlos Muñoz MD [address] [place] [address] COLONOSCOPY FLEXIBLE PROXIMAL DIAGNOSTIC 10/06/2024 7:30 AM EST [facility] [address] [place] [address] [facility] [address] [place] [address] 10/11/2024 7:30 AM EST Office Visit [facility]mology[facility] [address] [place] [address] Amarjit Santa MD [address] [place] [address] 02/14/2025 10:30 AM EDT Office Visit Cardiology, [facility] [address] [place] [address] Robert Flowers O, DO [address] [place] [address] Pending Results Name Type Priority Associated Diagnoses Date /Time COMPREHENSIVE METABOLIC PANEL Lab Routine Hypercalcemia 07/04/2024 9:54 AM EDT HEMOGLOBIN A1C Lab Routine Type 2 diabetes mellitus with hemoglobin A1c goal of less than 8.0% ([facility]) 07/04/2024 9:54 AM EDT LIPID PANEL WITH DIRECT LDL IF TG IS HIGH Lab Routine Type 2 diabetes mellitus with hemoglobin A1c goal of less than 8.0% ([facility]) 07/04/2024 9:54 AM EDT Scheduled Procedures Name Priority Associated [...] history exists COVID-19 Vaccine ( - season) 2023 11/08/2021, 01/18/2021, 12/28/2020 Influenza Vaccine (FLU shot) (#1) 2024 09/05/2021, 08/28/2015, 08/28/2015, Additional history exists HbA1c 09/28/2024 03/28/2024, 02/20, 12/30/2021, Additional history exists Albumin/Creatinine Ratio 03/28/2025 024, 02/22/2018, 12/05/2015, Additional history exists Depression Screening 03/28/2025 03/28/2024 Diabetic Foot Exam 03/28/2025 03/28/2024, 0 12/05/2015, 12/21/2014, Additional history exists GFR 03/28/2025 03/28/2024, 02/20, 12/30/2021, Additional history exists Diabetic Eye Exam 04/19/2025 04/19/2024, , 04/10/2024, Additional history exists RETIRED - COLONOSCOPY-EVERY 5 [...] as of this encounter Visit Diagnoses Diagnosis Hypercalcemia Type 2 diabetes mellitus with hemoglobin A1c goal of less than 8.0% (HCC) Diverticulitis Diverticulitis of colon (without mention of hemorrhage) documented in this encounter Care Teams Dishing Machine Operator Relationship Specialty Start Date End Date March, Tanner Santo MD [address] [place] [address] PCP - General Family Medicine 03/30/24 documented as of this encounter
--- OUTSIDE RECORDS SUMMARY | 2024-11-09 19:49 | External Medical Summary | Summary of Care ---
Author Name Unknown Organization [facility] Address [address] [facility] [place] [address] Phone [phone] Care Team Providers Care Distribution Engineer Name Role Phone Tanner Marte MD Primary Care Provider [phone] Reason for Visit * Reason Onset Date Comments Appointment 07/05/2024 Encounter Details Date Type Department Care Team (Late st Contact Info) Description 07/05/2024 Telephone Ophthalmology, [facility] [address] [place] [address] Jemal Coleman DO [address] [place] [address] Appointment Allergies No known active allergiesdocumented as of this encounter (statuses as of 07/05/2024) Medications Medication Sig Dispensed Refills Start Date [...] by mouth in the morning. Obtaining from [employer] PAP. Active Ozempic (2 MG/DOSE) 8 MG/3ML Subcutaneous Solution Pen-injector (Semaglutide (2 MG/DOSE)) Inject 2 mg under the skin once a week. OBTAINING FROM [employer] Active Insulin Degludec FlexTouch 200 UNIT/ML Subcutaneous Solution Pen-injector Inject 110 Units under the skin every evening. OBTAINING FROM [employer] Active Insulin Aspart 100 UNIT/ML Injection Solution (NovoLOG) Inject under the skin three times a day before meals. 45 WITH BREAKFAST, 45 WITH LUNCH, AND 55 WITH SUPPER OBTAINING FROM [employer] Active Novofine Pen Needle 32G X 6 MM (NOVOFINE 32G PEN NEEDLE) Use 4 Each as directed. WITH INSULIN INJECTIONS. OBTAINING FROM [employer] Active FreeStyle Ilya 3 Sensor Use as directed. 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, unspecified whether fpc insulin use (HCC) 2 mg IZ PRN 04/08/2023 Active Aflibercept (Eylea) intraviteal prefilled syringe 2 mgIndications: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, unspecified whether fpc insulin use (HCC) 2 mg IZ PRN 04/08/2023 Active documented as of this encounter (statuses as of 07/05/2024) Active Problems Problem Noted Date Diagnosed Date Coronary artery disease invo lving [place] coronary artery of [place] heart without angina pectoris 06/30/2022 Ischemic cardiomyopathy [...] as of this encounter (statuses as of 07/05/2024) Resolved Problems Problem Noted Date Diagnosed Date [...] as of this encounter (statuses as of 07/05/2024) Immunizations Name Administration Dates Next Due COVID-19 mRNA, LNP-s, No Pre serve, 2-Dose Series ([employer]) 11/08/2021,01/18/2021,12/28/2020 H1N1 2009 Influenza, IM 10/06/2009 Pneumococcal Conjugate Vacci ne, 20-valent ([id number]) 03/28/2024 Pneumococcal Polysaccharide PPV23 (Pneumovax) 07/14/2020,07/23/2011,12/22/2005 Seasonal [...] encounter Miscellaneous Notes * Telephone Encounter - Danna Astudillo MED MIKIE - 07/05/2024 12:09 PM EDT Pt scheduled for 07/12 at 315 pt agreeable * Telephone Encounter - Maribel Beavers OSA - 07/05/2024 11:08 AM EDT Who is patient being scheduled with? Dr. Coleman- Retinal Injection What is the reason the patient needs to be seen sooner? Pt cancelled in june When is the next available appointment? Oct 2nd [facility]: NOTIFY PATIENT: PLEASE ALLOW US UP TO 48 HOURS FOR A RESPONSE Retinal injections should not be scheduled further out than a week or two. Any appointment related messages , [place] [id number] If appointment needed 6 weeks or less, corina as high priority. [facility]: NOTIFY PATIENT: DEPARTMENT WILL BE CALLING YOU SOON THEY REVIEW THE MESSAGE. PLEASE NOTE THIS COULD BE UP TO A WEEK Any appointment related messages ,[place] [id number] [facility]: NOTIFY PATIENT: PLEASE ALLOW US UP TO 48 HOURS FOR A RESPONSE Appointment related concerns: Create and Send Telephone Encounter to P [phone] documented in this encounter Plan of Treatment Upcoming Encounters Date Type Department Care Team (Late st Contact Info) Description 07/07/2024 1:00 PM EDT Office Visit Cardiology, [facility] [address] [place] [address] [facility] Cardiology [facility] [address] [place] [address] 07/12/2024 10:40 AM EDT Office Visit [facility] [address] [facility] [phone] Tanner Marte MD [address] [place] [place] [address] 07/12/2024 3:15 PM EDT Office Visit Ophthalmology, [facility] [address] [place] [address] Jemal Coleman DO [address] [place] [address] 08/17/2024 8:15 AM EDT Cardiac Studies Cardiac Studies, [facility] [address] [place] [address] 09/04/2024 8:00 AM EDT Hospital Encounter ENDO [facility], Endoscopy Room [facility] [address] [place] [phone] Juancarlos Muñoz MD [address] [place] [address] 09/04/2024 8:00 AM EDT - 09/04/2024 8:30 AM EDT Surgery ENDO [facility], Endoscopy Room [facility] [address] [place] [phone] Juancarlos Muñoz MD [address] [place] [address] COLONOSCOPY FLEXIBLE PROXIMAL DIAGNOSTIC 10/06/2024 7:30 AM EST Office Visit Pharmacy, [place] [address] [place] [facility] [place] [address] [facility] [address] [place] [facility] [place] [address] 10/11/2024 7:30 AM EST Office Visit Ophthalmology, [place] [address] [facility] [place] [address] Amarjit Santa MD [address] [facility] [place] [address] 02/14/2025 10:30 AM EDT Office Visit Cardiology, [facility] [address] [place] [address] Robert Flowers, DO [address] [place] [address] Scheduled Procedures Name Priority Associated Diagnoses Date/Ti [...] 04/10/2024, Additional history exists GFR 07/04/2025 07/04/2024, 0 05/2024, 03/04/2023, Additional history exists RETIRED - [...] filedocumented as of this encounter Care Teams Distribution Engineer Relationship Specialty Start Date End Date March, Tanner Santo MD [address] [place] [address] PCP - General Family Medicine 03/30/24 documented as of this encounter
--- OUTSIDE RECORDS SUMMARY | 2024-11-09 19:49 | External Medical Summary | Summary of Care ---
Author Name Unknown Organization [facility] Address [address] [facility] [address] Phone [phone] Care Team Providers Care Occupational Health Nurse Supervisor Name Role Phone Tanner Marte MD Primary Care Provider Reason for Visit * Reason Onset Date Comments Medication Problem 07/07/2024 Encounter Details Date Type Department Care Team (Late st Contact Info) Description 07/07/2024 Telephone Cardiology, [facility] [address] [facility] [place] [phone] [facility] [address] [facility] [place] [phone] Medication Problem Allergies No known active allergiesdocumented as of this encounter (statuses as of 07/07/2024) Medications Medication Sig Dispensed Refills Start Date [...] by mouth in the morning. Obtaining from [employer] PAP. Active Ozempic (2 MG/DOSE) 8 MG/3ML Subcutaneous Solution Pen-injector (Semaglutide (2 MG/DOSE)) Inject 2 mg under the skin once a week. OBTAINING FROM [employer] Active Insulin Degludec FlexTouch 200 UNIT/ML Subcutaneous Solution Pen-injector Inject 110 Units under the skin every evening. OBTAINING FROM [employer] Active Insulin Aspart 100 UNIT/ML Injection Solution (NovoLOG) Inject under the skin three times a day before meals. 45 WITH BREAKFAST, 45 WITH LUNCH, AND 55 WITH SUPPER OBTAINING FROM [employer] Active Novofine Pen Needle 32G X 6 MM (NOVOFINE 32G PEN NEEDLE) Use 4 Each as directed. WITH INSULIN INJECTIONS. OBTAINING FROM [employer] Active FreeStyle Ilya 3 Sensor Use as directed. 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, unspecified whether half-way insulin use (HCC) 2 mg IZ PRN 04/08/2023 Active documented as of this encounter (statuses as of 07/07/2024) Active Problems Problem Noted Date Diagnosed Date Coronary artery disease invo lving [place] coronary artery of [place] heart without angina pectoris 06/30/2022 Ischemic cardiomyopathy [...] as of this encounter (statuses as of 07/07/2024) Resolved Problems Problem Noted Date Diagnosed Date [...] as of this encounter (statuses as of 07/07/2024) Immunizations Name Administration Dates Next Due COVID-19 mRNA, LNP-s, No Pre serve, 2-Dose Series (Davia) 11/08/2021,01/18/2021,12/28/2020 H1N1 2009 Influenza, IM 10/06/2009 Pneumococcal Conjugate Vacci ne, 20-valent ([id number]) 03/28/2024 Pneumococcal Polysaccharide PPV23 (Pneumovax) 07/14/2020,07/23/2011,12/22/2005 Seasonal [...] Patient with cardiomyopathy requiring cost assistance for Unified Inbox. Over income for Handshake, but may be eligible for Cardiac Dimensions. Thank you, Olive Stein, PharmD Clinical Pharmacist - Development Chemist Medication Therapy Management Clinic documented in this encounter Plan of Treatment Upcoming Encounters Date Type Department Care Team (Late st Contact Info) Description 07/12/2024 10:40 AM EDT Office Visit [facility] [address] [facility] [phone] March, Tanner Santo [facility] [address] [facility] [address] 07/12/2024 3:15 PM EDT Office Visit Ophthalmology, [facility] [address] [place] [address] Jemal Coleman, [address] [place] [address] 07/28/2024 8:00 AM EDT Office Visit Cardiology, [facility] [address] [place] [address] [facility] Cardiology [facility] [address] [place] [address] 08/17/2024 8:15 AM EDT Cardiac Studies Cardiac Studies, [facility] [address] [place] [address] 09/04/2024 8:00 AM EDT Hospital Encounter ENDO [facility], Endoscopy Room [facility] [address] [place], [place] [phone] Juancarlos Muñoz MD [address] [place] [address] 09/04/2024 8:00 AM EDT - 09/04/2024 8:30 AM EDT Surgery ENDO [facility], Endoscopy Room [facility] [address] [place] [phone] Juancarlos Muñoz MD [address] [place] [address] COLONOSCOPY FLEXIBLE PROXIMAL DIAGNOSTIC 10/06/2024 7:30 AM EST Office Visit [facility] [place] [address] [place] [address] [facility] [address] [place] [address] 10/11/2024 7:30 AM EST Office Visit Ophthalmology, [place] 21 [place] [address] Amarjit Santa MD [address] [place] [address] 02/14/2025 10:30 AM EDT Office Visit Cardiology, [facility] [address] [place] [address] Robert Flowers DO [address] [place] [address] Scheduled Procedures Name Priority Associated Diagnoses Date/Ti [...] 04/10/2024, Additional history exists GFR 07/04/2025 07/04/2024, 05/0 05/2024, 03/04/2023, Additional history exists RETIRED - [...] filedocumented as of this encounter Care Teams Occupational Health Nurse Supervisor Relationship Specialty Start Date End Date March, Tanner Santo MD [address] [place] [address] PCP - General Family Medicine 03/30/24 documented as of this encounter
--- OUTSIDE RECORDS SUMMARY | 2024-11-09 19:49 | External Medical Summary | Summary of Care ---
Author Name Unknown Organization [facility] Address [address] [place] [address] Phone [phone] Care Team Providers Care Clipper And Turner Name Role Phone Tanner Marte MD Primary Care Provider [phone] Reason for Visit * Reason Onset Date Comments MyCode Nonconsent - Not interested at this time 07/12/2024 Encounter Details Date Type Department Care Team (Late st Contact Info) Description 07/12/2024 Orders Only Outcomes Research Department [address] [place], [place] [id number] Kiki Comer CHRA MyCode Nonconsent Documentation Allergies No known active allergiesdocumented as of this encounter (statuses as of 07/12/2024) Medications Medication Sig Dispensed Refills Start Date [...] Aflibercept 2 MG/0.05ML Intravitreal Solution Prefilled Syringe (Acerlea) Inject into eye 0.05 mL every 4 [...] the skin once a week. OBTAINING FROM [employer] Active Insulin Degludec FlexTouch 200 UNIT/ML Subcutaneous Solution Pen-injector Inject 110 Units under the skin every evening. OBTAINING FROM [employer] Active Insulin Aspart 100 UNIT/ML Injection Solution (NovoLOG) Inject under the skin three times a day before meals. 45 WITH BREAKFAST, 45 WITH LUNCH, AND 55 WITH SUPPER OBTAINING FROM [employer] Active Novofine Pen Needle 32G X 6 MM (NOVOFINE 32G PEN NEEDLE) Use 4 Each as directed. WITH INSULIN INJECTIONS. OBTAINING FROM [employer] Active FreeStyle Ilya 3 Sensor Use as directed. 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, with long-term current use of insulin 07/12/2024 Type 2 diabetes mellitus wit h diabetic cataract, with long-term current use of insulin 07/12/2024 Coronary artery disease invo lving [place] coronary artery of [place] heart without angina pectoris 06/30/2022 Ischemic cardiomyopathy [...] as of this encounter (statuses as of 07/12/2024) Resolved Problems Problem Noted Date Diagnosed Date [...] as of this encounter (statuses as of 07/12/2024) Immunizations Name Administration Dates Next Due COVID-19 mRNA, LNP-s, No Pre serve, 2-Dose Series (Auxogyn) 11/08/2021,01/18/2021,12/28/2020 H1N1 2009 Influenza, IM 10/06/2009 Pneumococcal Conjugate Vacci ne, 20-valent ([id number]) 03/28/2024 Pneumococcal Polysaccharide PPV23 (Pneumovax) 07/14/2020,07/23/2011,12/22/2005 Seasonal [...] as of this encounter Progress Notes * Kiki Comer CHRA - 07/12/2024 4:48 PM EDT MyCode Nonconsent Documentation Rolan Patel was approached in the clinic regarding participation in the MyCode Project and did not consent. documented in this encounter Plan of Treatment Upcoming Encounters Date Type Department Care Team (Late st Contact Info) Description 07/28/2024 8:00 AM EDT Office Visit Cardiology, [facility] [address] [place] [address] [facility] Cardiology [facility] [address] [place] [address] 08/17/2024 8:15 AM EDT Cardiac Studies Cardiac Studies, [facility] [address] [place] [address] 09/04/2024 8:00 AM EDT Hospital Encounter ENDO [facility], Endoscopy Room [facility] [address] [place] [phone] Juancarlos Muñoz MD [address] [place] [address] 09/04/2024 8:00 AM EDT - 09/04/2024 8:30 AM EDT Surgery ENDO [facility], Endoscopy Room [facility] [address] [place] [phone] Juancarlos Muñoz MD [address] [place] [address] COLONOSCOPY FLEXIBLE PROXIMAL DIAGNOSTIC 10/03/2024 3:15 PM EST Office Visit Ophthalmology, [facility] [address] [place] [address] Jemal Coleman DO [address] [place] [address] 10/06/2024 7:30 AM EST Office Visit Pharmacy, [place] [address] [place] [address] [facility] [address] [place] [address] 10/11/2024 7:30 AM EST Office Visit Ophthalmology, [place] [address] [facility] [place] [address] Amarjit Santa MD 21 [place] [address] 01/08/2025 10:00 AM EST Laboratory Laboratory, [place] [address] [place] [phone] [facility] [address] [place] [address] 01/16/2025 11:00 AM EST Office Visit Family Practice, [place] [address] [place] [facility] [place] [phone] MarchTanner MD [address] [place] [facility] [place] [address] 02/14/2025 10:30 AM EDT Office Visit Cardiology, [facility] [address] [place] [address] Robert Flowers DO [address] [place] [address] Scheduled Procedures Name Priority Associated Diagnoses Date/Ti [...] filedocumented as of this encounter Care Teams Clipper And Turner Relationship Specialty Start Date End Date March, Tanner Santo MD [address] [place] [address] PCP - General Family Medicine 03/30/24 documented as of this encounter
--- OUTSIDE RECORDS SUMMARY | 2024-11-09 19:49 | External Medical Summary | Summary of Care ---
Author Name Unknown Organization [facility] Address [address] [facility] [place] [address] Phone [phone] Care Team Providers Care Residential Roofer Name Role Phone Tanner Marte MD Primary Care Provider [phone] Reason for Visit * Reason Comments Follow Up 6-8 week f/u; pt has no new complaints since LIU, saw eye doctor in [facility] was concerned about bleed behind his eye and scaring * Precert (Within 10 days (routine)) - Authorized Specialty Diagnoses / Procedures Referred By Alberto willis Referred To Contact Ophthalmology Diagnoses Type 2 diabetes mellitus with mild nonproliferative diabetic retinopathy with macular edema, bilateral (HCC) Procedures [place] AFLIBERCEPT INJECTION [place] INTRAVITREAL NJX PHARMACOLOGIC AGT SPX Jemal Coleman DO [address] [place] [address] Referral ID Status Reason Start Date Expiration Date V isits Requested Visits Authorized [id number] Authorized Precert 04/18/2024 11/21/2099 [id number] Encounter Details Date Type Department Care Team (Late st Contact Info) Description 04/19/2024 9:00 AM EDT Office Visit Ophthalmology, [facility] [address] [place] [address] Jemal Coleman DO [address] [place] [address] 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 Strips for [...] by mouth in the morning. Obtaining from [employer] PAP. Active Ozempic (2 MG/DOSE) 8 MG/3ML Subcutaneous Solution Pen-injector (Semaglutide (2 MG/DOSE)) Inject 2 mg under the skin once a week. OBTAINING FROM [employer] PAP Active Insulin Degludec FlexTouch 200 UNIT/ML Subcutaneous Solution Pen-injector Inject 110 Units under the skin every evening. OBTAINING FROM [employer] PAP Active Insulin Aspart 100 UNIT/ML Injection Solution (NovoLOG) Inject under the skin three times a day before meals. 45 WITH BREAKFAST, 45 WITH LUNCH, AND 55 WITH SUPPER OBTAINING FROM [employer] PAP Active Novofine Pen Needle 32G X 6 MM (NOVOFINE 32G PEN NEEDLE) Use 4 Each as directed. WITH INSULIN INJECTIONS. OBTAINING FROM [employer] Active Hospital, Clinic, or Other Facility Administered [...] Diagnosed Date Coronary artery disease invo lving [place] coronary artery of [place] heart without angina pectoris 06/30/2022 Ischemic cardiomyopathy [...] mRNA, LNP-s, No Pre serve, 2-Dose Series (Aero[employer]) 11/08/2021,01/18/2021,12/28/2020 H1N1 2009 Influenza, IM 10/06/2009 Pneumococcal Conjugate Vacci ne, 20-valent ([id number]) 03/28/2024 Pneumococcal Polysaccharide PPV23 (Pneumovax) 07/14/2020,07/23/2011,12/22/2005 Seasonal [...] of this encounter Progress Notes * Jemal Coleman DO - 04/19/2024 9:00 AM EDT [facility] [place] Nursing notes reviewed. Eye vitals reviewed. Mood and Affect: normal HPI: Rolan Patel is a 64 year old male who presents for evaluation of DR No other eye complaints. Denies significant pain. Base Eye Exam Visual Acuity (Snellen - Linear) Right Left Dist cc 20/80 -1 20/150 -1 Dist ph cc NI 20/100 -2 Tonometry (Tonopen, 9:16 AM) Right Left Pressure 20 19 Pupils Dark Shape React APD Right 5 Round Minimal None Left 5 Round Minimal None Visual Feldman (Counting fingers) Right Left Full Full Kept looking away from nose Extraocular Movement Did not follow finger Neuro/Psych Oriented x3: Yes Mood/Affect: Normal Dilation Both eyes: 0.5% Proparacaine @ 9:14 AM Dilation #2 Both eyes: 1.0% Mydriacyl, 2.5% Phenylephrine @ 9:15 AM Dilation #3 Both eyes: 1.0% Mydriacyl, 2.5% Phenylephrine @ 9:17 AM Dilation Comments Patient cautioned that effects of [...] clear optic nerve: 0.55, no edema/pallor/NVD macula: autocad detailer, trace dme vessels: wnl periphery: autocad detailer, no RT/RD Dilated fundus exam OS: vitreous: clear optic nerve: 0.7, no edema/pallor/NVD macula: autocad detailer, trace dme vessels: wnl periphery: autocad detailer, no RT/RD OCT Interpretation: OD: absence of foveal depression, mostly resolved trace CIDME, no PVD--worse 44um prior STABLE, prior improved, prior improved 18um prior improved, prior trace improved 10um, prior improved 26um prior improved 26um, prior mild improved 18um OS: absence of foveal depression, trace CIDME, no PVD--improved 48um prior improved 45um prior mixed, prior [...] improved w/o injections in past -Eylea OD 09/02/22, 07/21/22, 06/19/22, 05/18/22 -(overall sig improved (127um) [...] -pt has restricted license F/u w/ me 8-10 weeks, OCT OU Jemal Coleman, DO [id number] ophth: Amarjit Santa MD TIMEOUT PROCEDURE: correct patient identity-YES correct procedure and consent-YES verified side and site-YES correct patient position-YES all necessary equipment/prior studies present-YES reviewed special requirements of this patient-YES PROCEDURE: Intravitreal injection of Eylea (aflibercept) 2mg OD INFORMED CONSENT: Risks, benefits and alternatives have been discussed with the patient. Risks include, but are not limited to: retinal tears, detachments, hemorrhage, glaucoma, infection, cataracts, need for more procedures and the potential risk of arterial thromboembolic events following use of intravitreal VEGF inhibitors defined as nonfatal stroke, nonfatal myocardial infarction or vascular . Patient is aware of these risks and consents to the procedure. DESCRIPTION OF PROCEDURE: The procedure site was confirmed. Topical proparacaine was applied to the surface of the eye after which subconjunctival anesthetic was administered. The area was prepped in the standard aseptic manner with 5% Betadine solution. An eyelid speculum was placed and 2mg (0.05 ml) of Eylea was injected 3.75 mm posterior to the limbus into the midvitreous cavity with a 30 gauge short needle. The eye speculum was removed, Betadine was flushed from the eye and optic nerve perfusion was insured. The patient tolerated the procedure without difficulty and was given followup instructions and instructed to use ophthalmic ointment 3x/day as needed. Jemal Coleman DO, performed the procedure in its entirety. documented in this encounter Nursing Notes * Veronica Vargas LPN - 04/19/2024 9:55 AM EDT Rolan Patel to receive fifth Eylea 2mg Injection of the Right eye. Correct eye confirmed with patient and marked by Jemal Coleman DO Eylea 2mg lot # [id number] Exp. Date: 01/2025 * Danna Astudillo MED ASSIST - 04/19/2024 9:08 AM EDT Rolan Patel is a 64 year old year old male who presents for Mod NPDR OU. Last Office Visit: 06/01/2023 (in office), Visit date not found (telemedicine) Patient currently states 6-8 week f/u; pt has no new complaints since LIU, saw eye doctor in [facility] was concerned about bleed behind his eye and scaring Are you diabetic? Yes. Do you check your blood sugars daily? NO. Last Hemoglobin A1C: Lab Results Component Value Date/Time HGBA1C 9.1 (H) 03/28/2024 09:54 AM HGBA1C 8.9 (H) 03/09/2022 10:15 AM HGBA1C 9.1 (H) 12/30/2021 09:15 AM HGBA1C 9.2 (H) 10/22/2020 10:00 AM HGBA1C 9.3 (A) 07/10/2020 12:00 AM HGBA1C 8.9 (A) 03/06/2020 12:00 AM HGBA1C 8.2 (H) 01/09/2020 09:45 AM HGBA1C 9.6 (H) 05/16/2019 08:[address]? yes OCT image(s) of both eyes acquired and filed/scanned into chart. documented in this encounter Plan of Treatment Upcoming Encounters Date Type Department Care Team (Late st Contact Info) Description 07/07/2024 1:00 PM EDT Office Visit Cardiology, [facility] [address] [place] [address] [facility] Cardiology [place] [address] [place] [address] 07/12/2024 10:40 AM EDT Office Visit [facility] [address] [facility] [address] MarchTanner MD [address] [place] [facility] [place] [address] 07/12/2024 3:15 PM EDT Office Visit Ophthalmology, [facility] [address] [place] [address] Jemal Coleman DO [address] [place] [address] 08/17/2024 8:15 AM EDT Cardiac Studies Cardiac Studies, [facility] [address] [place] [address] 09/04/2024 8:00 AM EDT Hospital Encounter ENDO [facility], Endoscopy Room [facility] [address] [place] [address] Juancarlos Muñoz MD [address] [place] [address] 09/04/2024 8:00 AM EDT - 09/04/2024 8:30 AM EDT Surgery ENDO [facility], Endoscopy Room [facility] [address] [place] [address] Juancarlos Muñoz MD [address] [place] [address] COLONOSCOPY FLEXIBLE PROXIMAL DIAGNOSTIC 10/06/2024 7:30 AM EST Office Visit Pharmacy, [place] [address] [place] [address] [place], [facility] [address] [place] [address] 10/11/2024 7:30 AM EST Office Visit Ophthalmology, [place] [address] [place] [address] Amarjit Santa MD [address] [place] [address] 02/14/2025 10:30 AM EDT Office Visit Cardiology, [facility] [address] [facility] [place] [address] Robert Flowers, [address] [facility] [place] [address] Scheduled Orders Name Type Priority Associated Diagnoses Orde r Schedule RETINA SCAN DIAGNOSTIC IMAGE, POSTERIOR Procedures Routine 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, 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) Ordered: 04/19/2024 Scheduled Procedures Name Priority Associated Diagnoses Date/Ti [...] 04/10/2024, Additional history exists GFR 07/04/2025 07/04/2024, 050 05/2024, 03/04/2023, Additional history exists RETIRED - [...] both eyes and macular edema, 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)- Primary Encounter for ophthalmic examination and evaluation Examination of eyes and vision Diverticulitis Diverticulitis of colon (without mention of hemorrhage) documented in this encounter Administered Medications Active Administered Medications - up to 3 most recent administrations Medication Order MAR Action Action Date Dose Rate Site Aflibercept (Eylea) intraviteal prefilled syringe 2 mg 2 mg, Intravitreal, PRN Other, retinal fluid, Starting on Amarilis 04/08/23 at 1455, Until Discontinued Given 04/19/2024 9:58 AM EDT 2 mg Eye Right ROPivacaine (Naropin) inj 1.5 mg 1.5 mg (0.3 mL), Injection, PRN Other, Starting on Wed07/21/22 at 0818, Until Discontinued, For 365 doses Given 04/19/2024 9:58 AM EDT 1.5 mg Eye Right Given 03/19/2023 8:22 AM EDT 1.5 mg Ey e Left Given 12/28/2022 9:45 AM EST 1.5 mg Ey e Left documented in this encounter Care Teams Residential Roofer Relationship Specialty Start Date End Date March, Tanner Santo MD [address] [place] [address] PCP - General Family Medicine 03/30/24 documented as of this encounter
--- OUTSIDE RECORDS SUMMARY | 2024-11-09 19:49 | External Medical Summary | Summary of Care ---
Author Name Unknown Organization [facility] Address [address] [place] [facility] [place] [address] Phone [phone] Care Team Providers Care Home Builder Name Role Phone MarchTanner MD Primary Care Provider [phone] Reason for Referral * Ancillary Services (Within 10 days (routine)) - Authorized Specialty Diagnoses / Procedures Referred By Contac t Referred To Contact Gastroenterology Diagnoses Colon cancer screening MarchTanner MD [address] [place] [address] Referral ID Status Reason Start Date Expiration Date Visits Requested Visits Authorized [id number] Authorized Ancillary Services Required 07/12/[phone] Question Answer Referral Priority Within 10 days (routine) Where should this appointment be scheduled? [facility] COLONOSCOPY ALREADY SCHEDULED FOR AUGUST. ALERT: Do not order for pediatric patients (18 years or younger). Cancel off screen and order PEDS GASTROENTEROLOGY CONSULT (Type: 1 visit only-Evaluate and Treat) The following Pt. Instructions are available: - Gastro Colonoscopy Prep Instructions [[id number]] - Gastro Colonoscopy Prep Instructions (Central African Version) [[id number]] Go to the Pt. Instructions section within the Visit Navigator to access. Colonoscopy ASGE Guidelines: Average risk screening (begin at age 50, 10 year intervals) ADDITIONAL INFORMATION 1. Is the patient on Coumadin? No 2. Is the patient on Pradaxa? No Reason for Visit * Reason Comments Follow Up Patient states that he is here for 3 month return Encounter Details Date Type Department Care Team (Latest Contact Info) Description 07/12/2024 10:40 AM EDT Office Visit [facility] [address] [place] [phone] MarchTanner MD [address], [place] [id number] Colon cancer screening*; Type 2 diabetes mellitus with hemoglobin A1c goal of less than 8.0% ([facility]); Dyslipidemia, goal LDL below 70; HTN, goal below 140/90; Typical atrial flutter ([facility]); Dilated cardiomyopathy ([facility]); Old myocardial infarct; Anxiety state; S/P ablation of atrial flutter; Hypertensive heart disease with chronic systolic congestive heart failure ([facility]); Type 2 diabetes mellitus with both eyes affected by moderate nonproliferative retinopathy and macular edema, with long-term current use of insulin ([facility]); Type 2 diabetes mellitus with diabetic cataract, with long-term current use of insulin ([facility]) Allergies No known active allergiesdocumented as of this encounter (statuses as of 07/12/2024) Medications Medication Sig Dispensed Refills Start Date End Date Status MULTIVITAMIN PO TABSIndications:ASC VD (arteriosclerotic cardiovascular disease) once daily 34 3 03/24/2010 Active VITAMIN C-IRON 125-200 MG PO TABSIndications:ASC VD (arteriosclerotic cardiovascular disease) one daily 31 Tab 3 12/09/2010 Active LANCETS MISCIndications:DM type 2, not at goal ([facility]) one touch ultra three times daily 90 Box 5 01/26/2011 Active ASPIRIN LOW DOSE 81 MG PO CHEWIndications:Old myocardial infarct,Routine medical exam,DM type 2, not at goal ([facility]),HTN, goal below 130/80,ASCVD (arteriosclerotic cardiovascular disease) 1 TABLET DAILY 30 Tab 1 09/20/2012 Active NITROGLYCERIN 0.4 MG SL SUBLIndications:ASC VD (arteriosclerotic cardiovascular disease),Old myocardial infarct one tab under tongue as needed for chest pain maximum 3 doses 25 Tab 5 12/03/2014 Active ONETOUCH ULTRA BLUE STRPIndications:DM type 2, not at goal ([facility]) use three times a day. Strips [...] 03/31/2024 Active Apixaban 5 MG Oral Tablet (Eliquis)Indication s:S/P ablation of atrial flutter,Typical atrial flutter (HCC) Take 1 Tablet by mouth in the morning and 1 Tablet before bedtime. 200 Tablet 03/31/2024 Active Dapagliflozin Propanediol 10 MG Oral Tablet (Farxiga) Take 1 Tablet by mouth in the morning. Obtaining from [facility] PAP. Active Ozempic (2 MG/DOSE) 8 MG/3ML Subcutaneous Solution Pen-injector (Semaglutide (2 MG/DOSE)) Inject 2 mg under the skin once a week. OBTAINING FROM [employer] PAP Active Insulin Degludec FlexTouch 200 UNIT/ML Subcutaneous Solution Pen-injector Inject 110 Units under the skin every evening. OBTAINING FROM [employer] Active Insulin Aspart 100 UNIT/ML Injection Solution (NovoLOG) Inject under the skin three times a day before meals. 45 WITH BREAKFAST, 45 WITH LUNCH, AND 55 WITH SUPPER OBTAINING FROM [employer] Active Novofine Pen Needle 32G X 6 MM (NOVOFINE 32G PEN NEEDLE) Use 4 Each as directed. WITH INSULIN INJECTIONS. OBTAINING FROM [employer] Active FreeStyle Ilya 3 Sensor Use as directed. Supplied by [employer] Active Entresto 24-26 MG Oral Tablet (sacubitril-valsart an 24-26 mg per tab) Take 1 Tablet by mouth in the morning and 1 Tablet before bedtime. 60 Tablet 07/07/2024 Active Apixaban 5 MG Oral Tablet (Eliquis)Indication s:Typical atrial flutter (HCC) Take 1 Tablet by mouth in the morning and 1 Tablet before bedtime. 30 Tablet 07/12/2024 Active Zoster Vac Recomb Adjuvanted 50 MCG/0.5ML Intramuscular Suspension Reconstituted (Shingrix)Indicatio ns:Need for vaccination for zoster Inject 0.5 mL into a large muscle now and repeat dose in 60 to 180 days 1 Each 1 03/28/2024 4 Discontinu ed(Medicat ion List Clean Up) Hospital, Clinic, or Other Facility Administered Medication Ordered Dose Route Frequency Start Date End Date Status ROPivacaine (Naropin) inj 1.5 mgIndications: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, unspecified whether shift stacker insulin use (HCC) 1.5 mg IJ PRN 07/21/2022 Active Aflibercept (Eylea) intraviteal prefilled syringe 2 mgIndications: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, unspecified whether shift stacker insulin use (HCC) 2 mg IZ PRN 04/08/2023 Active Aflibercept (Eylea) intraviteal prefilled syringe 2 mgIndications: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, unspecified whether shift stacker insulin use (HCC) 2 mg IZ PRN [...] insulin 07/12/2024 Coronary artery disease invo lving nikolai coronary artery of nikolai heart without angina pectoris 06/30/2022 Ischemic cardiomyopathy [...] mRNA, LNP-s, No Pre serve, 2-Dose Series (CerRx) 11/08/2021,01/18/2021,12/28/2020 H1N1 2009 Influenza, IM 10/06/2009 Pneumococcal Conjugate Vacci ne, 20-valent ([id number]) 03/28/2024 Pneumococcal Polysaccharide PPV23 (Pneumovax) 07/14/2020,07/23/2011,12/22/2005 Seasonal [...] Smoking Tobacco: Never Smokeless Tobacco: Current Snuff Tobacco Cessation:Ready to Q uit: Not Asked; Counseling Given: Not Answered Comments:1 can per day for 30 years. Alcohol Use Standard Drinks/Week Comments Yes [...] Sign Reading Time Taken Comments Blood Pressure 132/64 07/12/2024 10:43 AM EDT Pulse 81 07/12/2024 10:43 AM EDT Temperature 35.8 C (96.5 F) 07/12/2024 10:43 AM E DT Respiratory Rate 16 07/12/2024 10:43 AM EDT Oxygen Saturation 93% 07/12/2024 10:43 AM EDT Inhaled Oxygen Concentration - - Weight 120.2 kg (265 lb) 07/12/2024 10:43 AM EDT Height 175.3 cm (5' 9") 07/12/2024 10:43 AM EDT Body Mass Index 39.13 07/12/2024 10:43 AM EDT documented in this encounter Progress Notes * Tanner Marte MD - 07/12/2024 10:44 AM EDT Images from the original note were not included. Assessment and Plan 1. Type 2 diabetes mellitus with hemoglobin A1c goal of less than 8.0% ([facility]) A1c 7.4 from 9.1. Continue to follow with MTM. - HEMOGLOBIN A1C; Future 2. Dyslipidemia, goal LDL below 70 Continue atorvastatin. LDL at goal. Triglycerides remain elevated despite statin. Consider Vascepa through cardiology. - LIPID PANEL WITH DIRECT LDL IF TG IS HIGH; Future 3. HTN, goal below 140/90 BP at goal 132/64. Continue entresto. - COMPREHENSIVE METABOLIC PANEL; Future 4. Typical atrial flutter (HCC) S/p ablation. Anticoagulated on eliquis. Rate control with metoprolol. 14 day supply of eliquis sent to local pharmacy as shipment from mail order did not reach house. - Apixaban 5 MG Oral Tablet (Eliquis); Take 1 Tablet by mouth in the morning and 1 Tablet before bedtime. Dispense: 30 Tablet; Refill: 0 5. Dilated cardiomyopathy (HCC) Following with cardiology. Continue GDMT with entresto, metoprolol, atorvastatin, aspirin, farxiga.Continue tight glucose and BP control. 6. Old myocardial infarct 7. Anxiety state Stable on citalopram. 8. S/P ablation of atrial flutter 9. Colon cancer screening Scheduled for August 2024. - COLONOSCOPY, GI REFERRAL OP 10. Hypertensive heart disease with chronic systolic congestive heart failure (HCC) 11. Type 2 diabetes mellitus with both eyes affected by moderate nonproliferative retinopathy and macular edema, with long-term current use of insulin (HCC) 12. Type 2 diabetes mellitus with diabetic cataract, with long-term current use of insulin (HCC) Wrap-Up Follow up in 6 months. History of Present Illness The patient is a 64-year-old male with past medical history of type 2 diabetes, dyslipidemia, chronic systolic heart failure, atrial flutter status post ablation, dilated cardiomyopathy, hypertension, history of ND who presents for routine follow up. Patient with history of CABG in 2001. Also with history of paroxysmal atrial flutter status post ablation in August 11, 2020. Currently anticoagulated on Eliquis with rate control of metoprolol. Following with Cardiology. Does have hypertension as well currently on entresto twice daily and Lasix40 mg daily. He was appropriately on statin takes thank you for dyslipidemia. Blood pressure in office today is 132/64. Since last visit he has a established with MTM for diabetes management. His A1c has improved from 9.1 in April 10, 2024 27.4 in July 11, 2024. His current diabetes regimen includes Farxiga 10 mg daily, insulin degludec 110 units daily, insulin aspart 45 with breakfast, 45 with lunch, 55 with dinner, metformin 1000 mg twice daily, Ozempic 2 mg weekly. Patient was diagnosed with Cardiology on 06/07/2024. Recommendation was for repeat echo to monitor cardiomyopathy. He was transitioned from lisinopril to Entresto. He was otherwise continued on aspirin, beta-sury, Lasix, Eliquis, Farxiga, atorvastatin. He was instructed to take an additional 40 mg of furosemide if weight increases more than 2 lb in 48 hours or 5 lb in a week. Recommendation was for follow up in 6 months. [facility] clinic at cardiology is considering Vascepa given triglycerides remain elevated despite atorvastatin. Physical Exam Vitals: 07/12/24 1043 Temp: 35.8 C (96.5 F) Pulse: 81 Resp: 16 SpO2: 93% BP: 132/64 BMI: 39.12 Physical Exam Physical Exam Vitals reviewed. Constitutional: General: He is not in acute distress. Cardiovascular: Rate and Rhythm: Normal rate and regular rhythm. Heart sounds: No murmur heard. Pulmonary: Effort: Pulmonary effort is normal. No respiratory distress. Breath sounds: Normal breath sounds. No wheezing. Musculoskeletal: Cervical back: Neck supple. Right lower leg: No edema. Left lower leg: No edema. Lymphadenopathy: Cervical: No cervical adenopathy. Skin: Comments: Excoriations of the legs bilaterally. Neurological: General: No focal deficit present. Mental Status: He is alert. Psychiatric: Mood and Affect: Mood normal. Behavior: Behavior normal. This note has been completed in part utilizing [email or web address] Speech Voice Recognition Software. Due to technical limitations of the software, grammatical errors, random word insertions, prounoun errors, and incomplete sentences may occur. Any formal questions or concerns about the content, text, or information contained within the body of this dictation should be directly addressed to the provider for clarification. documented in this encounter Nursing Notes * Neema Mcmullen LPN - 07/12/2024 10:42 AM EDT Rolan Patel is a 64 year old male who presents today for Chief Complaint Patient presents with Follow Up Patient states that he is here for 3 month return documented in this encounter Plan of Treatment Upcoming Encounters Date Type Department Care Team (Late st Contact Info) Description 07/12/2024 3:15 PM EDT Office Visit Ophthalmology, [facility] [address] [place] [address] Jemal Coleman DO [address] [place] [address] 07/28/2024 8:00 AM EDT Office Visit Cardiology, [facility] [address] [place] [address] [facility] Cardiology [facility] [address] [place] [address] 08/17/2024 8:15 AM EDT Cardiac Studies Cardiac Studies, [facility] [address] [place] [address] 09/04/2024 8:00 AM EDT Hospital Encounter ENDO [facility], Endoscopy Room [facility] [address] [place] [phone] Juancarlos Muñoz MD [address] [place] [address] 09/04/2024 8:00 AM EDT - 09/04/2024 8:30 AM EDT Surgery ENDO [facility], Endoscopy Room [facility] [address] [place] [phone] Juancarlos Muñoz MD [address] [place] [address] COLONOSCOPY FLEXIBLE PROXIMAL DIAGNOSTIC 10/06/2024 7:30 AM EST [address] [address] [facility] [address] [place] [address] 10/11/2024 7:30 AM EST [facility] [place] [facility] [address] Amarjit Santa MD [address] [facility] [place] [address] 01/08/2025 10:00 AM EST Laboratory Laboratory, [facility] [address] [place] [phone] [facility] [address] [place] [address] 01/16/2025 11:00 AM EST Office Visit Family [facility], [facility] [address] [place] [facility] [place] [phone] MarchTanner MD [address] [place] [address] 02/14/2025 10:30 AM EDT Office Visit Cardiology, [facility] [address] [facility] [place] [address] Robert Flowers, [address] [place] [address] Scheduled Orders Name Type Priority Associated Diagnoses Orde r Schedule HEMOGLOBIN A1C Lab Routine Type 2 diabetes mellitus with hemoglobin A1c goal of less than 8.0% (HCC) Expected: 07/12/2024 (Approximate), Expires: 07/12/2025 LIPID PANEL WITH DIRECT LDL IF TG IS HIGH Lab Routine Dyslipidemia, goal LDL below 70 Expected: 07/12/2024, Expires: 07/12/2025 COMPREHENSIVE METABOLIC PANEL Lab Routine HTN, goal below 140/90 Expected: 07/12/2024 (Approximate), Expires: 07/12/2025 Scheduled Procedures Name Priority Associated Diagnoses Date/Ti me COLONOSCOPY FLEXIBLE PROXIMA L DIAGNOSTIC Diverticulitis 09/04/2024 8:00 AM EDT Scheduled Referrals Name Type Priority Associated Diagnoses Orde r Schedule COLONOSCOPY, GI REFERRAL OP Referral Within 10 days (routine) Colon cancer screening Ordered: 07/12/2024 Health Maintenance Due Date Last Done Comments [...] 03/09/2022, Additional history exists Albumin/Creatinine Ratio 03/28/2025 05 [...] as of this encounter Visit Diagnoses Diagnosis Colon cancer screening- Primary Special screening for malignant neoplasms, colon Type 2 diabetes mellitus with hemoglobin A1c goal of less than 8.0% (HCC) Dyslipidemia, goal LDL below 70 Other and unspecified hyperlipidemia HTN, goal below 140/90 Unspecified essential hypertension Typical atrial flutter (HCC) Atrial flutter Dilated cardiomyopathy (HCC) Other primary cardiomyopathies Old myocardial infarct Old myocardial infarction Anxiety state Anxiety state, unspecified S/P ablation of atrial flutter Other postprocedural status Hypertensive heart disease with chronic systolic congestive heart failure (HCC) Type 2 diabetes mellitus with both eyes affected by moderate nonproliferative retinopathy and macular edema, with long-term current use of insulin (HCC) Type 2 diabetes mellitus with diabetic cataract, with long-term current use of insulin (HCC) Diverticulitis Diverticulitis of colon (without mention of hemorrhage) documented in this encounter Care Teams Home Builder Relationship Specialty Start Date End Date March, Tanner Santo MD [address] [place] [address] PCP - General Family Medicine 03/30/24 documented as of this encounter
--- OUTSIDE RECORDS SUMMARY | 2024-11-09 19:49 | External Medical Summary | Summary of Care ---
Author Name Unknown Organization [facility] Address [address] [facility] [place] [address] Phone [phone] Care Team Providers Care Environmental Studies Program Director Name Role Phone Tanner Marte MD Primary Care Provider [phone] Reason for Visit * Reason Comments Dosage Adjustment In Person (Anticoag Cl inic) Congestive Heart Failure * Evaluate & Treat - Unlimited Visits (Within 10 days (routine)) - Authorized Specialty Diagnoses / Procedures Referred By Alberto willis Referred To Contact Pharmacist / Pharmacy Diagnoses Chronic systolic heart failure (HCC) Robert Flowers, [address] [place] [address] Referral ID Status Reason Start Date Expiration Date Visits Requested Visits Authorized [id number] Authorized Specialty Services Required 06/07/2024 12/04/2024 99 [phone] Encounter Details Date Type Department Care Team (Late st Contact Info) Description 07/07/2024 1:00 PM EDT Office Visit [facility], [facility] [place] [address] [facility] [address] [facility] [place] [address] Ischemic cardiomyopathy* Allergies No known active allergiesdocumented as of [...] BLUE STRPIndications:DM type 2, not at goal ([facility]) use three times a day. Strips [...] 04/19/2024 Atorvastatin Calcium 40 MG Oral Tablet (Lipitor)Indication [...] by mouth in the morning. Obtaining from [employer] PAP. Active Ozempic (2 MG/DOSE) 8 MG/3ML Subcutaneous Solution Pen-injector (Semaglutide (2 MG/DOSE)) Inject 2 mg under the skin once a week. OBTAINING FROM [employer] PAP Active Insulin Degludec FlexTouch 200 UNIT/ML Subcutaneous Solution Pen-injector Inject 110 Units under the skin every evening. OBTAINING FROM [employer] Active Insulin Aspart 100 UNIT/ML Injection Solution (NovoLOG) Inject under the skin three times a day before meals. 45 WITH BREAKFAST, 45 WITH LUNCH, AND 55 WITH SUPPER OBTAINING FROM [employer] Active Novofine Pen Needle 32G X 6 MM (NOVOFINE 32G PEN NEEDLE) Use 4 Each as directed. WITH INSULIN INJECTIONS. OBTAINING FROM [employer] Active FreeStyle Ilya 3 Sensor Use as directed. Supplied by [employer] Active Entresto 24-26 MG Oral Tablet (sacubitril-valsart an 24-26 mg per tab) Take 1 Tablet by mouth in the morning and 1 Tablet before bedtime. 60 Tablet 07/07/2024 Active Lisinopril 10 MG Oral Tablet (Prinivil)Indicatio ns:DM type 2, not at goal (HCC) Take 1 Tablet by mouth in the morning. 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 coronary artery of [place] heart without angina pectoris 06/30/2022 Ischemic cardiomyopathy [...] mRNA, LNP-s, No Pre serve, 2-Dose Series (ScaleIO) 11/08/2021,01/18/2021,12/28/2020 H1N1 2009 Influenza, IM 10/06/2009 Pneumococcal Conjugate Vacci ne, 20-valent ([id number]) 03/28/2024 Pneumococcal Polysaccharide PPV23 (Pneumovax) 07/14/2020,07/23/2011,12/22/2005 Seasonal [...] Sign Reading Time Taken Comments Blood Pressure 138/86 07/07/2024 1:38 PM EDT Pulse 72 07/07/2024 1:38 PM EDT Temperature - - Respiratory Rate - - Oxygen Saturation - - Inhaled Oxygen Concentration - - Weight - - Height - - Body Mass Index - - documented in this encounter Patient Instructions * Patient Instructions* Olive Stein RPh - 07/07/2024 1:31 PM EDT START Entresto 24-26 mg twice daily, beginning tomorrow night (needs from lisinopril by 36 hours) STOP lisinopril Look into getting a blood pressure machine documented in this encounter Progress Notes * Olive Stein RPh - 07/07/2024 12:53 PM EDT PHARMACY CHRONIC DISEASE MANAGEMENT - HEART FAILURE Rolan Patel is an 64 year old patient referred to the Heart Failure MTM clinic by Robert Flowers DO for the following: General heart failure medication optimization PCP: Tanner Marte MD Cardiology Provider: Robert Flowers DO Urgent HF Access: Reviewed the following treatment locations for urgent HF symptoms with patient and provided them with contact information Cardiology based urgent heart failure clinic, [facility] [phone] HPI: Patient has heart failure assessment: Heart [...] of breath: Denies Home weight log results: Stable at 260 lb Diet Review: Today I discussed with patient the importance of diet restrictions for patients with heart failure,including: Low sodium diet, 2 grams of sodium per day Objective: BP Readings from Last 3 Encounters: 07/07/24 138/86 06/07/24 138/72 03/28/24 132/72 Pulse Readings from Last 3 Encounters: 07/07/24 72 06/07/24 64 03/28/24 95 Wt Readings from Last 3 Encounters: 06/07/24 118.9 kg (262 lb 3.2 oz) 05/07/24 117.8 kg (259 lb 12.8 oz) 01/07/23 121.6 kg (268 lb) Lab Results Component Value Date/Time CREATININE - [facility] 1.0 07/04/2024 09:54 AM CREATININE - [facility] 0.9 03/28/2024 09:54 AM CREATININE - [facility] 0.7 03/04/2023 11:45 AM CREATININE - [facility] 1.0 11/05/2020 09:00 [...] Results Component Value Date/Time SODIUM - [facility] 139 07/04/2024 09:54 AM SODIUM - [facility] 140 03/28/2024 09:54 AM SODIUM - [facility] 136 03/04/2023 11:45 AM SODIUM - [facility] 136 11/05/2020 09:00 AM SODIUM - [facility] 137 10/22/2020 10:00 AM SODIUM - [facility] 138 07/31/2020 03:21 PM SODIUM, WHOLE BLOOD - [facility] 137 03/02/2002 10:25 AM SODIUM, WHOLE BLOOD - [facility] 136 03/02/2002 09:46 AM SODIUM, WHOLE BLOOD - [facility] 135 03/02/2002 07:35 AM Lab Results Component Value Date/Time POTASSIUM - [facility] 4.5 07/04/2024 09:54 AM POTASSIUM - [facility] 4.4 03/28/2024 09:54 AM POTASSIUM - [facility] 4.6 03/04/2023 11:45 AM POTASSIUM - [facility] 4.7 11/05/2020 09:00 AM POTASSIUM - [facility] 5.4 (H) 10/22/2020 10:00 AM POTASSIUM - [facility] 4.9 07/31/2020 03:21 PM P[facility]SIUM, WHOLE BLOOD - [facility] 3.6 03/02/2002 10:25 AM POTASSIUM, WHOLE BLOOD - [facility] 3.9 03/02/2002 09:46 AM POTASSIUM, WHOLE BLOOD - [facility] 3.9 03/02/2002 07:35 AM POTASSIUM-OUTSIDE LAB 4.4 07/10/2020 12:00 AM Anemia assessment: Lab Results Component Value Date/Time [facility] 16.3 03/28/2024 09:54 AM HGB 15.1 03/04/2023 11:45 AM HGB 14.6 10/07/2021 08:45 AM HGB 16.0 07/31/2020 03:21 PM HGB 15.6 02/22/2018 08:45 AM HGB 13.7 (L) 12/21/2014 08:26 AM Current Cardiac Medication(s): Metoprolol ER 100 mg AM, 50 mg PM Farxiga 10 mg daily Lisinopril 10 mg daily Lasix 40 mg daily Eliquis 5 mg twice daily Atorvastatin 40 mg daily Aspirin 81 mg daily Nitrostat 0.4 mg prn chest pain Eligible for [employer] [facility] Order pharmacy? Agree or Declined? Already uses Assessment & Plan: Cardiomyopathy - Mixed ischemic/nonischemic etiology in the setting of prolonged tachycardia, atrial flutter with rapid ventricular response. -EF40-45% per most recent echocardiogram 03/08/2023 -Stop lisinopril -Start Entresto -BMP 1-2 weeks Patient feeling well today. Compliant with and tolerating medications. Does not monitor BP/HR at home, but agreeable to pursue a machine. Denies headache, dizziness, lightheadedness. BP 138/86 today.Discussed switch of lisinopril to Entresto and patient was agreeable. Provided 30d free trial card for Entresto. Over income for PACE. Will forward to cost team for assistance. Educated patient on Entresto. Instructed them to take 1 tablet (24-26 mg) by mouth twice daily- starting tomorrow night (took lisinopril this morning). Instructed patient not to take any more lisinopril doses today. Educated patient that renal function and potassium will need to be monitored on this medication. Instructed the patient to monitor blood pressure manually as well as watch for sign ofhypotension such as dizziness or lightheadedness. Instructed patient to monitor for signs of angioedema. Instructed patient to monitor for cough. 2. Typical atrial flutter status post CTI ablation with Dr. Swartz 08/16/20 3. Coronary Artery Disease - Chronic ischemic heart disease with hx of inferior posterior ID s/p CABG in 2001 with LEWIS to LAD, radial artery to PDA. 4. Dyslipidemia, Hypertriglyceridemia - LDL controlled, 36 mg/dL (goal <55 mg/dL) - TG elevated at 470 mg/dL - Consider adding Vascepa next visit 5. Uncontrolled Type 2 Diabetes - HbA1c improved 9.1-> 7.4%, congratulated patient - Follows with ZABR[facility] Pickens - Continue current medications Medication changes: Metoprolol ER 100 mg AM, 50 mg PM Farxiga 10 mg daily STOP Lisinopril 10 mg daily START Entresto 24-26 mg twice daily Lasix 40 mg daily Eliquis 5 mg twice daily Atorvastatin 40 mg daily Aspirin 81 mg daily Nitrostat 0.4 mg prn chest pain Labs Due: - BMP 1-2 weeks Vaccine Due: Not reviewed Follow up: 2 weeks I spent a total of 20-29 minutes (exact time 22 mins) on the date of service in preparation, delivery, and documentation of the care provided to Rolan Patel excluding any time spent in the performance of separately billed services or time spent by another provider/QHP. Olive Stein, [facility] Clinical Pharmacist Medication Therapy Disease Management 07/07/2024,12:53 PM documented in this encounter Plan of Treatment Upcoming Encounters Date Type Department Care Team (Late st Contact Info) Description 07/12/2024 10:40 AM EDT Office [facility] [address] [facility] [phone] March, Tanner Santo MD [address] [facility] [place] [address] 07/12/2024 3:15 PM EDT Office Visit Ophthalmology, [address] [place] [address] Jemal Coleman DO [address] [place] [address] 07/28/2024 8:00 AM EDT Office Visit Cardiology, [facility] [address] [place] [address] [facility] Cardiology [facility] [address] [place], [place] [address] 08/17/2024 8:15 AM EDT Cardiac Studies Cardiac Studies, [facility] [address] [place] [address] 09/04/2024 8:00 AM EDT Hospital Encounter ENDO [facility], Endoscopy Room [facility] [address] [place] [phone] Juancarlos Muñoz MD [address] [place] [address] 09/04/2024 8:00 AM EDT - 09/04/2024 8:30 AM EDT Surgery ENDO [facility], Endoscopy Room [facility] [address] [place] [phone] Juancarlos Muñoz MD [address] [place] [address] COLONOSCOPY FLEXIBLE PROXIMAL DIAGNOSTIC 10/06/2024 7:30 AM EST Office Visit [facility], [place] [address] [address] [facility] [place] [address] [place] [address] [address] [facility] [place] [address] 10/11/2024 7:30 AM EST Office Visit Ophthalmology, [place] [address] [place] [address] Amarjit Santa MD [address] [place] [address] 02/14/2025 10:30 AM EDT Office Visit Cardiology, [facility] [address] [place] [address] Robert Flowers DO [address] [place] [address] Scheduled Orders Name Type Priority Associated Diagnoses Orde r Schedule BASIC METABOLIC PANEL Lab Routine Ischemic cardiomyopathy Expected: 07/18/2024, Expires: 07/07/2025 Scheduled Procedures Name Priority Associated Diagnoses Date/Ti [...] hemorrhage) documented in this encounter Care Teams Environmental Studies Program Director Relationship Specialty Start Date End Date March, Tanner Santo MD [address] [facility] [place] [address] PCP - General Family Medicine 03/30/24 documented as of this encounter
--- OUTSIDE RECORDS SUMMARY | 2024-11-09 19:49 | External Medical Summary | Summary of Care ---
Author Name Unknown Organization [facility] Address [address] [facility] [place] [address] Phone [phone] Care Team Providers Care Deep Fat Fry Cook Name Role Phone Tanner Marte MD Primary Care Provider [phone] Reason for Visit * Reason Comments Follow Up 8-10 week follow up * Precert (Within 10 days (routine)) - Authorized Specialty Diagnoses / Procedures Referred By Alberto willis Referred To Contact Ophthalmology Diagnoses Type 2 diabetes mellitus with mild nonproliferative diabetic retinopathy with macular edema, bilateral (HCC) Procedures MI AFLIBERCEPT INJECTION MI INTRAVITREAL NJX PHARMACOLOGIC AGT SPX Jemal Coleman DO [address] [place] [address] Referral ID Status Reason Start Date Expiration Date V isits Requested Visits Authorized [id number] Authorized Precert 04/18/2024 11/21/[phone] Encounter Details Date Type Department Care Team (Late st Contact Info) Description 07/12/2024 3:15 PM EDT Office Visit Ophthalmology, [facility] [address] [place] [address] Jemal Coleman DO [address] [place] [address] 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 Obtaining from [employer] PAP. Active Ozempic (2 MG/DOSE) 8 MG/3ML Subcutaneous Solution Pen-injector (Semaglutide (2 MG/DOSE)) Inject 2 mg under the skin once a week. OBTAINING FROM [employer] Active Insulin Degludec FlexTouch 200 UNIT/ML Subcutaneous Solution Pen-injector Inject 110 Units under the skin every evening. OBTAINING FROM [employer] Active Insulin Aspart 100 UNIT/ML Injection Solution (NovoLOG) Inject under the skin three times a day before meals. 45 WITH BREAKFAST, 45 WITH LUNCH, AND 55 WITH SUPPER OBTAINING FROM [employer] Active Novofine Pen Needle 32G X 6 MM (NOVOFINE 32G PEN NEEDLE) Use 4 Each as directed. WITH INSULIN INJECTIONS. OBTAINING FROM [employer] Active FreeStyle Ilya 3 Sensor Use as directed. Supplied by [employer] Active Entresto 24-26 MG Oral Tablet (sacubitril-valsarta [...] insulin 07/12/2024 Coronary artery disease invo [place]ving [place] coronary artery of [place] heart without angina pectoris 06/30/2022 Ischemic cardiomyopathy [...] IM 10/06/2009 Pneumococcal Conjugate Vacci ne, 20-valent ([id number]) 03/28/2024 Pneumococcal Polysaccharide PPV23 (Pneumovax) 07/14/2020,07/23/2011,12/22/2005 Seasonal [...] Progress Notes * Jemal Coleman DO - 07/12/2024 3:15 PM EDT [facility] [place] Nursing Notes: Gracy Moise TECH 07/12/24 6900 Sign at exiting of workspace Rolan Patel is a 64 year old year old male who presents for Mod NPDR OU. Last Office Visit: 04/19/2024 (in office), Visit date not found (telemedicine) Patient currently states no change in vision. Are you diabetic? Yes. Do you check your blood sugars daily? YES. Fasting BS this mornin mg/dl. Last Hemoglobin A1C: Lab Results Component Value Date/Time HGBA1C 7.4 (H) 07/04/2024 09:54 AM HGBA1C 9.1 (H) 03/28/2024 09:54 AM HGBA1C 8.9 (H) 03/09/2022 10:15 AM HGBA1C 9.2 (H) 10/22/2020 10:00 AM HGBA1C 9.3 (A) 07/10/2020 12:00 AM HGBA1C 8.9 (A) 03/06/2020 12:00 AM HGBA1C 8.2 (H) 01/09/2020 09:45 AM HGBA1C 9.6 (H) 05/16/2019 08:45 AM OCT image(s) of both eyes acquired and filed/scanned into chart. Base Eye Exam Visual Acuity (Snellen - Linear) Right Left Dist cc 20/70 +2 20/100 -2 Dist ph cc NI 20/80 -2 Correction: Glasses Tonometry (Tonopen, 3:16 PM) Right Left Pressure 14 14 Pupils Pupils Dark Light Shape React APD Right PERRL 5 4 Round Brisk None Left PERRL 5 4 Round Brisk None Extraocular Movement Right Left Abnormal Abnormal -- -- -- -- -- -- -- -- -- -- -- -- -- -- -- -- Difficulty tracking Neuro/Psych Oriented x3: Yes Mood/Affect: Normal Dilation Both eyes: 0.5% Proparacaine @ 3:14 PM Dilation #2 Both eyes: 1.0% Mydriacyl, 2.5% Phenylephrine @ 3:15 PM EXTERNAL: The ocular adnexae are unremarkable. SLE: Lids/Lashes: wnl OU Conjunctiva/Sclera: quiet OU Cornea: clear OU Anterior Chamber: deep and quiet OU Iris: diffuse TID OU; no NVI OU Lens: 1-2+NSC OU Dilated fundus exam OD: vitreous: clear optic nerve: 0.55, no edema/pallor/NVD macula: help desk team leader, trace dme vessels: wnl periphery: help desk team leader, no RT/RD Dilated fundus exam OS: vitreous: clear optic nerve: 0.7, no edema/pallor/NVD macula: help desk team leader, trace dme vessels: wnl periphery: help desk team leader, no RT/RD OCT Interpretation: OD: absence of [...] license F/u w/ me 12 weeks OCT OU; WF OU Jemal Coleman DO ophth: Amarjit Santa MD documented in this encounter Nursing Notes * Gracy Moise TECH - 07/12/2024 3:07 PM EDT Rolan Patel is a 64 year old year old male who presents for Mod NPDR OU. Last Office Visit: 04/19/2024 (in office), Visit date not found (telemedicine) Patient currently states no change in vision. Are you diabetic? Yes. Do you check your blood sugars daily? YES. Fasting BS this mornin mg/dl. Last Hemoglobin A1C: Lab Results Component Value Date/Time HGBA1C 7.4 (H) 07/04/2024 09:54 AM HGBA1C 9.1 (H) 03/28/2024 09:54 AM HGBA1C 8.9 (H) 03/09/2022 10:15 AM HGBA1C 9.2 (H) 10/22/2020 10:00 AM HGBA1C 9.3 (A) 07/10/2020 12:00 AM HGBA1C 8.9 (A) 03/06/2020 12:00 AM HGBA1C 8.2 (H) 01/09/2020 09:45 AM HGBA1C 9.6 (H) 05/16/2019 08:45 AM OCT image(s) of both eyes acquired and filed/scanned into chart. documented in this encounter Plan of Treatment Upcoming Encounters Date Type Department Care Team (Late st Contact Info) Description 07/28/2024 8:00 AM EDT Office Visit Cardiology, [facility] [address] [place] [address] [facility] Cardiology [facility] [address] [place] [address] 08/17/2024 8:15 AM EDT Cardiac Studies Cardiac Studies, [facility] [address] [place] [address] 09/04/2024 8:00 AM EDT Hospital Encounter [facility], Endoscopy Room [facility] [address] [place] [address] Juancarlos Muñoz MD [address] [place] [address] 09/04/2024 8:00 AM EDT - 09/04/2024 8:30 AM EDT Surgery ENDO [facility], Endoscopy Room [facility] [address] [place] [phone] Juancarlos Muñoz MD [address] [place] [address] COLONOSCOPY FLEXIBLE PROXIMAL DIAGNOSTIC 10/03/2024 3:15 PM EST Office Visit Ophthalmology, [facility] [address] [place] [address] Jemal Coleman DO [address] [place] [address] 10/06/2024 7:30 AM EST Office Visit Pharmacy, [place] [address] [place] [address] [place], [facility] [address] [place] [address] 10/11/2024 7:30 AM EST Office Visit Ophthalmology, [place] [address] [place] [address] Amarjit Santa MD [address] [place] [address] 01/08/2025 10:00 AM EST Laboratory Laboratory, [place] [address] [place] [phone] [facility] [address] [place] [address] 01/16/2025 11:00 AM EST Office Visit Family Practice, [place] [address] [place] [facility] [place] [phone] Tanner Marte MD [address] [place] [address] 02/14/2025 10:30 AM EDT Office Visit Cardiology, [facility] [address] [place] [address] Robert Flowers, [address] [place] [address] Scheduled Orders Name Type Priority Associated Diagnoses Orde r Schedule RETINA SCAN DIAGNOSTIC IMAGE, POSTERIOR Procedures Routine 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
--- OUTSIDE RECORDS SUMMARY | 2024-11-09 19:49 | External Medical Summary | Summary of Care ---
Author Name Unknown Organization [facility] Address [address] [facility] [place] [address] Phone [phone] Care Team Providers Care Facilities Painter Name Role Phone Tanner Marte MD Primary Care Provider [phone] Reason for Visit * Reason Comments Dosage Adjustment In Person (Anticoag Cl inic) Diabetes Follow-Up Encounter Details Date Type Department Care Team (Late st Contact Info) Description 07/04/2024 9:30 AM EDT Office Visit Pharmacy, [place] [address] [place] [address] [facility] [address] [place] [address] Type 2 diabetes mellitus with hemoglobin A1c goal of less than 8.0% ([facility])* Allergies No known active allergiesdocumented as [...] by mouth in the morning. Obtaining from [employer] PAP. Active Ozempic (2 MG/DOSE) 8 MG/3ML Subcutaneous Solution Pen-injector (Semaglutide (2 MG/DOSE)) Inject 2 mg under the skin once a week. OBTAINING FROM [employer] Active Insulin Degludec FlexTouch 200 UNIT/ML Subcutaneous Solution Pen-injector Inject 110 Units under the skin every evening. OBTAINING FROM [employer] Active Insulin Aspart 100 UNIT/ML Injection Solution (NovoLOG) Inject under the skin three times a day before meals. 45 WITH BREAKFAST, 45 WITH LUNCH, AND 55 WITH SUPPER OBTAINING FROM [employer] Active Novofine Pen Needle 32G X 6 MM (NOVOFINE 32G PEN NEEDLE) Use 4 Each as directed. WITH INSULIN INJECTIONS. OBTAINING FROM [employer] Active FreeStyle Ilya 3 Sensor Use as directed. 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, unspecified whether senior care insulin use (HCC) 2 mg IZ PRN 04/08/2023 Active Aflibercept (Eylea) intraviteal prefilled syringe 2 mgIndications: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, 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 (HCC) 2 mg IZ PRN 04/08/2023 Active documented as of this encounter (statuses as of 07/04/2024) Active Problems Problem Noted Date Diagnosed Date Coronary artery disease invo lving cheesh-na coronary artery of cheesh-na heart without angina pectoris 06/30/2022 Ischemic cardiomyopathy [...] mRNA, LNP-s, No Pre serve, 2-Dose Series (Quintesocial) 11/08/2021,01/18/2021,12/28/2020 H1N1 2009 Influenza, IM 10/06/2009 Pneumococcal Conjugate Vacci ne, 20-valent ([id number]) 03/28/2024 Pneumococcal Polysaccharide PPV23 (Pneumovax) 07/14/2020,07/23/2011,12/22/2005 Seasonal [...] this encounter Progress Notes * Miryam Jordan, [facility] - 07/04/2024 9:32 AM EDT Images from the original note were not included. Medication Therapy Disease Management Clinic - Diabetes Management Progress Note Rolan Patel, identified by name and date of , is a 64 year old male being seen for diabetesmanagement/education. Patient presents for return diabetic visit. DIABETES: Current diabetic medications: Metformin 1000 mg twice daily Farxiga 10 mg once daily Trulicity 3 mg once weekly Sundays, has 2 left - will change to Ozempic 2 mg INC Degludec U-200 110 units daily Humalog 45 units in AM and 45 units with lunch and 55 units at supper - will change to aspart U-100 eGFR >90 mL/min 03/28/24 Medication Injection Site: Abdomen Lifestyle: Diet: unchanged Glucose Review/SMBG: Readings obtained from patient device Hypoglycemia: Does your blood sugar go below 70 mg/dL? Yes, Hyperglycemia symptoms present: none Recent Labs Units 03/28/24 0954 HEMOGLOBIN A1C - [facility] % 9.1* Recent Labs Units 03/28/24 0954 03/04/23 1145 ESTIMATED GLOMERULAR FILTRATION RATE - [facility] mL/min >90 >90 CREATININE - [facility] mg/dL 0.9 0.7 HYPERTENSION: Patient on ACEi/ARB: yes BP Readings from Last 3 Encounters: 06/07/24 138/72 03/28/24 132/72 05/14/23 116/74 Blood pressure at goal: yes HYPERLIPIDEMIA: Recent Labs Units 03/28/24 0954 LDL CHOLESTEROL (DIRECT MEASURE) - [facility] mg/dL 51 Does patient have clinical ASCVD? Yes, is patient LDL less than 55 mg/dL? Yes HEALTH MAINTENANCE REVIEW: Health Maintenance Due Topic Date Due HIV Screening Never done Hepatitis C Screening Never done Zoster Vaccines (1 of 2) Never done Colorectal Cancer Screening 12/04/2016 DTaP,Tdap,and Td Vaccines (3 - Td or Tdap) 12/06/2022 COVID-19 Vaccine (4 - 2022- season) 2023 ASSESSMENT & PLAN: ICD-10-CM 1. Type 2 diabetes mellitus with hemoglobin A1c goal of less than 8.0% ([facility]) E11.9 Considerations: - above PACE cutoff - obtaining medications from [employer]oNordisk and [place] [employer] PAP - can reapply for 2024 NovoNordisk 09/05/2024 - Ilya 3 supplied by [facility] Medical BG Readings - Blood sugars improved- TIR is now 53%; target is at least above 50%. BG average is 183. Did have one hypoglycemic event last night- states it was due to him eating salad for supper. Medications - Reviewed current regimen, patient is adherent to regimen. Has taken two doses of ozempic so far and voices no concerns. No changes to regimen at this time. Plan to have lipid panel and A1c rechecked- I told pt that if there is anything concerning with the results, I will call him, otherwise they will be ready for review with PCP next week. Diet, Exercise, Lifestyle - No significant lifestyle changes since last visit. Discussed with patient- encouraged more salads/veggies. Patient is agreeable to SMBG ilya time(s) daily. Patient aware to contact clinic if any hypoglycemia before next visit. MEDICATION CHANGES: no change Diabetic Medications: Metformin 1000 mg twice daily Farxiga 10 mg once daily Ozempic 2 mg weekly- Sundays Degludec U-200 110 units daily Novolog 45 units in AM and 45 units with lunch and 55 units at supper - will change to aspart U-100 eGFR >90 mL/min 03/28/24 HEALTH MAINTENANCE INTERVENTIONS: Labs: in process Immunizations: due for tdap and shingrix(?) Foot Exam: Up to Date Eye Exam: Up to Date Annual Wellness Visit: Up to Date FOLLOW UP: Return to clinic in 12 weeks 10/06/2024 I spent a total of 20-29 minutes (exact time 20 mins) on the date of service in preparation, delivery, and documentation of the care provided to Rolan Patel excluding any time spent in the performance of separately billed services. Miryam Jordan [facility] Clinical Pharmacist - [employer] Medication Therapy Management Clinic 07/04/2024, 9:32 AM documented in this encounter Plan of Treatment Upcoming Encounters Date Type Department Care Team (Late st Contact Info) Description 07/07/2024 1:00 PM EDT Office Visit Cardiology, [facility] [address] [place] [address] [facility] Cardiology [facility] [address] [place] [address] 07/12/2024 10:40 AM EDT Office Visit [facility] [address] [facility] [place] [address] MarchTanner MD [address] [place] [address] 08/17/2024 8:15 AM EDT Cardiac Studies Cardiac Studies, [facility] [address] [place] [address] 09/04/2024 8:00 AM EDT Hospital Encounter ENDO [facility], Endoscopy Room [facility] [address] [place] [phone] Juancarlos Muñoz MD [address] [place] [address] 09/04/2024 8:00 AM EDT - 09/04/2024 8:30 AM EDT Surgery ENDO [facility], Endoscopy Room [facility] [address] [place] [phone] Juancarlos Muñoz MD [address] [place] [address] COLONOSCOPY FLEXIBLE PROXIMAL DIAGNOSTIC 10/06/2024 7:30 AM EST Office Visit Pharmacy, [place] [address] [place] [address] [facility] [address] [place] [address] 10/11/2024 7:30 AM EST Office Visit Ophthalmology, [place] [address] [place] [address] [facility]jit Santa [facility] [address] [facility] [place] [address] 02/14/2025 10:30 AM EDT Office Visit Cardiology, [facility] [address] [place] [address] Robert Flowers, [address] [place] [address] Pending Results Name Type Priority Associated Diagnoses Date /Time LIPID PANEL WITH DIRECT LDL IF TG IS HIGH Lab Routine Type 2 diabetes mellitus with hemoglobin A1c goal of less than 8.0% (HCC) 07/04/2024 9:54 AM EDT Scheduled Orders Name Type Priority Associated Diagnoses Orde r Schedule LIPID PANEL WITH DIRECT LDL IF TG IS HIGH Lab Routine Type 2 diabetes mellitus with hemoglobin A1c goal of less than 8.0% (HCC) Expected: 07/04/2024 (Approximate), Expires: 07/04/2025 Scheduled Procedures Name Priority Associated Diagnoses Date/Ti [...] goal of less than 8.0% (HCC)- Primary Diverticulitis Diverticulitis of colon (without mention of hemorrhage) documented in this encounter Care Teams Facilities Painter Relationship Specialty Start Date End Date March, Tanner Santo MD [address] [place] [address] PCP - General Family Medicine 03/30/24 documented as of this encounter
--- OUTSIDE RECORDS SUMMARY | 2024-11-09 19:49 | External Medical Summary ---
Author Name Unknown Address Unknown Organization K01:[facility] - [address] [place] [address] Laboratory Report Ordering Provider Test Date Status APOLLO GLASER 07/04/2024 09:54:03 Final Observation Date Value Abnormality Reference (Units ) Status LDL, (direct) 07/04/2024 09:54:03 36 <=129 (mg/dL) Final LDL Cholesterol Reference Ra nges (mg/dL):
<70 Target level for high risk ASCVD patient
<100 Optimal for general population
100-129 Near optimal for general population
130-159 Borderline high
160-189 High
>=190 Very high Performing Location [facility] - [address] [place] [address]
--- OUTSIDE RECORDS SUMMARY | 2024-11-09 19:49 | External Medical Summary | Summary of Care ---
Author Name Unknown Organization [facility] Address [address] [facility] [place] [address] Phone [phone] Care Team Providers Care Heat Regulator Name Role Phone Tanner Marte MD Primary Care Provider Reason for Visit * Reason Comments Dosage Adjustment In Person (Anticoag Cl inic) Congestive Heart Failure * Evaluate & Treat - Unlimited Visits (Within 10 days (routine)) - Authorized Specialty Diagnoses / Procedures Referred By Alberto willis Referred To Contact Pharmacist / Pharmacy Diagnoses Chronic systolic heart failure (HCC) Robert Flowers, [address] [place] [address] Referral ID Status Reason Start Date Expiration Date Visits Requested Visits Authorized [id number] Authorized Specialty Services Required 06/07/2024 12/04/2024 99 99 Encounter Details Date Type Department Care Team (Late st Contact Info) Description 07/07/2024 1:00 PM EDT Office Visit [facility] [place] [address] [facility] Cardiology [facility] [address] [facility] [place] [address] Ischemic cardiomyopathy* Allergies No known active allergiesdocumented [...] STRPIndications:DM type 2, not at goal ([facility]) use three times a day. Strips for [...] by mouth in the morning. Obtaining from [employer] PAP. Active Ozempic (2 MG/DOSE) 8 MG/3ML Subcutaneous Solution Pen-injector (Semaglutide (2 MG/DOSE)) Inject 2 mg under the skin once a week. OBTAINING FROM [employer] PAP Active Insulin Degludec FlexTouch 200 UNIT/ML Subcutaneous Solution Pen-injector Inject 110 Units under the skin every evening. OBTAINING FROM [employer] Active Insulin Aspart 100 UNIT/ML Injection Solution (NovoLOG) Inject under the skin three times a day before meals. 45 WITH BREAKFAST, 45 WITH LUNCH, AND 55 WITH SUPPER OBTAINING FROM [employer] Active Novofine Pen Needle 32G X 6 MM (NOVOFINE 32G PEN NEEDLE) Use 4 Each as directed. WITH INSULIN INJECTIONS. OBTAINING FROM [employer] Active FreeStyle Ilya 3 Sensor Use as directed. 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, unspecified whether detention insulin use (HCC) 2 mg IZ PRN 04/08/2023 Active documented as of this encounter (statuses as of 07/07/2024) Active Problems Problem Noted Date Diagnosed Date Coronary artery disease invo lving assiniboine and sioux coronary artery of assiniboine and sioux heart without angina pectoris 06/30/2022 Ischemic [...] mRNA, LNP-s, No Pre serve, 2-Dose Series (Viroblock) 11/08/2021,01/18/2021,12/28/2020 H1N1 2009 Influenza, IM 10/06/2009 Pneumococcal Conjugate Vacci ne, 20-valent ([id number]) 03/28/2024 Pneumococcal Polysaccharide PPV23 (Pneumovax) 07/14/2020,07/23/2011,12/22/2005 Seasonal [...] information Cardiology based urgent heart failure clinic, [facility] [phone] HPI: Patient has heart failure assessment: Heart [...] 07/31/2020 03:21 PM POTASSIUM, WHOLE BLOOD - [facility] 3.6 03/02/2002 10:25 AM POTASSIUM, WHOLE BLOOD - [facility] 3.9 03/02/2002 09:46 AM POTASSIUM, WHOLE BLOOD [...] 0.4 mg prn chest pain Eligible for [facility] pharmacy? Agree or Declined? Already [...] time spent by another provider/QHP. Olive Stein, [facility] Clinical Pharmacist Medication Therapy Disease Management 07/07/2024,12:53 PM documented in this encounter Plan of Treatment Upcoming Encounters Date Type Department Care Team (Late st Contact Info) Description 07/12/2024 10:40 AM EDT Office [facility] [address] [facility] [phone] March, Tanner Santo MD [address] [facility] [place] [address] 07/12/2024 3:15 PM EDT Office Visit Ophthalmology, [address] [place] [address] Jemal Coleman DO [address] [place] [address] 07/28/2024 8:00 AM EDT Office Visit Cardiology, [facility] [address] [place] [address] [facility] Cardiology [facility] [address] [place], [place] [address] 08/17/2024 8:15 AM EDT Cardiac Studies Cardiac Studies, [facility] [address] [place] [address] 09/04/2024 8:00 AM EDT Hospital Encounter ENDO [facility], Endoscopy Room [facility] [address] [place] [phone] Juancarlos Muñoz MD [address] [place] [address] 09/04/2024 8:00 AM EDT - 09/04/2024 8:30 AM EDT Surgery ENDO [facility], Endoscopy Room [facility] [address] [place] [phone] Juancarlos Muñoz MD [address] [place] [address] COLONOSCOPY FLEXIBLE PROXIMAL DIAGNOSTIC 10/06/2024 7:30 AM EST Office Visit [facility], [place] [address] [facility] [place] [address] [place] [address] [address] [facility] [place] [address] 10/11/2024 7:30 AM EST Office Visit Ophthalmology, [place] [address] [place] [address] Amarjit Santa MD [address] [place] [address] 02/14/2025 10:30 AM EDT Office Visit Cardiology, [facility] [address] [place] [address] Robert Flowers DO [address] [place] [address] Scheduled Orders Name Type Priority Associated Diagnoses [...] hemorrhage) documented in this encounter Care Teams Heat Regulator Relationship Specialty Start Date End Date March, Tanner Santo MD [address] [place] [facility] [place] [address] PCP - General Family Medicine 03/30/24 documented as of this encounter
--- OUTSIDE RECORDS SUMMARY | 2024-11-09 19:50 | External Medical Summary | Summary of Care ---
Author Name Unknown Organization [facility] Address [address] [facility] [place] [address] Phone [phone] Care Team Providers Care Budget And Policy Analyst Name Role Phone Tanner Marte MD Primary Care Provider [phone] Reason for Referral * Evaluate & Treat - Unlimited Visits (Within 10 days (routine)) - Authorized Specialty Diagnoses / Procedures Referred By Contac t Referred To Contact Pharmacist / Pharmacy Diagnoses Chronic systolic heart failure (HCC) Robert Flowers O, DO [address] [place] [address] Referral ID Status Reason Start Date Expiration Date Visits Requested Visits Authorized [id number] Authorized Specialty Services Required 06/07/2024 12/04/2024 99 99 Question Answer Referral Priority Within 10 days (routine) Where should this appointment be scheduled? [facility] Referring Provider Role: Specialist Specialty: Cardio Reason for Referral: HF - transition lisinopril to entresto, add aldactone Comments Pharmacist Medication Therapy Management: Minimum frequency patient should be seen in person for medication management: as appropriate per clinical condition and patient status By my signature, I understand that my patient Rolan Patel will have his medication therapy managed by the [facility] ([facility]) per established policies, procedures, and protocols. I also certify that this referral may serve as an initiation of service for the management of drug therapy in the above noted patient. [facility] providers will be responsible for scheduling patient visits, obtaining appropriate laboratory studies, and adjusting medication management therapy per patient's need, in addition to those roles spelled out in the clinic policy, procedures, and drug management protocols. I understand that the service provided by the [facility] is voluntary and have informed patient that they can refuse the service at their discretion. I am aware that the [facility] will provide me with a copy of the patient encounter via [facility]. I authorize the [facility] to carry out these activities on my behalf. I consider this program to be a necessary part of the patient's medical care. Robert Flowers DO * Precert (Within 10 days (routine)) - Authorized Specialty Diagnoses / Procedures Referred By Contac t Referred To Contact Cardiac Studies Diagnoses Chronic systolic heart failure (HCC) Coronary artery disease involving coeur d'alene coronary artery of coeur d'alene heart without angina pectoris Procedures ECHO, COMPLETE (2D), TRANS-THORACIC Robert Flowers DO [address] [place] [address] Referral ID Status Reason Start Date Expiration Date V isits Requested Visits Authorized [id number] Authorized Precert 06/07/2024 999 999 Reason for Visit * Reason Comments Follow Up Encounter Details Date Type Department Care Team (Latest Contact Info) Description 06/07/2024 9:30 AM EDT Office Visit Cardiology, [facility] [address] [place] [address] Robert Flowers DO [address] [place] [address] Chronic systolic heart failure (HCC)*; Coronary artery disease involving coeur d'alene coronary artery of coeur d'alene heart without angina pectoris; S/P ablation of atrial flutter; Dyslipidemia, goal LDL below 70; Dilated cardiomyopathy (HCC) Allergies No known active allergiesdocumented as of this encounter (statuses as of 06/07/2024) Medications Medication Sig Dispensed Refills Start Date [...] by mouth in the morning. Obtaining from [employer] P[employer]. Active Ozempic (2 MG/DOSE) 8 MG/3ML Subcutaneous Solution Pen-injector (Semaglutide (2 MG/DOSE)) Inject 2 mg under the skin once a week. OBTAINING FROM [employer] Active Insulin Degludec FlexTouch 200 UNIT/ML Subcutaneous Solution Pen-injector Inject 110 Units under the skin every evening. OBTAINING FROM [employer] Active Insulin Aspart 100 UNIT/ML Injection Solution (NovoLOG) Inject under the skin three times a day before meals. 45 WITH BREAKFAST, 45 WITH LUNCH, AND 55 WITH SUPPER OBTAINING FROM [employer] Active Novofine Pen Needle 32G X 6 MM (NOVOFINE 32G PEN NEEDLE) Use 4 Each as directed. WITH INSULIN INJECTIONS. OBTAINING FROM [employer] Active FreeStyle Ilya 3 Sensor Use as directed. 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, unspecified whether nursing home insulin use (HCC) 2 mg IZ PRN 04/08/2023 Active Aflibercept (Eylea) intraviteal prefilled syringe 2 mgIndications: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, unspecified whether nursing home insulin use (HCC) 2 mg IZ PRN 04/08/2023 Active documented as of this encounter (statuses as of 06/07/2024) Active Problems Problem Noted Date Diagnosed Date Coronary artery disease invo lving coeur d'alene coronary artery of coeur d'alene heart without angina pectoris 06/30/2022 Ischemic cardiomyopathy [...] as of this encounter (statuses as of 06/07/2024) Resolved Problems Problem Noted Date Diagnosed Date [...] as of this encounter (statuses as of 06/07/2024) Immunizations Name Administration Dates Next Due COVID-19 mRNA, LNP-s, No Pre serve, 2-Dose Series ([employer]) 11/08/2021,01/18/2021,12/28/2020 H1N1 2009 Influenza, IM 10/06/2009 Pneumococcal Conjugate Vacci ne, 20-valent ([id number]) 03/28/2024 Pneumococcal Polysaccharide PPV23 (Pneumovax) 07/14/2020,07/23/2011,12/22/2005 Seasonal [...] Sign Reading Time Taken Comments Blood Pressure 138/72 06/07/2024 9:27 AM EDT Pulse 64 06/07/2024 9:27 AM EDT Temperature - - Respiratory Rate 16 06/07/2024 9:27 AM EDT Oxygen Saturation - - Inhaled Oxygen Concentration - - Weight 118.9 kg (262 lb 3.2 oz) 06/07/2024 9:27 AM EDT Height - - Body Mass Index 37.83 03/28/2024 9:05 AM EDT documented in this encounter Progress Notes * Robert Flowers DO - 06/07/2024 9:18 AM EDT SUBJECTIVE: Patient returns today for follow-up of chronic systolic heart failure, chronic ischemicheart disease, dyslipidemia and paroxysmal atrial flutter status post CTI ablation with Dr. Swartz 07/2020. Last evaluated in the cardiology clinic December 2022. Feeling well from a cardiovascular standpoint. Denies chest pain or unusual shortness of breath. Exercising 20 minutes per day in addition to usual daily chores and yard work. Denies palpitations, lightheadedness, dizziness, syncope, or near syncope. No orthopnea, PND, lower extremity edema, or weight gain. Attempting to adjust his diet to improve glycemic control. Since his most recent office visit, patient has obtained insurance coverage through Medicare and [employer]. Transition from warfarin to Eliquis. Tolerating medications listed below. No interim hospitalizations. Offers no concerns/complaints. ECG: Normal sinus rhythm, 85 beats per minute, RBBB Nuclear Lexiscan stress test report reviewed dated 2021: Interpretation Summary Abnormal combined low intensity exercise/Lexiscan myocardial perfusion imaging study with technetium 99 sestamibi revealed a fixed anteroseptal and apical perfusion defect consistent with scar. There is a partially reversible inferior perfusion defect with appearance consistent with inferior scar and a very mild degree of superimposed ischemia. Gated SPECT imaging reveals anteroseptal , apical hypokinesis, and inferior hypokinesis. The left ventricular ejection fraction was calculated to be 52%, however qualitatively, it appears to be mildly reduced in the range of 40 to 45%. 2D echocardiogram report March 08, 2023: The qualitative LV ejection fraction is 40-44% (mildly reduced). The left ventricular cavity size is normal. There is a large sized septal, anteroseptal, inferior, and posterior wall motion abnormality with mild hypokinesis to akinesis of thesegments. Significant mitral regurgitation is absent. Mild tricuspid regurgitation is present. There is no evidence of pulmonary hypertension. 2D echocardiogram report summary December 10, 2020: The left ventricular cavity size is normal. The wall thickness is mildly increased in segments with normal wall motion. There is a large sized septal, anteroseptal, inferior, and posterior wall motion abnormality with mild hypokinesis to akinesis of the segments. The qualitative LV ejection fraction is 40-44% (mildly reduced). The left ventricular diastolic function is mildly abnormal (grade I). The left atrium is mildly enlarged (35-41 ml/m^2). There is mild calcification of the posterior mitral valve annulus Significant mitral regurgitation is absent. ROS: All others negative other than those noted in the HPI. Patient Active Problem List Diagnosis Aortocoronary bypass status Chronic rhinitis ADVANCE DIRECTIVE INFORMATION Esophageal reflux Displacement of lumbar intervertebral disc without myelopathy Proteinuria Chews tobacco Old myocardial infarct Anxiety state Abnormal results of liver function studies HTN, goal below 140/90 Type 2 diabetes mellitus with hemoglobin A1c goal of less than 8.0% (HCC) Dyslipidemia, goal LDL below 70 Atrial flutter (HCC) Chronic systolic heart failure (HCC) Dilated cardiomyopathy (HCC) S/P ablation of atrial flutter Coronary artery disease involving coeur d'alene coronary artery of coeur d'alene heart without angina pectoris Ischemic cardiomyopathy Social History Tobacco Use Smoking status: Never Smoker Smokeless tobacco: Current User Types: Snuff Tobacco comment: 1 can per day for 30 years. Substance Use Topics Alcohol use: Yes Comment: seldom Drug use: No Comment: cut out-diet pepsi now water and diet green tea Vaping/E-Cigarette Use Vaping/E-Cigarette Use Never User Vaping/E-Cigarette Substances Vaping/E-Cigarette Devices Family History Problem Relation Name Age of Onset Eye Problems Mother wear glasses Thyroid Disorder Mother Hypertension Mother Diabetes Mother Cancer Father stomach Diabetes Father Hypertension Father Thyroid Disorder Sister No Past Hx Daughter No Past Hx Daughter Heart Disorder Other Stroke Other Mental Disorder Other Blood Disorder No significant family history Glaucoma No significant family history Renal Hx No significant family history Review of patient's allergies indicates: No Known Allergies Current Outpatient Medications Medication Sig Dispense Refill [...] pain maximum 3 doses 25 Tab 5 ONETOUCH ULTRA BLUE STRP use three times a day. Strips for one Touch Mini 90 Strip 5 furosemide (LASIX) 40 MG Tablet Take 1 Tablet by mouth in the morning. In the morning.. Aflibercept 2 MG/0.05ML Intravitreal Solution Prefilled Syringe (Eylea) Inject into eye 0.05 mL every 4 weeks . 0.15 mL 3 Zoster Vac Recomb Adjuvanted 50 MCG/0.5ML Intramuscular Suspension Reconstituted (Shingrix) Inject 0.5 mL into a large muscle now and repeat dose in 60 to 180 days (Patient not taking: Reported on 04/19/2024) 1 Each 1 Atorvastatin Calcium 40 MG Oral Tablet (Lipitor) Take 1 Tablet by mouth in the morning. 100 Tablet 4 Lisinopril 10 MG Oral Tablet (Prinivil) Take 1 Tablet by mouth in the morning. 100 Tablet 1 metFORMIN HCl 1000 MG Oral Tablet (Glucophage) Take 1 Tablet by mouth in the morning and 1 Tablet before bedtime with food. 200 Tablet 4 Citalopram Hydrobromide 20 MG Oral Tablet (CeleXA) Take 1 Tablet by mouth in the morning. 100 Tablet 4 Metoprolol Succinate ER 100 MG Oral Tablet Extended Release 24 Hour (Toprol XL) Take 1 Tablet by mouth in the morning. 100 Tablet 4 Metoprolol Succinate ER 50 MG Oral Tablet Extended Release 24 Hour (toPROL XL) Take 1 Tablet by mouth at bedtime. 100 Tablet 4 Apixaban 5 MG Oral Tablet (Eliquis) Take 1 Tablet by mouth in the morning and 1 Tablet before bedtime. 200 Tablet 4 Dapagliflozin Propanediol 10 MG Oral Tablet (Farxiga) Take 1 Tablet by mouth in the morning. Obtaining from [employer] PAP. Ozempic (2 MG/DOSE) 8 MG/3ML Subcutaneous Solution Pen-injector (Semaglutide (2 MG/DOSE)) Inject 2 mg under the skin once a week. OBTAINING FROM [employer] PAP Insulin Degludec FlexTouch 200 UNIT/ML Subcutaneous Solution Pen-injector Inject 110 Units under the skin every evening. OBTAINING FROM [employer] PAP Insulin Aspart 100 UNIT/ML Injection Solution (NovoLOG) Inject under the skin three times a day before meals. 45 WITH BREAKFAST, 45 WITH LUNCH, AND 55 WITH SUPPER OBTAINING FROM [employer] Novofine Pen Needle 32G X 6 MM (NOVOFINE 32G PEN NEEDLE) Use 4 Each as directed. WITH INSULIN INJECTIONS. OBTAINING FROM [employer] FreeStyle Ilya 3 Sensor Use as directed. Supplied by [employer] Current Facility-Administered Medications Medication Dose Route Frequency Provider Last Rate Last Admin ROPivacaine (Naropin) inj 1.5 mg 0.3 mL Injection PRN Jemal Coleman, DO 1.5 mg at 04/19/24 0958 Aflibercept (Eylea) intraviteal prefilled syringe 2 mg 2 mg Intravitreal PRN Jemal Coleman DO 2 mg at 04/19/24 0958 Aflibercept (Eylea) intraviteal prefilled syringe 2 mg 2 mg Intravitreal PRN Jemal Coleman DO OBJECTIVE/PHYSICAL EXAMINATION: BP 138/72 | Pulse 64 | Resp 16 | Wt 118.9 kg (262 lb 3.2 oz) | BMI 37.83 kg/m | BSA 2.42 m General: NAD, AAO x3, well nourished. Obese. HEENT: Normocephalic. Atraumatic. Conjunctiva pink, noscleral icterus. No carotid bruits, the carotid upstrokes are brisk. No JVD. No HJR Heart: Regular rhythm, normal S-1 and S-2 no S-3 or S- 4 gallop. No murmurs or rubs appreciated. PMI is not displaced. No RV heave. Lungs: Clear bilateral without rales , rhonchi, or wheeze. Abdomen: Normal bowel sounds. Soft. Nontender. No masses or organomegaly. No abdominal bruits. Extremities: No clubbing, cyanosis. Trace bilateral pedal edema. Pulses: radial=2/4, Dorsalis pedis =2/4, posterior tibial=2/4. Neuro: No focal deficits. ASSESSMENT: 1. Cardiomyopathy - mixed ischemic/nonischemic etiology in the setting of prolonged tachycardia, atrial flutter with rapid ventricular response. -ejection fraction 40-45% per most recent echocardiogram 03/08/2023 -compensated 2. Typical atrial flutter status post CTI ablation with Dr. Swartz 08/16/20 3. Chronic ischemic heart disease with history of inferior posterior myocardial infarction status post coronary artery bypass grafting in 2001 with LEWIS to LAD, radial artery to PDA. -stable, class 2 functional capacity 4. Dyslipidemia with hypertriglyceridemia - LDL controlled, 51 mg/dL 5. Longstanding type 2 diabetes - uncontrolled; HbA1c 9.1% PLAN: Pharmacist meds therapy mgmt referral op Echo, complete (2d), trans-thoracic Ekg Transition lisinopril to Entresto and titrate to maximum dose as tolerated. Add Aldactone pending clinical response and review of followup lab studies. MTM referral placed to aid with medication changes and titration. Continue other cardiovascular medications including aspirin, Toprol-XL, furosemide, Eliquis, Farxiga, and atorvastatin. Encouraged patient to lose weight and participate in a regular aerobic exercise program as tolerated. Minimum exercise goals discussed. Dietary improvements recommended. Instructed to weigh himself daily. Diuretic protocol reviewed: Take an additional 40 mg of furosemide if weight increases more than 2 lb in a 48 hour period, or 5 lb in 1 week. Sodium restriction advised. All questions answered to patient's satisfaction. Follow Up: Return in about 6 months (around 12/08/2024). I spent a total of 40-54 minutes (exact time 40 mins) on the date of service in preparation, delivery, and documentation of the care provided to Rolan Patel excluding any time spent in the performance of separately billed services. Robert Flowers DO, [facility] Associate Cardiology - [facility] documented in this encounter Procedure Notes * Dorian Salmeron DO - 06/07/2024 9:39 AM EDTAssociated Order(s): EKG REASON FOR STUDY: CHF;CHF CONCLUSIONS: Normal sinus rhythm Right bundle branch block Abnormal ECG When compared with ECG of 07-Jan-2023 07:57, No significant change was found Ventricular Rate: 85 Atrial Rate: 85 ND Interval: 182 QRS Duration: 154 QT/QTc: 410/487 ms P-R-T Vanderwagen: 13 : 61 : 36 degrees documented in this encounter Nursing Notes * Josefina Thomas CMA - 06/07/2024 9:22 AM EDT Chief Complaint Patient presents with Follow Up Examination Room: 11 Name: Rolan Patel Date of : (1960). Reason for Visit: Follow up Interim Hospitalization(s): Denies Problems/Concerns: Denies Chest Pain/SOB: Denies [facility] Discussed: No My [facility] is a way you can talk to your provider online through e-mail. Would you like to sign up? I can activate it for you? IN PROCESS Patient was instructed to not get up on the exam table until directed and assisted by their provider; patient is to remain seated in the chair/ wheelchair/ exam table for fall prevention and safety reasons. Patient is aware to have assistance to step down off exam table with personnel. Patient voiced full comprehension of instructions. documented in this encounter Plan of Treatment Upcoming Encounters Date Type Department Care Team (Late st Contact Info) Description 06/28/2024 7:45 AM EDT [facility], [facility] [address] [facility] [address] Jemal Coleman DO [address] [facility] [place] [address] 07/04/2024 9:30 AM EDT [address] [address] [address] [address] 07/07/2024 1:00 PM EDT Office Visit Cardiology, [facility] [address] [facility] [place] [address] [facility] Cardiology [address] [address] 07/12/2024 10:40 AM EDT Office Visit Family [facility] [place] [address] [place], [place] [address] [id number] Tanner Marte [facility] [address] [facility] [address] 08/17/2024 8:15 AM EDT Cardiac Studies Cardiac Studies, [facility] [address] [facility] [place] [address] 09/04/2024 8:00 AM EDT Hospital Encounter ENDO [facility], Endoscopy Room [facility] [address] [place] [address] Juancarlos Muñoz MD [address] [place] [address] 09/04/2024 8:00 AM EDT - 09/04/2024 8:30 AM EDT Surgery ENDO [facility], Endoscopy Room [facility] [address] [place] [address] Juancarlos Muñoz MD [address] [place] [address] COLONOSCOPY FLEXIBLE PROXIMAL DIAGNOSTIC 10/11/2024 7:30 AM EST Office Visit Ophthalmology, [place] [address] [facility] [place] [address] Amarjit Santa MD [address] [facility] [place] [address] 02/14/2025 10:30 AM EDT Office Visit Cardiology, [facility] [address] [place] [address] Robert Flowers DO [address] [place] [address] Scheduled Orders Name Type Priority Associated Diagnoses Orde r Schedule ECHO, COMPLETE (2D), TRANS-THORACIC Echocardiology Routine Chronic systolic heart failure (HCC) Coronary artery disease involving coeur d'alene coronary artery of coeur d'alene heart without angina pectoris Expected: 06/07/2024 (Approximate), Expires: 07/08/2026 Scheduled Procedures Name Priority Associated Diagnoses Date/Ti me COLONOSCOPY FLEXIBLE PROXIMA L DIAGNOSTIC Diverticulitis 09/04/2024 8:00 AM EDT Scheduled Referrals Name Type Priority Associated Diagnoses Orde r Schedule PHARMACIST MEDS THERAPY MGMT REFERRAL OP Referral Within 10 days (routine) Chronic systolic heart failure (HCC) Ordered: 06/07/2024 Health Maintenance Due Date Last Done Comments [...] Not on filedocumented as of this encounter Procedures Procedure Name Priority Date/Time Associated Diagnosis Comments ND ECG ROUTINE ECG W/LEAST 12 LDS I&R ONLY Routine 06/07/2024 9:39 AM EDT Chronic systolic heart failure (HCC) documented in this encounter Results * EKG (06/07/2024 9:39 AM EDT) 06/07/2024 9:39 AM EDT Narrative Procedure Note Dorian Salmeron, - 06/07/2024 9:39 AM EDT REASON FOR STUDY: CHF;CHF CONCLUSIONS: Normal sinus rhythm Right bundle branch block Abnormal ECG When compared with ECG of 07-Jan-2023 07:57, No significant change was found Ventricular Rate: 85 Atrial Rate: 85 ND Interval: 182 QRS Duration: 154 QT/QTc: 410/487 ms P-R-T Vanderwagen: 13 : 61 : 36 degrees Robert Flowers DO EKG [facility] documented in this encounter Visit Diagnoses Diagnosis Chronic systolic heart failure (HCC)- Primary Chronic systolic heart failure Coronary artery disease involving coeur d'alene coronary artery of coeur d'alene heart without angina pectoris S/P ablation of atrial flutter Other postprocedural status Dyslipidemia, goal LDL below 70 Other and unspecified hyperlipidemia Dilated cardiomyopathy (HCC) Other primary cardiomyopathies Diverticulitis Diverticulitis of colon (without mention of hemorrhage) documented in this encounter Care Teams Budget And Policy Analyst Relationship Specialty Start Date End Date March, Tanner Santo MD [address] [place] [address] PCP - General Family Medicine 03/30/24 documented as of this encounter"
--- OUTSIDE RECORDS SUMMARY | 2024-11-09 19:50 | External Medical Summary ---
Author Name Unknown Address Unknown Organization K01:[facility] [place] [address] [place] [address] Laboratory Report Ordering Provider Test Date Status [id number] 07/04/2024 09:54:03 Final Observation Date Value Abnormality Reference (Units ) Status HbA1C 07/04/2024 09:54:03 7.4 Above high normal 4. 0-5.6 (%) Final The use of HbA1c to monitor glycemic status is based on normal hemoglobin and HbA composition. This test should not be used in patients with abnormal hemoglobin that affects the half life of the red blood cell or the in vivo glycation rates. Glucose, estimated average 07/04/2024 09:54:03 166 Above high normal <126 (mg/dL) Alfredo jovel Performing Location [facility] [place] [address] [place] [address]
--- OUTSIDE RECORDS SUMMARY | 2024-11-09 19:50 | External Medical Summary | Summary of Care ---
Author Name Unknown Organization [facility] Address [address] [facility] [place] [address] Phone [phone] Care Team Providers Care Government Guard Name Role Phone MarchTanner MD Primary Care Provider [phone] Reason for Visit * Reason Onset Date Comments Advice 06/21/2024 ozempic Encounter Details Date Type Department Care Team (Late st Contact Info) Description 06/21/[address] [facility] [address] [place] [address] Tanner Marte MD [address] [place] [address] Advice (ozempic) Allergies No known active allergiesdocumented as of this encounter (statuses as of 06/21/2024) Medications Medication Sig Dispensed Refills Start Date [...] by mouth in the morning. Obtaining from [employer] & [employer] PAP. Active Ozempic (2 MG/DOSE) 8 MG/3ML Subcutaneous Solution Pen-injector (Semaglutide (2 MG/DOSE)) Inject 2 mg under the skin once a week. OBTAINING FROM [employer] Active Insulin Degludec FlexTouch 200 UNIT/ML Subcutaneous Solution Pen-injector Inject 110 Units under the skin every evening. OBTAINING FROM [employer] Active Insulin Aspart 100 UNIT/ML Injection Solution (NovoLOG) Inject under the skin three times a day before meals. 45 WITH BREAKFAST, 45 WITH LUNCH, AND 55 WITH SUPPER OBTAINING FROM [employer] Active Novofine Pen Needle 32G X 6 MM (NOVOFINE 32G PEN NEEDLE) Use 4 Each as directed. WITH INSULIN INJECTIONS. OBTAINING FROM [employer] Active FreeStyle Ilya 3 Sensor Use as directed. 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, unspecified whether [facility] insulin use (HCC) 1.5 mg IJ PRN [...] eyes and macular edema, unspecified whether intermediate manager insulin use (HCC) 2 mg IZ PRN 04/08/2023 Active documented as of this encounter (statuses as of 06/21/2024) Active Problems Problem Noted Date Diagnosed Date Coronary artery disease invo lving [place] coronary artery of [place] heart without angina pectoris 06/30/2022 Ischemic cardiomyopathy [...] as of this encounter (statuses as of 06/21/2024) Resolved Problems Problem Noted Date Diagnosed Date [...] as of this encounter (statuses as of 06/21/2024) Immunizations Name Administration Dates Next Due COVID-19 mRNA, LNP-s, No Pre serve, 2-Dose Series (CiDRA) 11/08/2021,01/18/2021,12/28/2020 H1N1 2009 Influenza, IM 10/06/2009 Pneumococcal Conjugate Vacci ne, 20-valent ([id number]) 03/28/2024 Pneumococcal Polysaccharide PPV23 (Pneumovax) 07/14/2020,07/23/2011,12/22/2005 Seasonal [...] encounter Miscellaneous Notes * Telephone Encounter - Alberto Cagle OSA - 06/21/2024 2:55 PM EDT Patient called back. Relayed message. Patient will be in on Wednesday to tack picker. * Telephone Encounter - Saundra Snyder LPN - 06/21/2024 2:45 PM EDT Call placed to let patient know his Ozempic is at the office for tack picker during normal business hours. No answer, If patient calls back please let him know the above message. documented in this encounter Plan of Treatment Upcoming Encounters Date Type Department Care Team (Late st Contact Info) Description 06/28/2024 7:45 AM EDT Office Visit Ophthalmology, [facility] [address] [facility] [place] [address] Jemal Coleman, [address] [place] [address] 07/04/2024 9:30 AM EDT Office Visit [facility] [place] [address] [facility], [place] [address] [place] [address] [address] [facility] [address] 07/07/2024 1:00 PM EDT [facility], [facility] [address] [facility] [place] [address] [facility] [place] [address] 07/12/2024 10:40 AM EDT Office Visit [facility] [address] [facility] [phone] MarchTanner MD [address] [facility] [address] 08/17/2024 8:15 AM EDT Cardiac Studies Cardiac Studies, [facility] [address] [place] [address] 09/04/2024 8:00 AM EDT Hospital Encounter ENDO [facility], Endoscopy Room [facility] [address] [place] [phone] Juancarlos Muñoz MD [address] [place] [address] 09/04/2024 8:00 AM EDT - 09/04/2024 8:30 AM EDT Surgery ENDO [facility], Endoscopy Room [facility] [address] [place] [phone] Juancarlos Muñoz MD [address] [place] [address] COLONOSCOPY FLEXIBLE PROXIMAL DIAGNOSTIC 10/11/2024 7:30 AM EST Office Visit Ophthalmology, [place] [address] [address] Amarjit Santa MD [address] [place] [address] 02/14/2025 10:30 AM EDT Office Visit Cardiology, [facility] [address] [place] [address] Robert Flowers DO [address] [place] [address] Scheduled Procedures Name Priority Associated Diagnoses Date/Ti [...] filedocumented as of this encounter Care Teams Government Guard Relationship Specialty Start Date End Date March, Tanner Santo MD [address] [place] [address] PCP - General Family Medicine 03/30/24 documented as of this encounter
--- OUTSIDE RECORDS SUMMARY | 2024-11-09 19:50 | External Medical Summary | Summary of Care ---
Author Name Unknown Organization [facility] Address [address] [facility] [place] [address] Phone [phone] Care Team Providers Care Warehouse Supervisor 3Rd Shift Name Role Phone Tanner Marte MD Primary Care Provider [phone] Reason for Visit * Reason Comments Dosage Adjustment In Person (Anticoag Cl inic) Diabetes Follow-Up Encounter Details Date Type Department Care Team (Late st Contact Info) Description 06/05/2024 7:50 AM EDT Office Visit Pharmacy, [place] [address] [place] [address] [facility] [address] [place] [address] Type 2 diabetes mellitus with hemoglobin A1c goal of less than 8.0% ([facility])* Allergies No known active allergiesdocumented as of this encounter (statuses as of 06/05/2024) Medications Medication Sig Dispensed Refills Start Date [...] by mouth in the morning. Obtaining from [employer] PAP. Active Ozempic (2 MG/DOSE) 8 MG/3ML Subcutaneous Solution Pen-injector (Semaglutide (2 MG/DOSE)) Inject 2 mg under the skin once a week. OBTAINING FROM [employer] Active Insulin Degludec FlexTouch 200 UNIT/ML Subcutaneous Solution Pen-injector Inject 110 Units under the skin every evening. OBTAINING FROM [employer] Active Insulin Aspart 100 UNIT/ML Injection Solution (NovoLOG) Inject under the skin three times a day before meals. 45 WITH BREAKFAST, 45 WITH LUNCH, AND 55 WITH SUPPER OBTAINING FROM [employer] Active Novofine Pen Needle 32G X 6 MM (NOVOFINE 32G PEN NEEDLE) Use 4 Each as directed. WITH INSULIN INJECTIONS. OBTAINING FROM [employer] Active FreeStyle Ilya 3 Sensor Use as directed. 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 insulin use ([facility]) 1.5 mg IJ PRN 07/21/2022 Active [...] as of this encounter (statuses as of 06/05/2024) Active Problems Problem Noted Date Diagnosed Date Coronary artery disease invo lving [place] coronary artery of [place] heart without angina pectoris 06/30/2022 Ischemic cardiomyopathy [...] Chews tobacco 03/15/2012 Old myocardial infarct 03/15/2012 ASCVD (arteriosclerotic cardiovascular disease) 03/15/2012 Displacement of lumbar inter vertebral disc without myelopathy 01/01/2011 Esophageal reflux 03/24/2010 ADVANCE DIRECTIVE INFORMATION 10/19/2005 Overview: No, Advance Directive brochure given to patient at prior appointment. Chronic rhinitis 06/15/2003 Aortocoronary bypass status 03/14/2002 documented as of this encounter (statuses as of 06/05/2024) Resolved Problems Problem Noted Date Diagnosed Date [...] Dyslipidemia, goal LDL below 100 03/15/2012 06/20/2015 OBESITY, BMI= 37.34 09/04/11 09/04/2011 06/27/2013 OBESITY, [...] as of this encounter (statuses as of 06/05/2024) Immunizations Name Administration Dates Next Due COVID-19 mRNA, LNP-s, No Pre serve, 2-Dose Series ([employer]) 11/08/2021,01/18/2021,12/28/2020 H1N1 2009 Influenza, IM 10/06/2009 Pneumococcal Conjugate Vacci ne, 20-valent ([id number]) 03/28/2024 Pneumococcal Polysaccharide PPV23 (Pneumovax) 07/14/2020,07/23/2011,12/22/2005 Seasonal [...] this encounter Progress Notes * Miryam Jordan, [facility] - 06/05/2024 7:51 AM EDT Medication Therapy [facility] - Diabetes [...] - will change to Ozempic 2 mg has not gotten Levemir 100 units once daily in evening - will change to Degludec U-200 Humalog 45 units in AM and 45 units with lunch and 55 units at supper - will change to aspart U-100 eGFR >90 mL/min 03/28/24 Medication Injection Site: Abdomen Lifestyle: Diet: Comprehensive Diet Review Meal #1: oatmeal or toast with peanut butter or a bagel with cream cheese; water Meal #2: sandwich with lunch meat or hamburgers + a can of soup Meal #3: meat and potato + vegetable; occasional spaghetti Snacks: minimal; ice cream about once a week Beverages: diet iced tea, water, apple juice once a week; coffee with milk Glucose Review/SMBG: Readings obtained from patient device Ambulatory Continuous Monitoring: Continuous Glucose Monitor Placement Summary Patient Owned Device: Yes Brand: Ilya 3, SN [employer] [id number] CGM placed 04/19/2024, first data download completed today with office visit Patient enrolled in diabetes education program >/= 3 months: Yes Patient continues to monitor BG levels in conjunction with CGM wear a minimum of 3 checks per day and completes CGM calibration if warranted for device. Patient with MDI insulin regimen OR insulin pump wear: yes Hypoglycemia: Does your blood sugar go below 70 mg/dL? No Hyperglycemia symptoms present: none Recent Labs Units 03/28/24 0954 HEMOGLOBIN A1C - [facility] % 9.1* Recent Labs Units 03/28/24 0954 03/04/23 1145 ESTIMATED GLOMERULAR FILTRATION RATE - [facility] mL/min >90 >90 CREATININE - [facility] mg/dL 0.9 0.7 HYPERTENSION: Patient on ACEi/ARB: yes BP Readings from Last 3 Encounters: 03/28/24 132/72 05/14/23 116/74 01/07/23 122/78 Blood pressure at goal: yes HYPERLIPIDEMIA: Patient is taking moderate or high intensity statin: yes HEALTH MAINTENANCE REVIEW: Health Maintenance Due Topic Date Due HIV Screening Never done Hepatitis C Screening Never done Zoster Vaccines (1 of 2) Never done Colorectal Cancer Screening 12/04/2016 DTaP,Tdap,and Td Vaccines (3 - Td or Tdap) 12/06/2022 COVID-19 Vaccine (4 - season) 2023 ASSESSMENT & PLAN: ICD-10-CM 1. Type 2 diabetes mellitus with hemoglobin A1c goal of less than 8.0% ([facility]) E11.9 Considerations: - above PACE cutoff - obtaining medications from [facility] and [place] [facility] PAP - can reapply for 2024 NovoNordisk 09/05/2024 - Ilya 3 supplied by [facility] Medical BG Readings - Blood sugars uncontrolled. Average 193-- target is 180. TIR 43%-- target is above 50%at least. No low blood sugars. Medications - Reviewed current regimen, patient is adherent to regimen. Has 2 injections left of trulicity, and then will get ozempic 2 mg from [facility]. Finished out his levemir supply and is using degludec. Still using up humalog. Will increase degludec to 110 units (max absorption amount is 120 units in 1 injection) Diet, Exercise, Lifestyle - Reviewed patients daily eating . Discussed with patient to keep carb amounts small, and try to incorporate veggies in each meal. Reviewed plate method with luis miguel.. Patient is agreeable to SMBG with Ilya 3 daily. Patient aware to contact clinic if any hypoglycemia before next visit. MEDICATION CHANGES: yes, see below; preferred pharmacy: [facility] Diabetic Medications: Metformin 1000 mg twice [...] >90 mL/min 03/28/24 HEALTH MAINTENANCE INTERVENTIONS: Labs: Ordered & Scheduled: HgA1c and BMP/CMP Immunizations: due for tdap Foot Exam: Up to Date Eye Exam: Up to Date Annual Wellness Visit: Up to Date FOLLOW UP: Return to clinic in 6 weeks 07/04/2024 Miryam Jordan [facility] Clinical Pharmacist - Doorshaker Medication Therapy Management Clinic 06/05/2024, 7:51 AM documented in this encounter Plan of Treatment Upcoming Encounters Date Type Department Care Team (Late st Contact Info) Description 06/07/2024 9:30 AM EDT Office Visit Cardiology, [facility] [address] [place] [address] Robert Flowers, DO [address] [place] [address] 06/28/2024 7:45 AM EDT Office Visit Ophthalmology, [facility] [address] [place] [address] Jemal Coleman, [address] [place] [address] 07/04/2024 9:30 AM EDT [address], [address] [place] [address] [facility] [address] [facility], [place] [address] 07/12/2024 10:40 AM EDT Office Visit [facility] [address] [facility], [place] [phone] Tanner Marte MD [address] [facility], [place] [address] 09/04/2024 8:00 AM EDT Hospital Encounter ENDO [facility], Endoscopy Room [facility] [address] [place] [phone] Juancarlos Muñoz MD [address] [place] [address] 09/04/2024 8:00 AM EDT - 09/04/2024 8:30 AM EDT Surgery ENDO [facility], Endoscopy Room [facility] [address] [place] [phone] Juancarlos Muñoz MD [address] [place] [address] COLONOSCOPY FLEXIBLE PROXIMAL DIAGNOSTIC 10/11/2024 7:30 AM EST Office Visit [facility] [address] [place] [address] Amarjit Santa MD [address] [place] [address] Scheduled Orders Name Type Priority Associated Diagnoses Orde r Schedule HEMOGLOBIN A1C Lab Routine Type 2 diabetes mellitus with hemoglobin A1c goal of less than 8.0% (HCC) Expected: 06/12/2024 (Approximate), Expires: 06/05/2025 Scheduled Procedures Name Priority Associated Diagnoses Date/Ti [...] hemorrhage) documented in this encounter Care Teams Warehouse Supervisor 3Rd Shift Relationship Specialty Start Date End Date March, Tanner Santo MD [address] [place] [address] PCP - General Family Medicine 03/30/24 documented as of this encounter
[2024-11-09 19:55] LABS: BUN Creatinine Ratio 23.9 (10-20); Calcium 8.9 mg/dl (8.6-10.3); Creatinine Clr Calc Pharmacy 54.7 ml/min; Potassium 4.5 mmol/L (3.5-5.1)
[2024-11-09 20:04] LABS: Troponin I High Sensitivity 6474.4 pg/ml (0-20)
[2024-11-09] MEDS: METOPROLOL SUCC 50MG EXT REL TAB PO SCH (20:22)
[2024-11-09] MEDS: SODIUM CHLORIDE 0.9% 1,000 ML IV SCH (20:26)
[2024-11-09] MEDS: MAGNESIUM SULFATE / D5W 1 GM/100 ML BAG IV ONE (20:26)
[2024-11-09] MEDS: APIXABAN 5 MG TABLET PO SCH (20:31)
[2024-11-09] MEDS: ATORVASTATIN 40 MG TAB PO SCH (20:31)
[2024-11-09] MEDS: LANTUS PER UNIT CHARGE SC SCH (20:50)
--- NOTE | 2024-11-09 22:40 | Electrocardiogram Report ---
Test Reason : Blood Pressure : */* mmHG Vent. Rate : 109 BPM Atrial Rate : 109 BPM P-R Int : 182 ms QRS Dur : 146 ms QT Int : 392 ms P-R-T Axes : 54 87 118 degrees QTcB Int : 527 ms Sinus tachycardia Right bundle branch block T wave abnormality, consider lateral ischemia Abnormal ECG When compared with ECG of 17-Jul-2020 09:28, Right bundle branch block is now Present Confirmed by Jj Nettles ([id number]) on 11/09/2024 10:40:23 PM Referred By: Confirmed By: Jj Nettles
--- NOTE | 2024-11-09 22:41 | Electrocardiogram Report ---
Test Reason : Blood Pressure : */* mmHG Vent. Rate : 146 BPM Atrial Rate : * BPM P-R Int : * ms QRS Dur : 148 ms QT Int : 358 ms P-R-T Axes : * 116 50 degrees QTcB Int : 557 ms Atrial fibrillation with rapid ventricular response Right bundle branch block Abnormal ECG When compared with ECG of 09-Nov-2024 09:51, Atrial fibrillation has replaced Sinus rhythm Confirmed by Jj Nettles ([id number]) on 11/09/2024 10:40:44 PM Referred By: REFERRED SELF Confirmed By: Jj Nettles
[2024-11-09] MEDS: NYSTATIN OINT 15 GM TUBE EXT SCH (23:07)
[2024-11-09] MEDS: PIPERACILLIN/TAZOBACTAM 4.5 GM/100 ML BAG IV SCH (23:07)
[2024-11-09] MEDS: METOPROLOL TARTRATE 1 MG/ML VIAL IV ONE (23:56)
[2024-11-10 00:44] LABS: Adenovirus F 40/41 PCR Not Detected (NotDetected); Astrovirus PCR Not Detected (NotDetected); Campylobacter PCR Not Detected (NotDetected); Cryptosporidium PCR Not Detected (NotDetected); Cyclospora cayetanensis PCR Not Detected (NotDetected); Entamoeba histolytica PCR Not Detected (NotDetected); Enteroaggregative E.coli(EAEC) Not Detected (NotDetected); Enteropathogenic E.coli (EPEC) Not Detected (NotDetected); Enterotoxigenic E.coli (ETEC) Not Detected (NotDetected); Giardia lamblia PCR Not Detected (NotDetected); Norovirus GI/GII PCR Not Detected (NotDetected); Plesiomonas shigelloides PCR Not Detected (NotDetected); Rotavirus A PCR Not Detected (NotDetected); Salmonella PCR Not Detected (NotDetected); Sapovirus PCR Not Detected (NotDetected); Shiga-like Toxin E.coli (STEC) Not Detected (NotDetected); Shigella/Enteroinvasive E.coli Not Detected (NotDetected); Vibrio cholerae PCR Not Detected (NotDetected); Vibrio species PCR Not Detected (NotDetected); Yersinia enterocolitica PCR Not Detected (NotDetected)
[2024-11-10] MEDS ORDERED: VANCOMYCIN HCL 1000MG/20ML VIAL IV SCH (01:00)
[2024-11-10] MEDS: VANCOMYCIN HCL 1,500 MG in SODIUM CHLORIDE 0.9% 500 ML IV SCH (01:36)
[2024-11-10 06:21] LABS: Hematocrit (blood only) 37.8 % (42.0-52.0); Mean Corpuscular Hemoglobin 32.7 pg (25.0-34.0); Mean Corpuscular Hgb Conc 34.4 g/dL (32.0-36.0); Mean Platelet Volume 12.7 fL (9.4-12.4); Platelet Count 77 K/uL (130-400); RDW Standard Deviation 52.8 fL (36.4-46.3); Red Blood Count 3.98 M/uL (4.70-6.10); White Blood Count 10.49 K/ul (4.8-10.8)
[2024-11-10 06:45] LABS: Magnesium 1.9 mg/dl (1.7-2.4)
[2024-11-10 07:01] LABS: Prothrombin Time 10.8 Seconds (9.0-12.0)
[2024-11-10] MEDS: ASCORBIC ACID 500 MG TAB PO SCH (09:04)
[2024-11-10] MEDS: ASPIRIN 81 MG ECTAB PO SCH (09:04)
[2024-11-10] MEDS: MULTIVITAMIN TAB PO SCH (09:04)
[2024-11-10] MEDS: CITALOPRAM 20 MG TAB PO SCH (09:05)
[2024-11-10] MEDS: LANTUS PER UNIT CHARGE SC ONE (09:12)
--- NOTE | 2024-11-10 09:32 | Hospitalist Progress Note ---
Date of Service November 10, 2024 Assessment & Plan (1) Severe sepsis: (2) Elevated troponin: (3) DEZ (acute kidney injury): (4) Nausea and vomiting: (5) Rash: (6) Atrial flutter: (7) HTN (hypertension): (8) Coronary artery disease: (9) Diabetes mellitus, type II: (10) Dyslipidemia: Plan This is a 64-year-old male with PMH of type 2 diabetes (a1c 7.22 Jun 2024), dyslipidemia, HFrEF (EF 40-45% on July 2024 echo), atrial flutter on eliquis, history of CABG in 2001 and other medical problems listed below who presents with fever and fall this AM and was found to meet severe sepsis criteria. Severe sepsis Abdominal wall cellulitis Left leg cellulitis Patient presents to the hospital with fever, leukocytosis, elevated lactate.l appearing rash in groin), GI (stool cx pending) CT chest noted no acute abnormalities CT abd/Pelvis noted findings of cellulitis in lower abd/groin, mildly enlarged lymph nodes Viral resp panel negative Blood cultureno growth in 24 hours Continue on vancomycin for cellultis; will discontinue Zosyn Acute kidney injury Rhabdomyolysis Cr 1.91 (baseline Cr ~0.84) in setting of infection, PO losses, rhabdo CK on admission of 3981, up trended to 6478 Urine output is reassuring Creatinine slightly down trended Will continue normal saline at 125 cc/h. Repeat CK at 3 PM. Follow urine output; patient might need IV Lasix to increase urine output or due to pulm congestion due to his HFrEF. Nephrology also on board A flutter Ordered missed AM Toprol dose, takes 100mg BID Anticoagulated on Eliquis Elevated troponin Likely demand ischemia given infectious, rhabdo with trop elevated Trop 3819- >4523 > 6474 > 5378 EKG with RBBB (noted previously) Cardiology consulted; will follow-up on echocardiogram. HFrEF EF 40-45% on July 2024 echo Holding diuretics for now given DEZ, sepsis Cards consulted Close monitoring of volume status DM II A1c 7.22 Jun 2024 Hold home agents Basal/bolus while in-patient BSG AC HS Full code DVT prophylaxis Eliquis Time spent evaluating patient, direct bedside care, chart review, placing orders, interpretation of diagnostic studies, discussion with consultants, patient, and family members, as well as other required patient management activities is 50 minutes Please note the above document was generated using voice recognition software. It may contain grammatical, syntax or spelling errors. Any formal questions or concerns about the content, text or information contained within the body of this dictation should be directly addressed to the provider for clarification Admission and Anticipated Discharge Date Admission Date: November 09, 2024 Subjective Patient seen and examined at bedside. He is comfortable; not in distress Overnight, patient had atrial fibrillation with RVR for which metoprolol was restarted. Review of Systems Review of Systems: All systems reviewed & are unremarkable except as noted in Subjective Physical Exam Physical Exam: Constitutional: Lying on the bed comfortably; not in any distress. Respiratory: normal respiratory effort, lungs clear to auscultation, no wheeze, rales, rhonchi. Normal insp/exp effort, no accessory muscle use Cardiovascular: RRR, no murmur, no edema Vessels: no JVD or carotid bruit Chest: normal inspection of chest Abdomen: Slightly distended, nontender. Erythema present in abdominal wall and left thigh and leg Musculoskeletal: no cyanosis or clubbing, extremities motor strength 5/5 Skin: no rashes, warm and dry normal turgor Neurologic: PERRL, EOMI, accommodation nl, no face palsy, no dysarthria CN's II- XI intact bilaterally and moves all extremities Results & Data Results & Data Vital Signs (Past 12 Hours) Vital Signs Temp Pulse Pulse Resp BP BP BP 11/10/24 07:21 36.6 C 114 H 20 117/70 11/10/24 07:00 127 H 11/10/24 04:00 36.6 C 116 H 24 139/83 11/10/24 00:19 119 H 103/59 L 11/09/24 23:55 137 H 92/56 L 11/09/24 23:35 36.4 C L 127 H 19 107/58 L 11/09/24 23:35 107/58 L Pulse Ox O2 Del Method O2 Flow Rate 11/10/24 07:21 94 Nasal Cannula 4 11/10/24 07:00 11/10/24 04:00 93 Nasal Cannula 11/10/24 00:19 11/09/24 23:55 11/09/24 23:35 96 Nasal Cannula 11/09/24 23:35 (8) Coronary artery disease Associated angina: angina presence unspecified Coronary Disease-Associated Artery/Lesion type: [place] artery [place] vs. transplanted heart: [place] heart Qualified Code(s): I25.10 - Atherosclerotic heart disease of [place] coronary artery without angina pectoris (9) Diabetes mellitus, type II Diabetes mellitus complication status: with other specified complication Diabetes mellitus terminal supervisor insulin use: with alf use Qualified Code(s): E11.69 - Type 2 diabetes mellitus with other specified complication; Z79.4 - exterminator termite (current) use of insulin
[2024-11-10] MEDS: SODIUM CHLORIDE 0.9% 1,000 ML IV SCH (09:40)
--- NOTE | 2024-11-10 09:55 | Cardiology Consultation ---
Date of Consultation November 10, 2024 Assessment & Plan (1) Severe sepsis: (2) Elevated troponin: (3) Paroxysmal atrial fibrillation: (4) DEZ (acute kidney injury): (5) Coronary artery disease: (6) Cellulitis: (7) Rhabdomyolysis: Plan 64-year-old male admitted secondary to severe sepsis, acute renal insufficiency, volume depletion, and elevated troponin/CK suggestive of demand ischemia and possible rhabdomyolysis. Converted to atrial fibrillation overnight with rapid ventricular response. Recommend one-time dose of IV digoxin to improve rate control. Continue oral metoprolol 100 mg twice daily. Continue Eliquis 5 mg twice daily and aspirin. Hold statin therapy due to significantly elevated CPK, possible rhabdomyolysis. He may be transitioned from eliquis to IV heparin if necessary. Review resting 2D transthoracic echocardiogram when available. Continue telemetry monitoring. Supportive care, IV hydration, treatment of sepsis, and possible rhabdomyolysis as per internal medicine. Blood and urine cultures pending at this time. Continue broad-spectrum antibiotics. Cardiology will continue to follow during hospitalization. History of Present Illness Reason for Consultation: Severe sepsis, troponin elevation Requesting Physician: Giovana Ware PA-C Attending Physician: Michael Parnell MD History of Present Illness 64-year-old male with history of longstanding type 2 diabetes, heart failure with mildly reduced ejection fraction, coronary disease with prior coronary artery bypass grafting in 2001 as well as paroxysmal atrial flutter on chronic Eliquis presented to the emergency department with weakness, fever, and fall on the day of admission. Reports multiple episodes of vomiting and diarrhea 24 hours prior to admission and fevers as high as 102 F. Multiple mild excoriations noted on the his left lower extremity which is secondary to scratches from his cat. LLE is erythematous and warm. Lab studies on admission demonstrate acute renal insufficiency, significantly elevated CPK, high-sensitivity troponin and glucose. Currently, patient is resting comfortably. Denies chest discomfort, palpitations, or shortness of breath. Telemetry reveals atrial fibrillation with rapid ventricular response. Converted from sinus rhythm/sinus tachycardia to atrial fibrillation overnight. Allergies Allergy/AdvReac Type Severity Reaction Status Date / Time No Known Allergies Allergy Unknown Verified 07/11/20 13:45 Home Medications Medication Instructions Recorded Confirmed Type aspirin 81 mg tablet,delayed 81 mg PO QAM 07/19/19 11/09/24 History release (Adult Low Dose Aspirin) atorvastatin 40 mg tablet (Lipitor) 40 mg PO HS 07/19/19 11/09/24 History citalopram 20 mg tablet (Celexa) 20 mg PO QAM 07/19/19 11/09/24 History fenofibrate nanocrystallized 145 145 mg PO QAM 07/19/19 11/09/24 History mg tablet iron,carbonyl 100 mg-vitamin C 250 1 tab PO QAM 07/19/19 11/09/24 History mg tablet metoprolol succinate 25 mg capsule 25 mg PO QAM 07/19/19 11/09/24 History sprinkle, ext. release 24 hr multivitamin 1 tab PO QAM 07/19/19 11/09/24 History nitroglycerin 0.4 mg sublingual 0.4 mg sublingual .COMPLEX 07/19/19 11/09/24 History tablet insulin lispro 100 unit/mL See Rx Instructions subcut TID 09/18/19 11/09/24 History subcutaneous pen (Humalog KwikPen (U-100) Insulin) insulin detemir U-100 100 unit/mL 100 unit subcut HS 01/11/20 11/09/24 History subcutaneous solution (Levemir U-100 Insulin) furosemide 40 mg tablet (Lasix) 40 mg PO QAM #30 tabs 07/17/20 11/09/24 Rx apixaban 5 mg tablet (Eliquis) 5 mg PO BID 11/09/24 11/09/24 History dapagliflozin propanediol 10 mg 10 mg PO DAILY 11/09/24 11/09/24 History tablet metformin 1,000 mg tablet 1,000 mg PO BID 11/09/24 11/09/24 History metoprolol succinate 100 mg 100 mg PO BID 11/09/24 11/09/24 History tablet,extended release 24 hr sacubitril 24 mg-valsartan 26 mg 1 tab PO BID 11/09/24 11/09/24 History tablet (Entresto) semaglutide 2 mg/dose (8 mg/3 mL) 2 mg subcut WK 11/09/24 11/09/24 History subcutaneous pen injector (Ozempic) spironolactone 25 mg tablet 25 mg PO DAILY 11/09/24 11/09/24 History Patient History Medical History Atrial flutter Atrial flutter with rapid ventricular response Pt admitted for elective EPS and flutter ablation due to atrial flutter. He underwent procedure without any complications. monitored overnight and discharged home. Surgical History H/O colonoscopy "2011 repeat 5 years " History of dental surgery Status post coronary artery bypass grafting Family History Other Diabetes Pancreatic cancer Social History Smoking Status: Never smoker Tobacco Type: Smokeless Tobacco (Dip or Chew) Second Hand Exposure: No; Do You Dip or Chew Tobacco: No; Tobacco Cessation Education Requested by Patient: No Hx Alcohol Use: No Hx Substance Use: No Preferred Language: Croatian Communication Ability: Effective Cupola Liner Required: No Beliefs That Will Affect Care: None Current Living Situation: Spouse Current Living Situation Comment: lives at home with spouse Other Information That Helps Us Care for You: No Feels Safe at Home: Yes Safety Concerns: Feels Safe At This Time Assistive Devices: Glasses Review of Systems Review of Systems: All systems reviewed & are unremarkable except as noted in Subjective Physical Exam Constitutional: well developed, well nourished and + ill appearing; no acute distress Respiratory: normal respiratory effort; no respiratory distress, no labored breathing and no retractions Auscultation: no crackles, no rales, no rhonchi and no wheezes Cardiovascular: Rate/Rhythm: + tachycardic and + irregularly irregular Heart Sounds: normal S1 and normal S2; no murmur Vessels: no JVD and no carotid bruit Extremities: no edema (+LLE erythema) Gastrointestinal (Abdomen): Inspection/Auscultation: abdomen normal to inspection and normal bowel sounds; abdomen not distended Neurologic: CN's II-XI intact bilaterally and moves all extremities; no focal motor deficits Results & Data Vital Signs (Past 12 Hours) Vital Signs Temp Pulse Pulse Resp BP BP BP 11/10/24 07:21 36.6 C 114 H 20 117/70 11/10/24 07:00 127 H 11/10/24 04:00 36.6 C 116 H 24 139/83 11/10/24 00:19 119 H 103/59 L 11/09/24 23:55 137 H 92/56 L 11/09/24 23:35 36.4 C L 127 H 19 107/58 L 11/09/24 23:35 107/58 L Pulse Ox O2 Del Method O2 Flow Rate 11/10/24 07:21 94 Nasal Cannula 4 11/10/24 07:00 11/10/24 04:00 93 Nasal Cannula 11/10/24 00:19 11/09/24 23:55 11/09/24 23:35 96 Nasal Cannula 11/09/24 23:35 Laboratory Results Cardiac Enzymes 11/09/24 11/09/24 11/09/24 Range/Units 09:55 12:07 19:26 AST 130 H (13-39) U/L Troponin I High Sens 3819.5 H* 4523.8 H* 6474.4 H* D (0-20) pg/ml 11/10/24 Range/Units 00:12 AST (13-39) U/L Troponin I High Sens 5378.8 H* (0-20) pg/ml Coagulation 11/09/24 11/09/24 11/09/24 Range/Units 09:55 10:54 12:14 PT Cancelled Cancelled 11.7 11/10/24 Range/Units 05:46 PT 10.8 CBC 11/09/24 11/10/24 Range/Units 09:55 05:46 WBC 15.52 H 10.49 (4.8-10.8) K/ul RBC 4.62 L 3.98 L (4.70-6.10) M/uL Hgb 14.9 13.0 L (14.0-18.0) g/dl Hct 43.9 37.8 L (42.0-52.0) % Plt Count 93 L 77 L (130-400) K/uL Neut # (Auto) 13.81 H (1.40-6.50) K/uL Lymph # (Auto) 0.99 L (1.20-3.40) K/uL Richardson # (Auto) 0.42 (0.11-0.59) K/uL Eos # (Auto) 0.00 (0.00-0.50) K/uL Baso # (Auto) 0.05 (0.00-0.20) K/uL Comprehensive Metabolic Panel 11/09/24 11/09/24 11/09/24 Range/Units 09:55 10:54 12:07 Sodium 130 L (136-145) mmol/L Potassium 5.0 (3.5-5.1) mmol/L Chloride 94 L (98-107) mmol/L Carbon Dioxide 23 (21-32) mmol/L BUN 43 H (6-23) mg/dl Creatinine 1.91 H (0.6-1.4) mg/dl Glucose 363 H* (70-99(Fasting)) mg/dl Calcium 10.1 (8.6-10.3) mg/dl Direct Bilirubin TNP TNP 0.2 AST 130 H (13-39) U/L ALT 50 (7-52) U/L Alkaline Phosphatase 45 (34-104) U/L Total Protein 7.5 (6.0-8.3) gm/dl Albumin 3.9 (3.4-5.0) gm/dl 11/09/24 Range/Units 19:26 Sodium 133 L (136-145) mmol/L Potassium 4.5 (3.5-5.1) mmol/L Chloride 101 (98-107) mmol/L Carbon Dioxide 23 (21-32) mmol/L BUN 42 H (6-23) mg/dl Creatinine 1.76 H (0.6-1.4) mg/dl Glucose 254 H (70-99(Fasting)) mg/dl Calcium 8.9 (8.6-10.3) mg/dl Direct Bilirubin AST (13-39) U/L ALT (7-52) U/L Alkaline Phosphatase (34-104) U/L Total Protein (6.0-8.3) gm/dl Albumin (3.4-5.0) gm/dl Intake and Output 11/09/24 11/10/24 11/10/24 22:59 06:59 14:59 Intake Total 1255 / 3985 1230 / 3985 1100 / 1100 Output Total 135 / 1951 / 1950 Balance -2033 / 2033 1100 / 1100 Intake: IV 645 / 2775 630 / 2775 1100 / 1100 Magnesium Sulfate / D5w 1 gm In 100 / 100 100 ml @ 50 mls/hr IV ONE ONE Rx#:[id number] Piperacillin/Tazobactam 4.5 gm 100 / 100 100 / 100 In 100 ml @ 25 mls/hr IV Q8H TETE Rx#:[id number] Sodium Chloride 0.9% 1,000 ml @ 1000 / 1000 100 mls/hr IV .Q10H TETE Rx#: [id number] Vancomycin HCl 1,500 mg In 545 / 1075 530 / 1075 Sodium Chloride 0.9% 500 ml @ 200 mls/hr IV Q24H TETE Rx#: [id number] Oral 610 / 1210 600 / 1210 Output: Urine Amount (Catheter) 1350 / 1950 600 / 1950 Horne/Indwelling 1350 / 1950 600 / 1950 # Bowel Movements Other: Weight 125 kg 123.8 kg Weight Measurement Method [facility] Diagnostic Findings 2D echocardiogram report 08/17/2024: The examination is adequate to evaluate the referral indication. The wall thickness is mildly increased in segments with normal wall motion. There is a large sized septal, anteroseptal, inferior, and posterior wall motion abnormality with mild hypokinesis to akinesis of the segments. The qualitative LV ejection fraction is 40-44% (mildly reduced). The left atrium is mildly enlarged. The left ventricular diastolic function is mildly abnormal (grade I). Mild aortic valve sclerosis is present. Aortic stenosis is absent. There is mild mitral annular calcification. The aortic root is mildly enlarged, 3.9 cm. Compared to the report of the previous study dated 03/08/2023, there has been no significant interval change. (5) Coronary artery disease Associated angina: angina presence unspecified Coronary Disease-Associated Artery/Lesion type: [place] artery [place] vs. transplanted heart: [place] heart Qualified Code(s): I25.10 - Atherosclerotic heart disease of [place] coronary artery without angina pectoris (6) Cellulitis Laterality: left Site of cellulitis: extremity Site of cellulitis of extremity: lower extremity Qualified Code(s): L03.116 - Cellulitis of left lower limb
--- NOTE | 2024-11-10 10:27 | Pharmacy Report ---
Pharmacy PK ABX Note - Date of Service November 10, 2024 - Assessment and Plan Assessment 64 year old M receiving vancomycin/Zosyn for treatment of sepsis/abdominal wall cellulitis. Pertinent microbiologic data includes: blood and urine cultures pending. No creatinine obtained this AM, will order a level for tomorrow AM to to assess efficacy and prevent underdosing in case DEZ improves. Day # 2 of antimicrobial therapy. Plan Vancomycin * Loading dose: 2250 mg IV x 1 * Maintenance dose: 1500 mg IV every 24 hours * Regimen is predicted to achieve target AUC/MIGUEL of 400-600 mg/L.hr * Random level ordered for: 11/11/24 @0430 Pharmacy will continue to follow and will adjust dose/frequency as necessary. Thank you. Pharmacy has transitioned to AUC monitoring for vancomycin. AUC/MIGUEL is the preferred PK/PD target and is associated with decreased risk of nephrotoxicity compared to traditional trough targets.
[2024-11-10] MEDS: DIGOXIN 250 MCG in SYRINGE 9 ML IV STA (11:01)
--- NOTE | 2024-11-10 14:38 | Pharmacy Report ---
Pharmacy Glycemic Short Note 2 - Date of Service November 10, 2024 - Glycemic Short BSG Results (Last 24 hours): 11/09/24 11/09/24 11/09/24 14:23 17:11 18:33 Glucose POC Glucose 308 H* 243 H 220 H 11/09/24 11/10/24 11/10/24 19:26 07:19 11:44 Glucose 254 H POC Glucose 230 H 237 H OUTPATIENT ANTIDIABETIC REGIMEN: * metformin 1000mg PO BIDM * Faxiga 10mg PO daily * Humalog SQ SS TIDM * Lantus 100 units SQ HS * HbA1c 7.1% (07/15) ASSESSMENT: * Rolan is a 64 YOM admitted with fever, weakness, vomitting,and diarrhea with a history of type 2 diabetes mellitus. Pharmacy has been consulted to assist with glycemic management while inpatient. * BSGs elevated in the 300 upon admission. Received an IV bolus of regular insulin and BSGs trended down into the 200's. * Fasting BSG this AM still elevated, will give a small dose of Lantus this AM and then aim to move the majority back to his home bedtime dosing. Lantus ordered based BSGs with parameters for slightly increased total daily dose from yesterday if BSGs still elevated. * NovoLog initiated at a weight based stress of 3, tightened slightly today. PLAN FOR INPATIENT GLYCEMIC CONTROL: * Hold outpatient oral diabetes medications * Basal insulin * Lantus 20 units SQ x1 this AM * Lantus 60-80 units SQ HS based on BSG (see eMAR for additional details) * Bolus insulin * NovoLog per scale ACHS or Q6hrs while NPO * Goal Range: Low 110 mg/dL - High 140 mg/dL * Correction Factor: 12 mg/dL/unit * Nutritional / Prandial insulin per carb ratio of 1 unit per 4 grams CHO consumed
[2024-11-10] MEDS: ACETAMINOPHEN 325 MG TAB PO PRN (15:26)
--- NOTE | 2024-11-10 18:04 | Nephrology Consultation ---
Date of Consultation November 10, 2024 Assessment & Plan (1) DEZ (acute kidney injury): Patient with the acute kidney injury due to ischemic ATN in setting of sepsis. Creatinine of 1.9 on admission from a baseline of 0.8. Creatinine downtrending to 1.76 today with IV fluids. Patient is making urine and has a Horne catheter. Electrolytes are stable. He has some evidence of cardiomegaly on chest CT. Continue IV fluids given high CK. Low threshold to stop fluids if worsening hypoxia. Monitor renal function with daily BMP. Avoid vancomycin levels above 25 which can be nephrotoxic. (2) Rhabdomyolysis: Patient with rhabdomyolysis see recent CK of 5000. Will continue fluids as above. (3) Severe sepsis: Patient with sepsis due to cellulitis. He is on vancomycin and Zosyn per primary team. Renally dose antibiotics for current GFR. History of Present Illness Reason for Consultation: DEZ Requesting Physician: Michael Parnell MD Attending Physician: Michael Parnell MD History of Present Illness This is 64-year-old male being seen for acute kidney injury. Past medical history of type 2 diabetes, heart failure with reduced ejection fraction, coronary disease with prior coronary artery bypass grafting in 2001, paroxysmal atrial flutter on chronic Eliquis who was admitted with weakness, fever, and fall on the day of admission. he was found have acute kidney injury with creatinine of 1.9 from a baseline of 0.8. His left leg was red and patient is being treated with vancomycin and Zosyn for cellulitis. Main complaint today is leg pain. He denies shortness of breath. He is making urine and has a Horne catheter. CT abdomen notable for normal kidney size with no hydronephrosis but has enlarged prostate. blood pressure is on the lower side. Patient is on 4 L nasal cannula. Allergies Allergy/AdvReac Type Severity Reaction Status Date / Time No Known Allergies Allergy Unknown Verified 07/11/20 13:45 Home Medications Medication Instructions Recorded Confirmed Type aspirin 81 mg tablet,delayed 81 mg PO QAM 07/19/19 11/09/24 History release (Adult Low Dose Aspirin) atorvastatin 40 mg tablet (Lipitor) 40 mg PO HS 07/19/19 11/09/24 History citalopram 20 mg tablet (Celexa) 20 mg PO QAM 07/19/19 11/09/24 History fenofibrate nanocrystallized 145 145 mg PO QAM 07/19/19 11/09/24 History mg tablet iron,carbonyl 100 mg-vitamin C 250 1 tab PO QAM 07/19/19 11/09/24 History mg tablet metoprolol succinate 25 mg capsule 25 mg PO QAM 07/19/19 11/09/24 History sprinkle, ext. release 24 hr multivitamin 1 tab PO QAM 07/19/19 11/09/24 History nitroglycerin 0.4 mg sublingual 0.4 mg sublingual .COMPLEX 07/19/19 11/09/24 History tablet insulin lispro 100 unit/mL See Rx Instructions subcut TID 09/18/19 11/09/24 History subcutaneous pen (Humalog KwikPen (U-100) Insulin) insulin detemir U-100 100 unit/mL 100 unit subcut HS 01/11/20 11/09/24 History subcutaneous solution (Levemir U-100 Insulin) furosemide 40 mg tablet (Lasix) 40 mg PO QAM #30 tabs 07/17/20 11/09/24 Rx apixaban 5 mg tablet (Eliquis) 5 mg PO BID 11/09/24 11/09/24 History dapagliflozin propanediol 10 mg 10 mg PO DAILY 11/09/24 11/09/24 History tablet metformin 1,000 mg tablet 1,000 mg PO BID 11/09/24 11/09/24 History metoprolol succinate 100 mg 100 mg PO BID 11/09/24 11/09/24 History tablet,extended release 24 hr sacubitril 24 mg-valsartan 26 mg 1 tab PO BID 11/09/24 11/09/24 History tablet (Entresto) semaglutide 2 mg/dose (8 mg/3 mL) 2 mg subcut WK 11/09/24 11/09/24 History subcutaneous pen injector (Ozempic) spironolactone 25 mg tablet 25 mg PO DAILY 11/09/24 11/09/24 History Patient History Medical History Atrial flutter Atrial flutter with rapid ventricular response Pt admitted for elective EPS and flutter ablation due to atrial flutter. He underwent procedure without any complications. monitored overnight and discharged home. Surgical History H/O colonoscopy "2012 repeat 5 years " History of dental surgery Status post coronary artery bypass grafting Family History Other Diabetes Pancreatic cancer Social History Smoking Status: Never smoker Tobacco Type: Smokeless Tobacco (Dip or Chew) Second Hand Exposure: No; Do You Dip or Chew Tobacco: No; Tobacco Cessation Education Requested by Patient: No Hx Alcohol Use: No Hx Substance Use: No Preferred Language: Faroese Communication Ability: Effective Hand Etcher Required: No Beliefs That Will Affect Care: None Current Living Situation: Spouse Current Living Situation Comment: lives at home with spouse Other Information That Helps Us Care for You: No Feels Safe at Home: Yes Safety Concerns: Feels Safe At This Time Assistive Devices: None Review of Systems 2 Review of Systems: All other systems were reviewed and negative except as noted in HPI Physical Exam 2 Physical Exam: General exam: Appears comfortable, no acute distress HEENT: Pupils are equal and reactive to light Neck: No JVD, neck is supple trachea is midline Respiratory system: Clear breath sounds bilaterally. Gastrointestinal: Abdomen is soft, non distended, non tender, bowel sounds are present CVS: Regular rate and rhythm. No murmurs, rubs or gallops Musculoskeletal: No joint or muscle tenderness Extremities: Left leg is erythematous and tender. 1+ edema. Neuro: Oriented, no tremors, no focal neurological deficits Skin: No rashes Results & Data Vital Signs (Past 12 Hours) Vital Signs Temp Pulse Pulse Resp BP Pulse Ox Pulse Ox 11/10/24 15:20 36.9 C 101 H 20 99/51 L 95 11/10/24 14:00 110 H 11/10/24 11:11 36.4 C L 118 H 19 101/57 L 94 11/10/24 11:01 115 H 11/10/24 10:26 11/10/24 10:00 11/10/24 10:00 96 11/10/24 07:21 36.6 C 114 H 20 117/70 94 11/10/24 07:00 127 H Pulse Ox O2 Del Method O2 Del Method O2 Flow Rate O2 Flow Rate O2 Flow Rate 11/10/24 15:20 Nasal Cannula 4 12/20/24 14:00 11/10/24 11:11 Nasal Cannula 4 11/10/24 11:01 11/10/24 10:26 95 0 11/10/24 10:00 Nasal Cannula 2 11/10/24 10:00 Nasal Cannula 3 11/10/24 07:21 Nasal Cannula 4 11/10/24 07:00 Laboratory Results 11/09/24 19:26 11/10/24 05:46 WBC 10.49 RBC 3.98 L MCV 95.0 MCH 32.7 MCHC 34.4 RDW Std Deviation 52.8 H RDW Coeff of Sai 15.0 H Plt Count 77 L MPV 12.7 H
[2024-11-10] MEDS: LANTUS PER UNIT CHARGE SC SCH (20:08)
--- NOTE | 2024-11-10 22:33 | Electrocardiogram Report ---
Test Reason : Blood Pressure : */* mmHG Vent. Rate : 115 BPM Atrial Rate : 119 BPM P-R Int : * ms QRS Dur : 154 ms QT Int : 328 ms P-R-T Axes : * 83 47 degrees QTcB Int : 453 ms Poor data quality, interpretation may be adversely affected Atrial fibrillation with rapid ventricular response with premature ventricular or aberrantly conducte d complexes Right bundle branch block Lateral infarct , age undetermined Abnormal ECG When compared with ECG of 09-Nov-2024 14:53, No significant change was found Confirmed by Jj Nettles ([id number]) on 11/10/2024 10:33:07 PM Referred By: REFERRED SELF Confirmed By: Jj Nettles
[2024-11-11 04:58] LABS: Hematocrit (blood only) 37.2 % (42.0-52.0); Hemoglobin 12.4 g/dl (14.0-18.0); Mean Corpuscular Hemoglobin 31.9 pg (25.0-34.0); Mean Corpuscular Hgb Conc 33.3 g/dL (32.0-36.0); Mean Corpuscular Volume 95.6 fL (80.0-100.0); Platelet Count 69 K/uL (130-400); RDW Coefficient of Variation 15.3 % (11.5-14.5); Red Blood Count 3.89 M/uL (4.70-6.10); White Blood Count 8.86 K/ul (4.8-10.8)
[2024-11-11 05:22] LABS: BUN Creatinine Ratio 30.7 (10-20); Calcium 7.7 mg/dl (8.6-10.3); Creatinine Clr Calc Pharmacy 69.9 ml/min; Potassium 4.5 mmol/L (3.5-5.1)
[2024-11-11] MEDS: VANCOMYCIN LEVEL ONE (05:23)
--- NOTE | 2024-11-11 09:54 | Cardiology Progress Note ---
Date of Service November 11, 2024 Assessment & Plan (1) Severe sepsis: (2) Elevated troponin: (3) Paroxysmal atrial fibrillation: (4) DEZ (acute kidney injury): (5) Coronary artery disease: (6) Cellulitis: (7) Rhabdomyolysis: (8) Thrombocytopenia: Plan 64-year-old male admitted secondary to severe sepsis, acute renal insufficiency, volume depletion, and elevated troponin/CK suggestive of demand ischemia and possible rhabdomyolysis. CK and troponin trending downward. Renal function remains stable. Heart rate slowly improving. No recurrent fevers. Received one- time dose of IV digoxin yesterday 11/10/2024. Recommendations: * Continue oral metoprolol 100 mg twice daily. * Aspirin placed on hold due to thrombocytopenia * Continue Eliquis 5 mg twice daily and aspirin. * Hold statin therapy due to significantly elevated CPK, rhabdomyolysis. * 2D transthoracic echocardiogram pending. * Continue telemetry monitoring. Supportive care, IV hydration, treatment of sepsis, as per internal medicine. Blood and urine cultures negative. Cardiology will continue to follow during hospitalization. Admission and Anticipated Discharge Date Admission Date: November 09, 2024 Subjective Patient seen and examined at the bedside. Feeling better today. Continues to note discomfort involving his left lower extremity. No chest pain, palpitations, or shortness of breath. Telemetry reveals atrial fibrillation heart rate in the low 100s. Review of Systems Review of Systems: All systems reviewed & are unremarkable except as noted in Subjective Physical Exam Constitutional: well developed, well nourished and + ill appearing; no acute distress Respiratory: normal respiratory effort; no respiratory distress, no labored breathing and no retractions Auscultation: no crackles, no rales, no rhonchi and no wheezes Cardiovascular: Rate/Rhythm: + tachycardic and + irregularly irregular Heart Sounds: normal S1 and normal S2; no murmur Vessels: no JVD and no carotid bruit Extremities: no edema (+LLE erythema) Gastrointestinal (Abdomen): Inspection/Auscultation: abdomen normal to inspection and normal bowel sounds; abdomen not distended Neurologic: CN's II-XI intact bilaterally and moves all extremities; no focal motor deficits Results & Data Vital Signs (Past 12 Hours) Vital Signs Temp Pulse Pulse Resp BP Pulse Ox O2 Del Method 11/11/24 07:12 36.6 C 99 H 20 131/70 98 Nasal Cannula 11/11/24 04:03 36.8 C 80 20 130/80 98 Nasal Cannula 11/10/24 23:23 36.7 C 94 H 20 113/68 95 Nasal Cannula 11/10/24 22:22 109 H O2 Flow Rate 11/11/24 07:12 4 11/11/24 04:03 4 11/10/24 23:23 4 11/10/24 22:22 (5) Coronary artery disease Coronary Disease-Associated Artery/Lesion type: [place] artery [place] vs. transplanted heart: [place] heart Associated angina: angina presence unspecified Qualified Code(s): I25.10 - Atherosclerotic heart disease of [place] coronary artery without angina pectoris (6) Cellulitis Site of cellulitis: extremity Site of cellulitis of extremity: lower extremity Laterality: left Qualified Code(s): L03.116 - Cellulitis of left lower limb
--- NOTE | 2024-11-11 10:07 | Hospitalist Progress Note ---
Date of Service November 11, 2024 Assessment & Plan (1) Severe sepsis: (2) Elevated troponin: (3) DEZ (acute kidney injury): (4) Nausea and vomiting: (5) Rash: (6) Atrial flutter: (7) HTN (hypertension): (8) Coronary artery disease: (9) Diabetes mellitus, type II: (10) Dyslipidemia: Plan This is a 64-year-old male with PMH of type 2 diabetes (a1c 7.22 Jun 2024), dyslipidemia, HFrEF (EF 40-45% on July 2024 echo), atrial flutter on eliquis, history of CABG in 2001 and other medical problems listed below who presents with fever and fall this AM and was found to meet severe sepsis criteria. Severe sepsis Abdominal wall cellulitis Left leg cellulitis Patient presents to the hospital with fever, leukocytosis, elevated lactate.l CT chest noted no acute abnormalities CT abd/Pelvis noted findings of cellulitis in lower abd/groin, mildly enlarged lymph nodes Viral resp panel negative Blood cultureno growth in 24 hours Continue on vancomycin for cellulitis for now. Acute kidney injury Rhabdomyolysis Cr 1.91 (baseline Cr ~0.84) in setting of infection, PO losses, rhabdo CK on admission of 3981, up trended to 6478 and downtrended Urine output is reassuring Creatinine slightly down trended CK is less than 5000; will discontinue fluids. Monitor CK daily A flutter Ordered missed AM Toprol dose, takes 100mg BID Anticoagulated on Eliquis Elevated troponin Likely demand ischemia given infectious, rhabdo with trop elevated Trop 3819- >4523 > 6474 > 5378 EKG with RBBB (noted previously) Cardiology consulted; will follow-up on echocardiogram. HFrEF EF 40-45% on July 2024 echo Cards consulted Close monitoring of volume status lasix resumed on 11/11/2024 DM II A1c 7.22 Jun 2024 Hold home agents Basal/bolus while in-patient BSG AC HS Full code DVT prophylaxis Eliquis Disposition-PT/OT recommends rehab; patient undergoing treatment for DEZ, lower extremity cellulitis. Possible discharge in next few days. Time spent evaluating patient, direct bedside care, chart review, placing orders, interpretation of diagnostic studies, discussion with consultants, patie nt, and family members, as well as other required patient management activities is 50 minutes Please note the above document was generated using voice recognition software. It may contain grammatical, syntax or spelling errors. Any formal questions or concerns about the content, text or information contained within the body of this dictation should be directly addressed to the provider for clarification Admission and Anticipated Discharge Date Admission Date: November 09, 2024 Subjective Patient continues to report feeling better. Urine output is reassuring. Patient is hemodynamically stable; saturating well in 4 L of nasal cannula. No significant events overnight Review of Systems Review of Systems: All systems reviewed & are unremarkable except as noted in Subjective Physical Exam Physical Exam: Constitutional: Lying on the bed comfortably; not in any distress. Respiratory: normal respiratory effort, lungs clear to auscultation, no wheeze, rales, rhonchi. Normal insp/exp effort, no accessory muscle use Cardiovascular: RRR, no murmur, no edema Vessels: no JVD or carotid bruit Chest: normal inspection of chest Abdomen: Slightly distended, nontender. Erythema present in abdominal wall and left thigh and leg Musculoskeletal: no cyanosis or clubbing, extremities motor strength 5/5 Skin: no rashes, warm and dry normal turgor Neurologic: PERRL, EOMI, accommodation nl, no face palsy, no dysarthria CN's II- XI intact bilaterally and moves all extremities Results & Data Results & Data Vital Signs (Past 12 Hours) Vital Signs Temp Pulse Pulse Resp BP Pulse Ox O2 Del Method 11/11/24 07:12 36.6 C 99 H 20 131/70 98 Nasal Cannula 11/11/24 04:03 36.8 C 80 20 130/80 98 Nasal Cannula 11/10/24 23:23 36.7 C 94 H 20 113/68 95 Nasal Cannula 11/10/24 22:22 109 H O2 Flow Rate 11/11/24 07:12 4 11/11/24 04:03 4 11/10/24 23:23 4 11/10/24 22:22 (8) Coronary artery disease Associated angina: angina presence unspecified Coronary Disease-Associated Artery/Lesion type: [place] artery [place] vs. transplanted heart: [place] heart Qualified Code(s): I25.10 - Atherosclerotic heart disease of [place] coronary artery without angina pectoris (9) Diabetes mellitus, type II Diabetes mellitus complication status: with other specified complication Diabetes mellitus correction insulin use: with correction use Qualified Code(s): E11.69 - Type 2 diabetes mellitus with other specified complication; Z79.4 - jail (current) use of insulin
[2024-11-11] MEDS: FUROSEMIDE 40 MG TAB PO SCH (10:27)
[2024-11-11] MEDS: LANTUS PER UNIT CHARGE SC ONE (10:27)
--- NOTE | 2024-11-11 11:26 | Pharmacy Report ---
Pharmacy PK ABX Note - Date of Service November 11, 2024 - Assessment and Plan Assessment 11/11 * Continues on vacomycin for cellulitis at this time. SCr improving, random level predicts subtherapeutic dosing, will adjust dose today. 11/10 64 year old M receiving vancomycin/Zosyn for treatment of sepsis/abdominal wall cellulitis. Pertinent microbiologic data includes: blood and urine cultures pending. No creatinine obtained this AM, will order a level for tomorrow AM to to assess efficacy and prevent underdosing in case DEZ improves. Day # 3 of antimicrobial therapy. Plan Vancomycin * Loading dose: 2250 mg IV x 1 * Maintenance dose: 1500 mg IV every 24 hours- now predicting below target AUC/MIGUEL * Adjust dose to 1000 mg q12H * Regimen is predicted to achieve target AUC/MIGUEL of 400-600 mg/L.hr * Random level to be ordered 11/13 if continued Pharmacy will continue to follow and will adjust dose/frequency as necessary. Thank you. Pharmacy has transitioned to AUC monitoring for vancomycin. AUC/MIGUEL is the preferred PK/PD target and is associated with decreased risk of nephrotoxicity compared to traditional trough targets.
[2024-11-11] MEDS: cefTRIAXone SODIUM 2,000 MG/50 ML BAG IV SCH (16:52)
[2024-11-11] MEDS ORDERED: VANCOMYCIN HCL 1,000 MG/270 ML BAG IV SCH (17:00)
[2024-11-11] MEDS: DOXYCYCLINE HYCLATE 100 MG CAP PO SCH (20:29)
[2024-11-11] MEDS: CALCIUM CARBONATE 500 MG CHEWABLE TAB PO PRN (23:41)
[2024-11-12 07:12] LABS: Basophils # (auto) 0.03 K/uL (0.00-0.20); Basophils % (auto) 0.3 %; Eosinophils # (auto) 0.12 K/uL (0.00-0.50); Eosinophils % (auto) 1.2 %; Hemoglobin 12.5 g/dl (14.0-18.0); Immature Granulocytes # (auto) 0.13 K/uL (0.01-0.20); Immature Granulocytes % (auto) 1.3 %; Lymphocytes # (auto) 1.25 K/uL (1.20-3.40); Lymphocytes % (auto) 12.7 %; Mean Corpuscular Hemoglobin 32.1 pg (25.0-34.0); Mean Corpuscular Hgb Conc 33.8 g/dL (32.0-36.0); Mean Corpuscular Volume 95.1 fL (80.0-100.0); Mean Platelet Volume 12.3 fL (9.4-12.4); Monocytes # (auto) 0.67 K/uL (0.11-0.59); Monocytes % (auto) 6.8 %; Neutrophils # (auto) 7.68 K/uL (1.40-6.50); Neutrophils % (auto) 77.7 %; Platelet Count 86 K/uL (130-400); RDW Coefficient of Variation 15.1 % (11.5-14.5); RDW Standard Deviation 52.8 fL (36.4-46.3); Red Blood Count 3.89 M/uL (4.70-6.10); White Blood Count 9.88 K/ul (4.8-10.8)
[2024-11-12 07:28] LABS: BUN Creatinine Ratio 36.6 (10-20); Creatinine Clr Calc Pharmacy 86.8 ml/min; Potassium 4.3 mmol/L (3.5-5.1)
--- NOTE | 2024-11-12 08:45 | Hospitalist Progress Note ---
Date of Service November 12, 2024 Assessment & Plan (1) Severe sepsis: (2) Elevated troponin: (3) DEZ (acute kidney injury): (4) Nausea and vomiting: (5) Rash: (6) Atrial flutter: (7) HTN (hypertension): (8) Coronary artery disease: (9) Diabetes mellitus, type II: (10) Dyslipidemia: Plan This is a 64-year-old male with PMH of type 2 diabetes (a1c 7.22 Jun 2024), dyslipidemia, HFrEF (EF 40-45% on July 2024 echo), atrial flutter on eliquis, history of CABG in 2001 and other medical problems listed below who presents with fever and fall this AM and was found to meet severe sepsis criteria. Severe sepsis Abdominal wall cellulitis Left leg cellulitis Patient presents to the hospital with fever, leukocytosis, elevated lactate.l CT chest noted no acute abnormalities CT abd/Pelvis noted findings of cellulitis in lower abd/groin, mildly enlarged lymph nodes Viral resp panel negative Blood culture- NGTD CT of the left leg shows cellulitis; no underlying abscess or drainable collection Vancomycin changed to ceftriaxone and doxycycline. Plan to treat for 7 days. Continue PT OT while inpatient; will likely need rehab. Acute kidney injury- resolved Rhabdomyolysis- resolved Cr 1.91 (baseline Cr ~0.84) in setting of infection, PO losses, rhabdo CK on admission of 3981, up trended to 6478 and downtrended Urine output is reassuring Creatinine down trended to baseline. Encourage oral intake A flutter Ordered missed AM Toprol dose, takes 100mg BID Anticoagulated on Eliquis Elevated troponin Likely demand ischemia given infectious, rhabdo with trop elevated Trop 3819- >4523 > 6474 > 5378 EKG with RBBB (noted previously) Cardiology consulted; Echocardiogram shows EF of 40 to 45%; inferior wall severely hypokinetic to akinetic. Aspirin on hold due to thrombocytopenia HFrEF EF 40-45% on July 2024 echo Cards consulted Close monitoring of volume status lasix resumed on 11/11/2024 DM II A1c 7.22 Jun 2024 Hold home agents Basal/bolus while in-patient BSG AC HS Full code DVT prophylaxis Eliquis Disposition-PT/OT recommends rehab; patient undergoing treatment for DEZ, lower extremity cellulitis. Possible discharge in next few days to rehab Time spent evaluating patient, direct bedside care, chart review, placing orders, interpretation of diagnostic studies, discussion with consultants, patient, and family members, as well as other required patient management activities is 50 minutes Please note the above document was generated using voice recognition software. It may contain grammatical, syntax or spelling errors. Any formal questions or concerns about the content, text or information contained within the body of this dictation should be directly addressed to the provider for clarification Admission and Anticipated Discharge Date Admission Date: November 09, 2024 Subjective Patient seen and examined at bedside. Patient is comfortably lying on the bed; not in distress He denies chest pain, shortness of breath or abdominal pain No significant events overnight. Review of Systems Review of Systems: All systems reviewed & are unremarkable except as noted in Subjective Physical Exam Physical Exam: Constitutional: Lying on the bed comfortably; not in any distress. Respiratory: normal respiratory effort, lungs clear to auscultation, no wheeze, rales, rhonchi. Normal insp/exp effort, no accessory muscle use Cardiovascular: RRR, no murmur, no edema Vessels: no JVD or carotid bruit Chest: normal inspection of chest Abdomen: Slightly distended, nontender. Erythema present in abdominal wall and left thigh and leg Musculoskeletal: no cyanosis or clubbing, extremities motor strength 5/5 Skin: no rashes, warm and dry normal turgor Neurologic: PERRL, EOMI, accommodation nl, no face palsy, no dysarthria CN's II- XI intact bilaterally and moves all extremities Results & Data Results & Data Vital Signs (Past 12 Hours) Vital Signs Temp Pulse Pulse Resp BP Pulse Ox O2 Del Method 11/12/24 07:13 36.6 C 97 H 19 107/70 96 Room Air 11/12/24 03:10 36.7 C 99 H 18 109/57 L 98 Room Air 11/12/24 00:59 116 H 11/11/24 23:26 36.9 C 115 H 20 114/65 93 Room Air (8) Coronary artery disease Associated angina: angina presence unspecified Coronary Disease-Associated Artery/Lesion type: [place] artery [place] vs. 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
--- NOTE | 2024-11-12 10:55 | CT Scan Report ---
EXAM: CT Left Lower Extremity Without Intravenous Contrast Tibia and Fibula INDICATION: Evaluate for underlying abscess. TECHNIQUE: Axial computed tomography images of the left tibia and fibula without intravenous contrast. Sagittal and coronal reformatted images were created and reviewed. This CT exam was performed using one or more of the following dose reduction techniques: automated exposure control, adjustment of the mA and/or kV according to patient size, and/or use of iterative reconstruction technique. COMPARISON: No relevant prior studies available. FINDINGS: Bones/joints: There is a small knee joint effusion. Soft tissues: There is severe circumferential cellulitis without organized or liquefied collection. No soft tissue gas collection noted. No organized collection. Vasculature: Dense atherosclerotic calcification throughout the entire lower extremity. No aneurysm. IMPRESSION: 1. There is severe circumferential cellulitis without organized or liquefied collection. 2. No findings to indicate osteomyelitis. ACT 112: Negative or not required by law. Electronically signed by Veda Nichols 11-12-2024 10:55 AM
--- NOTE | 2024-11-12 11:19 | Cardiology Progress Note ---
Date of Service November 12, 2024 Assessment & Plan (1) Severe sepsis: (2) Elevated troponin: (3) Paroxysmal atrial fibrillation: (4) Coronary artery disease: (5) Cellulitis: (6) Rhabdomyolysis: (7) Thrombocytopenia: Plan 64-year-old male admitted secondary to severe sepsis, acute renal insufficiency, volume depletion, and elevated troponin/CK suggestive of demand ischemia and possible rhabdomyolysis. Worsening left lower extremity asymmetric edema noted today. 2D echocardiogram demonstrates stable ischemic cardiomyopathy with mild LV systolic dysfunction. Recommendations: * Left lower extremity venous duplex for assessment of asymmetric edema. * Continue oral metoprolol 100 mg twice daily. * Consideration for external direct-current cardioversion when patient has recovered from sepsis and volume status improved. * Continue gentle diuresis, Lasix 40 mg daily. * Thrombocytopenia improved, restart low-dose aspirin. * Continue Eliquis 5 mg twice daily * CPK trending down, statin currently on hold due to rhabdomyolysis.H elevated CPK, rhabdomyolysis. * Medical management of NSTEMI, stable echocardiogram, likely type II event in the setting of severe sepsis. * Continue telemetry monitoring. Admission and Anticipated Discharge Date Admission Date: November 09, 2024 Subjective 64-year-old male seen examined the bedside. Left lower extremity edema and rash worsening. Leg is tender to touch. Edema appears to be asymmetric. No chest pain or shortness of breath. Telemetry reveals atrial fibrillation/flutter heart rate 100-110 bpm. Patient denies palpitations. Review of Systems Review of Systems: All systems reviewed & are unremarkable except as noted in Subjective Physical Exam Constitutional: well developed, well nourished and + ill appearing; no acute distress Respiratory: normal respiratory effort; no respiratory distress, no labored breathing and no retractions Auscultation: no crackles, no rales, no rhonchi and no wheezes Cardiovascular: Rate/Rhythm: + tachycardic and + irregularly irregular Heart Sounds: normal S1 and normal S2; no murmur Vessels: no JVD and no carotid bruit Extremities: no edema (+LLE erythema) Gastrointestinal (Abdomen): Inspection/Auscultation: abdomen normal to inspection and normal bowel sounds; abdomen not distended Neurologic: CN's II-XI intact bilaterally and moves all extremities; no focal motor deficits Results & Data Vital Signs (Past 12 Hours) Vital Signs Temp Pulse Pulse Resp BP Pulse Ox Pulse Ox 11/12/24 10:00 96 11/12/24 09:46 11/12/24 07:13 36.6 C 97 H 19 107/70 96 11/12/24 03:10 36.7 C 99 H 18 109/57 L 98 11/12/24 00:59 116 H 11/11/24 23:26 36.9 C 115 H 20 114/65 93 O2 Del Method O2 Del Method O2 Flow Rate 11/12/24 10:00 Room Air 11/12/24 09:46 Room Air 0 11/12/24 07:13 Room Air 11/12/24 03:10 Room Air 11/12/24 00:59 11/11/24 23:26 Room Air Laboratory Results CBC 11/12/24 Range/Units 06:15 WBC 9.88 (4.8-10.8) K/ul RBC 3.89 L (4.70-6.10) M/uL Hgb 12.5 L (14.0-18.0) g/dl Hct 37.0 L (42.0-52.0) % Plt Count 86 L (130-400) K/uL Neut # (Auto) 7.68 H (1.40-6.50) K/uL Lymph # (Auto) 1.25 (1.20-3.40) K/uL [place] # (Auto) 0.67 H (0.11-0.59) K/uL Eos # (Auto) 0.12 (0.00-0.50) K/uL Baso # (Auto) 0.03 (0.00-0.20) K/uL Comprehensive Metabolic Panel 11/12/24 Range/Units 06:15 Sodium 134 L (136-145) mmol/L Potassium 4.3 (3.5-5.1) mmol/L Chloride 104 (98-107) mmol/L Carbon Dioxide 23 (21-32) mmol/L BUN 41 H (6-23) mg/dl Creatinine 1.12 (0.6-1.4) mg/dl Glucose 197 H (70-99(Fasting)) mg/dl Calcium 8.0 L (8.6-10.3) mg/dl Intake and Output 11/11/24 11/12/24 11/12/24 22:59 06:59 14:59 Intake Total 50 / 2355.833 300 / 2355.833 Output Total 310 / 2211 1350 / 2211 400 / 400 Balance -260 / 144.833 -1050 / 144.833 -400 / -400 Intake: IV 50 / 1575.833 cefTRIAXone SODIUM 2,000 mg In 50 / 50 50 ml @ 100 mls/hr IV Q24H [facility] Rx#:[id number] Oral 300 / 780 Output: Urine Amount (Catheter) 310 / 2210 1350 / 2210 400 / 400 [place]/Indwelling 310 / 2210 1350 / 2210 400 / 400 Other: Weight 127.2 kg Weight Measurement Method Built in [facility] (4) Coronary artery disease Coronary Disease-Associated Artery/Lesion type: [place] artery [place] vs. transplanted heart: [place] heart Associated angina: angina presence unspecified Qualified Code(s): I25.10 - Atherosclerotic heart disease of [place] coronary artery without angina pectoris (5) Cellulitis Site of cellulitis: extremity Site of cellulitis of extremity: lower extremity Laterality: left Qualified Code(s): L03.116 - Cellulitis of left lower limb
[2024-11-12 12:53] LABS: Basophils # (auto) 0.04 K/uL (0.00-0.20); Basophils % (auto) 0.4 %; Eosinophils # (auto) 0.15 K/uL (0.00-0.50); Eosinophils % (auto) 1.5 %; Hematocrit (blood only) 35.5 % (42.0-52.0); Immature Granulocytes # (auto) 0.12 K/uL (0.01-0.20); Immature Granulocytes % (auto) 1.2 %; Lymphocytes # (auto) 1.31 K/uL (1.20-3.40); Lymphocytes % (auto) 13.3 %; Mean Corpuscular Hemoglobin 31.9 pg (25.0-34.0); Mean Corpuscular Hgb Conc 33.8 g/dL (32.0-36.0); Mean Corpuscular Volume 94.4 fL (80.0-100.0); Mean Platelet Volume 12.8 fL (9.4-12.4); Monocytes # (auto) 0.72 K/uL (0.11-0.59); Monocytes % (auto) 7.3 %; Neutrophils # (auto) 7.49 K/uL (1.40-6.50); Neutrophils % (auto) 76.3 %; Platelet Count 86 K/uL (130-400); RDW Coefficient of Variation 14.9 % (11.5-14.5); RDW Standard Deviation 51.9 fL (36.4-46.3); Red Blood Count 3.76 M/uL (4.70-6.10); White Blood Count 9.83 K/ul (4.8-10.8)
[2024-11-13] MEDS ORDERED: VANCOMYCIN LEVEL ONE (04:00)
[2024-11-13 07:34] LABS: Calcium 8.3 mg/dl (8.6-10.3); Potassium 4.2 mmol/L (3.5-5.1)
[2024-11-13] MEDS: ASPIRIN 81 MG CHEW PO SCH (08:31)
--- NOTE | 2024-11-13 09:02 | Ultrasound Report ---
LEFT LOWER EXTREMITY VENOUS DOPPLER CLINICAL HISTORY: Left lower extremity edema. COMPARISON STUDY: No previous studies for comparison. TECHNIQUE: Sonography of the deep venous system of the left lower extremity was performed. Compressi on and augmentation were evaluated. FINDINGS: The left common femoral, superficial femoral and popliteal veins were compressible. Augmen tation was normal. Flow was shown within the deep calf vessels although the calf vessels were partial ly obscured. Left lower extremity edema is present. IMPRESSION: Suboptimal visualization of the left calf vessels but no evidence of deep venous thrombus within the left lower extremity. ACT 112: Negative or not required by law. Electronically signed by: Geovani Gardner M.D. 11/13/2024 9:01 AM
--- NOTE | 2024-11-13 09:43 | Hospitalist Progress Note ---
Date of Service November 13, 2024 Assessment & Plan (1) Severe sepsis: (2) Elevated troponin: (3) DEZ (acute kidney injury): (4) Nausea and vomiting: (5) Rash: (6) Atrial flutter: (7) HTN (hypertension): (8) Coronary artery disease: (9) Diabetes mellitus, type II: (10) Dyslipidemia: Plan This is a 64-year-old male with PMH of type 2 diabetes (a1c 7.22 Jun 2024), dyslipidemia, HFrEF (EF 40-45% on July 2024 echo), atrial flutter on eliquis, history of CABG in 2001 and other medical problems listed below who presents with fever and fall this AM and was found to meet severe sepsis criteria. Severe sepsis Abdominal wall cellulitis Left leg cellulitis Patient presents to the hospital with fever, leukocytosis, elevated lactate.l CT chest noted no acute abnormalities CT abd/Pelvis noted findings of cellulitis in lower abd/groin, mildly enlarged lymph nodes Viral resp panel negative Blood culture- NGTD CT of the left leg shows cellulitis; no underlying abscess or drainable collection Continues to have significant cellulitis; will change doxycycline to vancomycin again. Continue on ceftriaxone Continue PT OT while inpatient; will likely need rehab. Acute kidney injury- resolved Rhabdomyolysis- resolved Cr 1.91 (baseline Cr ~0.84) in setting of infection, PO losses, rhabdo CK on admission of 3981, up trended to 6478 and downtrended Urine output is reassuring Creatinine down trended to baseline. Encourage oral intake A flutter Ordered missed AM Toprol dose, takes 100mg BID Anticoagulated on Eliquis Elevated troponin Likely demand ischemia given infectious, rhabdo with trop elevated Trop 3819- >4523 > 6474 > 5378 EKG with RBBB (noted previously) Cardiology consulted; Echocardiogram shows EF of 40 to 45%; inferior wall severely hypokinetic to akinetic. Continue on aspirin HFrEF EF 40-45% on July 2024 echo Cards consulted Close monitoring of volume status lasix resumed on 11/11/2024 DM II A1c 7.22 Jun 2024 Hold home agents Basal/bolus while in-patient BSG AC HS Full code DVT prophylaxis Eliquis Disposition-PT/OT recommends rehab; CM assistance for placement Time spent evaluating patient, direct bedside care, chart review, placing orders, interpretation of diagnostic studies, discussion with consultants, patient, and family members, as well as other required patient management activities is 50 minutes Please note the above document was generated using voice recognition software. It may contain grammatical, syntax or spelling errors. Any formal questions or concerns about the content, text or information contained within the body of this dictation should be directly addressed to the provider for clarification Admission and Anticipated Discharge Date Admission Date: November 09, 2024 Subjective Patient seen and examined at bedside. Comfortable; not in distress. Denies fever, chills, chest pain, shortness of breath, abdominal pain or urinary symptoms. No significant overnight events Review of Systems Review of Systems: All systems reviewed & are unremarkable except as noted in Subjective Physical Exam Physical Exam: Constitutional: Lying on the bed comfortably; not in any distress. Respiratory: normal respiratory effort, lungs clear to auscultation, no wheeze, rales, rhonchi. Normal insp/exp effort, no accessory muscle use Cardiovascular: RRR, no murmur, no edema Vessels: no JVD or carotid bruit Chest: normal inspection of chest Abdomen: Slightly distended, nontender. erythema in left thigh and leg Musculoskeletal: no cyanosis or clubbing, extremities motor strength 5/5 Skin: no rashes, warm and dry normal turgor Neurologic: PERRL, EOMI, accommodation nl, no face palsy, no dysarthria CN's II- XI intact bilaterally and moves all extremities Results & Data Results & Data Vital Signs (Past 12 Hours) Vital Signs Temp Pulse Pulse Resp BP Pulse Ox O2 Del Method 11/13/24 07:25 36.7 C 82 19 122/67 96 Room Air 11/13/24 02:42 36.9 C 102 H 20 106/73 99 Room Air 11/13/24 00:07 37.0 C 99 H 20 113/61 95 Room Air 11/12/24 23:30 Room Air 11/12/24 22:11 130 H (8) Coronary artery disease Associated angina: angina presence unspecified Coronary Disease-Associated Artery/Lesion type: [place] artery [place] vs. transplanted heart: [place] heart Qualified Code(s): I25.10 - Atherosclerotic heart disease of [place] coronary artery without angina pectoris (9) Diabetes mellitus, type II Diabetes mellitus complication status: with other specified complication Diabetes mellitus shelter insulin use: with shelter use Qualified Code(s): E11.69 - Type 2 diabetes mellitus with other specified complication; Z79.4 - alf (current) use of insulin
--- NOTE | 2024-11-13 10:04 | Pharmacy Report ---
Pharmacy Glycemic Short Note 2 - Date of Service November 13, 2024 - Glycemic Short BSG Results (Last 24 hours): 11/12/24 11/12/24 11/12/24 11:30 16:09 20:13 Glucose POC Glucose 209 H 155 H 201 H 11/13/24 11/13/24 06:11 07:23 Glucose 134 H POC Glucose 146 H OUTPATIENT ANTIDIABETIC REGIMEN: * metformin 1000mg PO BIDM * Faxiga 10mg PO daily * Humalog SQ SS TIDM * Lantus 100 units SQ HS * HbA1c 7.1% (07/15) ASSESSMENT: 11/13 * Rolan received 197 units of insulin yesterday (125 were basal) * Fasting BSG this AM within goal range for the first time since admission, continue current basal regimen. * No changes to NovoLog at this time. 11/10 * Rolan is a 64 YOM admitted with fever, weakness, vomitting,and diarrhea with a history of type 2 diabetes mellitus. Pharmacy has been consulted to assist with glycemic management while inpatient. * BSGs elevated in the 300 upon admission. Received an IV bolus of regular insulin and BSGs trended down into the 200's. * Fasting BSG this AM still elevated, will give a small dose of Lantus this AM and then aim to move the majority back to his home bedtime dosing. Lantus ordered based BSGs with parameters for slightly increased total daily dose from yesterday if BSGs still elevated. * NovoLog initiated at a weight based stress of 3, tightened slightly today. PLAN FOR INPATIENT GLYCEMIC CONTROL: * Hold outpatient oral diabetes medications * Basal insulin * Lantus 80-125 units SQ HS based on BSG (see eMAR for additional details) * Bolus insulin * NovoLog per scale ACHS or Q6hrs while NPO * Goal Range: Low 110 mg/dL - High 140 mg/dL * Correction Factor: 10 mg/dL/unit * Nutritional / Prandial insulin per carb ratio of 1 unit per 3 grams CHO consumed
[2024-11-13] MEDS ORDERED: VANCOMYCIN CONSULT ACTIVE PRN (11:29)
--- NOTE | 2024-11-13 12:00 | Cardiology Progress Note ---
Date of Service November 13, 2024 Assessment & Plan (1) Severe sepsis: (2) Elevated troponin: (3) Paroxysmal atrial fibrillation: (4) Coronary artery disease: (5) Cellulitis: (6) Rhabdomyolysis: (7) Thrombocytopenia: Plan 11/12/24 64-year-old male admitted secondary to severe sepsis, acute renal insufficiency, volume depletion, and elevated troponin/CK suggestive of demand ischemia and possible rhabdomyolysis. Worsening left lower extremity asymmetric edema noted today. 2D echocardiogram demonstrates stable ischemic cardiomyopathy with mild LV systolic dysfunction. Recommendations: * Left lower extremity venous duplex for assessment of asymmetric edema. * Continue oral metoprolol 100 mg twice daily. * Consideration for external direct-current cardioversion when patient has recovered from sepsis and volume status improved. * Continue gentle diuresis, Lasix 40 mg daily. * Thrombocytopenia improved, restart low-dose aspirin. * Continue Eliquis 5 mg twice daily * CPK trending down, statin currently on hold due to rhabdomyolysis.H elevated CPK, rhabdomyolysis. * Medical management of NSTEMI, stable echocardiogram, likely type II event in the setting of severe sepsis. * Continue telemetry monitoring. 11/13/24: Ongoing Left LE cellulitis noted. Venous duplex was limited but no evidence of acute DVT per report. Continue treatment of cellulitis/antibiotics per hospitalist. Blood cultures remain negative. Elevated troponin and elevated CK on admission likely multifactorial in setting of sepsis, possible rhabdomyolysis and demand ischemia. Patient without complaints of angina. Continue ASA 81 mg daily (initially held for thrombocytopenia) Will plan to resume statin upon discharge - held for rhabdo, elevated CK. Echo with stable findings. Afib resolved this morning, successfully converting to NSR. Continue metoprolol 100 mg BID Continue Eliquis 5 mg for anticoagulation. Case discussed with Dr. Arrington Stable cardiac symptoms. No further cardiac testing/intervention required. Continue current medications I spent a total of 40 minutes on the date of service in preparation, delivery, and documentation of the care provided to this patient, excluding any time spent in the performance of separately billed services. Kelly Dasilva PA-C Department of Cardiology, [facility] This chart was completed in part utilizing Speech Voice Recognition Software. Grammatical errors, random word insertions, pronoun errors, and incomplete sente nces are an occasional consequence of this system due to software limitations, ambient noise, and hardware issues. Any formal questions or concerns about the content, text, or information contained within the body of this dictation should be directly addressed to the provider for clarification. Admission and Anticipated Discharge Date Admission Date: November 09, 2024 Supervising Physician Co-Signing Physician Notes Patient was seen and personally examined. Care and management well outlined by advanced provider as above. Course clinically discussed and personally endorsed Now back in sinus as of this morning. No acute cardiac complaints I spent a total of 20 minutes on the date of service in preparation, delivery, and documentation of the care provided to this patient, excluding any time spent in the performance of separately billed services. Subjective Patient resting in chair comfortably. Still with significant left LE cellulitis. He denies acute cardiac complaints. No chest pain, dyspnea, dizziness. He converted to NSR this morning. No pauses. Review of Systems Review of Systems: All systems reviewed & are unremarkable except as noted in HPI & below Physical Exam Constitutional: well developed, well nourished and + ill appearing; no acute distress Respiratory: normal respiratory effort; no respiratory distress, no labored breathing and no retractions Auscultation: no crackles, no rales, no rhonchi and no wheezes Cardiovascular: Rate/Rhythm: regular rate and regular rhythm Heart Sounds: normal S1 and normal S2; no murmur Vessels: no JVD and no carotid bruit Extremities: + edema (+LLE erythema and 1+ edema) Gastrointestinal (Abdomen): Inspection/Auscultation: abdomen normal to inspection and normal bowel sounds; abdomen not distended Neurologic: CN's II-XI intact bilaterally and moves all extremities; no focal motor deficits Results & Data Vital Signs (Past 12 Hours) Vital Signs Temp Pulse Resp BP Pulse Ox O2 Del Method 11/13/24 10:49 36.6 C 89 20 114/66 95 Room Air 11/13/24 07:25 36.7 C 82 19 122/67 96 Room Air 11/13/24 02:42 36.9 C 102 H 20 106/73 99 Room Air 11/13/24 00:07 37.0 C 99 H 20 113/61 95 Room Air Laboratory Results CBC 11/12/24 Range/Units 12:20 WBC 9.83 (4.8-10.8) K/ul RBC 3.76 L (4.70-6.10) M/uL Hgb 12.0 L (14.0-18.0) g/dl Hct 35.5 L (42.0-52.0) % Plt Count 86 L (130-400) K/uL Neut # (Auto) 7.49 H (1.40-6.50) K/uL Lymph # (Auto) 1.31 (1.20-3.40) K/uL [place] # (Auto) 0.72 H (0.11-0.59) K/uL Eos # (Auto) 0.15 (0.00-0.50) K/uL Baso # (Auto) 0.04 (0.00-0.20) K/uL Comprehensive Metabolic Panel 11/13/24 Range/Units 06:11 Sodium 137 (136-145) mmol/L Potassium 4.2 (3.5-5.1) mmol/L Chloride 104 (98-107) mmol/L Carbon Dioxide 26 (21-32) mmol/L BUN 35 H (6-23) mg/dl Creatinine 1.00 (0.6-1.4) mg/dl Glucose 134 H (70-99(Fasting)) mg/dl Calcium 8.3 L (8.6-10.3) mg/dl Intake and Output 11/12/24 11/13/24 11/13/24 22:59 06:59 14:59 Intake Total 290 / 1240 350 / 1240 Output Total 130 / 530 Balance 160 / 710 350 / 710 Intake: IV 50 / 50 cefTRIAXone SODIUM 2,000 mg In 50 / 50 50 ml @ 100 mls/hr IV Q24H TETE Rx#:[id number] Oral 240 / 1190 350 / 1190 Output: Urine 130 / 130 Other: # Unmeasured Voids 1 Weight 122 kg Weight Measurement Method Built in [facility] Diagnostic Findings Telemetry reviewed: NSR in the 80's. This morning around 6:58 patient converted from afib RVR to NSR. Lower Extremity CT 11/12/24 09:46 EXAM: CT Left Lower Extremity Without Intravenous Contrast Tibia and Fibula INDICATION: Evaluate for underlying abscess. TECHNIQUE: Axial computed tomography images of the left tibia and fibula without intravenous contrast. Sagittal and coronal reformatted images were created and reviewed. This CT exam was performed using one or more of the following dose reduction techniques: automated exposure control, adjustment of the mA and/or kV according to patient size, and/or use of iterative reconstruction technique. COMPARISON: No relevant prior studies available. FINDINGS: Bones/joints: There is a small knee joint effusion. Soft tissues: There is severe circumferential cellulitis without organized or liquefied collection. No soft tissue gas collection noted. No organized collection. Vasculature: Dense atherosclerotic calcification throughout the entire lower extremity. No aneurysm. IMPRESSION: 1. There is severe circumferential cellulitis without organized or liquefied collection. 2. No findings to indicate osteomyelitis. ACT 112: Negative or not required by law. Electronically signed by Veda Nichols 11-12-2024 10:55 AM Venous Doppler Study 11/13/24 00:00 LEFT LOWER EXTREMITY VENOUS DOPPLER CLINICAL HISTORY: Left lower extremity edema. COMPARISON STUDY: No previous studies for comparison. TECHNIQUE: Sonography of the deep venous system of the left lower extremity was performed. Compression and augmentation were evaluated. FINDINGS: The left common femoral, superficial femoral and popliteal veins were compressible. Augmentation was normal. Flow was shown within the deep calf vessels although the calf vessels were partially obscured. Left lower extremity edema is present. IMPRESSION: Suboptimal visualization of the left calf vessels but no evidence of deep venous thrombus within the left lower extremity. ACT 112: Negative or not required by law. Electronically signed by: Geovani Gardner M.D. 11/13/2024 9:01 AM Medications Administered Current Inpatient Medications Acetaminophen (Acetaminophen 325 Mg Tab) 650 mg PO Q4H PRN PRN Reason: Pain or Fever Stop: 12/09/24 19:28 Last Admin: 11/12/24 21:19 Dose: 650 mg Apixaban (Apixaban 5 Mg Tablet) 5 mg PO BID [facility] Stop: 12/09/24 20:59 Last Admin: 11/13/24 07:41 Dose: 5 mg Ascorbic Acid (Ascorbic Acid 500 Mg Tab) 1 mg PO QAM [facility] Stop: 12/10/24 08:59 Last Admin: 11/13/24 07:41 Dose: 1 mg Aspirin (Aspirin 81 Mg Ectab) 81 mg PO QAM [facility] Stop: 12/10/24 08:59 Last Admin: 11/11/24 08:54 Dose: 81 mg Aspirin (Aspirin 81 Mg Chew) 81 mg PO DAILY [facility] Stop: 12/13/24 08:59 Last Admin: 11/13/24 08:31 Dose: 81 mg Atorvastatin Calcium (Atorvastatin 40 Mg Tab) 40 mg PO HS [facility] Stop: 12/09/24 20:59 Last Admin: 11/12/24 21:19 Dose: 40 mg Calcium Carbonate (Calcium Carbonate 500 Mg Chewable Tab) 500 mg PO BID PRN PRN Reason: Indigestion Stop: 12/11/24 22:50 Last Admin: 11/12/24 12:07 Dose: 500 mg Citalopram Hydrobromide (Citalopram 20 Mg Tab) [facility] Stop: 12/10/24 08:59 Last Admin: 11/13/24 07:42 Dose: 20 mg Dextrose (Dextrose 50% 50 Ml Syringe) 25 - 50 ml IV UD PRN; Protocol PRN Reason: Hypoglycemia Protocol Stop: 12/09/24 13:24 Furosemide (Furosemide 40 Mg Tab) 40 mg PO [facility] Stop: 12/11/24 08:59 Last Admin: 11/13/24 07:42 Dose: 40 mg Glucagon (Glucagon For Inj 1 Mg Vial) 1 mg SQ UD PRN; Protocol PRN Reason: Hypoglycemia Protocol Stop: 12/09/24 13:24 Glucose (Glucose 40% Gel 15 Gm Tube) 15 - 30 gm PO UD PRN; Protocol PRN Reason: Hypoglycemia Protocol Stop: 12/09/24 13:24 Glucose (Glucose 10 Tab/Tube) 4 - 8 tab PO UD PRN; Protocol PRN Reason: Hypoglycemia Protocol Stop: 12/09/24 13:24 Ceftriaxone Sodium (Rocephin) 2,000 mg in 50 mls @ 100 mls/hr IV Q24H [facility] Stop: 11/18/24 14:59 Last Infusion: 11/12/24 17:05 Dose: Infused Vancomycin HCl 2,500 mg/ (Sodium Chloride) 550 mls @ 200 mls/hr IV NOW ONE Stop: 11/13/24 14:29 Insulin Aspart (Insulin Aspart Per Unit Charge) 0 units SC [facility] Stop: 12/09/24 14:14 Last Admin: 11/13/24 08:30 Dose: 9 units Insulin Glargine (Lantus Per Unit Charge) 0 units SC [facility]; Protocol Stop: 12/10/24 20:59 Last Admin: 11/12/24 21:23 Dose: 125 units Metoprolol Succinate (Metoprolol Succ 50mg Ext Rel Tab) 100 mg PO BID [facility] Stop: 12/09/24 20:59 Last Admin: 11/13/24 07:42 Dose: 100 mg Miscellaneous (Carbohydrates For Hypoglycemia ) 15 - 30 gm PO UD PRN PRN Reason: Hypoglycemia Protocol Stop: 12/09/24 13:24 Miscellaneous Information (Pharmacy Glycemic Mgmt Consult) 1 each N/A UD PRN; Protocol PRN Reason: Consult Stop: 12/09/24 13:16 Miscellaneous Information (Vancomycin Consult Active) 1 each N/A UD PRN PRN Reason: Consult Stop: 12/13/24 11:28 Multivitamins (Multivitamin Tab) 1 tab PO QAM [facility] Stop: 12/10/24 08:59 Last Admin: 11/13/24 07:42 Dose: 1 tab Nystatin (Nystatin Oint 15 Gm Tube) 1 appln EXT BID [facility] Stop: 12/09/24 20:59 Last Admin: 11/13/24 07:42 Dose: 1 appln Ondansetron HCl (Ondansetron Inj 2 Mg/Ml 2 Ml Vial) 4 mg IV Q6H PRN PRN Reason: Nausea Stop: 12/09/24 19:28 Polyethylene Glycol (Polyethylene (Miralax) 17 Gm Pack) 17 gm PO DAILY PRN PRN Reason: Constipation Stop: 12/09/24 19:28 (4) Coronary artery disease Associated angina: angina presence unspecified Coronary Disease-Associated Artery/Lesion type: [place] artery [place] vs. transplanted heart: [place] heart Qualified Code(s): I25.10 - Atherosclerotic heart disease of [place] coronary artery without angina pectoris (5) Cellulitis Laterality: left Site of cellulitis: extremity Site of cellulitis of extremity: lower extremity Qualified Code(s): L03.116 - Cellulitis of left lower limb
[2024-11-13] MEDS: VANCOMYCIN HCL 2,500 MG in SODIUM CHLORIDE 0.9% 500 ML IV ONE (12:57)
--- NOTE | 2024-11-13 14:46 | Pharmacy Report ---
Pharmacy PK ABX Note - Date of Service November 13, 2024 - Assessment and Plan Assessment 11/13: * Vancomycin switched to oral doxycycline and ceftriaxone on the afternoon of 11/11. Hospitalist's progress notes report that cellulitis is not improving and is switching doxycycline back to vancomycin. Blood cultures no growth x48 hours, urine culture no growth. Will reload vancomycin and dose based on improved serum creatinine. 11/11 * Continues on vancomycin for cellulitis at this time. SCr improving, random level predicts subtherapeutic dosing, will adjust dose today. 11/10 * 64 year old M receiving vancomycin/Zosyn for treatment of sepsis/abdominal wall cellulitis. Pertinent microbiologic data includes: blood and urine cultures pending. No creatinine obtained this AM, will order a level for tomorrow AM to to assess efficacy and prevent underdosing in case DEZ improve s. Day # 4 of antimicrobial therapy. Plan Vancomycin * Loading dose: 2550 mg IV x 1 * Maintenance dose: 1250mg Q12H starting 11/14 @0600 * Regimen is predicted to achieve target AUC/MIGUEL of 400-600 mg/L.hr * Trough level ordered for 11/14 @0530. Pharmacy will continue to follow and will adjust dose/frequency as necessary. Thank you. Pharmacy has transitioned to AUC monitoring for vancomycin. AUC/MIGUEL is the preferred PK/PD target and is associated with decreased risk of nephrotoxicity compared to traditional trough targets.
[2024-11-14] MEDS ORDERED: VANCOMYCIN LEVEL ONE (05:00)
[2024-11-14] MEDS: VANCOMYCIN HCL 1,250 MG in SODIUM CHLORIDE 0.9% 250 ML IV SCH (05:28)
[2024-11-14 06:14] LABS: Basophils # (auto) 0.02 K/uL (0.00-0.20); Basophils % (auto) 0.2 %; Eosinophils % (auto) 2.4 %; Hematocrit (blood only) 35.7 % (42.0-52.0); Immature Granulocytes # (auto) 0.12 K/uL (0.01-0.20); Immature Granulocytes % (auto) 1.4 %; Lymphocytes # (auto) 1.46 K/uL (1.20-3.40); Lymphocytes % (auto) 17.2 %; Mean Corpuscular Hemoglobin 31.9 pg (25.0-34.0); Mean Corpuscular Hgb Conc 33.6 g/dL (32.0-36.0); Mean Corpuscular Volume 94.9 fL (80.0-100.0); Mean Platelet Volume 11.8 fL (9.4-12.4); Monocytes # (auto) 0.82 K/uL (0.11-0.59); Monocytes % (auto) 9.7 %; Neutrophils # (auto) 5.87 K/uL (1.40-6.50); Neutrophils % (auto) 69.1 %; Platelet Count 156 K/uL (130-400); RDW Coefficient of Variation 14.8 % (11.5-14.5); RDW Standard Deviation 51.8 fL (36.4-46.3); Red Blood Count 3.76 M/uL (4.70-6.10); White Blood Count 8.49 K/ul (4.8-10.8)
[2024-11-14 06:26] LABS: BUN Creatinine Ratio 30.3 (10-20); Calcium 8.3 mg/dl (8.6-10.3); Creatinine Clr Calc Pharmacy 96.2 ml/min; Potassium 4.2 mmol/L (3.5-5.1)
[2024-11-14 07:33] VITALS: TEMP 98.1
[2024-11-14] MEDS: ASCORBIC ACID 500 MG TAB PO SCH (08:50)
--- NOTE | 2024-11-14 09:10 | Pharmacy Report ---
Pharmacy PK ABX Note - Date of Service November 14, 2024 - Assessment and Plan Assessment 11/14: * Early level drawn this AM, predicting therapeutic AUC/MIGUEL, slightly lower dosage also predicting therapeutic AUC/MIGUEL. Will lower dosing to prevent another DEZ 11/13: * Vancomycin switched to oral doxycycline and ceftriaxone on the afternoon of 11/11. Hospitalist's progress notes report that cellulitis is not improving and is switching doxycycline back to vancomycin. Blood cultures no growth x48 hours, urine culture no growth. Will reload vancomycin and dose based on improved serum creatinine. 11/11 * Continues on vancomycin for cellulitis at this time. SCr improving, random level predicts subtherapeutic dosing, will adjust dose today. 11/10 * 64 year old M receiving vancomycin/Zosyn for treatment of sepsis/abdominal wall cellulitis. Pertinent microbiologic data includes: blood and urine cultures pending. No creatinine obtained this AM, will order a level for tomorrow AM to to assess efficacy and prevent underdosing in case DEZ improves. Day # 4 of antimicrobial therapy. Plan Vancomycin * Maintenance dose: decrease to 1000mg Q12H * Regimen is predicted to achieve target AUC/MIGUEL of 400-600 mg/L.hr * Trough level ordered for 11/16 @0530. Pharmacy will continue to follow and will adjust dose/frequency as necessary. Thank you. Pharmacy has transitioned to AUC monitoring for vancomycin. AUC/MIGUEL is the preferred PK/PD target and is associated with decreased risk of nephrotoxicity compared to traditional trough targets.
--- NOTE | 2024-11-14 10:50 | Pharmacy Report ---
Pharmacy Glycemic Short Note 2 - Date of Service November 14, 2024 - Glycemic Short BSG Results (Last 24 hours): 11/13/24 11/13/24 11/13/24 11:11 16:16 20:04 Glucose POC Glucose 209 H 147 H 134 H 11/14/24 11/14/24 05:47 07:25 Glucose 157 H POC Glucose 137 H OUTPATIENT ANTIDIABETIC REGIMEN: * metformin 1000mg PO BIDM * Faxiga 10mg PO daily * Humalog SQ SS TIDM * Lantus 100 units SQ HS * HbA1c 7.1% (07/15) ASSESSMENT: 11/14 * Rolan received 157 units of insulin yesterday (100 were basal) * Fasting BSG this AM, continue current basal regimen with slight adjustment to protocol (higher dose only if BSG >180) * NovoLog carbohydrate ratio tightened yesterday, appears to be appropriately managing his post-prandials at this time. * He was switched back to vancomycin and ceftriaxone yesterday for cellulitis that was not improving. 11/13 * Rolan received 197 units of insulin yesterday (125 were basal) * Fasting BSG this AM within goal range for the first time since admission, continue current basal regimen. * No changes to NovoLog at this time. 11/10 * Rolan is a 64 YOM admitted with fever, weakness, vomitting,and diarrhea with a history of type 2 diabetes mellitus. Pharmacy has been consulted to assist with glycemic management while inpatient. * BSGs elevated in the 300 upon admission. Received an IV bolus of regular insulin and BSGs trended down into the 200's. * Fasting BSG this AM still elevated, will give a small dose of Lantus this AM and then aim to move the majority back to his home bedtime dosing. Lantus ordered based BSGs with parameters for slightly increased total daily dose from yesterday if BSGs still elevated. * NovoLog initiated at a weight based stress of 3, tightened slightly today. PLAN FOR INPATIENT GLYCEMIC CONTROL: * Hold outpatient oral diabetes medications * Basal insulin * Lantus 80-125 units SQ HS based on BSG (see eMAR for additional details) * Bolus insulin * NovoLog per scale ACHS or Q6hrs while NPO * Goal Range: Low 110 mg/dL - High 140 mg/dL * Correction Factor: 10 mg/dL/unit * Nutritional / Prandial insulin per carb ratio of 1 unit per 2.5 grams CHO consumed
[2024-11-14 10:53] VITALS: BP 113/72; RESP 18; O2SAT 97
--- NOTE | 2024-11-14 13:07 | Hospitalist Progress Note ---
Date of Service November 14, 2024 Assessment & Plan (1) Severe sepsis: (2) Elevated troponin: (3) DEZ (acute kidney injury): (4) Nausea and vomiting: (5) Rash: (6) Atrial flutter: (7) HTN (hypertension): (8) Coronary artery disease: (9) Diabetes mellitus, type II: (10) Dyslipidemia: Plan This is a 64-year-old male with PMH of type 2 diabetes (a1c 7.22 Jun 2024), dyslipidemia, HFrEF (EF 40-45% on July 2024 echo), atrial flutter on eliquis, history of CABG in 2001 and other medical problems listed below who presents with fever and fall this AM and was found to meet severe sepsis criteria. Severe sepsis Abdominal wall cellulitis Left leg cellulitis Patient presents to the hospital with fever, leukocytosis, elevated lactate.l CT chest noted no acute abnormalities CT abd/Pelvis noted findings of cellulitis in lower abd/groin, mildly enlarged lymph nodes Viral resp panel negative Blood culture- NGTD CT of the left leg shows cellulitis; no underlying abscess or drainable collection Patient has shown improvement in cellulitis on his left leg; we will continue ceftriaxone and vancomycin for the time being. At discharge, will change to possibly Augmentin and doxycycline. Repeat PT evaluation done on 11/13 recommended home with home health Acute kidney injury- resolved Rhabdomyolysis- resolved Cr 1.91 (baseline Cr ~0.84) in setting of infection, PO losses, rhabdo CK on admission of 3981, up trended to 6478 and downtrended Urine output is reassuring Creatinine down trended to baseline. Encourage oral intake A flutter takes metoprolol 100mg BID Anticoagulated on Eliquis Elevated troponin Likely demand ischemia given infectious, rhabdo with trop elevated Trop 3819- >4523 > 6474 > 5378 EKG with RBBB (noted previously) Cardiology consulted; Echocardiogram shows EF of 40 to 45%; inferior wall severely hypokinetic to akinetic. Continue on aspirin HFrEF EF 40-45% on July 2024 echo Cards consulted Close monitoring of volume status lasix resumed on 11/11/2024 DM II A1c 7.22 Jun 2024 Hold home agents Basal/bolus while in-patient BSG AC HS Full code DVT prophylaxis Eliquis Disposition-Patient continues to be hospitalized for cellulitis in left lower extremity requiring IV antibiotics. Possible discharge to home in next few days depending on clinical improvement. Time spent evaluating patient, direct bedside care, chart review, placing orders, interpretation of diagnostic studies, discussion with consultants, patient, and family members, as well as other required patient management activities is 50 minutes Please note the above document was generated using voice recognition software. It may contain grammatical, syntax or spelling errors. Any formal questions or concerns about the content, text or information contained within the body of this dictation should be directly addressed to the provider for clarification Admission and Anticipated Discharge Date Admission Date: November 09, 2024 Subjective Patient reports some improvement in left lower extremity cellulitis. He reports that pain has decreased. Cellulitis on the thigh significantly improved. No significant events overnight Physical Exam Physical Exam: Constitutional: Lying on the bed comfortably; not in any distress. Respiratory: normal respiratory effort, lungs clear to auscultation, no wheeze, rales, rhonchi. Normal insp/exp effort, no accessory muscle use Cardiovascular: RRR, no murmur, no edema Vessels: no JVD or carotid bruit Chest: normal inspection of chest Abdomen: Slightly distended, nontender. erythema in left thigh and leg. Erythema in the thigh overall improved. Cellulitis on leg seem to be persistent Musculoskeletal: no cyanosis or clubbing, extremities motor strength 5/5 Skin: no rashes, warm and dry normal turgor Neurologic: PERRL, EOMI, accommodation nl, no face palsy, no dysarthria CN's II- XI intact bilaterally and moves all extremities Results & Data Results & Data Vital Signs (Past 12 Hours) Vital Signs Temp Pulse Pulse Resp BP BP Pulse Ox 11/14/24 10:52 36.7 C 80 18 113/72 97 11/14/24 07:43 11/14/24 07:32 36.7 C 85 17 117/74 95 11/14/24 07:16 85 11/14/24 02:33 36.5 C 86 18 126/74 94 O2 Del Method 11/14/24 10:52 Room Air 11/14/24 07:43 Room Air 11/14/24 07:32 Room Air 11/14/24 07:16 11/14/24 02:33 Room Air (8) Coronary artery disease Coronary Disease-Associated Artery/Lesion type: [place] artery [place] vs. 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
--- NOTE | 2024-11-14 14:05 | Discharge Summary ---
Date of Service November 14, 2024 Admission HPI Per Admitting Provider This is a 64-year-old male with PMH of type 2 diabetes (a1c 7.22 Jun 2024), dyslipidemia, HFrEF (EF 40-45% on July 2024 echo), atrial flutter on eliquis, history of CABG in 2001 and other medical problems listed below who presents with fever and fall this AM. Was in normal state of health yesterday but woke up during the night with multiple bouts of vomiting and diarrhea. Also took his temp and had fever of 102 F. Went to stand this morning and slid to the ground, prompting presentation to ED. Has a cough that started yesterday. No abdominal pain or chest pain. Last took his meds Wednesday evening. No headache, lightheadedness, CP, SOB or abdominal pain. No dysuria. Has scratches on his abdomen and arms from his cat. Chronic back pain was exacerbated overnight. Lives with , no ambulatory assistive devices or oxygen at baseline. Admission Exam Per Admitting Provider General: Ill appearing Eyes: PERRL, conjunctivae normal, not pale, anicteric sclerae, EOM intact bilaterally ENMT: External ear and nose normal, dry oral mucosa Respiratory: Normal respiratory effort, no respiratory distress, lungs clear to auscultation, no crackles and no wheezes Cardiovascular: RRR S1 S2 Gastrointestinal (Abdomen): Abdomen is not distended, soft, non-tender to palpation, no guarding, no palpable hepatosplenomegaly, normal bowel sounds Musculoskeletal: No pedal edema Skin: Scabs in different stages of healing on abdomen, Erythema. Scratch santana (reported to be from his cat), inguinal fungal rash more on left. Also involving skin folds Neurologic: Alert and oriented x 3, No focal weakness, sensation grossly intact Psychiatric: Euthymic affect Principal Diagnosis Severe sepsis Abdominal wall cellulitis Left leg cellulitis Acute kidney injury- resolved Rhabdomyolysis- resolved Discharge Exam Constitutional: Lying on the bed comfortably; not in any distress. Respiratory: normal respiratory effort, lungs clear to auscultation, no wheeze, rales, rhonchi. Normal insp/exp effort, no accessory muscle use Cardiovascular: RRR, no murmur, no edema Vessels: no JVD or carotid bruit Chest: normal inspection of chest Abdomen: Slightly distended, nontender. erythema in left thigh and leg. Erythema in the thigh overall improved. Cellulitis on leg slighly improved Musculoskeletal: no cyanosis or clubbing, extremities motor strength 5/5 Skin: no rashes, warm and dry normal turgor Neurologic: PERRL, EOMI, accommodation nl, no face palsy, no dysarthria CN's II- XI intact bilaterally and moves all extremities Discharge Data Allergies Allergy/AdvReac Type Severity Reaction Status Date / Time No Known Allergies Allergy Unknown Verified 07/11/20 13:45 Consultations 11/09/24 12:56 ED Decision to Admit Stat 11/09/24 13:19 Consult Cardiology Routine Consult Nephrology Routine Ordered Studies 11/09/24 10:38 CT abd pelvis wo con Stat 11/09/24 10:55 CT chest diagnostic wo con Stat 11/12/24 09:46 CT leg [CT tib/fib LT wo con] Routine 11/13/24 US venous doppler LE LT Urgent Hospital Course (1) Severe sepsis: (2) Elevated troponin: (3) DEZ (acute kidney injury): (4) Nausea and vomiting: (5) Rash: (6) Atrial flutter: (7) HTN (hypertension): (8) Coronary artery disease: (9) Diabetes mellitus, type II: (10) Dyslipidemia: Plan This is a 64-year-old male with PMH of type 2 diabetes (a1c 7.22 Jun 2024), dyslipidemia, HFrEF (EF 40-45% on July 2024 echo), atrial flutter on eliquis, history of CABG in 2001 and other medical problems listed below who presents with fever and fall this AM and was found to meet severe sepsis criteria. Severe sepsis Abdominal wall cellulitis- resolved Left leg cellulitis Patient presents to the hospital with fever, leukocytosis, elevated lactate.l CT chest noted no acute abnormalities CT abd/Pelvis noted findings of cellulitis in lower abd/groin, mildly enlarged lymph nodes Viral resp panel negative Blood culture- NGTD CT of the left leg shows cellulitis; no underlying abscess or drainable collection Patient was treated with IV antibiotic during the hospitalization for the cellulitis. Patient had moderate improvement in his cellulitis in his left leg. I encouraged patient to continue to stay in the hospital to get IV antibiotic for couple of more days. However, patient wants to go home. I prescribed him Augmentin and doxycycline for 10 days. Recommended him to elevate his leg. Patient agreeable and he reports that he will follow-up with his primary care doctor. Acute kidney injury- resolved Rhabdomyolysis- resolved Cr 1.91 (baseline Cr ~0.84) in setting of infection, PO losses, rhabdo CK on admission of 3981, up trended to 6478 and downtrended A flutter- converted to NSR takes metoprolol 100mg BID Anticoagulated on Eliquis Please note the above document was generated using voice recognition software. It may contain grammatical, syntax or spelling errors. Any formal questions or concerns about the content, text or information contained within the body of this dictation should be directly addressed to the provider for clarification Total Time Total Time Spent Total Time Spent (In Minutes): 45 Total Time Includes: Examination of the Patient, Discharge Planning, Medication Reconciliation, Communication With Other Providers and Other Discharge Plan Discharge Items Patient Disposition: Home - Self-Care Reason For Visit: SEVERE SEPSIS, DEZ Discharge Diagnosis: Severe sepsis Abdominal wall cellulitis Left leg cellulitis Acute kidney injury- resolved Rhabdomyolysis- resolved Activity: Resume your previous activity Non-emergency contact: Primary Care Provider Call non-emergency contact if: you have any medication questions and your symptoms worsen Follow-up/Referrals: Tanner Marte MD [Primary Care Provider] - Diet: Regular Addtl Attending Provider Instructions: You were admitted to the hospital due to cellulitis in your left leg. You are treated with antibiotic during the hospitalization. You are prescribed Augmentin and doxycycline to be taken for next 10 days to complete the antibiotic course. Please keep your legs elevated. Restart taking Entresto and spironolactone from Wednesday. Please follow-up with your primary care doctor Pending Studies at Discharge: No Stand-Alone Forms: My [facility] [employer], Smoking Cessation Medications and DC Order Prescriptions: New amoxicillin-pot clavulanate 875-125 mg tablet 1 tab PO BID 10 Days Qty: 20 0RF doxycycline hyclate 100 mg capsule 100 mg PO BID 10 Days Qty: 20 0RF Continued metoprolol succinate 25 mg capsule,sprinkle,ER 24hr 25 mg PO QAM fenofibrate nanocrystallized 145 mg tablet 145 mg PO QAM citalopram [Celexa] 20 mg tablet 20 mg PO QAM atorvastatin [Lipitor] 40 mg tablet 40 mg PO HS nitroglycerin 0.4 mg tablet, sublingual 0.4 mg SL .COMPLEX Patient Comments: 0.4 mg SL VERY 5 MINUTES FOR UP TO 3 DOSES PRN FOR CHEST PAIN. CALL 911 IF PAIN PERSISTS; Rx Instructions: 0.4 mg SL VERY 5 MINUTES FOR UP TO 3 DOSES PRN FOR CHEST PAIN. CALL 911 IF PAIN PERSISTS; aspirin [Adult Low Dose Aspirin] 81 mg tablet,delayed release (DR/EC) 81 mg PO QAM iron,carbonyl-vitamin C 100-250 mg tablet 1 tab PO QAM multivitamin tablet 1 tab PO QAM insulin lispro [Humalog KwikPen Insulin] 100 unit/mL insulin pen See Rx Instructions SQ TID Patient Comments: Sliding Scale SQ TID with meals up to 100 units daily Rx Instructions: Sliding Scale SQ TID with meals up to 100 units daily (40/40/45) Levemir U-100 Insulin 100 unit/mL solution 100 unit SQ HS furosemide [Lasix] 40 mg tablet 40 mg PO QAM Qty: 30 0RF metoprolol succinate 100 mg tablet extended release 24 hr 100 mg PO BID metformin 1,000 mg tablet 1,000 mg PO BID Eliquis 5 mg tablet 5 mg PO BID dapagliflozin propanediol 10 mg Tablet 10 mg PO DAILY Ozempic 2 mg/dose (8 mg/3 mL) Pen Injector 2 mg SUBCUT WK Rx Instructions: wednesday Held spironolactone 25 mg tablet 25 mg PO DAILY Hold Instructions: Resume on 11/20/24. sacubitril-valsartan [Entresto] 24-26 mg tablet 1 tab PO BID Hold Instructions: Resume on 11/20/24. Discharge Orders: Discharge Order (Routine); Ordered 11/14/24 Ordered By: Michael aPrnell Admission Data Admit Date/Time: 11/09/24 16:33 Attending Provider: Michael Parnell Admit Provider: Nely Leon I. Primary Care Provider: Tanner Marte Other Providers: Nely Leon I.; Robert Flowers; Nathaniel Diamond; [facility]
[2024-11-14 14:49] VITALS: PULSE 80
[2024-11-14] MEDS ORDERED: VANCOMYCIN HCL 1,000 MG/270 ML BAG IV SCH (18:00)
[2024-11-15] MEDS ORDERED: VANCOMYCIN LEVEL ONE (05:00)
[2024-11-16] MEDS ORDERED: VANCOMYCIN LEVEL ONE (05:30)
--- NOTE | 2024-11-21 07:17 | Coding Query ---
To promote full compliance with coding requirements relating to patient care, provider participation is requested in all cases of [employer] manager uncertainty. Please assist us with the question(s) below: Coding Question(s): The diagnosis(es) below were documented in the 11/10 Nephrology Consultation, and/or the 11/12 and 11/13 Cardiology Progress Notes, then subsequently fell off all further documentation. Please indicate if it is still a possible diagnosis or ruled out. Physician's Response(s): ACUTE KIDNEY INJURY DUE TO ATN IN THE SETTING OF SEPSIS (regarding the ATN specificity documented on the 11/10 Nephrology Consultation): ( X ) Diagnosed and POA ( ) Diagnosed and not POA ( ) Ruled out ( ) Other (please specify) NSTEMI - (documented on the 11/12 and 11/13 Cardiology Progress Notes, "Medical management of NSTEMI, stable echocardiogram, likely type II event in the setting of severe sepsis"): ( X ) Diagnosed and POA ( ) Diagnosed and not POA ( ) Ruled out ( ) Other (please specify) MTDD
== END 2024-11-14 15:12 | disposition home health service (06) | DRG 871 ==
LOC: ED 09:36 → SUATTDRO 16:33 → 2S 16:33